=== PATIENT | female | born 1945 | race Caucasian/White ===

== ENCOUNTER 2024-04-28 16:16 | Outpatient (CLI) | payer MEDICARE, SELFPAY ==
--- NOTE | ~2024-04-28 | XR_ITS ---
XR cervical spine min 6V Ordering provider: Cyndee Garcia History: . osteopenia, tremor . Comparison: None. FINDINGS: VERTEBRAL BODIES: Normal height and alignment. No visible fracture or subluxation. The dens is intact . Postoperative changes seen anteriorly and posteriorly from C3 to C6.. DISK SPACES: Multilevel degenerative disc disease. Multilevel uncovertebral joint osteoarthritic richards ges. PARASPINOUS SOFT TISSUES: No prevertebral soft tissue swelling. IMPRESSION: No acute osseous abnormality cervical spine. Postoperative changes. Reviewed, dictated and finalized at location [facility]
== END 2024-04-28 16:17 | disposition home or self-care (01) ==
LOC: MICIMG 16:22
PROVIDERS: PCP Internal Medicine
DX: M35.09 Sjogren syndrome with other organ involvement (principal); M85.80 Other specified disorders of bone density and structure, unspecified site; R25.1 Tremor, unspecified; M35.2 Behcet's disease; Z98.890 Other specified postprocedural states
CPT/HCPCS: 72052

== ENCOUNTER 2024-06-24 11:56 | Emergency (ER) | payer MEDICARE, SELFPAY ==
--- NOTE | ~2024-06-24 | XR_ITS ---
XR chest 2V Ordering provider: Juan Antonio Gutierrez History: 78 years Female with . CP . Comparison: September 18, 2016 FINDINGS: MEDIASTINUM: The cardiac silhouette is not enlarged. LUNGS: No infiltrates, effusions or pneumothorax. Emphysematous changes of the lungs. OTHER: No free air under the diaphragm. Degenerative changes of the spine. IMPRESSION: No acute cardiopulmonary pathology. Reviewed, dictated and finalized at location A. [employer]
--- NOTE | 2024-06-24 11:58 | ECG_ITS ---
Test Date: 2024-06-24 12:08:15 Measurements Intervals [place] Rate: 76 P: 75 VA: 167 QRS: 42 QRSD: 85 T: 62 QT: 434 QTc: 488 Interpretive Statements SINUS RHYTHM NONSPECIFIC T-WAVE ABNORMALITY No previous ECG available for comparison Electronically Signed On 06-24-2024 15:49:49 PALS NURSE by Darin Singh M.D.
[2024-06-24 12:01] VITALS: PULSE 88; RESP 20; TEMP 36.7; O2SAT 99
[2024-06-24 12:21] VITALS: BP 122/71; PULSE 73; RESP 20; O2SAT 100
[2024-06-24 12:24] LABS: Eosinophils Absolute Auto 0.4 K/mm3 (0-0.3); Hematocrit 32.1 % (37.0-47.0); Hemoglobin 10.3 g/dL (12.0-15.0); Immature Granulocyte Absolute 0.01 K/mm3 (0.00-0.031); Immature Granulocyte Percent A 0.3 % (0-0.5); Lymphocytes Absolute Auto 1.24 K/mm3 (0.9-3.2); Lymphocytes Percent Auto 31.1 % (18.3-44.2); Mean Corpuscular HGB Conc 32.1 g/dl (32-36); Mean Corpuscular Hemoglobin 31.1 pg (26-34); Mean Platelet Volume 9.6 fl (7.4-10.4); Monocytes Absolute Auto 0.5 K/mm3 (0.1-0.6); Monocytes Percent Auto 11.8 % (2.6-8.5); Neutrophils Absolute Auto 1.8 K/mm3 (1.3-6.7); Neutrophils Percent Auto 45.8 % (45.5-73.1); Platelet Count Result 210 k/mm3 (150-375); Red Blood Count 3.31 M/mm3 (4.2-5.4); Red Cell Distribution Width 15.1 % (11.5-14.5)
[2024-06-24 12:37] LABS: Prothrombin Time 13.3 Seconds (11.1-14.7)
[2024-06-24 12:38] LABS: Alanine Aminotransferase 19 U/L (6-35); Albumin Level 3.6 g/dL (3.5-5.1); Alkaline Phosphatase 61 U/L (38-126); Anion Gap 9 mmol/L (4-12); Aspartate Amino Transferase 34 U/L (14-36); Bilirubin,Total 0.4 mg/dL (0.2-1.3); Blood Urea Nitrogen 8 mg/dL (7-17); Calcium 8.4 mg/dL (8.4-10.2); Carbon Dioxide 26 mmol/L (22-30); Chloride 107 mmol/L (98-107); Estimated CRCL calculation 37 ml/min; Estimated Glomerular Filt Rate > 60; Glucose 88 mg/dL (65-110); Lipase 43 U/L (23-300); Partial Thromboplastin Time 26.5 Seconds (22.3-36.8); Sodium 142 mmol/L (137-145)
[2024-06-24 12:49] LABS: Troponin I < 0.012 ng/mL (0.000-0.034)
--- OUTSIDE RECORDS SUMMARY | 2024-06-24 13:27 | XMS_ITS | Referral Summary ---
Author Organization [facility] Address [address] [place] [address] Care Team Providers Care Manager Employee Benefits Name Role Phone Sumit Cool MD Primary Care Provider [phone] Jared Cruz MD Unavailable Unavailable Dk Adams MD Unavailable Source Comments [facility],non-owned Affiliates and Associated Physician Practices is amultiple site organization consisting of ambulatory clinics and hospital sitesin [place], [place], [place] and [place]. This disclosure is being madepursuant to the Care Everywhere program and may not contain all information available regarding this patient. Last updated 18.[facility] [employer] Allergies No known active allergies Medications * Be aware that medications may not be up to date on this document. Alwaysverify current medications with the patient. Medication Sig Dispensed Refills Start Date End Date Status atorvastatin (LIPITOR) 20 MG tablet 05/25/2018 Active FLUoxetine (PROZAC) 40 MG capsule 05/25/2018 Active gabapentin (NEURONTIN) 300 MG capsule 05/25/2018 Active hydroxychloroquine (PLAQUENIL) 200 MG tablet 05/25/2018 Active levothyroxine (SYNTHROID) 100 MCG tablet 05/25/2018 Active pantoprazole EC (PROTONIX) 40 MG tablet 05/25/2018 Active PROAIR HFA 108 (90 BASE) MCG/ACT inhaler 04/24/2018 Active tiZANidine (ZANAFLEX) 4 MG tablet 05/25/2018 Active ALPRAZolam (XANAX) 0.25 MG tablet 03/16/2018 Active Xylitol (XYLIMELTS) 500 MG Active aspirin (ASPIRIN) 81 MG tablet Take 162 mg by mouth 2 times daily Active Melatonin 5 MG Take 10 mg by mouth at bedtime Active Polyethylene Glycol 3350 (MIRALAX PO) Active carboxymethylcellu lose sodium (REFRESH TEARS) 0.5 % ophthalmic solution 1 drop 3 times daily Acti ve colchicine 0.6 MG tablet 10/17/2020 Active lidocaine viscous (XYLOCAINE) 2 % viscous solution Lidocaine Viscous 2 % mucosal solution SWISH AND SPIT 15ML BY MOUTH EVERY 4 6 HOURS NEEDED FOR PAIN Active orphenadrine citrate CR 12hr (NORFLEX) 100 MG tablet orphenadrine citrate ER 100 mg tablet,extended release Take 1 tablet 4 times a day by oral route. Active budesonide-formote rol (SYMBICORT) 160-4.5 MCG/ACT inhaler Inhale 2 (two) puffs by mouth 2 times daily 3 Inhaler 3 10/28/2020 Active Active Problems Problem Noted Date Diagnosed Date Pulmonary embolism 10/27/2020 Mild persistent asthma without complication 08/20 Immunizations Name Administration Dates Next Due INFLUENZA VACCINE, TRIV. (AF LURIA, FLUZONE TRIVALENT; 6MO+) (IIV3) 03/12/2014,02/27/2013 FLU VACCINE QUAD IIV4 SPLIT 0.25 ML IM 5 INFLUENZA VACCINE, HIGH-DOSE , QUADR. (FLUZONE HIGH-DOSE QUADRIVALENT; 65Y+), 0.7 ML (HD-IIV4) 04/28/2019,02/14/2018,01/29/2017 PNEUMOCOCCAL PPSV23 01/29/2017 Pneumococcal Pcv13 Conj 09/17/2014 Social History Tobacco Use Types Packs/Day Years Used Date Smoking Tobacco: Never Smokeless Tobacco: Never Alcohol Use Standard Drinks/Week Comments Yes 0 (1 standard drink = 0.6 oz pur e alcohol) occasionally Sex and Gender Information Value Date Recorded Sex Assigned at Not on file Gender Identity Not on file Sexual Orientation Not on file Last Filed Vital Signs Vital Sign Reading Time Taken Comments Blood Pressure 118/70 10/27/2020 1:28 PM CDT Pulse 71 10/27/2020 1:28 PM CDT Temperature 36.4 C (97.5 F) 10/27/2020 1:28 PM CDT Respiratory Rate 20 10/27/2020 1:28 PM CDT Oxygen Saturation 97% 10/27/2020 1:28 PM CDT Inhaled Oxygen Concentration 21% 08/27/2018 2 :43 PM CDT Weight 57.2 kg (126 lb) 10/27/2020 1:28 PM CDT Height 154.9 cm (5' 1 ) 10/27/2020 1:28 PM CDT Body Mass Index 23.81 10/27/2020 1:28 PM CDT Plan of Treatment Not on file Procedures Procedure Name Priority Date/Time Associated Diagnosis Comments DEXA BONE DENSITY AXIAL SKELETON Routine 08/28/2021 12:06 PM CDT Sjogren syndrome with other organ involvement (HCC) Osteopenia, unspecified location Cervical fusion syndrome Oral candidiasis from Last 3 Months or Most Recently Relevant to Health Maintenance Results * DEXA BONE DENSITY AXIAL SKELETON (08/28/2021 12:06 PM CDT) Anatomical Region Laterality Modality Mammography 08/28/2021 12:2 6 PM CDT Narrative 08/28/2021 12:30 PM CDT Bone density study (DEXA): HISTORY: Screening COMPARISON: _June 29, 2019_ LUMBAR SPINE (L1-L4): Bone mineral density (g/cm2): 1.004 Current T-score: -1.5 Prior T-score: -2.2 There is been a 9.8% increase in bone mineral density when compared to the prior study. HIPS: Bone mineral density (g/cm2): 0.748 Current T-score: -2.1 Prior T-score: -1.6 _There is been a 6.8% decrease in bone mineral density when compared to the prior study. Outlying low bone mineral density value in the right hip total is 0.702 gm/cm2. T-score is -2.4 ASSESSMENT: Osteopenia. Please see the PACS images for additional details. World Health Organization definitions of standard deviations relative to the mean T-score: Normal bone density = -1.0 and above Mild osteopenia = -1.0 to -1.5 Moderate osteopenia = -1.5 to -2.0 Severe osteopenia = -2.0 to -2.5 Osteoporosis = -2.5 and below *Reading Radiologist: Sahil Peralta on 08/28/2021 at 12:30 PM Procedure Note Sahil Peralta DO - 08/28/2021 Bone density study (DEXA): HISTORY: Screening COMPARISON: _June 29, 2019_ LUMBAR SPINE (L1-L4): Bone mineral density (g/cm2): 1.004 Current T-score: -1.5 Prior T-score: -2.2 There is been a 9.8% increase in bone mineral density when compared to the prior study. HIPS: Bone mineral density (g/cm2): 0.748 Current T-score: -2.1 Prior T-score: -1.6 _There is been a 6.8% decrease in bone mineral density when compared to the prior study. Outlying low bone mineral density value in the right hip total is 0.702 gm/cm2. T-score is -2.4 ASSESSMENT: Osteopenia. Please see the PACS images for additional details. World Health Organization definitions of standard deviations relative to the mean T-score: Normal bone density = -1.0 and above Mild osteopenia = -1.0 to -1.5 Moderate osteopenia = -1.5 to -2.0 Severe osteopenia = -2.0 to -2.5 Osteoporosis = -2.5 and below *Reading Radiologist: Sahil Peralta on 08/28/2021 at 12:30 PM Jared Cruz MD DEXA ORDERABLES from Last 3 Months or Most Recently Relevant to Health Maintenance Care Teams Manager Employee Benefits Relationship Specialty Start Date End Date Sumit Cool MD [address] [place] [address] [address] [place] [address] PCP - General Internal Medicine 05/03/17 Jared Cruz MD [address] [place] [address] [address] [place] [address] Rheumatology 06/02/18 [place] [id number] [address] Pulmonary Disease 06/02/18
--- OUTSIDE RECORDS SUMMARY | 2024-06-24 13:27 | XMS_ITS ---
Author Organization [facility] Address [address] [place] [address] Care Team Providers Care Valve Lapper Name Role Phone Kb Mobley Unavailable [phone] zzzzMigration, zzzzProvider Unavailable Unav ailable REASON FOR VISIT EMR-Matthew Encounters Encounter Location Date Provider Diagnosis [facility] [address] [place] [address] 02/09/2023 zzzzProvider zzzzMigration Plan Of Treatment Medication Medication Name Sig Start Date Stop Date Notes Fosamax 70 MG q week Oral 09/25/2004 Salagen 5 MG 1 Three Times A Day, As Needed Oral 5 Progress Notes * Génesis CONDON LDOB: [birth year] (78 yo F)Acc No.[id number]:02/09/2023 Patient: Verito Génesis SEVILLA :1945 A ge:77 Y S ex:Female Address:[address] [place] [address], [address] * Refills Stop Fosamax Tablet, 70 MG, Oral, 1.00, q week Stop Salagen Tablet, 5 MG, Oral, 90.00, 1 Three Times A Day, As Needed Subjective: * Chief Complaints: * E MR-Matthew * Medical History: * Surgical History: * Hospitalization/Major Diagno stic Procedure: * Medications: Objective: * Vitals: * Physical Examination: Assessment: Plan: * Treatment: * Procedure Codes: * * Date:
--- OUTSIDE RECORDS SUMMARY | 2024-06-24 13:27 | XMS_ITS | Clinical Summary ---
Author Organization [facility] [employer] Address [address] [place] [address] Care Team Providers Care National Coverage Specialist Name Role Phone Sumit Cool MD Primary Care Provider [phone] Jared Cruz MD Unavailable Unavailable Dk Adams MD Unavailable Source Comments [facility],non-owned Affiliates and Associated Physician Practices is amultiple site organization consisting of ambulatory clinics and hospital sitesin [place], [place], [place] and [place]. This disclosure is being madepursuant to the Care Everywhere program and may not contain all information available regarding this patient. Last updated 18.[facility] Allergies No known active allergies Medications * [...] 10/27/2020 1:28 PM CDT Plan of Treatment Health Maintenance Due Date Last Done Comments HEPATITIS C SCREENING 10/19/1965 DTAP/TDAP/TD VACCINES (1 - Tdap) 10/23/1966 ZOSTER VACCINE (1 of 2) 10/23/1997 Respiratory Syncytial Virus (RSV) Vaccine Pt: or over 60 yrs (1 - 1-dose 75+ series) 10/23/2022 COVID-19 VACCINE ( - season) 2023 08/07/2021, 01/19/2021 INFLUENZA VACCINE (#1) 2023 , 04/28/2019, 02/14/2018, Additional history exists DEPRESSION SCREENING 04/22/2024 MEDICARE AWV CALENDAR YEAR 2024 PNEUMOCOCCAL VACCINE 50+ Completed 01/29/2017, 08/21 BONE DENSITY TESTING Completed 08/28/2021, 06/29/2019, 05/03/2017 HEPATITIS B VACCINE Aged Out No longe r eligible based on patient's age to complete this topic HIB VACCINE Aged Out No longer eligi ble based on patient's age to complete this topic HPV VACCINE Aged Out No longer eligi ble based on patient's age to complete this topic MENINGOCOCCAL (Group B) VACCINE Aged Out No longer eligible based on patient's age to complete this topic MENINGOCOCCAL VACCINE Aged Out No aleja yu eligible based on patient's age to complete this topic Procedures Procedure Name Priority Date/Time Associated Diagnosis [...] Recently Relevant to Health Maintenance Care Teams National Coverage Specialist Relationship Specialty Start Date End Date Sumit Cool MD [address] [place] [phone] PCP - General Internal Medicine 05/03/17 Jared Cruz MD [address] [place] [phone] Rheumatology 06/02/18 [place] [id number] [address] Pulmonary Disease 06/02/18
--- OUTSIDE RECORDS SUMMARY | 2024-06-24 13:28 | XMS_ITS | Encounter Summary ---
Author Organization [facility] Address [address] [place] [address] Care Team Providers Care Mortgage Or Loan Underwriter Name Role Phone Unavailable Primary Care Provider Unavailabl e Encounter Details Date Type Department Care Team (Late st Contact Info) Description 06/23/2024 External Device Data [facility] ABSTRACTION Provider, Abstract NO ADDRESS ON FILE Social History Tobacco Use Types Packs/Day Years Used Date Smoking Tobacco: Never Smokeless Tobacco: Never Alcohol Use Standard Drinks/Week Comments Yes 0 (1 standard drink = 0.6 oz pure alcohol) I drink wine coolers and flavored beer 3-4 times a week. Comments Unknown Sex and Gender Information Value Date Recorded Sex Assigned at Female 04/27/2024 12:34 PM INTEGRATED CIRCUITS INSPECTOR Legal Sex Female 11:17 AM INTEGRATED CIRCUITS INSPECTOR Gender Identity Female 04/27/2024 12:34 PM INTEGRATED CIRCUITS INSPECTOR Sexual Orientation Straight 04/27/2024 12 :34 PM INTEGRATED CIRCUITS INSPECTOR documented as of this encounter Plan of Treatment Not on file documented as of this encounter Visit Diagnoses Not on filedocumented in this encounter
--- OUTSIDE RECORDS SUMMARY | 2024-06-24 13:28 | XMS_ITS | Patient Health Summary ---
Author Organization [facility] Address [address] [place] [address] Care Team Providers Care Java Web Architect Name Role Phone Sumit Cool MD Primary Care Provider [phone] Jared Cruz MD Unavailable Unavailable Dk Adams MD Unavailable Note from [facility],non-owned Affiliates and Associated Physician Practices is amultiple site organization consisting of ambulatory clinics and hospital sitesin [place], [place], [place] and [place]. This disclosure is being madepursuant to the Care Everywhere program and may not contain all information available regarding this patient. Last updated 18.[facility] Allergies No known active allergies Medications * Be aware that medications may not be up to date on this document. Alwaysverify current medications with the patient. * atorvastatin (LIPITOR) 20 MG tablet(Started 05/25/2018) * FLUoxetine (PROZAC) 40 MG capsule(Started 05/25/2018) * gabapentin (NEURONTIN) 300 MG capsule(Started 05/25/2018) * hydroxychloroquine (PLAQUENIL) 200 MG tablet(Started 05/25/2018) * levothyroxine (SYNTHROID) 100 MCG tablet(Started 05/25/2018) * pantoprazole EC (PROTONIX) 40 MG tablet(Started 05/25/2018) * PROAIR HFA 108 (90 BASE) MCG/ACT inhaler(Started 04/24/2018) * tiZANidine (ZANAFLEX) 4 MG tablet(Started 05/25/2018) * ALPRAZolam (XANAX) 0.25 MG tablet(Started 03/16/2018) * Xylitol (XYLIMELTS) 500 MG * aspirin (ASPIRIN) 81 MG tablet Take 162 mg by mouth 2 times daily * Melatonin 5 MG Take 10 mg by mouth at bedtime * Polyethylene Glycol 3350 (MIRALAX PO) * carboxymethylcellulose sodium (REFRESH TEARS) 0.5 % ophthalmic solution 1 drop 3 times daily * colchicine 0.6 MG tablet(Started 10/17/2020) * lidocaine viscous (XYLOCAINE) 2 % viscous solution Lidocaine Viscous 2 % mucosal solution SWISH AND SPIT 15ML BY MOUTH EVERY 4 6 HOURS NEEDED FOR PAIN * orphenadrine citrate CR 12hr (NORFLEX) 100 MG tablet orphenadrine citrate ER 100 mg tablet,extended release Take 1 tablet 4 times a day by oral route. * budesonide-formoterol (SYMBICORT) 160-4.5 MCG/ACT inhaler(Started 10/28/2020) Inhale 2 (two) puffs by mouth 2 times daily 3 refills by 10/28/2021 Active Problems Problem Noted Date Diagnosed Date Pulmonary embolism 10/27/2020 Mild persistent asthma without complication 08/20 Immunizations * INFLUENZA VACCINE, TRIV. (AFLURIA, FLUZONE TRIVALENT; 6MO+) (IIV3)(Given 03/12/2014, 02/27/2013) * FLU VACCINE QUAD IIV4 SPLIT 0.25 ML IM(Given 03/11/2015) * INFLUENZA VACCINE, HIGH-DOSE, QUADR. (FLUZONE HIGH-DOSE QUADRIVALENT; 65Y+), 0.7 ML (HD-IIV4)(Given 04/28/2019, 02/14/2018, 01/29/2017) * PNEUMOCOCCAL PPSV23(Given 01/29/2017) * Pneumococcal Pcv13 Conj(Given 09/17/2014) Social History Tobacco Use Types Packs/Day Years [...] Mass Index 23.81 10/27/2020 1:28 PM CDT Procedures * DEXA BONE DENSITY AXIAL SKELETON(Performed 08/28/2021) Performed for Sjogren syndrome with other organ involvement (HCC), Osteopenia, unspecified location, Cervical fusion syndrome, Oral candidiasis * DEXA BONE DENSITY AXIAL SKELETON(Performed 06/29/2019) Performed for Sjogren's syndrome with other organ involvement (HCC), Age-related osteoporosis without current pathological fracture * BRONCHIAL CHALLENGE(Performed 09/21/2018) Performed for Exertional dyspnea * COMPLETE PFT W/WO BRONCHODILATOR(Performed 09/21/2018) Performed for Exertional dyspnea * HOME O2 EVAL (DESATURATION SCREEN)(Performed 08/27/2018) Performed for Exertional dyspnea * ECHOCARDIOGRAM 2D WITH DOPPLER(Performed 06/17/2018) Performed for Exertional dyspnea * XR CHEST 2VW(Performed 05/01/2018) Performed for Sjogren's syndrome with other organ involvement (HCC), Age-related osteoporosis without current pathological fracture, Breath shortness * CMGTEST(Performed 05/01/2018) * DEXA BONE DENSITY AXIAL SKELETON(Performed 05/03/2017) Performed for Age-related osteoporosis without current pathological fracture Results * DEXA BONE DENSITY AXIAL SKELETON (08/28/2021 12:06 PM CDT) Only the most recent of3 resultswithin the time period is included. Anatomical Region Laterality Modality Mammography 08/28/2021 12:2 [...] 12:30 PM Jared Cruz MD DEXA ORDERABLES * BRONCHIAL CHALLENGE WITH METHACHOLINE (09/21/2018 2:10 AM CDT) Narrative Procedure Note Dk Adams MD - 08/27/2018 1:08 PM CDT [facility] PULMONARY FUNCTION TEST REPORT PATIENT: GÉNESIS CONDON MR#: [id number] ADMIT DATE: 08/27/2018 CSN: [id number] DATE OF PROCEDURE: :1945 PHYSICIAN: Dk Adams MD REFERRING PHYSICIAN: Dk Adams MD REPORT: Forced vital capacity at baseline was 2.69 L and 102% ofpredicted. FEV1 at baseline was 2.10 L and 106% of predicted. The patient wasstarted on escalating dose of Provocholine. After dose of 0.74 mg/dL, she achieved acut off of 20% decrease in FEV1. At a dose of 2.5 mg/dL, FVC was reduced by23% and FEV1 was reduced by 29%. Upon application of the bronchodilator,the values are back to within normal range. INTERPRETATION: This methacholine challenge test is positive suggestiveof asthma. Please correlate clinically. MD Scooter AU/MODL #:[id number] Dk Adams MD PFT ORDERABLES [facility] * COMPLETE PFT W/WO BRONCHODILATOR (09/21/2018 2:10 AM CDT) Narrative Procedure Note Dk Adams MD - 08/27/2018 1:07 PM CDT [facility] PULMONARY FUNCTION TEST REPORT PATIENT: GÉNESIS CONDON MR#: [id number] ADMIT DATE: 08/27/2018 CSN: [id number] DATE OF PROCEDURE: :1945 PHYSICIAN: Dk Adams MD REFERRING PHYSICIAN: Dk Adams MD REPORT: Forced vital capacity is normal, which is 2.69 L and 102% of predicted. FEV1 was normal as well, which is 2.10 L and 106% ofpredicted. The ratio of FEV1/FVC was normal, which is 78% of predicted. Flow in themid expiratory range was normal, which is 101% of predicted. Bronchodilatorand bronchodilator response were not checked. Vital capacity was mildlyhigher compared to expected, which was 2.69 L and 107% of predicted. Totallung capacity was higher than expected, which was 5.05 L and 120% ofpredicted. There was evidence of air entrapment with RV being 140% of predicted.DLCO was mildly reduced, which was 79% of predicted. When it was adjustedfor alveolar volume, it became 103% of predicted. Upon inspection of theflow volume curve, there is mild scooping of the expiratory limb, suggestiveof mild obstructive pattern. 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 No evidence ofrestrictive lung disease. Please correlate clinically. MD Scooter AU/MODL #:[id number] kD Adams MD RESPIRATORY THERAPY ORDERABLES [facility] * ECHOCARDIOGRAM 2D WITH DOPPLER (06/17/2018 10:51 AM MANAGING COGNITIVE ENGINEER) 06/17/2018 10:5 1 AM MANAGING COGNITIVE ENGINEER Narrative [facility] - 06/23/2018 8:29 AM [facility] [address] [facility] [address] [place] [address] Transthoracic Echocardiogram 2D, M-mode, Doppler, and Color Doppler Patient: GÉNESIS CONDON MR number: [id number] Height: 61 in Weight: 141.7 lb BSA: 1.63 m Study date: 17-Jun-2018 : 1945 Age: 72 years Gender: Female Race: Diagnoses: R06.09 - Other forms of dyspnea Reading Physician: Kacie Lepe MD Referring Physician: Angie Root MD ASSISTANT PRESSMAN: SOL [facility]: [facility] Summary: - History: - Sjogren Syndrome/ Hypertension/ Hyperlipidemia/ PAF/ Pulmonary embolism - Left ventricle: - Systolic function was normal. Ejection fraction was estimated in the range of 55 % to 65 %. - There were no regional wall motion abnormalities. - Wall thickness was normal. - Doppler parameters were consistent with abnormal left ventricular relaxation (grade 1 diastolic dysfunction). - Mitral valve: - There was mild regurgitation. Indications: Evaluate dyspnea. History: Prior history: Sjogren Syndrome/ Hypertension/ Hyperlipidemia/ PAF/ Pulmonary embolism Procedure: The study was performed in the [facility]. This was a routine study. The transthoracic approach was used. The study included complete 2D imaging, M-mode, complete spectral Doppler, and color Doppler. Systolic blood pressure was 119 mmHg. Diastolic blood pressure was 71 mmHg. Image quality was adequate. Left ventricle: Size was normal. Systolic function was normal. Ejection fraction was estimated in the range of 55 % to 65 %. There were no regional wall motion abnormalities. Wall thickness was normal. Doppler: Doppler parameters were consistent with abnormal left ventricular relaxation (grade 1 diastolic dysfunction). Aortic valve: demonstrated normal excursion. Mitral valve: There was normal leaflet separation. Doppler: There was mild regurgitation. Left atrium: Size was normal. Right ventricle: The size was normal. Pulmonic valve: Doppler: There was no significant regurgitation. Tricuspid valve: There was normal leaflet separation. Doppler: There was trivial regurgitation. Right atrium: Size was normal. Pericardium: There was no pericardial effusion. The pericardium was normal in appearance. System measurement tables 2D LVOT Diam: 2.2 cm IVSd: 0.9 cm LVEDV MOD A4C: 76.3 ml LVESV MOD A4C: 26.5 ml LVIDd: 3.5 cm LVIDs: 2.5 cm LVPWd: 0.9 cm CW PV Vmax: 0.8 m/s AV Vmax: 1.3 m/s AV maxP.7 mmHg AV meanP.8 mmHg MR VTI: 148.3 cm MR Vmax: 5.2 m/s PV maxP.6 mmHg TR Vmax: 2.3 m/s TR maxP.8 mmHg MM LA Diam: 1.9 cm Ao Diam: 3.2 cm PW LVOT Vmax: 0.9 m/s HOOD (VTI): 2.6 cm2 HOOD Vmax: 2.4 cm2 E' Av.1 m/s E' Lat: 0.1 m/s E' Sept: 0.1 m/s E/E' Av.8 E/E' Lat: 6.3 E/E' Sept: 10.2 MV A Cosme: 0.9 m/s MV Dec Jewell: 3.3 m/s2 MV E Cosme: 0.7 m/s MV E/A Ratio: 0.7 Prepared and signed by Kacie Lepe MD Signed 23-Jun-2018 08:29:32 Procedure Note Unknown, Provider, - 06/23/2018 [facility] [address] [place] [address] Transthoracic Echocardiogram 2D, M-mode, Doppler, and Color Doppler Patient: GÉNESIS CONDON MR number: [id number] Height: 61 in Weight: 141.7 lb BSA: 1.63 m Study date: 17-Jun-2018 : 1945 Age: 72 years Gender: Female Race: Diagnoses: R06.09 - Other forms of dyspnea Reading Physician: Kacie Lepe MD Referring Physician: Angie Root MD ASSISTANT PRESSMAN: SOL [facility]: [facility] Summary: - History: - Sjogren Syndrome/ Hypertension/ Hyperlipidemia/ PAF/ Pulmonary embolism - Left ventricle: - Systolic function was normal. Ejection fraction was estimated in the range of 55 % to 65 %. - There were no regional wall motion abnormalities. - Wall thickness was normal. - Doppler parameters were consistent with abnormal left ventricular relaxation (grade 1 diastolic dysfunction). - Mitral valve: - There was mild regurgitation. Indications: Evaluate dyspnea. History: Prior history: Sjogren Syndrome/ Hypertension/ Hyperlipidemia/ PAF/ Pulmonary embolism Procedure: The study was performed in the [facility]. This was a routine study. The transthoracic approach was used. The study included complete 2D imaging, M-mode, complete spectral Doppler, and color Doppler. Systolic blood pressure was 119 mmHg. Diastolic blood pressure was 71 mmHg. Image quality was adequate. Left ventricle: Size was normal. Systolic function was normal. Ejection fraction was estimated in the range of 55 % to 65 %. There were no regional wall motion abnormalities. Wall thickness was normal. Doppler: Doppler parameters were consistent with abnormal left ventricular relaxation (grade 1 diastolic dysfunction). Aortic valve: demonstrated normal excursion. Mitral valve: There was normal leaflet separation. Doppler: There was mild regurgitation. Left atrium: Size was normal. Right ventricle: The size was normal. Pulmonic valve: Doppler: There was no significant regurgitation. Tricuspid valve: There was normal leaflet separation. Doppler: There was trivial regurgitation. Right atrium: Size was normal. Pericardium: There was no pericardial effusion. The pericardium was normal in appearance. System measurement tables 2D LVOT Diam: 2.2 cm IVSd: 0.9 cm LVEDV MOD A4C: 76.3 ml LVESV MOD A4C: 26.5 ml LVIDd: 3.5 cm LVIDs: 2.5 cm LVPWd: 0.9 cm CW PV Vmax: 0.8 m/s AV Vmax: 1.3 m/s AV maxP.7 mmHg AV meanP.8 mmHg MR VTI: 148.3 cm MR Vmax: 5.2 m/s PV maxP.6 mmHg TR Vmax: 2.3 m/s TR maxP.8 mmHg MM LA Diam: 1.9 cm Ao Diam: 3.2 cm PW LVOT Vmax: 0.9 m/s HOOD (VTI): 2.6 cm2 HOOD Vmax: 2.4 cm2 E' Av.1 m/s E' Lat: 0.1 m/s E' Sept: 0.1 m/s E/E' Av.8 E/E' Lat: 6.3 E/E' Sept: 10.2 MV A Cosme: 0.9 m/s MV Dec Jewell: 3.3 m/s2 MV E Cosme: 0.7 m/s MV E/A Ratio: 0.7 Prepared and signed by Kacie Lepe MD Signed 23-Jun-2018 08:29:32 Dk Adams MD ECHO ORDERABLES [facility] * XR CHEST 2VW (05/01/2018 1:25 PM MANAGING COGNITIVE ENGINEER) Anatomical Region Laterality Modality Chest Radiographic Hilaria ging 05/01/2018 2:22 PM MANAGING COGNITIVE ENGINEER Narrative 05/01/2018 2:22 PM MANAGING COGNITIVE ENGINEER PA + Lateral Chest INDICATION: Sicca syndrome with other organ involvement, shortness of breath COMPARISON: none available FINDINGS: There is no focal infiltrate or consolidation. There is no pleural effusion or pneumothorax. A mass is not detected. The heart size is normal. There is hyperexpansion with prominence of interstitial pattern suggesting background COPD. Reading Radiologist: Juan Luis Brand MD on 05/01/2018 at 2:22 PM Procedure Note Juan Luis Brand MD - 05/01/2018 PA + Lateral Chest INDICATION: Sicca syndrome with other organ involvement, shortness of breath COMPARISON: none available FINDINGS: There is no focal infiltrate or consolidation. There is no pleural effusion or pneumothorax. A mass is not detected. The heart size is normal. There is hyperexpansion with prominence of interstitial pattern suggesting background COPD. Reading Radiologist: Juan Luis Brand MD on 05/01/2018 at 2:22 PM Jared Cruz MD DIAGNOSTIC IMAGING O RDERABLES * XR CHEST PA & LAT (05/01/2018) Anatomical Region Laterality Modality Other Jared Cruz MD DIAGNOSTIC IMAGING O RDERABLES Care Teams Java Web Architect Relationship Specialty Start Date End Date Sumit Cool MD [address] [place] [address] [address] [place] [id number] PCP - General Internal Medicine 05/03/17 Jared Cruz MD [facility] [place] [address] Rheumatology 06/02/18 [place] [id number] [address] Pulmonary Disease 06/02/18
--- OUTSIDE RECORDS SUMMARY | 2024-06-24 13:28 | XMS_ITS | Clinical Summary ---
Author Organization [facility] Address [address] [place] [address] Phone Care Team Providers Care Sales Assistant Institutional Sales Name Role Phone Unavailable Primary Care Provider Unavailabl e Allergies No known active allergies Medications alendronate (FOSAMAX) 70 mg tablet 04/28/2024 Active ALPRAZolam (XANAX) 0.25 mg tablet Take 1 Tablet by mouth 3 times daily. 02/19/2024 Active atorvastatin (LIPITOR) 20 mg tablet take 1 tablet once daily Active colchicine (COLCRYS) 0.6 mg tablet TAKE 3 TABLETS DAILY FOR BETTER BECHET'S CONTROL 04/08/2024 Active dexAMETHasone (DECADRON) 0.5 mg/5 mL Solution TAKE 5 ML BY MOUTH 2 TO 3 TIMES DAILY AND STOP WHEN ORAL ULCERS HAVE IMPROVED 03/11/2024 Active hydroxychloroqu ine (PLAQUENIL) 200 mg tablet Take 400 mg by mouth daily. Active levothyroxine 100 mcg tablet Take 100 mcg by mouth daily. Active diclofenac-met salicyl-menthoL 1-30-10 % Combo Pack, Cream & Gel Apply to affected area. Active FLUoxetine (PROzac) 40 mg capsule Take 40 mg by mouth daily. Active Active Problems No known active problems Encounters Date Type Department Care Team Description 06/23/2024 External Device Data [facility] ABSTRACTION Provider, Abstract 06/09/2024 External Device Data [facility] ABSTRACTION Provider, Abstract 05/28/2024 Results Follow-Up [facility] [address] [address] [place] [address] Amilcar Venegas NP MRI CERVICAL WO CONTRAST 05/27/2024 9:48 AM PUBLIC ADDRESS TECHNICIAN - 05/27/2024 11:59 PM PUBLIC ADDRESS TECHNICIAN Hospital Encounter [facility] [place] [facility] [place] [address] Amilcar Venegas NP Discharge Disposition: Home or Self Care 05/14/2024 External Device Data [facility] ABSTRACTION Provider, Abstract 05/12/2024 External Device Data [facility] ABSTRACTION Provider, Abstract 05/12/2024 External Device Data [facility] ABSTRACTION Provider, Abstract 05/05/2024 2:00 PM PUBLIC ADDRESS TECHNICIAN Office Visit [facility] [address] [facility] [address] [place] [address] Amilcar Venegas NP Cervical radiculopathy (Primary Dx); Abnormal posture from Last 3 Months Family History Medical History Relation Name Comments Diabetes Daughter 1 Elsie Whittleman Mental illness Daughter 2 Cathie Condon Migraines Daughter 2 Cathie Condon Mental illness Daughter 4 Cathie Condon Migraines Daughter 4 Cathie Condon Diabetes Mother Ines Swenson Relation Name Status Comments Daughter 1 Elsie Whittleman Daughter 2 Cathie Condon Daughter 3 Elsie Whittleman Daughter 4 Cathie Condon Father Mother Ines Swenson Social History Tobacco Use Types Packs/Day Years Used Date Smoking Tobacco: Never Smokeless Tobacco: Never Alcohol Use Standard Drinks/Week Comments Yes 0 (1 standard drink = 0.6 oz pure alcohol) I drink wine coolers and flavored beer 3-4 times a week. Comments Unknown Sex and Gender Information Value Date Recorded Sex Assigned at Female 04/27/2024 12:34 PM PUBLIC ADDRESS TECHNICIAN Legal Sex Female 11:17 AM PUBLIC ADDRESS TECHNICIAN Gender Identity Female 04/27/2024 12:34 PM PUBLIC ADDRESS TECHNICIAN Sexual Orientation Straight 04/27/2024 12 :34 PM PUBLIC ADDRESS TECHNICIAN Last Filed Vital Signs Vital Sign Reading Time Taken Comments Blood Pressure 112/74 05/05/2024 1:48 PM PUBLIC ADDRESS TECHNICIAN Pulse - - Temperature 36.6 C (97.9 F) 05/05/2024 1:48 PM PUBLIC ADDRESS TECHNICIAN Respiratory Rate 16 05/05/2024 1:48 PM PUBLIC ADDRESS TECHNICIAN Oxygen Saturation - - Inhaled Oxygen Concentration - - Weight 50.8 kg (112 lb 1.6 oz) 05/05/2024 1:48 P M PUBLIC ADDRESS TECHNICIAN Height 154.9 cm (5' 1 ) 05/05/2024 1:48 PM PUBLIC ADDRESS TECHNICIAN Body Mass Index 21.18 05/05/2024 1:48 PM PUBLIC ADDRESS TECHNICIAN Plan of Treatment Health Maintenance Due Date Last Done Comments DTAP/TDAP/TD VACCINES (1 - Tdap) 10/23/1966 ZOSTER VACCINE (1 of 2) 10/23/1966 RSV VACCINE (60+ or ) (1 - 1-dose 75+ series) 10/23/2022 PNEUMOCOCCAL VACCINE 50+ YEARS Completed 01/29/2017 , 09/17/2014 INFLUENZA VACCINE Completed 01/30/2024, , 01/19/2021, Additional history exists OSTEOPOROSIS SCREENING Completed , 08/28/2021, 08/28/2021, Additional history exists Procedures Procedure Name Priority Date/Time Associated Diagnosis Comments MRI CERVICAL WO CONTRAST Routine 05/27/2024 10:49 AM PUBLIC ADDRESS TECHNICIAN Cervical radiculopathy Abnormal posture from Last 3 Months Results * MRI CERVICAL WO CONTRAST (05/27/2024 10:49 AM PUBLIC ADDRESS TECHNICIAN) Anatomical Region Laterality Modality Spine Magnetic Resonan ce 05/27/2024 10:5 1 AM PUBLIC ADDRESS TECHNICIAN Impressions 05/27/2024 12:00 PM PUBLIC ADDRESS TECHNICIAN IMPRESSION: 1. Postsurgical changes of ACDF of C3-C5 and posterior instrumented fusion of C3-C6. Multilevel posterior decompression. 2. Reversal of the normal cervical lordosis. 3. Moderate to severe degenerative disc disease at C6-C7 and C7-T1. 4. No significant spinal canal stenosis in the cervical spine. DICTATION LOCATION: Location 4 Narrative 05/27/2024 12:00 PM PUBLIC ADDRESS TECHNICIAN MRI CERVICAL WO CONTRAST DATE: 05/27/2024 10:49 AM INDICATION: Abnormal posture, as above TECHNIQUE: Multiplanar multisequence magnetic resonance imaging of the cervical spine was performed without administration of intravenous contrast using the standard cervical spine protocol. COMPARISON: None. FINDINGS: Anterior instrumented fusion of C3-C5. Posterior instrumented fusion of C3-C6. Multilevel posterior decompression. Reversal of the normal cervical lordosis. No acute fracture. Normal vertebral body height without compression deformity. Moderate to severe disc space height loss and disc desiccation at C6-C7 and C7-T1. No marrow replacing process to suggest malignancy. The spinal cord is normal in signal intensity. On the limited views of the cranial cavity and brain, the cerebellum and aisha have normal morphology and signal characteristics. No Chiari malformation. No soft tissue abnormality. Normal signal voids are present in the vertebral arteries. C2-3: No significant spinal canal stenosis. Mild bilateral facet arthritis. No significant neural foraminal narrowing. C3-4: No significant spinal canal stenosis. Mild bilateral facet hypertrophy. No significant neural foraminal narrowing. C4-5: No significant spinal canal stenosis. Mild bilateral facet hypertrophy. No significant neural foraminal narrowing. C5-6: No significant spinal canal stenosis or neural foraminal narrowing. C6-7: No significant spinal canal stenosis. Mild to moderate bilateral facet arthritis. Mild bilateral neural foraminal narrowing. C7-T1: No significant spinal canal stenosis. Mild bilateral facet arthritis. Moderate to severe left neural foraminal narrowing due to facet arthritis and asymmetric uncovertebral hypertrophy. Procedure Note Joshua Hobbs MD - 05/27/2024 MRI CERVICAL WO CONTRAST DATE: 05/27/2024 10:49 AM INDICATION: Abnormal posture, as above TECHNIQUE: Multiplanar multisequence magnetic resonance imaging of the cervical spine was performed without administration of intravenous contrast using the standard cervical spine protocol. COMPARISON: None. FINDINGS: Anterior instrumented fusion of C3-C5. Posterior instrumented fusion of C3-C6. Multilevel posterior decompression. Reversal of the normal cervical lordosis. No acute fracture. Normal vertebral body height without compression deformity. Moderate to severe disc space height loss and disc desiccation at C6-C7 and C7-T1. No marrow replacing process to suggest malignancy. The spinal cord is normal in signal intensity. On the limited views of the cranial cavity and brain, the cerebellum and aisha have normal morphology and signal characteristics. No Chiari malformation. No soft tissue abnormality. Normal signal voids are present in the vertebral arteries. C2-3: No significant spinal canal stenosis. Mild bilateral facet arthritis. No significant neural foraminal narrowing. C3-4: No significant spinal canal stenosis. Mild bilateral facet hypertrophy. No significant neural foraminal narrowing. C4-5: No significant spinal canal stenosis. Mild bilateral facet hypertrophy. No significant neural foraminal narrowing. C5-6: No significant spinal canal stenosis or neural foraminal narrowing. C6-7: No significant spinal canal stenosis. Mild to moderate bilateral facet arthritis. Mild bilateral neural foraminal narrowing. C7-T1: No significant spinal canal stenosis. Mild bilateral facet arthritis. Moderate to severe left neural foraminal narrowing due to facet arthritis and asymmetric uncovertebral hypertrophy. IMPRESSION: 1. Postsurgical changes of ACDF of C3-C5 and posterior instrumented fusion of C3-C6. Multilevel posterior decompression. 2. Reversal of the normal cervical lordosis. 3. Moderate to severe degenerative disc disease at C6-C7 and C7-T1. 4. No significant spinal canal stenosis in the cervical spine. DICTATION LOCATION: Location 4 us Amilcar Venegas CHARGE POSTER MR ORDERABLES Final Resu lt from Last 3 Months Insurance [facility]
--- OUTSIDE RECORDS SUMMARY | 2024-06-24 13:28 | XMS_ITS | Patient Health Record ---
Author Organization [facility] Address [address] [place] [address] Care Team Providers Care Pack Worker Supervisor Name Role Phone Kb Mobley Unavailable [phone] Allergies No Known Allergies Reason For Referral No Information Medications Medication SIG (Take, Route, Frequency, Duration) Notes Start Date End Date Status Lipitor 40 MG 1 Every Day Oral 09/25/2004 Active Pantoprazole Sodium 40 MG take 1 tablet (40 mg) by oral route once daily Oral 1 Active PROzac 40 MG take 1 capsule (40 mg) by oral route once daily in the morning Oral 1 Active Synthroid 150 MCG 1 Every Day Oral 09/25/2004 Active CeleBREX 100 MG 1 Two Times A Day, As Needed Oral 12/26/2006 Active Pilocarpine HCl 1 TID *Pick strength-form from [employer] for eRX* 06/04/2007 Active Problems Problem Type SNOMED Code ICD Code Onset Dates Problem Status W/U Status Risk Notes Problem Osteoarthritis (266442554) Unspecified osteoarthritis, unspecified site (M19.90) 5 Active confirmed Plan Of Treatment No Information Insurance Providers Payer Name Payer Address Payer Phone Subscriber Number Group Number Insured Name Patient Relationship to Insured Coverage Start Date Coverage End Date DO NOT USE - [employer] [address] [address] [place], [place] [id number] Génesis Condon Self - patient is the insured 5 [employer] - [employer] [address] [place], [place] [id number] Génesis Condon Self - patient is the insured 1
--- OUTSIDE RECORDS SUMMARY | 2024-06-24 13:28 | XMS_ITS | Encounter Summary ---
Author Organization [facility] Address [address] [place] [address] Care Team Providers Care Air Tucker Name Role Phone Unavailable Primary Care Provider Unavailabl e Encounter Details Date Type Department Care Team (Late st Contact Info) Description 05/28/2024 Results Follow-Up [facility] Neurosurgery [facility] [address] [place] [address] Amilcar Venegas NP [address] [place] [address] MRI CERVICAL WO CONTRAST Social History Tobacco Use Types Packs/Day Years Used Date Smoking Tobacco: Never Smokeless Tobacco: Never Alcohol Use Standard Drinks/Week Comments Yes 0 (1 standard drink = 0.6 oz pure alcohol) I drink wine coolers and flavored beer 3-4 times a week. Comments Unknown Sex and Gender Information Value Date Recorded Sex Assigned at Female 04/27/2024 12:34 PM IMAGING SYSTEM ADMINISTRATOR Legal Sex Female 11:17 AM IMAGING SYSTEM ADMINISTRATOR Gender Identity Female 04/27/2024 12:34 PM IMAGING SYSTEM ADMINISTRATOR Sexual Orientation Straight 04/27/2024 12 :34 PM IMAGING SYSTEM ADMINISTRATOR documented as of this encounter Miscellaneous Notes * Result Encounter Note - Amilcar Venegas NP - 05/28/2024 1:44 PM IMAGING SYSTEM ADMINISTRATOR I called and spoke with patient regarding her MRI. Multilevel postoperative changes noted both anteriorly as well as posteriorly. There is degenerative changes noted in the lower cervical spine. Thisis probably yielding some of the kyphosis noted. However, there is absolutely no significant central canal stenosis. No myomalacia changes. No syrinx. I explained all this to her over the phone. In light of her disequilibrium complaints, paresthesias, recommended that she discuss this with neurology ING SYSTEM ADMINISTRATOR documented in this encounter Plan of Treatment Not on file documented as of this encounter Visit Diagnoses Not on filedocumented in this encounter
--- OUTSIDE RECORDS SUMMARY | 2024-06-24 13:28 | XMS_ITS | Data Portability ---
Author Organization [facility], Main Office Address [address] [place] [address] Assessment No assessment recorded. Plan of Treatment Reminders Order Date Submit Date Provider Last Modified By Organization Details Last Modified Time Details Appointments None recorded. Lab vitamin D, 25-hydroxy , total, serum 2024 025 [email or web address] [facility], [address], [place], [address], 17:17:49 lipid panel, serum 2024 025 [email or web address] [facility], [address], [place], [address], 17:17:48 CMP, serum or plasma 2024 025 [email or web address] [facility], [address], [place], [address], 17:17:48 TSH, ultra-sens itive, serum 2024 025 [facility], [address], [place], [address], 17:17:48 unlisted lab - T4, free 2024 025 [facility], [address], [place], [address], 17:17:49 CBC w/ auto diff 2024 025 [email or web address] [facility], [address], [place], [address], 5 17:17:49 lipid panel, serum 2023 024 [email or web address] [facility], [address], [place], [address], 4 10:14:31 CMP, serum or plasma 2023 024 [email or web address] [facility], [address], [place], [address], 4 10:14:32 CBC w/ auto diff 2023 024 [email or web address] [facility], [address], [place], [address], 4 10:14:32 magnesium, serum or plasma 2023 024 [email or web address] [facility], [address], [place], [address], 4 10:14:31 vitamin B12, serum 2023 024 [email or web address] [facility], [address], [place], [address], 4 10:14:31 TSH, ultra-sens itive, serum 2023 024 [email or web address] [facility], [address], [place], [address], 4 10:14:32 unlisted lab - T4, free 2023 024 [email or web address] [facility], [address], [place], [address], 4 10:14:32 vitamin D, 25-hydroxy , total, serum 2023 024 [email or web address] [facility], [address], [place], [address], 4 16:35:33 lipid panel, serum 2023 024 CHRISTINA Lopez, [address], [place], [address], 4 13:39:38 CMP, serum or plasma 2023 024 CHRISTINACAROLYN Lopez, [address], [place], [address], 4 13:39:42 magnesium, serum or plasma 2023 024 CHRISTINACAROLYN Lopez, [address], [place], [address], 4 13:39:36 vitamin B12, serum 2023 024 CHRISTINACAROLYN Lopez, [address], [place], [address], 4 14:34:05 TSH, ultra-sens itive, serum 2023 024 [email or web address] [facility], [address], [place], [address], 4 16:35:32 unlisted lab - T4, free 2023 024 melody Mooneycohenrry, [address], [place], [address], 4 16:35:32 Referral None recorded. Procedures None recorded. Surgeries None recorded. Imaging None recorded. Medication Orders None recorded. Patient TargetsNo targets recorded. Patient Instructions Encounter Date Encounter Id Patient Instructions Last Modified By Organization Details Last Modified Time 01/15/2023 [id number] dementia rating scale-2* [email or web address] Not available 01/15/2023 14:56:16 alcohol misuse* [email or web address] Not available 01/15/2023 14:56:17 depression screening* [email or web address] Not available 01/15/2023 14:56:17 multi-dimensiona l health assessment questionnaire* Not available 01/15/2023 14:56:17 advance directiv es: care instructions [email or web address] Not available 01/15/2023 14:56:17 advance care planning: care instructions [email or web address] Not available 01/15/2023 14:56:17 [place] Advance Directives Not available 01/15/2023 14:56:17 Personalized a lt Plan and Screening Recommendations Advance Directives - Do you have one? No Advance Directives - Do we have your advance directive on file in your health record? Primary Prevention/Interven tion (prevents or decreases the chance of common diseases from occurring) Smoking Risk: Non Smoker Alcohol Misuse Screening: Positive Refer to attached alcohol cessation handout Refer to attached handout and prescription will be sent to pharmacy Decrease alcohol intake to 1 or less servings per day Weight: Appropriate Physical activity: Need more exercise/physical activity Nutrition: Good Average Fall Risk (screened today): Low Vaccines Pneumococcal: Ordered Recommended today Recommended today, but you have declined No further needed Influenza: Your next one in the fall of this year Chronic Disease Risks Stroke: Low Risk Intermediate Risk I have no recommendations Act brendon diagnosis, Continue current treatment plan Heart Attack: Low risk Intermediate Risk I have no recommendations Act brendon diagnosis, Continue current treatment plan Clogging of the Arteries: Low risk Intermediate Risk I have no recommendations Act brendon diagnosis, Continue current treatment plan Diabetes: Low Risk I have no recommendations Secondary Prevention/Interven tion (detects treatable diseases before they may cause symptoms, disability, or ) Breast Cancer Screening with mammogram: Your next mammogram: Ordered Recommended today Cervical/Uterine/Ov francy Cancer Screening: No screening necessary Osteoporosis Screening: Date Screening Last Performed: Colon Cancer Screening: Colonoscopy Fecal Occult Blood Cologuard (DNA stool test) Date Screening Last Performed: ___ Eye Disease Screening: Dementia Risk: Low I have no recommendations Depression Screening: Negative Active diagnosis, Continue current treatment plan [email or web address] Not available 01/15/2023 14:49:38 Medicare [facility] s evaluation risk assessment. 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 All clinically stable. Was given a flu shot today. Is otherwise up-to-date on other immunizations. Will continue on current Rx and follow-up in four months. Portions of the record may have been created with voice recognition software. Occasional wrong-word or kvddf-s-tzqb substitutions may have occurred due to the inherent limitations of voice recognition software. Read the chart carefully and recognize, using context, where substitutions have occurred. Mammogram Next Appt: 4 Months Approximate Date: 05/15/2023 [email or web address] Not available 01/15/2023 14:55:38 05/21/2023 [id number] Asthma- GERD-hypothyroidism -hyperlipidemia -disorder connective tissue disease all clinically stable. Will continue on current Rx. Check blood work in the form of CBC, CMP, lipid, thyroid, B12, Magnesium and vitamin-D level. Does need a Cologuard test. Will continue on current Rx and follow-up in four months. Portions of the record may have been created with voice recognition software. Occasional wrong-word or vatpm-i-zocn substitutions may have occurred due to the inherent limitations of voice recognition software. Read the chart carefully and recognize, using context, where substitutions have occurred. Not available 05/21/2023 15:07:30 09/17/2023 [id number] Follow-up for GE RD, hyperlipidemia, hypothyroidism, connective tissue disease and asthma all clinically stable. Check blood work consisting of CBC, CMP, lipid, thyroid, B12 and magnesium level. Follow-up in four months Next Appointment: 4 Months Approximate Date: 01/15/2024 Portions of the record may have been created with voice recognition software. Occasional wrong-word or zceaa-r-vbll substitutions may have occurred due to the inherent limitations of voice recognition software. Read the chart carefully and recognize, using context, where substitutions have occurred. Not available 09/17/2023 15:06:50 02/04/2024 [id number] dementia rating scale-2* [email or web address] Not available 02/04/2024 10:40:18 alcohol misuse* [email or web address] Not available 02/04/2024 10:40:18 depression screening* Not available 02/04/2024 10:40:18 Timed Up and Go test (TUG)* [email or web address] Not available 02/04/2024 10:40:18 multi-dimensiona health assessment questionnaire* Not available 02/04/2024 10:40:18 Personalized Hea lt Plan and Screening Recommendations Advance Directives - Do you have one? No Advance Directives - Do we have your advance directive on file in your health record? Primary Prevention/Interven tion (prevents or decreases the chance of common diseases from occurring) Smoking Risk: Non Smoker Alcohol Misuse Screening: Negative Weight: Appropriate Physical activity: Need more exercise/physical activity Nutrition: Good Average Fall Risk (screened today): Low Vaccines Pneumococcal: Ordered Recommended today Influenza: Your next one in the fall of this year Chronic Disease Risks Stroke: Low Risk Intermediate Risk I have no recommendations Act brendon diagnosis, Continue current treatment plan Heart Attack: Low risk Intermediate Risk I have no recommendations Act brendon diagnosis, Continue current treatment plan Clogging of the Arteries: Low risk Intermediate Risk I have no recommendations Act brendon diagnosis, Continue current treatment plan Diabetes: Low Risk I have no recommendations Secondary Prevention/Interven tion (detects treatable diseases before they may cause symptoms, disability, or ) Breast Cancer Screening with mammogram: Your next mammogram: Ordered Recommended today Cervical/Uterine/Ov francy Cancer Screening: No screening necessary Osteoporosis Screening: Your next DEXA in: Ordered Recomme nded today Date Screening Last Performed: Colon Cancer Screening: Colonoscopy Fecal Occult Blood Cologuard (DNA stool test) In: Ordered Recomme nded Date Screening Last Performed: ___ Eye Disease Screening: Dementia Risk: Low I have no recommendations Depression Screening: Negative Active diagnosis, Continue current treatment plan [email or web address] Not available 02/04/2024 10:33:36 Medicare [facility] evaluation risk assessment stable. Follow-up for GERD, hypothyroidism, hyperlipidemia and pulmonary embolism by history. Plan is to continue on current medications. Will not check any blood work at this time blood work back in September looked excellent. Will continue on current Rx and follow-up and next appointment in four months or so. Did receive a Prevnar 20 as well as a flu shot today. Additional Orders - Directives - Recommendations 1. Cologuard 2. DEXA Scan Keep Appointment: Sat 10:50 AM Evan Portions of the record may have been created with voice recognition software. Occasional wrong-word or vlbkq-d-dnnk substitutions may have occurred due to the inherent limitations of voice recognition software. Read the chart carefully and recognize, using context, where substitutions have occurred. [email or web address] Not available 02/04/2024 10:40:03 06/02/2024 [id number] Follow-up for disorder of connective tissue disease, GERD, essential tremor, hyperlipidemia osteoporosis. Check blood work consisting of CBC, CMP, lipid, thyroid and CRP. Continue on current Rx follow-up in four months Follow Up: 4 Months Approximate Date: 09/30/2024 Portions of record are template driven. When necessary additional context will be provided. Additionally some portions have been created with voice recognition software. Occasional wrong-word or voqru-o-qykk substitutions may have occurred due to the inherent limitations of voice recognition software. Read the chart carefully and recognize, using context, where substitutions may have occurred. Created: Sumit Cool M.D. 06.02.2024 11:22 AM [email or web address] Not available 06/02/2024 12:22:32 Reason for Referral None Reported. Results Created Date Observation Date Name Description Value Unit Range Abnormal Flag Note LastModifiedBy Organization Detail LastModifiedTime 06/06/1906/06/2023 MAGNE SIUM magnesium 2.0 mg/dL 1.6-2. 3 Not Available [facility] (Lab) [address] [place], [address], 06/06/2023 13:39:36 06/06/19 24 06/06/2023 LIPID PANEL cholesterol 158 mg/dL 140-19 9 NIH CICI NSUS RECOM MENDA TION FOR ROMEL STERO L: ADULT CHILD LOW RISK: <200 <170 BORDE RLINE : <200- 239 ----- HIGH RISK: >240 >200 Not Available [facility] (Lab) [address] [place], [address], 06/06/2023 13:39:38 06/06/19 24 06/06/2023 LIPID PANEL triglyceride s 113 mg/dL 0-150 NIH CICI NSUS REPOR T RECOM MENDA TION FOR TRIGL YCERI MALLORIE: ADULT CHILD LOW RISK: <150 ----- BODER LINE: 150-1 99 ----- HIGH RISK: >200 ----- Not Available [facility] (Lab) [address] [place], [address], 06/06/2023 13:39:38 06/06/19 24 06/06/2023 LIPID PANEL HDL cholesterol 57 mg/dL 40- Not Available [facility] (Lab) [address] [place], [address], 06/06/2023 13:39:38 06/06/19 24 06/06/2023 LIPID PANEL LDL cholesterol, calculated 78 mg/dL 0-130 NIH CICI NSUS REPOR T RECOM MENDA TIONS FOR LDL: ADULT CHILD LOW RISK <130 <110 (OPTI MAL LDL) <100 ----- BORDE RLINE : 130-1 59 ----- HIGH RISK: >160 >130 A TRIGL YCERI DE RESUL T >400 INVAL IDATE S THE CALCU LATIO N FOR LDL FRACT IONAT ION - THE LDL RESUL T WILL NOT BE REPOR OTILIO. Not Available [facility] (Lab) [address] [place], [address], 06/06/2023 13:39:38 06/06/19 24 06/06/2023 COMPR EHENS BRENDON METAB OLIC PANEL sodium 139 mmol/ L 137-14 5 Not Available [facility] (Lab) [address] [place], [address], 06/06/2023 13:39:42 06/06/19 24 06/06/2023 COMPR EHENS BRENDON METAB OLIC PANEL potassium 4.3 mmol/ L 3.5-5. 1 Not Available [facility] (Lab) [address] [place], [address], 06/06/2023 13:39:42 06/06/19 24 06/06/2023 COMPR EHENS BRENDON METAB OLIC PANEL chloride 102 mmol/ L 98-107 Not Available [facility] (Lab) [address] [place], [address], 06/06/2023 13:39:42 06/06/19 24 06/06/2023 COMPR EHENS BRENDON METAB OLIC PANEL carbon dioxide 31 mmol/ L 22-30 high Not Available [facility] (Lab) [address] [place], [address], 06/06/2023 13:39:42 06/06/19 24 06/06/2023 COMPR EHENS BRENDON METAB OLIC PANEL anion gap 10.3 mmol/ L 14-22 low Not Available [facility] (Lab) [address] [place], [address], 06/06/2023 13:39:42 06/06/19 24 06/06/2023 COMPR EHENS BRENDON METAB OLIC PANEL glucose 84 mg/dL 70-99 Not Available [facility] (Lab) [address] [place], [address], 06/06/2023 13:39:42 06/06/19 24 06/06/2023 COMPR EHENS BRENDON METAB OLIC PANEL BUN 11 mg/dL 8-19 Not Available [facility] (Lab) [address] [place], [address], 06/06/2023 13:39:42 06/06/19 24 06/06/2023 COMPR EHENS BRENDON METAB OLIC PANEL creatinine 0.85 mg/dL 0.66-1 .25 Not Available [facility] (Lab) [address] [place], [address], 06/06/2023 13:39:42 06/06/19 24 06/06/2023 COMPR EHENS BRENDON METAB OLIC PANEL GFR >60 Refer ence Range : [place] GFR Healt hy Adult : >60 mL/mi n/1.7 3 m2 Chron ic Kidne y Disea se: 15-60 mL/mi n/1.7 3 m2 Kidne y Failu re: <15/m L/min /1.73 m2 www.n iddk. nih.g ov The MDRD study equat ion has not been valid ated in child dakota <18 years of age; pregn ant women ; the elder ly >85 years of age; or in some racia l or ethni c subgr oups, such as Hispa nics. Outsi de the valid ated berto eters , estim ated GFR is less accur ate, requi ring clini armando judgm ent on a case- by-ca se basis . Clini armando inter preta tion for other races and ages must be made by the clini mile. The MDRD study equat ion has not been valid ated for the evalu ation of serum creat inine relat ed to nutri jin l statu s or medic ation usage . For perso ns <18 years of age, a pedia tric GFR calcu lator is avail able on the [facility] websi te: https ://fadumo w.kid mayelin.o rg/pr ofess ional s/kdo qi/gf r_cal culat or Not Available [facility] (Lab) [address] [place], [address], 06/06/2023 13:39:42 06/06/19 24 06/06/2023 COMPR EHENS BRENDON METAB OLIC PANEL alkaline phosphatase 92 U/L 38-126 Not Available [facility] (Lab) [address] [place], [address], 06/06/2023 13:39:42 06/06/19 24 06/06/2023 COMPR EHENS BRENDON METAB OLIC PANEL alanine aminotransfe rase 17 U/L 0-35 Not Available [facility] (Lab) [address] [place], [address], 06/06/2023 13:39:42 06/06/19 24 06/06/2023 COMPR EHENS BRENDON METAB OLIC PANEL aspartate aminotransfe rase 33 U/L 15-37 Not Available [facility] (Lab) [address] [place], [address], 06/06/2023 13:39:42 06/06/19 24 06/06/2023 COMPR EHENS BRENDON METAB OLIC PANEL bilirubin, total 0.60 mg/dL 0.20-1 .30 Not Available [facility] (Lab) [address] [place], [address], 06/06/2023 13:39:42 06/06/19 24 06/06/2023 COMPR EHENS BRENDON METAB OLIC PANEL calcium 9.4 mg/dL 8.4-10 .2 Not Available [facility] (Lab) [address] [place], [address], 06/06/2023 13:39:42 06/06/19 24 06/06/2023 COMPR EHENS BRENDON METAB OLIC PANEL total protein 6.4 g/dL 6.3-8. 2 Not Available [facility] (Lab) [address] [place], [address], 06/06/2023 13:39:42 06/06/19 24 06/06/2023 COMPR EHENS BRENDON METAB OLIC PANEL albumin 3.7 g/dL 3.0-4. 4 Not Available [facility] (Lab) [address] [place], [address], 06/06/2023 13:39:42 06/06/19 24 06/06/2023 COMPR EHENS BRENDON METAB OLIC PANEL globulin 2.7 g/dL 2.6-4. 2 Not Available [facility] (Lab) [address] [place], [address], 06/06/2023 13:39:42 06/06/19 24 06/06/2023 COMPR EHENS BRENDON METAB OLIC PANEL A/G ratio 1.4 ratio 1.0-2. 0 Not Available [facility] (Lab) [address] [place], [address], 06/06/2023 13:39:42 06/06/19 24 06/06/2023 T4 FREE free T4 0.98 NG/dL 0.78-2 .19 Not Available [facility] (Lab) [address] [place], [address], 06/06/2023 13:54:15 06/06/19 24 06/06/2023 TSH thyroid-stim ulating hormone 0.201 uIU/m L 0.465- 4.680 low Not Available [facility] (Lab) [address] [place], [address], 06/06/2023 14:09:11 06/06/19 24 06/06/2023 VITAM IN B12 (THIERNO CHRIS ) vb12 229 pg/mL 239-93 1 low Not Available [facility] (Lab) [address] [place], [address], 06/06/2023 14:34:05 06/06/19 24 06/06/2023 VITAM IN D 25-HY DROXY vd25oh 43.8 NG/mL 30-100 Vitam in D Statu s: Defic ient: <20 ng/mL Insuf ficie nt: 20-29 ng/mL Suffi cient : 30-10 0 ng/mL Not Available [facility] (Lab) [address] [place], [address], 06/06/2023 14:34:16 02/18/20 24 02/18/2024 COLOG UARD cologuard result reportable NEGATI VE negati ve normal NEGAT BRENDON TEST RESUL T. A negat brendon Colog uard resul t indic ates a low likel ihood that a color ectal cance r (CRC) or advan mike adeno ma (edie omato us polyp s with more advan mike pre-m align ant featu res) is prese nt. The chanc e that a perso n with a negat brendon Colog uard test has a color ectal cance r is less than 1 in 1500 (nega tive predi ctive value >99.9 %) or has an advan mike adeno ma is less than 5.3% (nega tive predi ctive value 94.7% ). These data are based on a prosp ectiv e cross -sect ional study of 10,00 0 indiv idual s at [place] risk for color ectal cance r who were scree lillian with both Colog uard and colon oscop y. (Impe almaz Gibbons et al, N Engl J Med 2014; 370(1 4):12 86-12 97) The qiana l value (refe rence range ) for this assay is negat brendon. COLOG UARD RE-SC REENI NG RECOM MENDA TION: Perio dic color ectal cance r scree paco is an impor tant part of preve ntive healt hcare for asymp tomat ic indiv idual s at [place] risk for color ectal cance r. Follo wing a negat brendon Colog uard resul t, the Ameri can Cance r Socie ty and U.S. Multi -Soci ety Task Force scree paco guide lines recom mend a Colog uard re-sc idalia irwin inter jaylen of 3 years . Refer ences : Ameri can Cance r Socie ty Guide line for Color ectal Cance r Scree paco: https ://fadumo w.can cer.o rg/ca ncer/ colon -rect al-ca ncer/ detec tion- diagn osis- stagi ng/ac s-rec ommen datio ns.ht ml.; Cristofer HOLMAN, Floyd wilson CR, Orville RainesK, Color ectal Cance r Scree paco: Recom menda tions for Physi cians and Patie nts from the U.S. Multi -Soci ety Task Force on Color ectal Cance r Scree paco , Isabel santamaria y 2017; 112:1 016-1 030. TEST DESCR IPTIO N: [place] site algor ithmi c janet sis of stool DNA-b santana fragoso with hemog lobin immun oassa y. Quant itati ve value s of indiv idual bioma rkers are not repor table and are not assoc iated with indiv idual bioma rker resul t refer ence range s. Colog uard is inten ded for color ectal cance r scree paco of adult s of eithe r sex, 45 years or older , who are at [facility] for color ectal cance r (CRC) . Colog uard has been appro hardeep for use by the U.S. FDA. The perfo rmanc e of Colog uard was estab lishe d in a cross secti onal study of [facility] adult s aged 50-84 . Colog uard perfo rmanc e in patie nts ages 45 to 49 years was estim ated by sub-g roup janet sis of near- age group s. Colon oscop ies perfo rmed for a posit brendon resul t may find as the most clini jim signi fican t lesio n: color ectal cance r [4.0% ], advan mike adeno ma (incl uding sessi le cody otilio polyp s great er than or equal to 1cm diame ter) [20%] or non- advan mike adeno ma [31%] ; or no color ectal neopl naa [45%] . These estim ates are deriv ed from a prosp ectiv e cross -sect ional scree paco study of 10,00 0 indiv idual s at [facility] risk for color ectal cance r who were scree lillian with both Colog uard and colon oscop y. (Giselle Gibbons et al, N Engl J Med 2014; 370(1 4):12 86-12 97.) Colog uard may produ ce a false negat brendon or false posit brendon resul t (no color ectal cance r or preca ncero us polyp prese nt at colon oscop y follo w up). A negat brendon Colog uard test resul t does not guara ntee the absen ce of CRC or advan mike adeno ma (pre- cance r). The curre nt Colog uard scree paco inter jaylen is every 3 years . (Tyler slade Socie ty and U.S. Multi -Soci ety Task Force ). Colog uard perfo rmanc e data in a 10,00 0 patie nt pivot al study using colon oscop y as the refer ence metho d can [facility]es [facility] locat ion: www.e xactl abs.c om/re sults . Addit ional descr iptio n of the Colog uard test proce ss, warni ngs and preca ution s can be found at www.c ologu kirstin.c om. Not Available [facility] (Cologuard Orders Only) [address], [place], [address], 02/26/2024 19:56:07 06/15/1906/16/2024 CBC WITH DIFFE RENTI AL/PL ATELE T WBC 4.3 x10e3 /uL 3.4-10 .8 normal Not Available [facility] ([facility]) [address] [place], [address], 06/16/2024 07:14:04 06/15/1906/16/2024 CBC WITH DIFFE RENTI AL/PL ATELE T RBC 3.66 x10e6 /uL 3.77-5 .28 below low normal Not Available [facility] ([facility]) [address] [place], [address], 06/16/2024 07:14:04 06/15/1906/16/2024 CBC WITH DIFFE RENTI AL/PL ATELE T hemoglobin 11.3 g/dL 11.1-1 5.9 normal Not Available [facility] ([facility]) [address] [place], [address], 06/16/2024 07:14:04 06/15/1906/16/2024 CBC WITH DIFFE RENTI AL/PL ATELE T hematocrit 35.0 % 34.0-4 6.6 normal Not Available [facility] ([facility]) [address] [facility] [place], [address], 06/16/2024 07:14:04 06/15/1906/16/2024 CBC WITH DIFFE RENTI AL/PL ATELE T MCV 96 fL 79-97 normal Not Available [facility] ([facility]) [address] [facility], [place], [address], 06/16/2024 07:14:04 06/15/1906/16/2024 CBC WITH DIFFE RENTI AL/PL ATELE T MCH 30.9 pg 26.6-3 3.0 normal Not Available [facility] ([facility]) [address] [place], [address], 06/16/2024 07:14:04 06/15/1906/16/2024 CBC WITH DIFFE RENTI AL/PL ATELE T MCHC 32.3 g/dL 31.5-3 5.7 normal Not Available [facility] ([facility]) [address] [facility], [place], [address], 06/16/2024 07:14:04 06/15/1906/16/2024 CBC WITH DIFFE RENTI AL/PL ATELE T RDW 14.6 % 11.7-1 5.4 Not Available [facility] ([facility]) [address] [place], [address], 06/16/2024 07:14:04 06/15/1906/16/2024 CBC WITH DIFFE RENTI AL/PL ATELE T platelets 186 x10e3 /uL 150-45 0 normal Not Available [facility] ([facility]) [address] [place], [address], 06/16/2024 07:14:04 06/15/1906/16/2024 CBC WITH DIFFE RENTI AL/PL ATELE T neutrophils 42 % not estab. normal Not Available [facility] ([facility]) [address] [place], [address], 06/16/2024 07:14:04 06/15/1906/16/2024 CBC WITH DIFFE RENTI AL/PL ATELE T lymphs 32 % not estab. normal Not Available [facility] ([facility]) [address] [place], [address], 06/16/2024 07:14:04 06/15/1906/16/2024 CBC WITH DIFFE RENTI AL/PL ATELE T monocytes 12 % not estab. normal Not Available [facility] ([facility]) [address] [place], [address], 06/16/2024 07:14:04 06/15/1906/16/2024 CBC WITH DIFFE RENTI AL/PL ATELE T eos 13 % not estab. normal Not Available [facility] ([facility]) [address] [place], [address], 06/16/2024 07:14:04 06/15/19 25 06/16/2024 CBC WITH DIFFE RENTI AL/PL ATELE T basos 1 % not estab. normal Not Available [facility] ([facility]) [address] [place], [address], 06/16/2024 07:14:04 06/15/1906/16/2024 CBC WITH DIFFE RENTI AL/PL ATELE T immature cells HOTEL RESERVATION AGENT Not Available [facility] ([facility]) [address] [place], [address], 06/16/2024 07:14:04 06/15/1906/16/2024 CBC WITH DIFFE RENTI AL/PL ATELE T neutrophils (absolute) 1.8 x10e3 /uL 1.4-7. 0 normal Not Available [facility] ([facility]) [address] [place], [address], 06/16/2024 07:14:04 06/15/19 25 06/16/2024 CBC WITH DIFFE RENTI AL/PL ATELE T lymphs (absolute) 1.4 x10e3 /uL 0.7-3. 1 normal Not Available [facility] ([facility]) [address] [place], [address], 06/16/2024 07:14:04 06/15/1906/16/2024 CBC WITH DIFFE RENTI AL/PL ATELE T monocytes(ab solute) 0.5 x10e3 /uL 0.1-0. 9 normal Not Available [facility] ([facility]) [address] [place], [address], 06/16/2024 07:14:04 06/15/1906/16/2024 CBC WITH DIFFE RENTI AL/PL ATELE T eos (absolute) 0.6 x10e3 /uL 0.0-0. 4 above high normal Not Available [facility] ([facility]) [address] [place], [address], 06/16/2024 07:14:04 06/15/19 25 06/16/2024 CBC WITH DIFFE RENTI AL/PL ATELE T baso (absolute) 0.0 x10e3 /uL 0.0-0. 2 normal Not Available [facility] ([facility]) [address] [place], [address], 06/16/2024 07:14:04 06/15/1906/16/2024 CBC WITH DIFFE RENTI AL/PL ATELE T immature granulocytes 0 % not estab. Not Available [facility] ([facility]) [address] [place], [address], 06/16/2024 07:14:04 06/15/19 25 06/16/2024 CBC WITH DIFFE RENTI AL/PL ATELE T immature grans (abs) 0.0 x10e3 /uL 0.0-0. 1 Not Available [facility] ([facility]) [address] [place], [address], 06/16/2024 07:14:04 06/15/19 25 06/16/2024 CBC WITH DIFFE RENTI AL/PL ATELE T NRBC HOTEL RESERVATION AGENT Not Available [facility] ([facility]) [address], [place], [address], 06/16/2024 07:14:04 06/15/19 25 06/16/2024 CBC WITH DIFFE RENTI AL/PL ATELE T hematology comments: HOTEL RESERVATION AGENT Not Available [facility] ([facility]) [address], [place], [address], 06/16/2024 07:14:04 06/15/1906/16/2024 COMP. METAB OLIC PANEL (14) glucose 80 mg/dL 70-99 normal Not Available [facility] ([facility]) [address] [place], [address], 06/16/2024 07:14:05 06/15/19 25 06/16/2024 COMP. METAB OLIC PANEL (14) BUN 8 mg/dL 8-27 normal Not Available [facility] ([facility]) [address] [place], [address], 06/16/2024 07:14:05 06/15/19 25 06/16/2024 COMP. METAB OLIC PANEL (14) creatinine 0.96 mg/dL 0.57-1 .00 normal Not Available [facility] ([facility]) [address], [place], [address], 06/16/2024 07:14:05 06/15/19 25 06/16/2024 COMP. METAB OLIC PANEL (14) eGFR 61 mL/mi n/1.7 3 >59 normal Not Available [facility] ([facility]) [address] [place], [address], 06/16/2024 07:14:05 06/15/19 25 06/16/2024 COMP. METAB OLIC PANEL (14) BUN/creatini ne ratio 8 12-28 below low normal Not Available [facility] ([facility]) [address] [facility] [place], [address], 06/16/2024 07:14:05 06/15/19 25 06/16/2024 COMP. METAB OLIC PANEL (14) sodium 141 mmol/ L 134-14 4 normal Not Available [facility] ([facility]) [address] [facility] [place], [address], 06/16/2024 07:14:05 06/15/1906/16/2024 COMP. METAB OLIC PANEL (14) potassium 4.2 mmol/ L 3.5-5. 2 normal Not Available [facility] ([facility]) [address] [facility] [place], [address], 06/16/2024 07:14:05 06/15/19 25 06/16/2024 COMP. METAB OLIC PANEL (14) chloride 104 mmol/ L 96-106 normal Not Available [facility] ([facility]) [address] [facility] [place], [address], 06/16/2024 07:14:05 06/15/19 25 06/16/2024 COMP. METAB OLIC PANEL (14) carbon dioxide, total 26 mmol/ L 20-29 normal Not Available [facility] ([facility]) [address] [facility] [place], [address], 06/16/2024 07:14:05 06/15/19 25 06/16/2024 COMP. METAB OLIC PANEL (14) calcium 9.2 mg/dL 8.7-10 .3 normal Not Available [facility] ([facility]) [address] [facility] [place], [address], 06/16/2024 07:14:05 06/15/19 25 06/16/2024 COMP. METAB OLIC PANEL (14) protein, total 6.5 g/dL 6.0-8. 5 normal Not Available [facility] ([facility]) [address] [facility] [place], [address], 06/16/2024 07:14:05 06/15/19 25 06/16/2024 COMP. METAB OLIC PANEL (14) albumin 4.2 g/dL 3.8-4. 8 normal Not Available [facility] ([facility]) [address] [facility] [place], [address], 06/16/2024 07:14:05 06/15/19 25 06/16/2024 COMP. METAB OLIC PANEL (14) globulin, total 2.3 g/dL 1.5-4. 5 Not Available [facility] ([facility]) [address] [facility] [place], [address], 06/16/2024 07:14:05 06/15/19 25 06/16/2024 COMP. METAB OLIC PANEL (14) bilirubin, total 0.3 mg/dL 0.0-1. 2 normal Not Available [facility] ([facility]) [address] [facility] [place], [address], 06/16/2024 07:14:05 06/15/19 25 06/16/2024 COMP. METAB OLIC PANEL (14) alkaline phosphatase 66 IU/L 44-121 normal Not Available [facility] ([facility]) [address] [facility] [place], [address], 06/16/2024 07:14:05 06/15/19 25 06/16/2024 COMP. METAB OLIC PANEL (14) AST (SGOT) 23 IU/L 0-40 normal Not Available [facility] ([facility]) [address] [facility] [place], [address], 06/16/2024 07:14:05 06/15/19 25 06/16/2024 COMP. METAB OLIC PANEL (14) ALT (SGPT) 16 IU/L 0-32 normal Not Available [facility] ([facility]) [address] [place], [address], 06/16/2024 07:14:05 06/15/1906/16/2024 LIPID PANEL cholesterol, total 155 mg/dL 100-19 9 normal Not Available [facility] ([facility]) [address] [place], [address], 06/16/2024 07:14:06 06/15/19 25 06/16/2024 LIPID PANEL triglyceride s 105 mg/dL 0-149 normal Not Available [facility] ([facility]) [address] [place], [address], 06/16/2024 07:14:06 06/15/1906/16/2024 LIPID PANEL HDL cholesterol 52 mg/dL >39 normal Not Available [facility] ([facility]) [address] [place], [address], 06/16/2024 07:14:06 06/15/19 25 06/16/2024 LIPID PANEL VLDL cholesterol armando 19 mg/dL 5-40 Not Available [facility] ([facility]) [address] [place], [address], 06/16/2024 07:14:06 06/15/19 25 06/16/2024 LIPID PANEL LDL chol calc ([facility]) 84 mg/dL 0-99 Not Available [facility] ([facility]) [address] [place], [address], 06/16/2024 07:14:06 06/15/19 25 06/16/2024 LIPID PANEL LDL calc comment: HOTEL RESERVATION AGENT Not Available [facility] ([facility]) [address] [place], [address], 06/16/2024 07:14:06 06/15/19 25 06/16/2024 TSH TSH 1.130 uIU/m L 0.450- 4.500 normal Not Available [facility] ([facility]) [address] [facility], [place], [address], 06/16/2024 07:14:07 06/15/1906/16/2024 VITAM IN D, 25-HY DROXY vitamin D, 25-hydroxy 26.8 NG/mL 30.0-1 00.0 below low normal Vitam in D defic iency has been defin ed by the Insti tute of Medic ine and an Endoc rine Socie ty pract ice guide line as a level of serum 25-OH vitam in D less than 20 ng/mL (1,2) . The Endoc rine Socie ty went on to furth er defin e vitam in D insuf ficie ncy as a level betwe en 21 and 29 ng/mL (2). 1. IOM (Inst itute of Medic ine). 2010. Dieta ry refer ence intak es for calci um and D. Joe estrada [place]: The [facility] . 2. Sobia pacheco MF, Jamin cantrell [place], Edith off-F erreveline i DANIELSON, et al. Evalu ation , treat ment, and preve ntion of vitam in D defic iency : an Endoc rine Socie ty clini armando pract ice guide line. JCEM. 2010; 96(7) :1911 -30. Not Available [facility] ([facility]) [address] [facility], [place], [address], 06/16/2024 07:14:08 06/15/1906/16/2024 T4, FREE T4,free(dire ct) 1.49 NG/dL 0.82-1 .77 normal Not Available [facility] ([facility]) [address] [facility], [place], [address], 06/16/2024 07:14:09 01/24/20 23 MAMMO , scree paco, digit al, bilat eral [facility] [address] [facility], [place] [address] Patien t Name: GÉNESIS JACOME Access ion #: [id number] Sex: F : 1945 7 Dictat ed By: Amilcar Cleaning Attend ing Physic ibis: UYEN RANDALL Orderkoby ng Physic ibis: RANDALLSUMEETAN Exam Date: 2022 10:57 AM Exam Name: MG CLAUDIA Julio IGNACIO BILAT SCREEN Admitt ing Diagno sis(es ): Compar lui: Septem 2021 Histor y: Screen ing. Techni que: CC, MLO views of both breast s were obtain ed Findin gs: There is a densit y noted in the upper outer quadra nt, paper cup machine operator ior third seen both on the CC and MLO views. Suspic ious findin gs seen within the left breast . There is no adenop athy, or meryl ectura l distor tion. Breast tissue s are initia lly dense. Impres seven: Potent ial mass within the breast . Spot compre ssion views and ultras ound recomm ended. BI-RAD S zero incomp lete. Needs additi onal imagin g evalua tion and/or Prior mammog taylor for compar lui. Please note, 10-15% of breast malign ancies are not detect ed by mammog olivia. A normal mammog jose elias should not preclu de biopsy of a clinic ally suspic ious and/or palpab le abnorm ality. A letter with the result s of this mammog jose elias was mailed to the patien t Electr onical ly Signed by: Amilcar Cleaning at 2022 11:59: 06 AM Page 1 [email or web address] [facility] (Imaging) [address] [place], [address], 01/23/2023 14:33:17 01/26/20 23 01/22/2023 lab* No observ ation record ed. [email or web address] Not Available 2022 13:00:29 02/13/20 XR, chest , 2 view [facility] [address] [place] [address] Daniel taylor Name: GÉNESIS JACOME Access ion #: [id number] Sex: F : 1945 9 Dictat ed By: Amilcar Cleaning Attend ing Physic ibis: STUART COOL CE Orderi ng Physic ibis: STUART COOL CE Exam Date: 2022 14:08 PM Exam Name: XR CHEST 2V Admitt ing Diagno sis(es ): CHEST RADIOG RAPH Indica tion: Techni que: Fronta l and latera l view of the chest was obtain ed Compar lui: none FINDIN GS: Lines and Tubes: None Lungs: Clear Pleura : No effusi on. No pneumo thorax . Cardio medias tinal contou rs: Unrema rkable Bones: Unrema rkable IMPRES SEVEN: 1. No eviden ce of acute diseas e. Electr onical ly Signed by: Amilcar Cleaning at 2022 15:02: 59 PM Page [address] (Imaging) [address] [place], [address], 02/12/2023 17:29:17 03/05/20 23 03/05/2023 US, breamanda t, unila teral [facility] [address] [place] [address] [phone] Patien t Name: GÉNESIS JACOME Access ion #: [id number] Sex: F : 1945 4 Dictat ed By: Sharifa Ibarra Attend ing Physic ibis: STUART COOL CE Orderi ng Physic ibis: STUART COOL CE Exam Date: 2022 11:19 AM Exam Name: US BREAST LIMITE D LT Admitt ing Diagno sis(es ): REASON FOR EXAM: ABNORM AL MAMMOG JOSE ELIAS COMPAR LUI: 023 TECHNI QUE:ML , spot compre ssion cranio caudal and modifi ed mediol ateral obliqu e views of the RIGHT breast are obtain ed utiliz ing digita l mammog raphic images obtain ed using a 2D mammog raphic system . Target ed left breast ultras ound was perfor med. FINDIN GS: BREAST COMPOS ITION: The bilate ral breast s are extrem raul dense, which lowers the sensit ivity of mammog olivia. Spot compre ssion views demons trate No asymme trical parenc hymal patter n, meryl ectura l distor tion, pleomo rphic microc alcifi cation s or masses . Target ed ultras ound images of the breast demons trate no suspic ious abnorm ality. There are benign -appea ring lymph nodes in the axilla . IMPRES SEVEN: No findin gs of malign surinder. Recomm end annual mammog jose elias. BIRADS : 2 - Benign Electr onical ly Signed by: Sharifa Ibarra at 2022 12:02: 49 PM Page 1 [email or web address] [facility] (Imaging) [address] [place], [address], 03/05/2023 16:08:13 03/05/20 23 03/05/2023 MAMMO , diagn ostic , unila teral [facility] [address] [place] [address] [phone] Patien t Name: GÉNESIS JACOME Access ion #: [id number] Sex: F : 1945 4 Dictat ed By: Sharifa Ibarra Attend ing Physic ibis: STUART COOL CE Orderi Physic ibis: STUART COOL CE Exam Date: 2022 10:46 AM Exam Name: MG MAMMO DIGITA L UNILAT LT Admitt ing Diagno sis(es ): REASON FOR EXAM: ABNORM AL MAMMOG JOSE ELIAS COMPAR LUI: 023 TECHNI QUE:ML , spot compre ssion cranio caudal and modifi ed mediol ateral obliqu e views of the RIGHT breast are obtain ed utiliz ing digita l mammog raphic images obtain ed using a 2D mammog raphic system . Target ed left breast ultras ound was perfor med. FINDIN GS: BREAST COMPOS ITION: The bilate ral breast s are extrem raul dense, which lowers the sensit ivity of mammog olivia. Spot compre ssion views demons trate No asymme trical parenc hymal patter n, meryl ectura l distor tion, pleomo rphic microc alcifi cation s or masses . Target ed ultras ound images of the breast demons trate no suspic ious abnorm ality. There are benign -appea ring lymph nodes in the axilla . IMPRES SEVEN: No findin gs of malign surinder. Recomm end annual mammog jose elias. BIRADS : 2 - Benign Electr onical ly Signed by: Sharifa Ibarra at 2022 12:02: 49 PM Page 1 [email or web address] [facility] (Imaging) [address] [place], [address], 03/05/2023 16:08:29 02/06/20 24 DEXA, axial skele ton [facility] [address] [place] [address] Patien t Name: GÉNESIS JACOME Access ion #: [id number] Sex: F : 1945 4 Dictat ed By: Sharifa Ibarra Attend ing Physic ibis: STUART COOL CE Orderi Physic ibis: STUART COOL CE Exam Date: 2023 10:15 AM Exam Name: XR DEXA AXIAL/ HIP/PE LVIS/S PINE Admitt ing Diagno sis(es ): INDICA TION: 78 years old, Female ; senile osteop orosis . Postme nopaus al. DEXA SCAN: BONE DENSIT Y REPORT : AP SPINE (L1-L4 ) : T Score: -1.9 LEFT FEMORA L NECK : T Score: -2.4 RT FEMORA L NECK : T Score: -2.6 LEFT HIP TOTAL : T Score: -2.3 RT HIP TOTAL : T Score: -2.7 TOTAL BILAT HIP AVG: T Score: -2.5 10 YEAR FRACTU RE RISK* Not provid ed. IMPRES SEVEN: Osteop orosis of the right hip. Osteop enia of the left hip. Osteop enia of the lumbar spine. ------ ------ ------ ------ ------ ------ ------ ------ ----- Page 1 [facility] [address] [place] [address] Patien t Name: GÉNESIS JACOME Access ion #: [id number] Sex: F : 1945 4 Dictat ed By: Sharifa Ibarra Attend ing Physic ibis: CARLEY BURNS Physic ibis: STUART COOL Exam Date: 2023 10:15 AM Exam Name: XR DEXA AXIAL/ HIP/PE LVIS/S PINE Admitt ing Diagno sis(es ): *FRAX versio n 3.08. Fractu re probab ility calcul ated for an untrea otilio patien t. Fractu re probab ility may be lower if the patien t has receiv ed treatm ent. T-scor e: compar lui by mabel bowers ion (SD) to a young adult popula tion, matche d for sex and ethnic ity (used for postme nopaus al women and men >50 years) and classi fied by WHO criter ia. -1.0: normal <-1.0 to >-2.5: osteop enia -2.5: osteop orosis -2.5 plus fragil ity fractu re: severe osteop orosis Z-scor e: compar ed by SD to an age, sex, and ethnic ity popula tion (used for premen opausa l women, men <50 years, and childr en instea d of T-scor e WHO criter ia 4) <-2.0: below expect ed range/ low bone densit y for age, and a cause should be sought Electr onical ly Signed by: Sharifa Ibarra at 2023 11:02: 04 AM Page 2 [email or web address] [facility] (Imaging) [address] [place], [address], 02/06/2024 15:00:57 04/28/19 25 04/28/2024 XR, cervi armando spine No observ ation record ed. [address] [facility] [address], [place], [address], 04/28/2024 18:10:51 04/29/19 25 04/29/2024 XR, chest No observ ation record ed. [place] [id number] Not Available 2024 11:54:58 06/25/19 25 06/24/2024 XR, chest No observ ation record ed. [address], [place], [address], 06/24/2024 13:53:05 Result Notes None recorded. Problems Name Problem SNOMED Code Status Onset Date Resolution Date Notes Provider Name and Address Organization Details Recorded Time Disorder of connective tissue 020243943 Active Not Available [facility] 3 14:15:13 Mitral valve disorder 67486190 Active Not Available [facility] 3 14:15:13 Asthma 447294003 Active 2018 Not Available [facility] 3 14:15:13 Gastroesop hageal reflux disease 168091675 Active Not Available [facility] 3 14:15:13 Abnormal weight loss 772580186 Active 2021 Not Available [facility] 3 14:15:14 Pure hyperchole sterolemia 459799063 Active Not Available [facility] 3 14:15:14 Chest pain 28884961 Active 2016 Not Available [facility] 3 14:15:14 Osteopenia 965341085 Active Not Available [facility] 3 14:15:14 Vitamin D deficiency 72348630 Active Not Available [facility] 3 14:15:14 Depressive disorder 75163769 Active Not Available [facility] 3 14:15:14 Disorder of vitamin B12 919669300 Active Not Available [facility] 3 14:15:14 Hypothyroi dism 18508097 Active Not Available [facility] 3 14:15:14 Pulmonary embolism 19192929 Active 2016 Not Available [facility] 3 14:15:14 Essential tremor 892299044 Active 2020 Not Available [facility] 3 14:15:14 Spinal stenosis in cervical region 24053926 Active 2016 Not Available [facility] 3 14:15:14 Effects of high altitude 24651540 Active 2021 Not Available [facility] 3 14:15:14 Pain of left wrist 4912227644240 02 Active 2022 Isabell Paulino CMA null, [place] [facility] 3 11:53:23 COVID-19 149236681 Active 2022 Sumit Cool MD [address], [address] , [place] [facility] 3 17:52:42 Mammograph y abnormal 901610147 Active 2022 Isabell Paulino CMA null, [place] [facility] 3 17:25:19 Pleuritic pain 4952153 Active 2022 Valencia Yang null, [place] [facility] 3 15:00:28 Cobalamin deficiency 289204486 Active 2023 JEANNETTE Parra null, [place] [facility] 4 10:58:41 Anemia 484864674 Active 2023 Kaykay Huang null, [place] [facility] 4 16:40:10 Senile osteoporos is 77308303 Active 2023 Valencia Yang null, [place] [facility] 4 10:47:56 Osteoporos is 22193206 Active 2023 Isabell Paulino CMA null, [place] [facility] 4 15:30:29 Influenza 0608557 Active 2024 Sumit Cool MD [address] [facility] [address], [place], [address] , [place] [facility] 5 11:59:33 Problem Notes None recorded. Procedures Surgical History Date Name Laterality Status Provider Name and Address Organization Details Recorded Time 4 Medicare Wellness CPT Code, subsequent completed Gracie Garcia RN [facility] 02/04/2024 10:27:24 3 Medicare Wellness CPT Code, subsequent completed Gracie Garcia RN [facility] 01/15/2023 14:43:54 3 Advanced Care Planning completed Gracie Garcia RN [facility] 01/15/2023 14:46:04 2 Most Recent Bone Density completed Not Available [facility] 06/20/2022 14:11:48 Imaging Results Imaging Date Name Status LastModified by Organiz ation Details LastModified Time 01/23/2023 MAMMO, screening, digital, bilateral completed [address] (Imaging) [address] [place], [address], 01/23/2023 14:33:17 01/22/2023 lab* completed [place] [id number] Information no t available 01/25/2023 13:00:29 02/12/2023 XR, chest, 2 view completed [address] (Imaging) [address] [place], [address], 02/12/2023 17:29:17 03/05/2023 US, breast, unilateral completed [address] (Imaging) [address] [place], [address], 03/05/2023 16:08:13 03/05/2023 MAMMO, diagnostic, unilateral completed [address] (Imaging) [address] [place], [address], 03/05/2023 16:08:29 02/06/2024 DEXA, axial skeleton completed [address] (Imaging) [address], [place], [address], 02/06/2024 15:00:57 04/28/2024 XR, cervical spine completed [address] [facility] [address], [place], [address], 04/28/2024 18:10:51 04/29/2024 XR, chest [place] [id number] Information no t available 04/29/2024 11:54:58 06/24/2024 XR, chest completed [address], [place], [address], 06/24/2024 13:53:05 Procedure Notes None recorded. Medical Equipment None Reported. Medications Name Sig Start Date Stop Date Status Note LastModified by Organization Details LastModified Time Miralax 17 gram oral powder packet Take 1 packet every day by oral route. 2012 active Not Available Not Available Not Avai lable celecoxib 200 mg capsule Take 1 capsule by mouth twice daily 03/29 completed Not Available Not Available Not Available fluoxetine 40 mg capsule TAKE 1 CAPSULE DAILY active Not Available Not Available No t Available amoxicillin 500 mg capsule TAKE 1 CAPSULE BY MOUTH THREE TIMES DAILY UNTIL GONE 06/02 completed Not Available Not Available Not Available fluconazole 100 mg tablet TAKE 200MG BY MOUTH ON DAY 1 THEN 100MG BY MOUTH DAILY FOR 7 DAYS 06/02 completed Not Available Not Available Not Available clotrimazol e 10 mg mili DISSOLVE 1 TABLET SLOWLY BY MOUTH FIVE TIMES DAILY FOR 14 DAYS active Not Available Not Available No t Available Augmentin 875 mg-125 mg tablet Take 1 tablet every 12 hours by oral route. 04/10 completed Not Available Not Available Not Available primidone 50 mg tablet TAKE 1 TABLET 3 TIMES A DAY active Not Available Not Available No t Available pilocarpine 5 mg tablet Take 1 tablet by mouth 3 times a day 03/29 completed Not Available Not Available Not Available nystatin 100,000 unit/mL oral suspension TAKE 5 ML BY MOUTH 4 TIMES DAILY active Not Available Not Available No t Available atorvastati n 20 mg tablet TAKE 1 TABLET ONCE DAILY active Not Available Not Available No t Available ibuprofen 800 mg tablet TAKE 1 TABLET BY MOUTH EVERY 4 TO 6 HOURS NEEDED FOR PAIN NO MORE THAN 4 PER 24 HOURS active Not Available Not Available No t Available Lidocaine Viscous 2 % mucosal solution SWISH AND SPIT 15ML BY MOUTH EVERY 4 6 HOURS NEEDED FOR PAIN 05/21 completed Not Available Not Available Not Available acetazolami de ER 500 mg capsule,ext ended release TAKE 1 BY MOUTH TWICE DAILY 48 HOURS BEFORE ASSENT THEN CONTINUE active Not Available Not Available No t Available tizanidine 4 mg tablet TAKE 1 TABLET BY MOUTH THREE TIMES DAILY NEEDED active Not Available Not Available No t Available benzonatate 200 mg capsule Take 1 capsule 3 times a day by oral route. 12/05 completed Not Available Not Available Not Available promethazin e 12.5 mg tablet TAKE 1 TABLET BY MOUTH THREE TIMES DAILY NEEDED FOR NAUSEA active Not Available Not Available No t Available alendronate 70 mg tablet TAKE 1 TABLET BY MOUTH ONCE A WEEK active Not Available Not Available No t Available prednisone 5 mg tablet TAKE 2 TO 4 TABLETS BY MOUTH ONCE DAILY FOR ARTHRITIS CONTROL USE LOWEST DOSE NEEDED AND REDUCE WHEN BETTER 06/02 completed Not Available Not Available Not Available Zithromax Z-Yuri 250 mg tablet Take 2 TABLET EVERY DAY by oral route for 1 day then one daily 07/25 completed Not Available Not Available Not Available warfarin 2.5 mg tablet Take 1 tablet twice a day by oral route. 01/29 completed Not Available Not Available Not Available acetaminoph en 300 mg-codeine 15 mg tablet TAKE 1 TO 2 TABLETS BY MOUTH EVERY 4 HOURS NEEDED active Not Available Not Available No t Available acetaminoph en 300 mg-codeine 30 mg tablet 08/15 completed Not Available Not Available Not Available aspirin 81 mg tablet,bibiana yed release Take 1 tablet every day by oral route. 2016 active Not Available Not Available Not Avai lable tramadol 50 mg tablet TAKE 1 TABLET BY MOUTH THREE TIMES DAILY NEEDED FOR PAIN TAKE WITH OTC TYLENOL active Not Available Not Available No t Available PreviDent 0.2 % dental solution SWISH AND SPIT 10ML BY MOUTH TWICE DAILY active Not Available Not Available No t Available dexamethaso ne 0.5 mg/5 mL oral solution TAKE 5 ML BY MOUTH 2 TO 3 TIMES DAILY AND STOP WHEN ORAL ULCERS HAVE IMPROVED 06/02 completed Not Available Not Available Not Available meloxicam 7.5 mg tablet Take 1 tablet every day by oral route. active Not Available Not Available No t Available levothyroxi ne 100 mcg tablet TAKE 1 TABLET BY MOUTH DAILY active Not Available Not Available No t Available amoxicillin 875 mg tablet TAKE 1 TABLET BY MOUTH TWICE DAILY UNTIL GONE 06/02 completed Not Available Not Available Not Available alprazolam 0.25 mg tablet TAKE 1 TABLET BY MOUTH THREE TIMES DAILY active Not Available Not Available No t Available triamcinolo ne acetonide 0.1 % dental paste PLACE A SMALL AMOUNT TO THE AFFECTED AREA BY MUCOUS MEMBRANE 2-3 TIMES DAILY AFTER MEALS active Not Available Not Available No t Available dexamethaso ne 2 mg tablet one three times a day for one week 01/29 completed Not Available Not Available Not Available hydrocodone 7.5 mg-acetamin ophen 325 mg tablet Take 1 tablet every 6 hours by oral route. 08/15 completed Not Available Not Available Not Available pantoprazol e 40 mg tablet,bibiana yed release TAKE 1 TABLET BY MOUTH DAILY IN THE MORNING FOR REFLUX active Not Available Not Available No t Available cyanocobala min (vit B-12) 1,000 mcg/mL injection solution . 09/16 completed Not Available Not Available Not Available oseltamivir 75 mg capsule TAKE 1 CAPSULE BY MOUTH TWICE DAILY FOR 5 DAYS active Not Available Not Available No t Available nystatin 100,000 unit/gram topical cream APPLY TO THE CORNERS OF THE MOUTH TOPICALLY THREE TIMES DAILY NEEDED active Not Available Not Available No t Available Neurontin 100 mg capsule Take 3 capsules every day by oral route. 02/14 completed Not Available Not Available Not Available orphenadrin e citrate ER 100 mg tablet,exte nded release Take 1 tablet 4 times a day by oral route. active Not Available Not Available No t Available gabapentin 300 mg capsule TAKE 1 CAPSULE BY MOUTH TWICE DAILY active Not Available Not Available No t Available dorzolamide 22.3 mg-timolol 6.8 mg/mL eye drops INSTILL 1 DROP INTO RIGHT EYE TWICE DAILY FOR 28 DAYS active Not Available Not Available No t Available Glenoma 10 mg-325 mg tablet one every four hours not to exceed 5 per day 01/29 completed Not Available Not Available Not Available hydroxychlo roquine 200 mg tablet TAKE 2 TABLETS BY MOUTH ONCE DAILY active Not Available Not Available No t Available methylpredn isolone 4 mg tablets in a dose pack TAKE BY MOUTH DIRECTED ON INSIDE OF PACKAGE 06/02 completed Not Available Not Available Not Available Vitamin D2 1,250 mcg (50,000 unit) capsule Take 1 capsule every week by oral route. active Not Available Not Available No t Available colchicine 0.6 mg tablet TAKE 3 TABLETS DAILY FOR BETTER BECHET'S CONTROL active Not Available Not Available No t Available Percocet 5 mg-325 mg tablet Take 1 tablet every 6 hours by oral route. 07/26 completed Not Available Not Available Not Available Glenoma 5 mg-325 mg tablet Take 1 tablet every 6 hours by oral route. 07/26 completed Not Available Not Available Not Available Os-Armando 500 + D3 500 mg-5 mcg (200 unit) tablet Take 1 tablet twice a day by oral route. 2021 active Not Available Not Available Not Avai lable cyclobenzap rine 5 mg tablet TAKE ONE TABLET BY MOUTH THREE TIMES DAILY 03/29 completed Not Available Not Available Not Available metoprolol tartrate 25 mg tablet TAKE 1/2 TABLET (25 MG) BY ORAL ROUTE 2 TIMES PER DAY 07/26 completed Not Available Not Available Not Available Os-Armando 500 + D3 twice a day 10/20 completed Not Available Not Available Not Available ProAir HFA 90 mcg/actuati on aerosol inhaler Inhale 2 puffs every 4 hours by inhalatio n route. active Not Available Not Available No t Available Symbicort 160 mcg-4.5 mcg/actuati on HFA aerosol inhaler Inhale 2 puffs twice a day by inhalatio n route. active Not Available Not Available No t Available PreviDent 5000 Dry Mouth 1.1 % dental paste BRUSH FOR 1 MINUTE AND THEN EXPECTORA TE. USE TWICE DAILY. active Not Available Not Available No t Available melatonin 5 mg tablet Take 2 tablets every day by oral route at bedtime. 2016 active Not Available Not Available Not Avai lable Vitamin D3 125 mcg (5,000 unit) tablet Take 1 tablet every day by oral route. 2016 active Not Available Not Available Not Avai lable Paxlovid 300 mg (150 mg x 2)-100 mg tablets in a dose pack TAKE 3 TABLETS TOGETHER (TWO 150 MG NIRMATREL VIR TABLETS AND ONE 100 MG RITONAVIR TABLET) BY MOUTH TWICE DAILY FOR 5 DAYS. 06/02 completed Not Available Not Available Not Available Vitals Date Recorded Body height Body mass index (BMI) Body weight Heart rate Body temperature Oxygen saturation Oxygen saturation in Arterial blood by Pulse oximetry Systolic blood pressure Diastolic blood pressure Provider Name and Address Organization Details Last Updated DateTime 3 157.48 cm 20.3 kg/m2 32771.7 5 g 92 /min 97 [degF] 93 % 93 % 112 mm[Hg] 80 mm[Hg] [employer] 3 14:34:55 Date Recorded Pain severity - 0-10 verbal numeric rating [Score] - Reported Provider Name and Address Organization Details Last Updated DateTime 01/15/2023 0 Gracie Garcia RN [facility] [employer] 01/15/2023 14:44:08 Date Recorded Body height Body mass index (BMI) Body weight Heart rate Body temperature Oxygen saturation Oxygen saturation in Arterial blood by Pulse oximetry Systolic blood pressure Diastolic blood pressure Provider Name and Address Organization Details Last Updated DateTime 4 157.48 cm 20.3 kg/m2 74023.7 5 g 82 /min 97 [degF] 97 % 97 % 122 mm[Hg] 80 mm[Hg] [employer] 4 14:46:12 Date Recorded Body height Body mass index (BMI) Body weight Heart rate Body temperature Oxygen saturation Oxygen saturation in Arterial blood by Pulse oximetry Systolic blood pressure Diastolic blood pressure Provider Name and Address Organization Details Last Updated DateTime 4 157.48 cm 20.1 kg/m2 29563.1 6 g 105 /min 97 [degF] 91 % 91 % 128 mm[Hg] 80 mm[Hg] [employer] 4 14:53:34 Date Recorded Body height Body mass index (BMI) Body weight Heart rate Body temperature Oxygen saturation Oxygen saturation in Arterial blood by Pulse oximetry Systolic blood pressure Diastolic blood pressure Provider Name and Address Organization Details Last Updated DateTime 4 157.48 cm 19.8 kg/m2 81062.9 8 g 86 /min 97 [degF] 95 % 95 % 130 mm[Hg] 72 mm[Hg] JEANNETTE Parra [facility] [employer] [facility] 4 10:23:21 Date Recorded Pain severity - 0-10 verbal numeric rating [Score] - Reported Provider Name and Address Organization Details Last Updated DateTime 02/04/2024 0 Gracie Garcia RN [facility] [employer] [facility] 02/04/2024 10:27:35 Date Recorded Body height Body mass index (BMI) Body weight Heart rate Body temperature Oxygen saturation Oxygen saturation in Arterial blood by Pulse oximetry Systolic blood pressure Diastolic blood pressure Provider Name and Address Organization Details Last Updated DateTime 5 157.48 cm 20.1 kg/m2 31845.1 6 g 54 /min 97 [degF] 91 % 91 % 128 mm[Hg] 64 mm[Hg] Kaykay Huang [facility] [employer] 5 12:14:28 Social History Question Answer Notes LastModified by Organization Details LastModified Time Tobacco Smoking Status Never Smoker Not Available [employer] 06/20/2022 14:11:43 Do You Have An Advance Directive? No Info Given Previously [email or web address] Information not available 02/04/2024 What Is Your Level Of Alcohol Consumption? Moderate 1 Glass Wine Night [email or web address] Information not available 02/04/2024 Are You Blind Or Do You Have Difficulty Seeing? No MIGRATION.030 [id number] Information not available 06/20/2022 In The 14 Days Before Symptom Onset, Have You Had Close Contact With A Laboratory-conf irmed COVID-19 While That Case Was Ill? No MIGRATION.030 [id number] Information not available 06/20/2022 In The 14 Days Before Symptom Onset, Have You Had Close Contact With A Person Who Is Under Investigation For COVID-19 While That Person Was Ill? No MIGRATION.030 [id number] Information not available 06/20/2022 Are You Deaf Or Do You Have Serious Difficulty Hearing? No MIGRATION.0301 [id number] Information not available 06/20/2022 What Type Of Diet Are You Following? REGULAR MIGRATION.030 [id number] Information not available 06/20/2022 Do You Or Have You Ever Used E-cigarettes Or Vape? Never Used Electronic Cigarettes MIGRATION.0301 [id number] Information not available 06/20/2022 Have There Been Any Changes To Your Family Or Social Situation? No [email or web address] Information not available 01/15/2023 What Is The Fluoride Status Of Your Home? Fluoridated MIGRATION.0301 [id number] Information not available 06/20/2022 Are There Any Guns Present In Your Home? Yes MIGRATION.0301 [id number] Information not available 06/20/2022 Do You Use Insect Repellent Routinely? No [email or web address] Information not available 01/15/2023 Where Do You Live? [facility] MIGRATION.0301 [id number] Information not available 06/20/2022 Guns Present In The Home? Yes Information not available 01/15/2023 Are You Able To Care For Yourself? Yes [email or web address] Information not available 01/15/2023 Are You Blind Or Do Yo Have Difficulty Seeing? No [email or web address] Information not available 01/15/2023 Are You Deaf Or Do You Have Serious Difficulty Hearing? No [email or web address] Information not available 01/15/2023 Live Alone Of With Others? With Others [email or web address] Information not available 01/15/2023 Do You Have A Medical Power Of Power Originator? No [email or web address] Information not available 01/15/2023 What Was The Date Of Your Most Recent Tobacco Screening? 02/04/2024 [email or web address] Information not available 02/04/2024 Do You Have Any Pets? No [email or web address] Information not available 01/15/2023 What Is Your Relationship Status? MIGRATION.0301 [id number] Information not available 06/20/2022 Do You Use Your Seat Belt Or Car Seat Routinely? Yes MIGRATION.0301 [id number] Information not available 06/20/2022 Do You Have Smoke And Carbon Monoxide Detectors In Your Home? Yes Information not available 01/15/2023 Are You Passively Exposed To Smoke? No [email or web address] Information not available 01/15/2023 Do You Or Have You Ever Used Smokeless Tobacco? Never Used Smokeless Tobacco MIGRATION.0301 [id number] Information not available 06/20/2022 Are There Any Smokers In Your House? No [email or web address] Information not available 01/15/2023 Do You Use Sunscreen Routinely? No MIGRATION.0301 045070 Information not available 06/20/2022 Have You Recently Traveled Abroad? No MIGRATION.0301 [id number] Information not available 06/20/2022 Sex: Unknown Functional Status Question Answer Note LastModified by Organizat ion Details LastModified Time Do you have difficulty walking or climbing stairs? No MIGRATION.[id number] Information not available 06/20/2022 Do you have transportation difficulties? No MIGRATION.[id number] 026 Information not available 06/20/2022 Are you able to walk? YESWOREST MIGRATION.[id number] 026 Information not available 06/20/2022 Do you have difficulty doing errands alone? No MIGRATION.[id number] 026 Information not available 06/20/2022 Are you able to care for yourself? Yes MIGRATION.[id number] 026 Information not available 06/20/2022 Do you have difficulty dressing or bathing? No MIGRATION.[id number] 026 Information not available 06/20/2022 What is your exercise level? Occasional MIGRATION.[id number] 026 Information not available 06/20/2022 Mental Status Question Answer Note LastModified by Organizat ion Details LastModified Time Do you have difficulty concentrating, remembering or making decisions? No MIGRATION.[id number] Information not available 06/20/2022 Family History Nothing Reported Notes:Mother 93 Typ e II Diabetes and infirmities Father 73 from Parkinsonism One sister living and in good health Medical History Condition Response NERVE DISEASE N BLINDNESS N RHEUMATIC FEVER N KIDNEY STONES N BLADDER PROBLEMS N MRSA N OTHER # 1 N POLIO N LUNG DISEASE/DISORDER N HISTORY OF DRUG ABUSE N RADIATION / CHEMOTHERAPY N COPD N Other # 2 N BLOOD DISEASES N EAR OR HEARING PROBLEMS N MUMPS N SHINGLES N DEPRESSION (INCLUDING POST ) N BOWEL PROBLEMS N STROKE/TIA N ULCERS N BENIGN PROSTATIC HYPERPLASIA N MEASLES N HYPOTENSION N MYOCARDIAL INFARCTION N OBESITY N GERD/NAUSEA N ANEURYSM N URINARY/BLADDER/KIDNEY PROBLEMS N CORONARY ARTERY DISEASE (CAD) N ADDICTION CONCERNS N Impotence N ENDOMETRIOSIS N USE OF BLOOD THINNERS N SKIN PROBLEMS N GASTROINTESTINAL DISORDER N PERIPHERAL VASCULAR DISEASE N MUSCLE,JOINT OR BONE PROBLEMS N GASTROINTESTINAL BLEEDING N BLOOD CLOTS N ASTHMA N CATARACTS N ERECTILE DYSFUNCTION N VARICOSITIES N GI PROBLEMS N Low Testosterone N INFERTILITY N AIDS/HIV N CHEMOTHERAPY / RADIATION N LIVER DISEASE N MALE HYPOGONADISM N HYPERTENSION N Deficiency N TOURETTE'S N ANXIETY DISORDER N BLOOD TRANSFUSION N ANEMIA/BLOOD DISORDER N CHRONIC EAR INFECTIONS N BRONCHITIS N TUBERCULOSIS N GLAUCOMA N FOOT PROBLEM N DIVERTICULITIS N SLEEP APNEA N CHICKENPOX N INFECTIOUS DISEASE N PROSTATE N HEART ARRHYTHMIA N INSOMNIA N HIGH CHOLESTEROL / HYPERLIPIDEMIA N EYE PROBLEMS N HYPERTHYROIDISM N EDEMA N CHRONIC PAIN SYNDROME N HYPOTHYROIDISM N CAROTID BLOCKAGE N CONSTIPATION N BACK / NECK PROBLEMS N HAVE YOU BEEN HOSPITALIZED OR SEEN IN [facility] IN THE PAST YEAR ? N ATHEROSCLEROSIS N BREAST PROBLEMS N DIALYSIS N ECZEMA N OSTEOPOROSIS N ARTHRITIS N NO SIGNIFICANT PAST MEDICAL HISTORY N APPENDICITIS N DIABETES, TYPE N BAD TEETH N ENT N HEARTBURN / REFLUX N AUTISM SPECTRUM DISORDER (ASD) N HEPATITIS / LIVER DISEASE N GOUT N SLEEP DISORDER N ALZHEIMER'S DISEASE N Brain Problems N DEMENTIA N HERPES N SEIZURES/EPILEPSY N HEADACHES/MIGRAINES N VASCULAR DISEASE N PACEMAKER N Blood Disorder N DIZZINESS N HEART DISEASE/HEART PROBLEMS N KIDNEY DISEASE N MULTIPLE SCLEROSIS N CANCER: SPECIFY N CARDIAC ARRHYTHMIA N ATRIAL FIBRILLATION N Gall Stones N PULMONARY EMBOLISM N AUTOIMMUNE DISEASE N Gynecological History Statement/Question Response Date of Last Mammogram 09/06/2020 Date of Last Colonoscopy Most Recent Bone Density 08/28/2021 Obstetrics History GPAL:G 0 P 0 0 0 0 Immunizations Vaccine Type Date Status Note Provider Nam e and Address Organization Details Recorded Time Influenza, high-dose, quadrivalent, PF 3 completed Kaykay bruno, [facility] [employer] 01/15/2023 17:26:08 Influenza, high-dose, trivalent, PF 4 completed JEANNETTE Parra, [facility] 01/30/2024 12:36:15 Influenza, split virus, trivalent, preservative 3 completed Not Available [facility] 06/20/2022 14:18:58 COVID-19, mRNA, LNP-S, bivalent, PF, 30 mcg/0.3 mL dose 2 completed Not Available [facility] 06/20/2022 14:18:58 COVID-19, mRNA, LNP-S, PF, 30 mcg/0.3 mL dose 2 completed Not Available [facility] 06/20/2022 14:18:58 Influenza, split virus, quadrivalent, preservative 1 completed Not Available [facility] 06/20/2022 14:18:59 COVID-19, mRNA, LNP-S, PF, 30 mcg/0.3 mL dose 1 completed Not Available [facility] 06/20/2022 14:18:59 SARS-COV-2 (COVID-19) vaccine, UNSPECIFIED 1 completed Not Available [facility] 06/20/2022 14:18:59 SARS-COV-2 (COVID-19) vaccine, UNSPECIFIED 1 completed Not Available [facility] 06/20/2022 14:18:59 Influenza, high-dose, quadrivalent, PF 0 completed Not Available [facility] 06/20/2022 14:18:59 Influenza, high-dose, trivalent, PF 0 completed Not Available [facility] 06/20/2022 14:18:59 Influenza, high-dose, trivalent, PF 8 completed Not Available [facility] 06/20/2022 14:18:59 Influenza, high-dose, trivalent, PF 7 completed Not Available [facility] 06/20/2022 14:18:59 pneumococcal polysaccharide PPV23 7 completed Not Available [facility] 06/20/2022 14:18:59 Pneumococcal conjugate PCV 13 5 completed Not Available [facility] 06/20/2022 14:18:59 Influenza, split virus, quadrivalent, preservative 5 completed Not Available [facility] 06/20/2022 14:18:59 Influenza, split virus, trivalent, preservative 4 completed Not Available [facility] 06/20/2022 14:18:59 Past Encounters Encounter ID Performer Location Encounter Start Date Encounter Closed Date Diagnosis/Indication Diagnosis SNOMED-CT Code Diagnosis ICD10 Code Diagnosis Note [id number] [facility] Internal [facility] [facility] [address] [facility] , [facility] [place] [address] 10/18/2020 00:00:00 10/18/2020 15:09:01 [id number] [facility] Internal Med [place] [address] [place] [address] y , [place] [address] 04/18/2021 00:00:00 04/18/2021 14:57:45 [id number] [facility] Internal Med [place] [address] [place] [address] y , [place] [address] 08/15/2021 00:00:00 08/15/2021 15:23:41 [id number] [facility] Internal Med [place] [address] [place] [address] y , [place] [address] 10/20/2021 00:00:00 10/20/2021 12:28:58 [id number] [facility] Internal Med [place] [address] [place] [address] y , [place] [address] 12/15/2021 00:00:00 12/15/2021 14:32:38 [id number] [facility] Internal Med [place] [address] [place] [address] y , [place] [address] 05/04/2022 00:00:00 05/04/2022 15:22:27 [id number] Sumit Cool MD [facility] Internal Med [place] [address] [place] [address] y , [place] [address] 08/17/2022 14:54:00 08/17/2022 15:12:26 Gastroesophageal reflux disease 081727264 K21.9 Pure hypercholesterolemia 085741478 E78.00 Disorder o f connective tissue 184535383 L94.9 Asthma 261516773 J45.90 9 Vitamin D deficiency 347 65270 E55.9 [id number] Sumit Cool MD [facility] Internal Med [place] [address] [place] [address] y , [place] [address] 01/15/2023 14:15:15 01/15/2023 15:29:26 Adult health examination 830013655 Z00.00 Screening for disorder 941125076 Z13.9 Disorder o f connective tissue 043072093 L94.9 Hypothyroidism 33785438 E03.9 Gastroesop hageal reflux disease 742296376 K21.9 Asthma 921201195 J45.90 9 Pure hypercholesterolemia 284774721 E78.00 [id number] Sumit Cool MD [facility] Internal Med [facility] [address] [facility], [facility] [address] [place] [address] 05/21/2023 14:41:39 05/21/2023 15:12:49 Asthma 058153753 J45.909 Gastroesop hageal reflux disease 834590193 K21.9 Hypothyroidism 92661916 E03.9 Pure hypercholesterolemia 001375379 E78.00 Disorder o f connective tissue 357824285 L94.9 Vitamin D deficiency 347 40647 E55.9 [id number] Sumit Cool MD [facility] Internal Med [facility] [address] [place] [address] [place] [address] 09/17/2023 14:43:04 09/17/2023 15:10:17 Gastroesophageal reflux disease 268721260 K21.9 Pure hypercholesterolemia 316358901 E78.00 Hypothyroidism 68192675 E03.9 Disorder o f connective tissue 567057150 L94.9 Asthma 788868801 J45.90 [id number] Sumit Cool MD [facility] Internal Med [facility] [address] [place] [address] [place] [address] 02/04/2024 10:12:56 02/04/2024 10:47:27 Adult health examination 914174035 Z00.00 Screening for disorder 641427725 Z13.9 Gastroesop hageal reflux disease 597702549 K21.9 Hypothyroidism 98533794 E03.9 Pure hypercholesterolemia 269578304 E78.00 Pulmonary embolism 10583 003 I26.99 [id number] Sumit Cool MD [facility] Primary Care [facility] [address] [facility] [address] [place] [address] 06/02/2024 11:54:17 06/02/2024 12:52:42 Disorder of connective tissue 873537820 L94.9 Gastroesop hageal reflux disease 354806514 K21.9 Essential tremor 0558218 09 G25.0 Pure hypercholesterolemia 241662809 E78.00 Osteoporosis 38143883 M8 1.0 Health Concerns Section Related Observation LastModified by Organization Detai ls LastModified Time None Recorded Concern Status LastModified by Organization Details LastModified Time None Recorded Advance Directives Directive N: Info given previously Payers Encounter Date Sequence Insurance Name Policy Number Policy Alcantara Covered Member ID Alcantara Member ID Guarantor Name 01/15/2023 1 [employer] (MEDICARE REPLACEMENT PPO) [id number] 1 Génesis L Condon [id number] Génesis Condon 05/21/2023 1 [employer] (MEDICARE REPLACEMENT PPO) [id number] 1 Génesis L Condon [id number] Génesis Condon 09/17/2023 1 [employer] (MEDICARE REPLACEMENT PPO) [id number] 1 Génesis L Condon [id number] Génesis Condon 02/04/2024 1 [employer] (MEDICARE REPLACEMENT PPO) [id number] 1 Génesis L Condon [id number] Génesis Condon 06/02/2024 1 [employer] (MEDICARE REPLACEMENT PPO) [id number] 1 Génesis L Condon [id number] Génesis Condon Notes Date Note Type Note Provider Name and Address Organization Details Recorded Time text/html Patient Name: Génesis AnnmindyDate Of Service: Saturday ( 01.15.2023 ): 1945 Age: 77 Vital Signs:Blood Pressure: Sitting Rt. Arm 112/80Pulse: Sitting 92 /min and RegularRespiratory Rate: 12Height 62 in or 1.6 mWeight 111 lb or 50.3 kgBMI 20.3Temperature: 97 F or 36.1 CPulse Oximetry: 93 % at rest on no oxygen Chief Complaint: Addressed in HPI Problems or conditions discussed in the HPI were the only ones reviewed during the encounter.Only social and family history addressed in the HPI were reviewed during this encounter. A significant, separate E/M service was performed to evaluate the current and new problems. Attendant(s): NoneConstitutional and Systemic Symptoms:none Medication Reconciliation: from medication list. AnnotationsCT scan from 10/25/2021 demonstrates coronary artery calcifications some hyperexpansion lungs but no evidence of any mediastinal or abdominal lymphadenopathy. No signs of any type of neoplastic processes. History of Present Illness Reviewed the findings of the preventative health visit. Addressed all areas with the patient, patient's family or caregivers. Preventative examinations and testing immunizations - vaccinations, colonic neoplasm screening, mammograms and LDCT thorax all reviewed and ordered where patient was amenable to the recommendations. Cognitive function was normal. Depression addressed and where necessary medications were adjusted or instituted. End of life and living will briefly discussed with patient and where these can be filled out and legally executed. Other blood and imaging studies were ordered if considered necessary. Other recommendations may be found in the encounter note. #1. Hx of asthma. Daily medications: Symbicort. Uses bronchodilators several times per month. Night time exacerbations: 3-4 times monthly There has been no cough, congestion, or sputum production. No changes in exercise tolerance. Denies any fever or chills. Tolerating the medications without problems. The current status could be classified as mild persistent asthma. Using nebulizer Treatments: No. #2. Hx of hypothyroidism currently stable. Heat intolerance: no Fatigue: no Weight gain: no Difficulty concentrating: no Muscle Symptoms: none Skin Texture: normal Skin Color: normal Currently taking synthroid. #3. Type II Hypercholesterolaemia: Currently taking medication and tolerating well. No interval complaints of any muscle pain or arthralgia. No significant liver changes with medications. Last lipid panel: excellent control. Therapy reviewed regarding treatment of cholesterol management and include diet and Lipitor. #4. History of connective tissue disorder. Is followed on a intermittent basis by Rheumatology. Is on Plaquenil doing quite well. No recent exacerbation of the symptoms.: #5. Hx of esophageal reflux currently stable. Hx of Complications: none The severity, duration and intensity of symptoms have improved. Frequency: most meals Treatment consists medications taken on intermittent basis. Current therapy includes Protonix. There has been no nausea, eructation, vomiting, hematemesis, dysphagia, velopharyngeal insufficiency and odynophagia. No change in he frequency or intensity of symptoms. Has had no melena. Has had no hematemesis. Discuss the possibility of trying to reduce the frequency of the use of any PPI inhibitors or H2 antagonist to see if symptoms can be controlled with last intensive therapyMedication List Reviewed and Reconciled 01/15/2023olchicine 0.6 MG (TABLET - ORAL) One BidXanax 0.25 MG (TABLET - ORAL) One Three Times A DayProzac 40 MG (CAPSULE - ORAL) One Daily In AmSynthroid 0.1 MG (TABLET - ORAL) One Daily For ThyroidOs-armando D One BidLipitor 20 MG (TABLET - ORAL) One DailyProtonix 40 MG (TABLET, DELAYED RELEASE - ORAL) One Daily Am For RefluxMiralax 17 GM/SCOOPFUL (FOR SOLUTION - ORAL) As Directed One Cap Full One Bottle Is 527 GrmsPrimidone 50 MG (TABLET - ORAL) One TidPlaquenil 200 MG (TABLET - ORAL) 2 Q AmProair Hfa 0.09 MG /INH (AEROSOL, METERED - INHALATION) 2 Puffs Q 4 Hours PrnSymbicort 0.16 MG/INH-0.0045 MG/INH (AEROSOL, METERED - INHALATION) 2 Puffs BidZanaflex 4 MG (CAPSULE - ORAL) One TidAspirin 81 MG One DailyNeurontin 300 MG (CAPSULE - ORAL) One Twice A DayMelatonin 5 MG Two At BedtimeVitamin D 5000 UNITS DailyVitamin B12 DailyMobic 7.5 MG (TABLET - ORAL) DailyVaccination and Mqbfljehptya2934-24 Hzuywxlcs4508-74 Covid Odrxxt9680-55 Pneumovax [id number] Prevnar 13Surgical HistoryRt. Shoulder Injection, Cervical Laminectomy, Epigastric Hernia RepairPreventative Testing Confirmed by Our Gtbtgjd4512/21/2022 LETTER SLFTHQRCA21/01/2023 ALBUMIN 3.7 G/DL12/21/2021 MAMMOGRAM / LETTER JSRGMDIVYISIB24/06/2021 COLOGUARD DEXA SCAN01/12/2004 COLONOSCOPY 01/11/2014Social HistoryDoes not smokeDrinks sociallyWorks as a school teacherFamily HistoryMother 93 Type II Diabetes and infirmitiesFather 73 from ParkinsonismOne sister living and in good health Sumit Cool MD [address] [facility], [facility] [address], [place], [address], [facility] 01/15/2023 14:56:21 4 text/html Patient Name: Génesis Murillo Of Service: Saturday ( 05.21.2023 ): 1945 Age: 77 Vital Signs:Blood Pressure: Sitting Rt. Arm 122/80Pulse: Sitting 87 /min and RegularRespiratory Rate: 12Height 62 in or 1.6 mWeight 111. lb or 50.3 kgBMI 20.3Temperature: 97 F or 36.1 CPulse Oximetry: 97 % at rest on no oxygen Chief Complaint: Addressed in HPI Problems or conditions discussed in the HPI were the only ones reviewed during the encounter.Only social and family history addressed in the HPI were reviewed during this encounter. Attendant(s): NoneConstitutional and Systemic Symptoms:none Medication Reconciliation: from medication list. AnnotationsCT scan from 10/25/2021 demonstrates coronary artery calcifications some hyperexpansion lungs but no evidence of any mediastinal or abdominal lymphadenopathy. No signs of any type of neoplastic processes. History of Present Illness #1. Hx of asthma. Daily medications: Proair Hfa and Symbicort. Uses bronchodilators several times per month. Night time exacerbations: 3-4 times monthly There has been no cough, congestion, or sputum production. No changes in exercise tolerance. Denies any fever or chills. Tolerating the medications without problems. The current status could be classified as Intermittent asthma. Using nebulizer Treatments: No. #2. Hx of esophageal reflux currently stable. Hx of Complications: none The severity, duration and intensity of symptoms have improved. Frequency: most meals Treatment consists medications taken on intermittent basis. Current therapy includes Protonix. There has been no nausea, eructation, vomiting, hematemesis, dysphagia, velopharyngeal insufficiency and odynophagia. No change in he frequency or intensity of symptoms. Has had no melena. Has had no . Discussed use of H2 antagonists and the possibility of trying to reduce the frequency of the use of any PPI inhibitors and try H2 antagonists to see if symptoms can be controlled with lease intensive therapy since a number of complications are associated with chronic prolonged use of PPI inhibitors. #3. Hx of hypothyroidism currently stable. Heat intolerance: no Fatigue: no Weight gain: no Difficulty concentrating: no Muscle Symptoms: none Skin Texture: normal Skin Color: normal Currently taking synthroid. #4. Type II Hypercholesterolaemia: Currently taking medication and tolerating well. No interval complaints of any muscle pain or arthralgia. No significant liver changes with medications. Last lipid panel: fair control. Therapy reviewed regarding treatment of cholesterol management and include diet. #5. Disorder of connective tissue disease clinically stable. Still takes medication form of Plaquenil chloroquine etc.. No recent deterioration a new muscular function etc..: Active Medication ListColchicine 0.6 MG (TABLET - ORAL) One BidXanax 0.25 MG (TABLET - ORAL) One Three Times A DayProzac 40 MG (CAPSULE - ORAL) One Daily In AmSynthroid 0.1 MG (TABLET - ORAL) One Daily For ThyroidOs-armando D One BidLipitor 20 MG (TABLET - ORAL) One DailyProtonix 40 MG (TABLET, DELAYED RELEASE - ORAL) One Daily Am For RefluxMiralax 17 GM/SCOOPFUL (FOR SOLUTION - ORAL) As Directed One Cap Full One Bottle Is 527 GrmsPrimidone 50 MG (TABLET - ORAL) One TidPlaquenil 200 MG (TABLET - ORAL) 2 Q AmProair Hfa 0.09 MG /INH (AEROSOL, METERED - INHALATION) 2 Puffs Q 4 Hours PrnSymbicort 0.16 MG/INH-0.0045 MG/INH (AEROSOL, METERED - INHALATION) 2 Puffs BidZanaflex 4 MG (CAPSULE - ORAL) One TidAspirin 81 MG One DailyNeurontin 300 MG (CAPSULE - ORAL) One Twice A DayMelatonin 5 MG Two At BedtimeVitamin D 5000 UNITS DailyVitamin B12 DailyMobic 7.5 MG (TABLET - ORAL) Daily Vaccination and Oududcbblphn5098-28 Ojrewgcyq7755-94 Covid Ocydjf1434-70 Ygvnnakay9911-41 Prevnar 13 Gc Surgical Janwryk0043-91 Rt. 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 Arm 128/80Pulse: Sitting 105 /min and RegularRespiratory Rate: 12Height 62 in or 1.6 mWeight 110 lb or 49.9 kgBMI 20.1Temperature: 97 F or 36.1 CPulse Oximetry: 91 % at rest on no oxygen Chief Complaint: Addressed in HPI Problems or conditions discussed in the HPI were the only ones reviewed during the encounter.Only social and family history addressed in the HPI were reviewed during this encounter. Attendant(s): NoneConstitutional and Systemic Symptoms:none Medication Reconciliation: from medication list. AnnotationsCT scan from 10/25/2021 demonstrates coronary artery calcifications some hyperexpansion lungs but no evidence of any mediastinal or abdominal lymphadenopathy. No signs of any type of neoplastic processes. History of Present Illness #1. Hx of esophageal reflux currently stable. Hx of Complications: none The severity, duration and intensity of symptoms have improved. Frequency: most meals Treatment consists medications taken on intermittent basis. Current therapy includes no medication. There has been no nausea, eructation, vomiting, hematemesis, dysphagia, velopharyngeal insufficiency and odynophagia. No change in he frequency or intensity of symptoms. Has had no melena. Has had no . Discussed use of H2 antagonists NA. #2. Type II Hypercholesterolaemia: Currently taking medication and tolerating well. No interval complaints of any muscle pain or arthralgia. No significant liver changes with medications. Last lipid panel: excellent control. Therapy reviewed regarding treatment of cholesterol management and include diet and Lipitor. #3. Hx of hypothyroidism currently stable. Heat intolerance: no Fatigue: no Weight gain: no Difficulty concentrating: no Muscle Symptoms: none Skin Texture: dry Skin Color: normal Currently taking synthroid. #4. History of connective tissue disorder clinically stable. Currently taking Plaquenil and doing reasonably well. No interval complaints any type of extra connective tissue manifestations of her disease.:#5. History of asthma takes Symbicort on an as-needed basis. Clinically doing well otherwise. No recent exacerbation of underlying exertional capacity. Did have only a pulse ox of 91 today but has had some seasonal allergy problems which may be interfering today with her normal breathing status. Active Medication ListColchicine 0.6 MG (TABLET - ORAL) One BidXanax 0.25 MG (TABLET - ORAL) One Three Times A DayProzac 40 MG (CAPSULE - ORAL) One Daily In AmSynthroid 0.1 MG (TABLET - ORAL) One Daily For ThyroidOs-armando D One BidLipitor 20 MG (TABLET - ORAL) One DailyProtonix 40 MG (TABLET, DELAYED RELEASE - ORAL) One Daily Am For RefluxMiralax 17 GM/SCOOPFUL (FOR SOLUTION - ORAL) As Directed One Cap Full One Bottle Is 527 GrmsPrimidone 50 MG (TABLET - ORAL) One TidPlaquenil 200 MG (TABLET - ORAL) 2 Q AmProair Hfa 0.09 MG /INH (AEROSOL, METERED - INHALATION) 2 Puffs Q 4 Hours PrnSymbicort 0.16 MG/INH-0.0045 MG/INH (AEROSOL, METERED - INHALATION) 2 Puffs BidZanaflex 4 MG (CAPSULE - ORAL) One TidAspirin 81 MG One DailyNeurontin 300 MG (CAPSULE - ORAL) One Twice A DayMelatonin 5 MG Two At BedtimeVitamin D 5000 UNITS DailyVitamin B12 DailyMobic 7.5 MG (TABLET - ORAL) Daily Vaccination and Taygpierdlly3617-32 Taqqmftfo4618-13 Covid Xiybhr6322-68 Dkzzahznr3343-01 Prevnar 13 Gc Surgical Mfgnwva5981-19 Rt. Shoulder Fnpzmonlr7224-40 Cervical Mnnmkimkgza7252-72 Epigastric Hernia Repair Preventative Ftvuadw2906/27/2023 JZDEDSVKS76/15/2024 ALBUMIN 3.7 G/DL03/05/2023 MAMMOGRAM HKYSJUWRCVEHQ46/06/2021 COLOGUARD 4005/03/2018 DEXA SCAN01/12/2004 COLONOSCOPY 01/11/2014 Social HistoryDoes not smokeDrinks sociallyWorks as a middle school english teacher Family HistoryMother 93 Type II Diabetes and infirmitiesFather 73 from ParkinsonismOne sister living and in good health Sumit Cool MD [address] [facility], [facility] [address], [place], [address], [place] [facility] [employer] 09/17/2023 15:07:19 4 text/html Patient Name: Génesis Murillo Of Service: Saturday ( 02.04.2024 ): 1945 Age: 78 There has been approximately a 2 lb weight loss since 09/17/2023. This represents approximately a 1.8% change in weight. Weight change attributable to lifestyle changes. Vital Signs:Blood Pressure: Sitting Rt. Arm 130/72Pulse: Sitting 86 /min and RegularRespiratory Rate: 16Height 62 in or 1.6 mWeight 108 lb or 49.0 kgBMI 19.8Temperature: 97 F or 36.1 CPulse Oximetry: 95 % at rest on no oxygen Chief Complaint: Addressed in HPI Problems or conditions discussed in the HPI were the only ones reviewed during the encounter.Only social and family history addressed in the HPI were reviewed during this encounter. A significant, separate E/M service was performed to evaluate the current and new problems. Attendant(s): NoneConstitutional and Systemic Symptoms:none Medication Reconciliation: from medication list. History of Present Illness Reviewed the findings of the preventative health visit. Addressed all areas with the patient, patient's family or caregivers. Preventative examinations and testing immunizations - vaccinations, colonic neoplasm screening, mammograms and DEXA Scan all reviewed and ordered where patient was amenable to the recommendations. Cognitive function was normal. Depression addressed and where necessary medications were adjusted or instituted. End of life and living will briefly discussed with patient and where these can be filled out and legally executed. Other blood and imaging studies were ordered if considered necessary. Other recommendations may be found in the encounter note. #1. Hx of esophageal reflux currently stable. Hx of Complications: none The severity, duration and intensity of symptoms have improved. Frequency: most meals Treatment consists medications taken on a regular basis. Current therapy includes Protonix. There has been no nausea. No change in he frequency or intensity of symptoms. Has had no melena. Has had no . Discussed use of H2 antagonists NA. #2. Hx of hypothyroidism currently stable. Heat intolerance: no Fatigue: no Weight gain: no Difficulty concentrating: no Muscle Symptoms: none Skin Texture: normal Skin Color: normal Currently taking synthroid. #3. Type II Hypercholesterolaemia: Currently taking medication and tolerating well. No interval complaints of any muscle pain or arthralgia. No significant liver changes with medications. Last lipid panel: fair control. Therapy reviewed regarding treatment of cholesterol management and include diet and Lipitor. Active Medication ListColchicine 0.6 MG (TABLET - ORAL) One BidXanax 0.25 MG (TABLET - ORAL) One Three Times A DayProzac 40 MG (CAPSULE - ORAL) One Daily In AmSynthroid 0.1 MG (TABLET - ORAL) One Daily For ThyroidOs-armando D One BidLipitor 20 MG (TABLET - ORAL) One DailyProtonix 40 MG (TABLET, DELAYED RELEASE - ORAL) One Daily Am For RefluxMiralax 17 GM/SCOOPFUL (FOR SOLUTION - ORAL) As Directed One Cap Full One Bottle Is 527 GrmsPrimidone 50 MG (TABLET - ORAL) One TidPlaquenil 200 MG (TABLET - ORAL) 2 Q AmProair Hfa 0.09 MG /INH (AEROSOL, METERED - INHALATION) 2 Puffs Q 4 Hours PrnSymbicort 0.16 MG/INH-0.0045 MG/INH (AEROSOL, METERED - INHALATION) 2 Puffs BidZanaflex 4 MG (CAPSULE - ORAL) One TidAspirin 81 MG One DailyNeurontin 300 MG (CAPSULE - ORAL) One Twice A DayMelatonin 5 MG Two At BedtimeVitamin D 5000 UNITS DailyVitamin B12 DailyMobic 7.5 MG (TABLET - ORAL) Daily Vaccination and Immunization( ) 2024-01 INFLUENZA( ) 2015-01 PREVNAR 13 GC( ) 2017-01 PNEUMOVAX(X) 2020- COVID PFIZER( ) 2023- PREVNAR 20 Surgical Qqwjupq0546-06 Rt. Shoulder Yuovjlxni6264-00 Cervical Xtsbpuhiazv3094-35 Epigastric Hernia Repair Preventative Testing( ) 10/08/2023 Albumin 4.1 G/DL( ) 06/27/2023 Optometry( ) 03/05/2023 Mammogram 03/05/2025( ) 04/11/2021 Ophthalmology(X) 04/27/2020 Cologuard 04/27/2023(X) 05/03/2018 DEXA Scan 05/03/2020 Social HistoryDoes not smokeDrinks sociallyWorks as a middle school english teacher Family HistoryMother 93 Type II Diabetes and infirmitiesFather 73 from ParkinsonismOne sister living and in good health TEST RESULT RANGE UNITSCBC WITH DIFFERENTIAL/PLATELET Date: 10/08/2023WBC 5.5 3.4-10.8 X10E3/ULHEMOGLOBIN 12.3 11.1-15.9 G/DLHEMATOCRIT 37.9 34.0-46.6 %PLATELETS 299 150-450 X10E3/ULCOMP. METABOLIC PANEL (14) Date: 10/08/2023SODIUM 141 134-144 MMOL/LPOTASSIUM 4.3 3.5-5.2 MMOL/LGLUCOSE 80 70-99 MG/DLBUN 13 8-27 MG/DLCREATININE 0.94 0.57-1.00 MG/DLEGFR 63 >59 ML/MIN/1.73ALKALINE PHOSPHATASE 100 44-121 IU/LAST (SGOT) 30 0-40 IU/LALT (SGPT) 19 0-32 IU/LLIPID PANEL Date: 4CHOLESTEROL, TOTAL 165 100-199 MG/DLTRIGLYCERIDES 132 0-149 MG/DLHDL CHOLESTEROL 64 >39 MG/DLLDL CHOL CALC ([email or web address] 78 0-99 MG/DL Sumit Cool MD [address] [facility] [facility] [address], [place], [address], [place] [facility] [employer] 02/04/2024 10:40:23 5 text/html Patient Name: Génesis CondonPrakash Of Service: Saturday ( 06.02.2024 ): 1945 Age: 78 There has been approximately a 2 lb weight gain since 02/04/2024. This represents approximately a 1.9% change in weight. Weight change attributable to lifestyle changes. Vital Signs:Blood Pressure: Sitting Rt. Arm 128/64Pulse: Sitting 54 /min and RegularRespiratory Rate: 16Height 62 in or 1.6 mWeight 110 lb or 49.9 kgBMI 20.1Temperature: 97 F or 36.1 CPulse Oximetry: 98 % at rest on no oxygen Chief Complaint: Addressed in HPI Problems or conditions discussed in the HPI were the only ones reviewed during the encounter.Only social and family history addressed in the HPI were reviewed during this encounter. Attendant(s): HusbandConstitutional and Systemic Symptoms:none Medication Reconciliation: from medication list. History of Present Illness #1. 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 Clinically taking Plaquenil as well as other agents being followed by Rheumatology. Has felt more run down fatigue thinks much of this might be related to her Sjogren's component to her disease process.: #2. Hx of esophageal reflux currently stable. Hx of Complications: none The severity, duration and intensity of symptoms have improved. Frequency: most meals Treatment consists medications taken on a regular basis. Current therapy includes Protonix. There has been no nausea, eructation, vomiting, hematemesis, dysphagia, velopharyngeal insufficiency and odynophagia. No change in he frequency or intensity of symptoms. Has had no melena. Has had no . Discussed use of H2 antagonists NA. #3. Essential Tremor: History of essential tremor. Predominately involves the hands. There has been no change in severity or interference with activities of daily living. No additional neurological symptoms. #4. Type II Hypercholesterolaemia: Currently taking medication and tolerating well. No interval complaints of any muscle pain or arthralgia. No significant liver changes with medications. Last lipid panel: fair control. Therapy reviewed regarding treatment of cholesterol management and include diet and Lipitor.#5. Osteoporosis clinically stable currently taking calcium and vitamin-D supplementation along with Fosamax. Clinically stable. No history of any recent falls or injuries. No other associated fractures. Active Medication ListColchicine 0.6 MG (TABLET - ORAL) One BidXanax 0.25 MG (TABLET - ORAL) One Three Times A DayProzac 40 MG (CAPSULE - ORAL) One Daily In AmSynthroid 0.1 MG (TABLET - ORAL) One Daily For ThyroidOs-armando D One BidLipitor 20 MG (TABLET - ORAL) One DailyProtonix 40 MG (TABLET, DELAYED RELEASE - ORAL) One Daily Am For RefluxMiralax 17 GM/SCOOPFUL (FOR SOLUTION - ORAL) As Directed One Cap Full One Bottle Is 527 GrmsPrimidone 50 MG (TABLET - ORAL) One TidPlaquenil 200 MG (TABLET - ORAL) 2 Q AmProair Hfa 0.09 MG /INH (AEROSOL, METERED - INHALATION) 2 Puffs Q 4 Hours PrnSymbicort 0.16 MG/INH-0.0045 MG/INH (AEROSOL, METERED - INHALATION) 2 Puffs BidZanaflex 4 MG (CAPSULE - ORAL) One TidAspirin 81 MG One DailyNeurontin 300 MG (CAPSULE - ORAL) One Twice A DayMelatonin 5 MG Two At BedtimeVitamin D 5000 UNITS DailyVitamin B12 DailyMobic 7.5 MG (TABLET - ORAL) DailyFosamax 70 MG TABLET One Weekly Vaccination and Immunization( ) 2024-01 INFLUENZA( ) 2015-01 PREVNAR 13 GC( ) 2017-01 PNEUMOVAX(X) 2020-12 COVID PFIZER( ) 2024-01 PREVNAR 20 Surgical Qtpcnjj1899-80 Rt. Shoulder Nigyyfmon3021-61 Cervical Gfvykpvhmcd5748-11 Epigastric Hernia Repair Preventative Testing( ) 02/18/2024 Cologuard 02/17/2027( ) 02/06/2024 Albumin 4.2 G/DL( ) 02/06/2024 DEXA Scan 02/05/2026( ) 06/27/2023 Optometry( ) 03/05/2023 Mammogram 03/05/2025( ) 04/11/2021 Ophthalmology Social HistoryDoes not smokeDrinks sociallyWorks as a middle school english teacher Family HistoryMother 93 Type II Diabetes and infirmitiesFather 73 from ParkinsonismOne sister living and in good health TEST RESULT RANGE UNITSC REACTIVE PROTEIN,ULTRA SENS Date: 02/06/2024-REACTIVE PROTEIN 0.06 0.0-0.5 MG/DLCBC/COMPLETE BLD COUNT W/DIFF Date: 02/06/2024WHITE BLOOD CELLS 5.6 4.2-10.8 X10'3/ULHEMOGLOBIN 11.9 12.0-15.6 G/DLHEMATOCRIT 37.6 35.7-45.7 %PLATELETS 264 150-400 X10'3/ULCOMPREHENSIVE METABOLIC PANEL Date: 02/06/2024SODIUM 138 137-145 MMOL/LPOTASSIUM 4.6 3.5-5.1 MMOL/LGLUCOSE 87 70-99 MG/DLBUN 12 8-19 MG/DLCREATININE 1.00 0.66-1.25 MG/DLGFR 54ALKALINE PHOSPHATASE 80 38-126 U/LALANINE AMINOTRANSFERASE 21 0-35 U/LASPARTATE AMINOTRANSFERASE 41 15-37 U/LBILIRUBIN, TOTAL 0.50 0.20-1.30 MG/DLCALCIUM 9.4 8.4-10.2 MG/DL Sumit Cool MD [address] [facility] [facility] [address], [place], [address], [place] [facility] 06/02/2024 12:22:58 OBGyn Episode No OBEpisode recorded.
--- OUTSIDE RECORDS SUMMARY | 2024-06-24 13:28 | XMS_ITS ---
Author Organization [facility] Address [address] [address] Care Team Providers Care Coffee Bar Attendant Name Role Phone Kb Mobley Unavailable [phone] zzzzMigration, zzzzProvider Unavailable Unav ailable Allergies No Known Allergies REASON FOR VISIT EMR-[facility] Medications Medication SIG (Take, Route, Frequency, Duration) [...] Pilocarpine HCl 1 TID *Pick strength-form from [facility] for eRX* 06/04/2007 Active Encounters Encounter Location Date Provider Diagnosis [facility] [address] [address] 02/10/2023 zzzzProvider zzzzMigration Plan Of Treatment No Information Progress Notes * Génesis CONDON LDOB: [birth year] (78 yo F)Acc No.[id number]:02/10/2023 Patient: Verito Génesis SEVILLA :1945 A ge:77 Y S ex:Female Address:[address] [place] [address], [address] Subjective: * Chief Complaints: * E MR-Matthew * Medical History: * Surgical History: * Hospitalization/Major Diagno stic Procedure: * Social History: M igrated Social History: M igrated Social History: Marital Status :: , Occupation :: Retired , Substance Use :: Tobacco :: Never. * Medications: T akingLipitor 40 MG Tablet 1 Every Day Oral PROzac 40 MG Capsule take 1 capsule (40 mg) by oral route once daily in the morning Oral 1 Pilocarpine HCl 1 TID , Notes to Pharmacist: *Pick strength-form from [employer] for eRX*Pantoprazole Sodium 40 MG Tablet Delayed Release take 1 tablet (40 mg) by oral route once daily Oral 1 CeleBREX 100 MG Capsule 1 Two Times A Day, As Needed Oral Synthroid 150 MCG Tablet 1 Every Day Oral Taking Lipitor 40 MG Tablet 1 Every Day Oral Taking PROzac 40 MG Capsule take 1 capsule (40 mg) by oral route once daily in the morning Oral 1 Taking Pilocarpine HCl 1 TID , Notes to Pharmacist: *Pick strength-form from [employer] for eRX*Taking Pantoprazole Sodium 40 MG Tablet Delayed Release take 1 tablet (40 mg) by oral route once daily Oral 1 Taking CeleBREX 100 MG Capsule 1 Two Times A Day, As Needed Oral Taking Synthroid 150 MCG Tablet 1 Every Day Oral * Allergies: N .K.D.A.no[Allergies Verified] Objective: * Vitals: * Physical Examination: Assessment: Plan: * Treatment: * Procedure Codes: * * Date:
--- NOTE | 2024-06-24 13:35 | ED_ITS ---
HPI - Chest Pain General Chief Complaint: Chest Pain Stated Complaint: Burning in chest x 3 days Time Seen by Provider: 06/24/24 12:02 History of Present Illness HPI narrative: Patient is a 78-year-old female who presents ER with concerns for having a heart attack. Reports for each of the last 3 days after she drinks her orange juice in the morning she will get burning in her epigastrium and chest. If she takes tongue sick goes away. Is not modified by lying down flat. No exertional shortness of breath or chest discomfort. No history of IN. No fevers chills or sweats. When this occurred today she had some pounding of her heart which made her think maybe she should be evaluated for heart attack. Related Data Allergies Allergy/AdvReac Type Severity Reaction Status Date / Time No Known Allergies Allergy Mild Verified 06/24/24 11:56 Review of Systems 2 Review of Systems: All systems reviewed & are unremarkable except as noted in HPI and below Constitutional: Constitutional: Reports no additional constitutional complaints ENT: Reports system reviewed and no additional complaints, except as documented Cardiovascular: Cardiovascular: Reports no additional cardiovascular complaints Respiratory: Respiratory: Reports no additional respiratory complaints Gastrointestinal: Gastrointestinal: Reports no additional gastrointestinal complaints [facility] Past Medical History Medical History (Updated 06/24/24 @ 16:03 by Jimmy Clements MD) Pulmonary embolism, bilateral Primary Sjogren's syndrome Hypercholesterolemia History of ventral hernia Hiatal hernia with GERD Acquired hypothyroidism Family History Family History (Updated 06/18/16 @ 13:20 by DOCTOR UNKNOWN) Mother Family history of type 2 diabetes mellitus Social History Social History Smoking status: Never smoker Alcohol intake: current Exam 2 Narrative: GENERAL: Well-appearing, well-nourished, and in no acute distress. HEAD: Normocephalic, atraumatic ENT: Mucous membranes moist. CHEST: Clear to auscultation. No respiratory distress. HEART: Regular rate and rhythm. Normal peripheral pulses. ABDOMEN: Soft, nontender, nondistended. EXTREMITIES: Normal range of motion. No edema. SKIN: Warm, dry, no rash. NEURO: Alert and oriented x3. PSYCH: Normal mood and affect. Course Course Emergency Course: Patient resting comfortably. No pain. Troponin is negative x2. Appropriate for discharge home follow-up with PCP. Will start on PPI. Vital Signs Vital signs: Vital Signs Temperature 98.1 F 06/24/24 12:01 Pulse Rate 88 06/24/24 12:01 Respiratory Rate 20 06/24/24 12:01 Pulse Oximetry 99 06/24/24 12:01 Oxygen Delivery Room Air 06/24/24 12:01 Temperature 98.1 F 06/24/24 12:01 Pulse Rate 69 06/24/24 14:52 Respiratory Rate 17 06/24/24 14:52 Blood Pressure 108/78 06/24/24 14:52 Pulse Oximetry 97 06/24/24 14:52 Oxygen Delivery Room Air 06/24/24 12:21 MDM - Chest Pain Lab Data 06/24/24 12:17 06/24/24 12:17 Labs: Lab Results 06/24/24 06/24/24 Range/Units 12:17 15:00 WBC 4.0 L (4.5-10.0) K/mm3 RBC 3.31 L (4.2-5.4) M/mm3 Hgb 10.3 L (12.0-15.0) g/dL Hct 32.1 L (37.0-47.0) % MCV 97.0 (80-100) fl MCH 31.1 (26-34) pg MCHC 32.1 (32-36) g/dl RDW 15.1 H (11.5-14.5) % Plt Count 210 (150-375) k/mm3 MPV 9.6 (7.4-10.4) fl Immature Gran % (Auto) 0.3 (0-0.5) % Neut % (Auto) 45.8 (45.5-73.1) % Lymph % (Auto) 31.1 (18.3-44.2) % [place] % (Auto) 11.8 H (2.6-8.5) % Eos % (Auto) 10.0 H (0-4.4) % Baso % (Auto) 1.0 (0.2-1.2) % Lymph # (Auto) 1.24 (0.9-3.2) K/mm3 [place]ingham # (Auto) 0.5 (0.1-0.6) K/mm3 Eos # (Auto) 0.4 H (0-0.3) K/mm3 Baso # (Auto) 0.0 (0.0-0.1) K/mm3 Abs Immat Gran (auto) 0.01 (0.00-0.031) K/mm3 Absolute Neuts (auto) 1.8 (1.3-6.7) K/mm3 Absolute Nucleated RBC 0.000 (0.0-0.012) K/mm3 Nucleated RBC % 0.0 (0.0-0.2) % PT 13.3 (11.1-14.7) Seconds INR 1.0 APTT 26.5 (22.3-36.8) Seconds Sodium 142 (137-145) mmol/L Potassium 4.0 (3.4-5.0) mmol/L Chloride 107 (98-107) mmol/L Carbon Dioxide 26 (22-30) mmol/L Anion Gap 9 (4-12) mmol/L BUN 8 (7-17) mg/dL Creatinine 0.81 (0.7-1.0) mg/dL Estim Creat Clear Calc 37 ml/min Estimated GFR > 60 (59 - ) Glucose 88 (65-110) mg/dL Calcium 8.4 (8.4-10.2) mg/dL Total Bilirubin 0.4 (0.2-1.3) mg/dL AST 34 (14-36) U/L ALT 19 (6-35) U/L Alkaline Phosphatase 61 (38-126) U/L Troponin I < 0.012 < 0.012 (0.000-0.034) ng/mL Total Protein 7.0 (6.3-8.2) g/dL Albumin 3.6 (3.5-5.1) g/dL Lipase 43 (23-300) U/L Imaging Data Radiologist's impression: ITS Impressions Chest X-Ray 06/24/24 12:29 IMPRESSION: No acute cardiopulmonary pathology. ECG Data EKG #1: ECG completion date: 06/24/24 ECG completion time: 15:01 EKG Interpretation: normal rate, sinus rhythm, non-specific ST changes, normal QRS, normal QT and NL axis Discharge Plan Discharge Clinical Impression: GERD (gastroesophageal reflux disease) Patient Disposition: Home, Self-Care Condition: Stable Instructions: GERD (Gastroesophageal Reflux Disease) (ED) Additional Instructions: Return to the emergency department if you develop severe abdominal pain, severe nausea and vomiting to the point where you are unable to keep down fluids, if you develop chest pain or difficulty breathing, blood in your stool, dizziness or fainting, or if you develop any other new or concerning symptoms as these could be signs of more serious medical illness. Try to stay well hydrated. Patient Language: Serbian Prescriptions: New pantoprazole [Protonix] 20 mg tablet,delayed release (DR/EC) 20 mg PO HS 28 Days Qty: 28 0RF Follow-up/Referrals: Travon,Sumit Gibbons MD [Primary Care Provider] - 1 Week
[2024-06-24] MEDS: ASPIRIN 81 MG CHEWABLE TABLET 324 MG PO (13:36)
[2024-06-24 13:37] VITALS: BP 117/66; PULSE 71; RESP 14; O2SAT 100
--- OUTSIDE RECORDS SUMMARY | 2024-06-24 13:40 | XMS_ITS | CONTINUITY OF CARE DOCUMENT ---
Author Name dmitri rizvi Address Unknown Organization [facility] Address [address] [place] [address] Phone [phone] Care Team Providers Care Flat Surfacer Jewel Name Role Phone Inocente GRANDE, Philipp Unavailable CARLEY GRANDE, ANN Unavailable CARLEY GRANDE, ANN Unavailable PROBLEMS Condition Status Date Provider Notes Fatigue active Deborahelvia Terry Hypertension active Deborahelvia Terry Hyperlipidemia active Deborahelvia Terry Pre-diabetes active Deborahelvia Terry Palpitation active Philipp Brower MD Hypothyroidism active Philipp Brower MD Autoimmune disorder Sjogrens disease active Philipp Brower MD DJD, cervical spine active Philipp Brower MD Sinus tachycardia active Philipp Brower MD Dyspnea on exertion normal s tress nuclear 08/08 active Philipp Brower MD ENCOUNTERS Date Type Provider Location Encounter Diag nosis 3 - 3 In-person encounter Office Visit Philipp Brower MD [facility] 4 - 4 In-person encounter Office Visit Philipp Brower MD [facility] Dyspnea on exertion normal stress nuclear 08/08 9 - 9 In-person encounter Office Visit Philipp Brower MD [facility] 2 - 2 In-person encounter Office Visit Philipp Brower MD [facility] 2 - 2017/05/0 2 In-person encounter Office Visit Philipp Brower MD [facility] PalpitationHypothyroidismAutoimmune disorder Sjogrens diseaseDJD, cervical spineSinus tachycardia VITAL SIGNS Date Observation Value Provider Body Mass Index (Ratio) 24.75 kg/m2 Abhinav Brower MD blood pressure, diastolic 84 mm[Hg] To [facility] blood pressure, systolic 126 mm[Hg] [facility] pulse rate 77 /min [facility] oxygen saturation, oximetry 98 % [facility] respiratory rate E&M 16 /min [facility] temperature E&M 97.5 [degF] [facility] temperature site temporal [facility] weight E&M 131 [lb_av] [facility] height E&M 61 [in_i] [facility] Body Mass Index (Ratio) 26.07 kg/m2 Abhinav Brower MD blood pressure, diastolic 78 mm[Hg] Konstantin Garcia blood pressure, systolic 108 mm[Hg] Monie mayra Garcia oxygen saturation, oximetry 96 % Negin Garcia pulse rate 105 /min Negin Aleman weight E&M 138 [lb_av] Negin Aleman height E&M 61 [in_i] Negin Aleman Body Mass Index (Ratio) 27.58 kg/m2 Abhinav Brower MD blood pressure, diastolic 80 mm[Hg] Da ivy Annette blood pressure, systolic 112 mm[Hg] Dac ia Annette oxygen saturation, oximetry 96 % Mariela Annette respiratory rate E&M 16 /min Mariela V oss pulse rate 66 /min Mariela Annette weight E&M 146 [lb_av] Mariela Annette height E&M 61 [in_i] Mariela Annette Body Mass Index (Ratio) 26.68 kg/m2 Abhinav Brower MD blood pressure, resting No Aixa Ferrell blood pressure, diastolic 70 mm[Hg] Junior Ferrell blood pressure, systolic 108 mm[Hg] Nadya Ferrell oxygen saturation, oximetry 96 % Blake Ferrell respiratory rate E&M 18 /min Lashaun Ferrell pulse rate 83 /min Blake ordonez weight E&M 141.2 [lb_av] Blake granado height E&M 61 [in_i] Blake ordonez Body Mass Index (Ratio) 25.69 kg/m2 Abhinav Brower MD blood pressure, cuff size regular Luis Phani blood pressure, diastolic 80 mm[Hg] Cristin Jeronimo blood pressure, systolic 110 mm[Hg] Rubin Jeronimo oxygen saturation, oximetry 97 % Mel Jeronimo respiratory rate E&M 16 /min Melelvia Jeronimo pulse rate 129 /min Mel Jeronimo weight E&M 136 [lb_av] Mel Jeronimo height E&M 61 [in_i] Mel Jeronimo ALLERGIES No Known Drug Allergies RESULTS Date Observation Value Provider Reference Range Interpretation Location B-type natriuretic peptide 56.7 pg/mL [facility] 0.0-100.0 4 lipoprotein, beta, serum, point, quantitative, calculated 100 mg/dL [facility] 0-99 High 4 very low density lipoproteins 33 mg/dL [facility] 5-40 4 HDL cholesterol, serum 51 mg/dL [facility] >39 4 triglyceride, serum, random 165 mg/dL [facility] 0-149 High 4 cholesterol, serum 184 mg/dL [facility] 877-207 4251/05/0 4 basophil count, absolute 0.0 x10E3/uL [facility] 0.0-0.2 2017/05/0 4 Eosinophil Absolute Count 0.0 X10E3/UL [facility] 0.0-0.4 4 monocyte count, blood, automated 0.4 X10E3/UL [facility] 0.1-0.9 lymphocyte count, blood, automated 1.9 X10E3/UL [facility] 0.7-3.1 Absolute Neutrophils 6.9 X10E3/UL [facility] 1.4-7.0 4 basophils as percent of blood leukocytes 0 % [facility] eosinophils as percent of blood leukocytes 0 % [facility] monocytes as percent of blood leukocytes 5 % [facility] lymphocytes as percent of blood leukocytes 21 % [facility] neutrophils as percent of blood leukocytes 74 % [facility] platelet count 284 X10E3/UL [facility] 589-620 4576/05/0 4 red blood cell distribution width 14.2 % [facility] 12.3-15.4 mean corpuscular hemoglobin concentration, RBC 32.6 G/DL [facility] 31.5-35.7 mean corpuscular hemoglobin, RBC 31.2 pg [facility] 26.6-33.0 mean corpuscular volume, RBC 96 fL [facility] 79-97 hematocrit, blood 37.7 % [facility] 34.0-46.6 hemoglobin, blood 12.3 g/dL [facility] 11.1-15.9 erythrocyte (RBC) count 3.94 X10E6/UL [facility] 3.77-5.28 leukocyte count, blood 9.3 X10E3/UL [facility] 3.4-10.8 4 alanine aminotransferase (SGPT), serum 8 1/L [facility] 0-32 4 aspartate aminotransferase (SGOT), serum 15 1/L [facility] 0-40 4 alkaline phosphatase, serum 68 1/L [facility] 39-117 4 bilirubin, serum, total 0.4 mg/dL [facility] 0.0-1.2 4 albumin/globulin ratio, serum 1.5 [facility] 1.2-2.2 4 globulin, serum 2.5 [facility] 1.5-4.5 4 albumin, serum 3.8 g/dL [facility] 3.6-4.8 4 protein, total, serum 6.3 g/dL [facility] 6.0-8.5 4 calcium, serum 9.2 mg/dL [facility] 8.7-10.3 4 carbon dioxide, venous blood 23 mmol/L [facility] 18-29 4 chloride, serum 103 mmol/L [facility] 96-106 4 potassium, serum 5.5 mmol/L [facility] 3.5-5.2 High 4 sodium, serum 137 mmol/L [facility] 863-648 0215/05/0 4 urea nitrogen/creatinine ratio, serum 27 [facility] 12-28 4 eGFR if not 65 mL/min/{1 .73_m2} [facility] >59 4 creatinine, serum 0.91 mg/dL [facility] 0.57-1.00 4 urea nitrogen, blood 25 mg/dL [facility] 8-27 4 blood glucose, random 99 mg/dL [facility] 65-99 HISTORY OF MEDICATION USE Medication Status Instructions Dates Provider Indications Com ments SYMBICORT 160-4.5 MCG/ACT INHALATION AEROSOL active 2 puffs twice daily Negin eugene #306, 90 days supply, Filled 06/02/2018 VITAMIN B 12 250 MCG ORAL LOZENGE active take 2 tablets daily Mariela Annette CALCIUM + D 500-1000-40 MG-UNT-MCG ORAL TABLET CHEWABLE active tale one daily Mariela Annette GABAPENTIN 100 MG ORAL CAPSULE active take one twice daily Mariela Annette PLAQUENIL 200 MG ORAL TABLET active take 2 every morning Mariela Annette METOPROLOL TARTRATE 25 MG ORAL TABLET completed one half tab. twice daily - Mariela Bryant MIRALAX ORAL PACKET active take once a day Mel Jeronimo ASPIR-LOW 81 MG ORAL TABLET DELAYED RELEASE active take once a day Mel Jeronimo PILOCARPINE HCL 5 MG ORAL TABLET completed take 3 times a day - Mariela Bryant PANTOPRAZOLE SODIUM 40 MG ORAL TABLET DELAYED RELEASE active take once a day Mel Jeronimo LEVOTHYROXINE SODIUM 100 MCG ORAL TABLET active take once a day Mel Jeronimo FLUOXETINE HCL 40 MG ORAL CAPSULE active take once a day Mel Jeronimo CELEBREX 200 MG ORAL CAPSULE completed take once a day - Mariela Bryant ATORVASTATIN CALCIUM 20 MG ORAL TABLET active take once a day Mel Jeronimo SOCIAL HISTORY Date Observation Value Provider social history E&M S moking History: Renetta cowart has never smoked. Xin Castro social history reviewed E&M revi ewed - no changes required Xin Castro smoking status Never smoker Bright Bhatt social history E&M S moking History: Renetta cowart has never smoked. Philipp Brower MD smoking status Never smoker Negin Alcaraz social history reviewed E&M revi ewed - no changes required Negin Garcia social history reviewed E&M revi ewed - no changes required Philipp Brower MD smoking status Never smoker Mariela Bryant social history reviewed E&M revi ewed - no changes required Philipp Brower MD smoking status Never smoker Blakeallan Rubio social history reviewed E&M revi ewed - no changes required Philipp Brower MD smoking status Never smoker Mel Jeronimo FAMILY HISTORY Family Member Condition Mother Family History of Di abetes: INSURANCE PROVIDERS Payer name Policy type / Coverage type [place] red democrat ID [facility] MEDICARE ADVANTAGE (PPO) Other [id number] ADVANCE DIRECTIVES Name Date DISCUSSED - NO DECISION MADE TREATMENT PLAN Date Name Performer Cardiology - Philipp Brower MD Cardiology - Philipp Brower MD Cardiology - Philipp Brower MD Cardiology - Philipp Brower MD Cardiology - Philipp Brower MD Cardiology Philipp Brower MD Cardiology Philipp Brower MD Cardiology Philipp Brower MD Cardiology Philipp Brower MD Cardiology follow up Philipp keyes MD Cardiology follow up Philipp keyes MD Cardiology follow up Philipp keyes MD Cardiology follow up Philipp keyes MD Cardiology follow up Philipp keyes MD Cardiology Philipp Brower MD Cardiology Philipp Brower MD Cardiology Philipp Brower MD Cardiology Philipp Brower MD Cardiology Philipp Brower MD Cardiology New Patient Philipp gonzalez MD Cardiology New Patient Philipp gonzalez MD Cardiology New Patient Philipp gonzalez MD Cardiology New Patient Philipp gonzalez MD Date Name TSH, 3RD GENERATION W/REFLEX TO FT4 B TYPE NATRIURETIC P EPTIDE (BNP) HEMOGLOBIN A1c CBC (INCLUDES DIFF/P LT) LIPID PANEL COMPREHENSIVE METABO LIC PANEL W/EGFR HISTORY OF PROCEDURES Procedure Date Procedure Name Provider Procedure Notes S tatus EKG Philipp Brower MD completed EKG Philipp Brower MD completed Regadenoson, 4 units Philipp Brower MD completed Cardiolite, 2 units Philipp Brower MD completed SPECT Images Philipp Brower MD complet ed Stress EKG Philipp Brower MD completed EKG Philipp Brower MD completed SNOMED-CT: [id number] Current Medications Documented Philipp Brower MD completed Stress EKG Palomo Hernandez MD completed Regadenoson, 4 units Philipp Brower MD completed Cardiolite, 2 units Philipp Brower MD completed SPECT Images Adenike Reynaga MD completed ZIO Holter Hookup Philipp Brower MD co mpleted SNOMED-CT: [id number] Physical Exam, Performed: Pulse Exam of Foot Philipp Brower MD completed EKG Philipp Brower MD completed SNOMED-CT: [id number] Current Medications Documented Philipp Brower MD completed
--- NOTE | 2024-06-24 14:51 | ECG_ITS ---
Test Date: 2024-06-24 15:01:06 Measurements Intervals [place] Rate: 67 P: 68 ND: 169 QRS: 19 QRSD: 84 T: 43 QT: 443 QTc: 471 Interpretive Statements SINUS RHYTHM POSSIBLE LEFT ATRIAL ENLARGEMENT [-0.1mV P WAVE IN V1/V2] NONSPECIFIC T-WAVE ABNORMALITY Compared to ECG 06/24/2024 12:08:15 NO SIGNIFICANT CHANGES Electronically Signed On 06-24-2024 15:52:10 PACKAGER MACHINE by Darin Singh M.D.
[2024-06-24 14:52] VITALS: BP 108/78; PULSE 69; RESP 17; O2SAT 97
[2024-06-24 15:33] LABS: Troponin I < 0.012 ng/mL (0.000-0.034)
[2024-06-24 16:20] VITALS: BP 117/64; PULSE 78; RESP 14; O2SAT 98
== END 2024-06-24 16:23 | disposition home or self-care (01) ==
PROVIDERS: Emergency Medicine; Emergency Provider Emergency Medicine; PCP Internal Medicine
DX: K21.9 Gastro-esophageal reflux disease without esophagitis (principal); E78.00 Pure hypercholesterolemia, unspecified; E03.9 Hypothyroidism, unspecified; K44.9 Diaphragmatic hernia without obstruction or gangrene; M35.00 Sjogren syndrome, unspecified; Z86.711 Personal history of pulmonary embolism; R94.31 Abnormal electrocardiogram [ECG] [EKG]
CPT/HCPCS: 36415; 71046; 80053; 83690; 84484; 85025; 85610; 85730; 93005; 99284; A9270

== ENCOUNTER 2024-08-13 03:46 | Day surgery (SDC) | payer MEDICARE, SELFPAY ==
[2024-08-11 11:49] VITALS: BMI 19.9
--- OUTSIDE RECORDS SUMMARY | 2024-08-13 03:48 | XMS_ITS | Clinical Summary ---
Author Organization [facility] Address [address] [place] [address] Care Team Providers Care Belly Dancer Name Role Phone Sumit Cool MD Primary Care Provider [phone] Jared Cruz MD Unavailable Unavailable Dk Adams MD Unavailable Source Comments [facility],non-owned Affiliates and Associated Physician Practices is amultiple site organization consisting of ambulatory clinics and hospital sitesin [place], [place], [place] and [place]. This disclosure is being madepursuant to the Care Everywhere program and may not contain all information available regarding this patient. Last updated 18.[facility] Allergies No known active allergies Medications * Be aware that medications may not be up to date on this document. Alwaysverify current medications with the patient. atorvastatin (LIPITOR) 20 MG tablet 9 Active FLUoxetine (PROZAC) 40 MG capsule 9 Active gabapentin (NEURONTIN) 300 MG capsule 9 Active hydroxychloroqu ine (PLAQUENIL) 200 MG tablet 9 Active levothyroxine (SYNTHROID) 100 MCG tablet 9 Active pantoprazole EC (PROTONIX) 40 MG tablet 9 Active PROAIR HFA 108 (90 BASE) MCG/ACT inhaler 9 Active tiZANidine (ZANAFLEX) 4 MG tablet 9 Active ALPRAZolam (XANAX) 0.25 MG tablet 8 Active Xylitol (XYLIMELTS) 500 MG Active aspirin (ASPIRIN) 81 MG tablet Take 162 mg by mouth 2 times daily Active Melatonin 5 MG Take 10 mg by mouth at bedtime Active Polyethylene Glycol 3350 (MIRALAX PO) Active carboxymethylce llulose sodium (REFRESH TEARS) 0.5 % ophthalmic solution 1 drop 3 times daily Active colchicine 0.6 MG tablet 1 Active lidocaine viscous (XYLOCAINE) 2 % viscous solution Lidocaine Viscous 2 % mucosal solution SWISH AND SPIT 15ML BY MOUTH EVERY 4 6 HOURS NEEDED FOR PAIN Active orphenadrine citrate CR 12hr (NORFLEX) 100 MG tablet orphenadrine citrate ER 100 mg tablet,extended release Take 1 tablet 4 times a day by oral route. Active budesonide-form oterol (SYMBICORT) 160-4.5 MCG/ACT inhaler Inhale 2 (two) puffs by mouth 2 times daily 3 Inhaler 3 1 Active Active Problems Problem Noted Date Diagnosed Date Pulmonary embolism 10/27/2020 Mild persistent asthma without complication 08/20 Immunizations Immunization Administration Dates Next Due INFLUENZA VACCINE, TRIV. 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 Gender Identity Not on file Sexual Orientation [...] VACCINE ( - season) 2023 08/07/2021, 01/19/2021 DEPRESSION SCREENING 04/22/2024 MEDICARE AWV CALENDAR YEAR 2024 INFLUENZA VACCINE (Season Ended) 2024 01/19/2021, 04/28/2019, 02/14/2018, Additional history exists PNEUMOCOCCAL VACCINE 50+ Completed 01/29/2017, 08/21 BONE [...] complete this topic MENINGOCOCCAL (Group B) VACCINE SHARED DECISION-MAKING Aged Out No longer eligible based on patient's age to complete this topic MENINGOCOCCAL GROUPS A/C/Y/W VACCINE Aged Out No longer eligible based on patient's age to complete this topic Procedures Procedure Name Priority Date/Time Associated Diagnosis Comments DEXA BONE DENSITY AXIAL SKELETON Routine 08/28/2021 12:06 PM CDT Sjogren syndrome with other organ involvement Osteopenia, unspecified location Cervical fusion syndrome Oral [...] 12:30 PM Jared Cruz MD DEXA ORDERABLES Final Result from Last 3 Months or Most Recently Relevant to Health Maintenance Insurance [facility] MEDICARE ADV Care Teams Belly Dancer Relationship Specialty Start Date End Date Sumit Cool MD [address] [place] [address] [address] [place] [address] PCP - General Internal Medicine 05/03/17 Jared Cruz MD [facility] [address] [place] [address] Rheumatology 06/02/18 [place] [id number] [address] Pulmonary Disease 06/02/18
--- OUTSIDE RECORDS SUMMARY | 2024-08-13 03:49 | XMS_ITS | Clinical Summary ---
Author Organization [facility] Address [address] [place] [id number] Care Team Providers Care Emergency Medicine Physician Assistant Name Role Phone Unavailable Primary Care Provider Unavailabl e Social History Tobacco Use Types Packs/Day Years Used Date Smoking Tobacco: Never Assessed Comments Unknown Sex and Gender Information Value Date Recorded Sex Assigned at Not on file Legal Sex Female 9:50 AM CDT Gender Identity Not on file Sexual Orientation Not on file Plan of Treatment Upcoming Encounters Date Type Department Care Team (Late st Contact Info) Description 08/27/2024 1:00 PM CDT Office Visit [facility] Medical [facility] - [address], [address] [place] [phone] Radha Contreras NP [address] [facility] [address] [place] [address] Health Maintenance Due Date Last Done Comments Hepatitis C 10/23/1965 DTaP, Tdap and Td Vaccines ( 1 - Tdap) 10/23/1966 Pneumococcal Vaccine: 50+ Ye ars (1 of 1 - PCV) 10/23/1997 Zoster Vaccines (1 of 2) 10/23/1997 Annual Medicare Wellness Visit 10/23/2012 Dexa Scan (General) 10/23/2012 RSV Immunization or 60+ Years (1 - 1-dose 75+ series) 10/23/2022 COVID-19 Vaccine ( - 2023-2 5 season) 2023 Meningococcal B Vaccine Aged Out No l onger eligible based on patient's age to complete this topic Meningococcal Vaccine Aged Out No aleja yu eligible based on patient's age to complete this topic RSV Immunizations Under 20 Months Aged Out No longer eligible based on patient's age to complete this topic Insurance [employer]
--- OUTSIDE RECORDS SUMMARY | 2024-08-13 03:49 | XMS_ITS | Patient Health Record ---
Author Organization [facility] Address [address] [place] [address] Care Team Providers Care In School Suspension Aide Name Role Phone Kb Mobley Unavailable [phone] Allergies No Known Allergies Reason For Referral [...] Pilocarpine HCl 1 TID *Pick strength-form from [employer] for eRX* 06/04/2007 Active Problems Problem Type SNOMED Code ICD Code Onset Dates Problem Status W/U Status Risk Notes Problem Osteoarthritis (006832459) Unspecified osteoarthritis, unspecified site (M19.90) 5 Active confirmed Plan Of Treatment No Information Insurance Providers Payer Name Payer Address Payer Phone Subscriber Number Group Number Insured Name Patient Relationship to Insured Coverage Start Date Coverage End Date DO NOT USE - [employer] [address] [address] [place], [place] [id number] Génesis Condon Self - patient is the insured 5 [employer] - [employer] Access [address] [place], [place] [id number] Génesis Condon Self - patient is the insured 1
--- OUTSIDE RECORDS SUMMARY | 2024-08-13 03:49 | XMS_ITS | CONTINUITY OF CARE DOCUMENT ---
Author Name dmitri rizvi Address Unknown Organization [facility] Address [address] [place] [address] Phone [phone] Care Team Providers Care Sprayer Automatic Spray Machine Name Role Phone Inocente GRANDE, Philipp Unavailable CARLEY GRANDE, ANN Unavailable [phone] CARLEY GRANDE, ANN Unavailable PROBLEMS Condition Status Date Provider Notes Fatigue active Deborahelvia Terry Hypertension active Deborahelvia Terry Hyperlipidemia active Deborahelvia Terry Pre-diabetes active Deborahelvia Terry Palpitation active Philipp Brower MD Hypothyroidism active Philipp Brower MD Autoimmune disorder Sjogrens disease active Philipp Brower MD DJD, cervical spine active Philipp Brower MD Sinus tachycardia active Philipp Brower MD Dyspnea on exertion--echo & stress nuc nl, 06/2023 active Lokesh Ahmedzai Cardiology examination active Lokesh Ahmedzai Chest discomfort active Lokesh Ahmedzai ENCOUNTERS Date Type Provider Location Encounter Diag nosis 8 - 8 In-person encounter Office Visit Philipp Brower MD [facility] Dyspnea on exertion--echo & stress nuc nl, 06/2023 7 - 7 In-person encounter Office Visit Philipp Brower MD [facility] Cardiology examinationChest discomfort 3 - 3 In-person encounter Office Visit Philipp Brower MD [facility] 4 - 4 In-person encounter Office Visit Philipp Brower MD [facility] Dyspnea on exertion--echo & stress nuc nl, 06/2023 9 - 9 In-person encounter Office Visit Philipp Brower MD [facility] 2 - 2 In-person encounter Office Visit Philipp Brower MD [facility] 2 - 2 In-person encounter Office Visit Philipp Brower MD [facility] PalpitationHypothyroidismAutoimmune disorder Sjogrens diseaseDJD, cervical spineSinus tachycardia VITAL SIGNS Date Observation Value Provider Body Mass Index (Ratio) 19.84 kg/m2 Abhinav Brower MD blood pressure, diastolic 76 mm[Hg] Cyndi Lewis blood pressure, systolic 110 mm[Hg] Sakshi Lewis oxygen saturation, oximetry 97 % Gretelmelissa Lewis pulse rate 95 /min Gretelmelissa Lewis respiratory rate E&M 12 /min Gretelstephy Lewis weight E&M 105 [lb_av] Gretel Joshua height E&M 61 [in_i] Gretel Lewis blood pressure, cuff size regular An kobybillystephy Lewis Body Mass Index (Ratio) 20.78 kg/m2 Abhinav Brower MD oxygen saturation, oximetry 96 % Luma Mendoza pulse rate 71 /min Luma Saunder s blood pressure, diastolic 73 mm[Hg] Ti nerisny Mendoza blood pressure, systolic 114 mm[Hg] Tif shey Mendoza blood pressure, cuff size regular Ti jamarcus Mendoza weight E&M 110 [lb_av] Luma Saunder s height E&M 61 [in_i] Luma Saunder s Body Mass Index (Ratio) 24.75 kg/m2 Abhinav Brower MD blood pressure, diastolic 84 mm[Hg] To [facility] blood pressure, systolic 126 mm[Hg] [facility] pulse rate 77 /min [facility] [...] Brower MD blood pressure, diastolic 78 mm[Hg] Er nilam Patterson-Ash blood pressure, systolic 108 mm[Hg] Monie mayra Patterson-Ash oxygen saturation, oximetry 96 % Negin Patterson-Ash pulse rate 105 /min Negin Patterson- Ash weight E&M 138 [lb_av] Negin Patterson- Ash height E&M 61 [in_i] Negin Patterson- Ash Body Mass Index (Ratio) 27.58 kg/m2 Abhinav [...] Brower MD blood pressure, cuff size regular Cristin concepcion Phani blood pressure, diastolic 80 mm[Hg] Cristin Jeronimo blood pressure, systolic 110 mm[Hg] Rubin thaisbilly Jeronimo oxygen saturation, oximetry 97 % Mel Jeronimo respiratory rate E&M 16 /min Melelvia Jeronimo pulse rate 129 /min Mel Jeronimo weight E&M 136 [lb_av] Mel Phani height E&M 61 [in_i] Mel Jeronimo ALLERGIES No Known Drug Allergies RESULTS Date Observation Value Provider Reference Range Interpretation Location B-type natriuretic peptide 56.7 pg/mL [facility] 0.0-100.0 lipoprotein, beta, serum, point, quantitative, calculated 100 mg/dL [facility] 0-99 High very low density lipoproteins 33 mg/dL [facility] 5-40 HDL cholesterol, serum 51 mg/dL [facility] >39 triglyceride, serum, random 165 mg/dL [facility] 0-149 High cholesterol, serum 184 mg/dL [facility] 592-561 1984/05/0 4 basophil count, absolute 0.0 x10E3/uL [facility] 0.0-0.2 Eosinophil Absolute Count 0.0 X10E3/UL [facility] 0.0-0.4 monocyte count, blood, automated 0.4 X10E3/UL [facility] 0.1-0.9 4 lymphocyte count, blood, automated 1.9 X10E3/UL [facility] 0.7-3.1 Absolute Neutrophils 6.9 X10E3/UL [facility] 1.4-7.0 4 basophils as percent of blood leukocytes 0 % [facility] eosinophils as percent of blood leukocytes 0 % [facility] 4 monocytes as percent of blood leukocytes 5 % [facility] 4 lymphocytes as percent of blood leukocytes 21 % [facility] neutrophils as percent of blood leukocytes 74 % [facility] platelet count 284 X10E3/UL [facility] 026-072 5597/05/0 4 red blood cell distribution width 14.2 % [facility] 12.3-15.4 4 mean corpuscular hemoglobin concentration, RBC 32.6 G/DL [facility] 31.5-35.7 4 mean corpuscular hemoglobin, RBC 31.2 pg [facility] 26.6-33.0 mean corpuscular volume, RBC 96 fL [facility] 79-97 4 hematocrit, blood 37.7 % [facility] 34.0-46.6 4 hemoglobin, blood 12.3 g/dL [facility] 11.1-15.9 4 erythrocyte (RBC) count 3.94 X10E6/UL [facility] 3.77-5.28 4 leukocyte count, blood 9.3 X10E3/UL [facility] 3.4-10.8 [...] High 4 sodium, serum 137 mmol/L [facility] 124-650 3799/05/0 4 urea nitrogen/creatinine ratio, serum 27 [facility] 12-28 4 eGFR if not 65 mL/min/{1 .73_m2} [facility] >59 4 creatinine, serum 0.91 mg/dL [facility] 0.57-1.00 4 urea nitrogen, blood 25 mg/dL [facility] 8-27 4 blood glucose, random 99 mg/dL [facility] 65-99 HISTORY OF MEDICATION USE Medication Status Instructions Dates Provider Indications Com ments lansoprazole 30 mg capsule,delayed release(DR/EC) active Gretel Lewis mycophenolate mofetil 500 mg tablet active Gretel Lewis alprazolam 0.25 mg tablet active Luma Mendoza prednisone 5 mg tablet active Luma Mendoza triamcinolone acetonide 0.1% paste active Luma Mendoza dexamethasone 0.5 mg/5 mL solution active Luma Mendoza tramadol 50 mg tablet active Luma Mendoza alendronate 70 mg tablet active Luma Mendoza Symbicort 160-4.5 mcg/actuation HFA aerosol inhaler active 2 puff twice a day Lokeshlucia Ferrerakoby #306, 90 days supply, Filled 06/02/2018 cyanocobalamin (vitamin B-12) 250 mcg lozenge active Take 2 tablet once a day Lokesh Coles CALCIUM D 500-1000-40 MG-UNT-MCG CHEW active Take 1 once a day Lokesh Coles gabapentin 100 mg capsule completed Take 1 twice a day - Lokesh Coles Plaquenil 200 mg tablet completed Take 2 every morning - Lokesh Coles METOPROLOL TARTRATE 25 MG ORAL TABLET completed one half tab. twice daily - Mariela Annette Miralax 17 gram powder in packet active Take once a day Lokesh Coles ASPIR-LOW 81 MG TBEC active Take once a day Lokesh Coles PILOCARPINE HCL 5 MG ORAL TABLET completed take 3 times a day - Mariela Annette levothyroxine 100 mcg tablet active Take once a day Lokesh Coles fluoxetine 40 mg capsule active Take once a day Lokesh Coles CELEBREX 200 MG ORAL CAPSULE completed take once a day - Mariela Bryant atorvastatin 20 mg tablet active Take once a day Lokesh Coles SOCIAL HISTORY Date Observation Value Provider smoking status Never smoker Lokesh Coles smoking status Never smoker Lokesh Coles social history E&M S moking History: Renetta [...] Philipp Brower MD smoking status Never smoker Blake Rubio social history reviewed E&M revi ewed - no changes required Philipp Brower MD smoking status Never smoker Mel Jeronimo FAMILY HISTORY Family Member Condition Mother Family History of Di abetes: INSURANCE PROVIDERS Payer name Policy type / Coverage type [place] red democrat ID AETNA MEDICARE JACK PPO Medicare [id number] 500 ADVANCE DIRECTIVES Name Date DISCUSSED - NO DECISION MADE TREATMENT PLAN Date Name Performer Cardiology Moderate level Philipp Brower MD Cardiology Moderate level Philipp Brower MD Cardiology Moderate level : H er updated medication list for this problem includes: Atorvastatin 20 Mg Tablet (Atorvastatin) ..... Take once a day Philipp Brower MD Cardiology Moderate level :This visit has been a part of the consistent, comprehensive, and ongoing management of the chronic medical condition(s) listed above for the patient. BP today: 110/76 P rior BP: 114/73 (07/06/2024) Labs Reviewed: C reat: 0.91 (08/23/2016) C hol: 184 (08/23/2016) HDL: 51 (08/23/2016) LDL: 100 (08/23/2016) T (08/23/2016) Philipp Brower MD Cardiology Moderate level Philipp Brower MD Cardiology Moderate level Philipp Brower MD Cardiology Philipp Brower MD Cardiology: O rders: C omplete Echo (21708) S tress Regadenoson (CPT-94021) Philipp Brower MD Cardiology: H er updated medication list for this problem includes: Atorvastatin 20 Mg Tablet (Atorvastatin) ..... Take once a day Orders: C omplete Echo (76436) S tress Regadenoson (CPT-[id number]) Philipp Brower MD Cardiology:This visi t has been a part of the consistent, comprehensive, and ongoing management of the chronic medical condition(s) listed above for the patient. BP today: 114/73 P rior BP: 126/84 (11/02/2019) Labs Reviewed: C reat: 0.91 (08/23/2016) C hol: 184 (08/23/2016) HDL: 51 (08/23/2016) LDL: 100 (08/23/2016) T (08/23/2016) Philipp Brower MD Cardiology: O rders: C omplete Echo (04415) S tress Regadenoson (CPT-[id number]) Philipp Brower MD Cardiology - Philipp Brower [...] Patient Philipp gonzalez MD Cardiology New Patient Tonnavya gnozalez MD Cardiology New Patient Philipp gonzalez MD Cardiology New Patient Philipp gonzalez MD Date Name Stress Regadenoson Complete Echo TSH, 3RD GENERATION W/REFLEX TO FT4 B TYPE NATRIURETIC P EPTIDE (BNP) HEMOGLOBIN A1c CBC (INCLUDES DIFF/P LT) LIPID PANEL COMPREHENSIVE METABO LIC PANEL W/EGFR HISTORY OF PROCEDURES Procedure Date Procedure Name Provider Procedure Notes S tatus Complex e/m visit add on Philipp Brower MD completed EKG Philipp Brower MD completed EKG Philipp Brower MD completed EKG Philipp Brower MD completed Regadenoson, 4 units Philipp Brower MD completed Cardiolite, 2 units Philipp Brower MD completed SPECT Images Philipp Brower MD complet ed Stress EKG Philipp Brower MD completed EKG Philipp Brower MD completed SNOMED-CT: 525197034 393683 Current Medications Documented Philipp Brower MD completed Stress EKG Palomo Hernandez MD completed Regadenoson, 4 units Philipp Brower MD completed Cardiolite, 2 units Philipp Brower MD completed SPECT Images Adenike Reynaga MD completed ZIO Holter Hookup Philipp Brower MD co mpleted SNOMED-CT: 92444998 Physical Exam, Performed: Pulse Exam of Foot Philipp Brower MD completed EKG Philipp Brower MD completed SNOMED-CT: 952534209 927044 Current Medications Documented Philipp Brower MD completed
--- OUTSIDE RECORDS SUMMARY | 2024-08-13 03:49 | XMS_ITS | Clinical Summary ---
Author Organization [facility] Address [address] [place] [address] Phone Care Team Providers Care Riveter Hand Name Role Phone Unavailable Primary Care Provider [...] Encounters Date Type Department Care Team Description 07/08/2024 External Device Data STL ABSTRACTION Provider, Abstract 06/27/2024 External Device Data STL ABSTRACTION Provider, Abstract 06/26/2024 External Device Data ST[facility] ABSTRACTION Provider, Abstract 06/23/2024 External Device Data STL ABSTRACTION Provider, Abstract 06/09/2024 External Device Data STL ABSTRACTION Provider, Abstract 05/28/2024 Results Follow-Up [facility] Neurosurgery [address] [place] [address] Amilcar Venegas NP MRI CERVICAL WO CONTRAST 05/27/2024 9:48 AM MITER CUTTER - 05/27/2024 11:59 PM MITER CUTTER Hospital Encounter [address] [address] Amilcar Venegas NP Discharge Disposition: Home or Self Care from Last 3 Months Family History Medical History Relation Name Comments Diabetes Daughter 1 Elsie Whittleman Mental illness Daughter 2 Cathie Cnodon Migraines Daughter 2 Cathie Condon Mental illness Daughter 4 Cathie Condon Migraines Daughter 4 Cathie Condon Diabetes Mother Ines Swenson Relation Name Status Comments Daughter 1 Elsie Whittleman Daughter 2 Cathie Condon Daughter 3 Elsie Whitkimberleeman Daughter 4 Cathie Condon Father Mother Ines [...] Sex Assigned at Female 04/27/2024 12:34 PM MITER CUTTER Legal Sex Female 11:17 AM MITER CUTTER Gender Identity Female 04/27/2024 12:34 PM MITER CUTTER Sexual Orientation Straight 04/27/2024 12 :34 PM MITER CUTTER Last Filed Vital Signs Vital Sign Reading Time Taken Comments Blood Pressure 112/74 05/05/2024 1:48 PM MITER CUTTER Pulse - - Temperature 36.6 C (97.9 F) 05/05/2024 1:48 PM MITER CUTTER Respiratory Rate 16 05/05/2024 1:48 PM MITER CUTTER Oxygen Saturation - - Inhaled Oxygen Concentration - - Weight 50.8 kg (112 lb 1.6 oz) 05/05/2024 1:48 P M MITER CUTTER Height 154.9 cm (5' 1 ) 05/05/2024 1:48 PM MITER CUTTER Body Mass Index 21.18 05/05/2024 1:48 PM MITER CUTTER Plan of Treatment Health Maintenance Due Date [...] CERVICAL WO CONTRAST Routine 05/27/2024 10:49 AM MITER CUTTER Cervical radiculopathy Abnormal posture from Last 3 Months Results * MRI CERVICAL WO CONTRAST (05/27/2024 10:49 AM MITER CUTTER) Anatomical Region Laterality Modality Spine Magnetic Resonan ce 05/27/2024 10:5 1 AM MITER CUTTER Impressions 05/27/2024 12:00 PM MITER CUTTER IMPRESSION: 1. Postsurgical changes of ACDF of C3-C5 and posterior instrumented fusion of C3-C6. Multilevel posterior decompression. 2. Reversal of the normal cervical lordosis. 3. Moderate to severe degenerative disc disease at C6-C7 and C7-T1. 4. No significant spinal canal stenosis in the cervical spine. DICTATION LOCATION: Location 4 Narrative 05/27/2024 12:00 PM MITER CUTTER MRI CERVICAL WO CONTRAST DATE: 05/27/2024 10:49 [...] DICTATION LOCATION: Location 4 us Amilcar Venegas SLIDER ASSEMBLER MR ORDERABLES Final Resu lt from Last 3 Months Insurance [facility]
[2024-08-13 06:50] VITALS: BP 133/90; PULSE 86; RESP 16; TEMP 36.3; O2SAT 93; BMI 19.6
[2024-08-13] MEDS: LACTATED RINGERS 1,000 ML 150 ML IV CONT (06:58)
--- NOTE | 2024-08-13 07:52 | WPDHPUPDATE1 ---
History and Physical Update Update Date/Time: 08/13/24 07:52 History and Physical has been reviewed, including an updated exam of the patient. There are NO changes in the patient's condition. Risks, benefits, and alternatives have been discussed and questions answered. Patient agrees to proceed with procedure.
[2024-08-13 07:58] VITALS: BP 95/51; PULSE 61; RESP 21; O2SAT 97
[2024-08-13 08:08] VITALS: BP 103/58; PULSE 60; RESP 21; O2SAT 97
[2024-08-13 08:18] VITALS: BP 103/61; PULSE 62; RESP 21; O2SAT 97
== END 2024-08-13 08:35 | disposition home or self-care (01) ==
PROVIDERS: PCP Internal Medicine; Referring Provider Nurse Practitioner Family; Visit Provider Internal Medicine Gastroenterology
PROC: 0DJ08ZZ Inspection of Upper Intestinal Tract, Via Natural or Artificial Opening Endoscopic (ICD-10-PCS; CPT 43239; principal; 2024-08-13 07:45)
DX: K21.9 Gastro-esophageal reflux disease without esophagitis (principal); K31.89 Other diseases of stomach and duodenum; E78.5 Hyperlipidemia, unspecified; E03.9 Hypothyroidism, unspecified; F32.A Depression, unspecified; G25.0 Essential tremor; M35.00 Sjogren syndrome, unspecified; J45.909 Unspecified asthma, uncomplicated; M81.0 Age-related osteoporosis without current pathological fracture; I05.9 Rheumatic mitral valve disease, unspecified; Z98.890 Other specified postprocedural states; Z86.711 Personal history of pulmonary embolism; Z79.83 Long term (current) use of bisphosphonates; Z79.82 Long term (current) use of aspirin
CPT/HCPCS: 43239; 88305; J2704; J7120

== ENCOUNTER 2024-08-20 09:21 | Outpatient (CLI) | payer MEDICARE, SELFPAY ==
--- NOTE | ~2024-08-20 | NM_ITS ---
History: Dysphagia Interpretation: Following intravenous administration of 5.0 mCi. of technetium 99m Choletec, serial i mages obtained reveal prompt concentration by the liver which is normal in size and without any focal abnormalities. There is normal excretion from the liver. The gallbladder and small bowel are visua lized. At 60 minutes the patient intravenously received 0.02 mcg/kg of CCK and 30 cc normal saline delivered by palm over 60 minutes. The patient was imaged for approximately the next 40 minutes. Regions of in terest were drawn about the gallbladder and background and gallbladder ejection fraction calculated. The gallbladder ejection fraction measures 64%. ( GBEF will measure > or = 49%, in 95% of normals. GBEF will measure > or= 38% in 99% of normals ) Impression: Normal hepatobiliary scan. No evidence of cystic duct or common bile duct obstruction. This effecti vely excludes acute cholecystitis. Normal gallbladder ejection fraction of 64%. Naveed et al.,Sincalide-Stimulated Cholescintigraphy: A Multicenter Investigation to Determine Opti mal Infusion Methodology and Gallbladder Ejection Fraction Normal Values. JNM. Vol 51. No.2. May 2009 . Reviewed, dictated and finalized at location . Impression: Normal hepatobiliary scan. No evidence of cystic duct or common bile duct obst ruction. This effectively excludes acute cholecystitis. Normal gallbladder ejection fraction of 64%. Naveed et al.,Sincalide-Stimulated Cholescintigraphy: A Multicenter Investiga tion to Determine Optimal Infusion Methodology and Gallbladder Ejection Fractio n Normal Values. JNM. Vol 51. No.2. May 2009.
--- OUTSIDE RECORDS SUMMARY | 2024-08-20 09:49 | XMS_ITS | Clinical Summary ---
Author Organization [facility] Address [address] [place] [id number] Care Team Providers Care Specimen Accessioner Name Role Phone Unavailable Primary Care Provider [...] Description 08/27/2024 1:00 PM CDT Office Visit [facility] Medical [facility] - [address], [address] [place] [phone] Radha Contreras NP [address] [facility] [address] [place] [address] Health Maintenance Due Date Last Done Comments [...]
--- OUTSIDE RECORDS SUMMARY | 2024-08-20 09:49 | XMS_ITS | CONTINUITY OF CARE DOCUMENT ---
Author Name dmitri rizvi Address Unknown Organization [facility] Address [address] [place] [address] Phone [phone] Care Team Providers Care Cottage Cheese Maker Name Role Phone Inocente GRANDE, Philipp Unavailable [...] In-person encounter Office Visit Philipp Brower MD [facility] Dyspnea on exertion--echo & stress nuc nl, 06/2023 7 - 7 In-person encounter Office Visit Philipp Brower MD [facility] Cardiology examinationChest discomfort 3 - 3 In-person encounter Office Visit Philipp Brower MD [facility] 4 - 4 In-person encounter Office Visit Philipp Brower MD [facility] Dyspnea on exertion--echo & stress nuc nl, 06/2023 9 - 9 In-person encounter Office Visit Philipp Brower MD [facility] 2 - 2 In-person encounter Office Visit Philipp Brower MD [facility] 2 - 2 In-person encounter Office Visit Philipp Brower MD [facility] PalpitationHypothyroidismAutoimmune disorder Sjogrens diseaseDJD, cervical spineSinus [...] MD blood pressure, diastolic 84 mm[Hg] To [facility] blood pressure, systolic 126 mm[Hg] [facility] pulse rate 77 /min [facility] oxygen saturation, oximetry 98 % [facility] respiratory rate E&M 16 /min [facility] temperature E&M 97.5 [degF] [facility] temperature site temporal [facility] weight E&M 131 [lb_av] [facility] height E&M 61 [in_i] [facility] Body Mass Index (Ratio) 26.07 kg/m2 Abhinav [...] 0-149 High cholesterol, serum 184 mg/dL [facility] [phone]/05/0 4 basophil count, absolute 0.0 x10E3/uL [facility] [...] % [facility] platelet count 284 X10E3/UL [facility] 296-900 0679/05/0 4 red blood cell distribution width 14.2 [...] High 4 sodium, serum 137 mmol/L [facility] [phone]/05/0 4 urea nitrogen/creatinine ratio, serum 27 [facility] [...] Payer name Policy type / Coverage type [place] red republican ID [employer] MEDICARE JACK PPO Medicare [id number] 500 ADVANCE DIRECTIVES Name Date DISCUSSED - [...] MD Cardiology: O rders: C omplete Echo (79074) S tress Regadenoson (CPT-[id number]) Philipp Brower MD Cardiology: H er updated medication list for this problem includes: Atorvastatin 20 Mg Tablet (Atorvastatin) ..... Take once a day Orders: C omplete Echo (88807) S tress Regadenoson (CPT-50755) Philipp Brower MD Cardiology:This visi t has been a part of the consistent, comprehensive, and ongoing management of the chronic medical condition(s) listed above for the patient. BP today: 114/73 P rior BP: 126/84 (11/02/2019) Labs Reviewed: C reat: 0.91 (08/23/2016) C hol: 184 (08/23/2016) HDL: 51 (08/23/2016) LDL: 100 (08/23/2016) T (08/23/2016) Philipp Brower MD Cardiology: O rders: C omplete Echo (28588) S tress Regadenoson (CPT-[id number]) Philipp Brower MD Cardiology - Philipp Brower [...] Philipp gonzalez MD Cardiology New Patient Tonnavya gonzalez MD Cardiology New Patient Philipp gonzalez [...] completed EKG Philipp Brower MD completed SNOMED-CT: 008428693 923454 Current Medications Documented Philipp Brower MD completed Stress EKG Palomo Hernandez MD completed Regadenoson, 4 units Philipp Brower MD completed Cardiolite, 2 units Philipp Brower MD completed SPECT Images Adenike Reynaga MD completed ZIO Holter Hookup Philipp Brower MD co mpleted SNOMED-CT: 11581320 Physical Exam, Performed: Pulse Exam of Foot Philipp Brower MD completed EKG Philipp Brower MD completed SNOMED-CT: 182706058 465605 Current Medications Documented Philipp Brower MD completed
--- OUTSIDE RECORDS SUMMARY | 2024-08-20 09:49 | XMS_ITS | Patient Health Record ---
Author Organization [facility] Address [address] [place] [address] Care Team Providers Care Production Control Manager Name Role Phone Kb Mobley Unavailable [phone] Allergies No Known Allergies Reason For Referral [...] Pilocarpine HCl 1 TID *Pick strength-form from [employer] for eRX* 06/04/2007 Active Problems Problem Type SNOMED Code ICD Code Onset Dates Problem Status W/U Status Risk Notes Problem Osteoarthritis (282236583) Unspecified osteoarthritis, unspecified site (M19.90) 5 Active confirmed Plan Of Treatment No Information Insurance Providers Payer Name Payer Address Payer Phone Subscriber Number Group Number Insured Name Patient Relationship to Insured Coverage Start Date Coverage End Date DO NOT USE - [employer] [address] [address] [place], [place] [id number] Génesis Condon Self - patient is the insured 5 [employer] - Open Access [address] [place], [place] [id number] Génesis Condon Self - patient is the insured 1
--- OUTSIDE RECORDS SUMMARY | 2024-08-20 09:49 | XMS_ITS | Clinical Summary ---
Author Organization [facility] Address [address] [place] [address] Phone Care Team Providers Care Acid Tank Liner Name Role Phone Unavailable Primary Care Provider [...] STL ABSTRACTION Provider, Abstract 05/28/2024 Results Follow-Up [facility] Neurosurgery [address] [place] [address] Amilcar Venegas NP MRI CERVICAL WO CONTRAST 05/27/2024 9:48 AM DITTO MACHINE OPERATOR - 05/27/2024 11:59 PM DITTO MACHINE OPERATOR Hospital Encounter [address] [place] [address] Amilcar Venegas NP Discharge Disposition: Home or Self Care from Last 3 Months Family History Medical History Relation Name Comments Diabetes Daughter 1 Elsie Whittleman Mental illness Daughter 2 Cathie Condon Migraines Daughter 2 Cathie Condno Mental illness Daughter 4 Cathie Condon Migraines [...] Sex Assigned at Female 04/27/2024 12:34 PM DITTO MACHINE OPERATOR Legal Sex Female 11:17 AM DITTO MACHINE OPERATOR Gender Identity Female 04/27/2024 12:34 PM DITTO MACHINE OPERATOR Sexual Orientation Straight 04/27/2024 12 :34 PM DITTO MACHINE OPERATOR Last Filed Vital Signs Vital Sign Reading Time Taken Comments Blood Pressure 112/74 05/05/2024 1:48 PM DITTO MACHINE OPERATOR Pulse - - Temperature 36.6 C (97.9 F) 05/05/2024 1:48 PM DITTO MACHINE OPERATOR Respiratory Rate 16 05/05/2024 1:48 PM DITTO MACHINE OPERATOR Oxygen Saturation - - Inhaled Oxygen Concentration - - Weight 50.8 kg (112 lb 1.6 oz) 05/05/2024 1:48 P M DITTO MACHINE OPERATOR Height 154.9 cm (5' 1 ) 05/05/2024 1:48 PM DITTO MACHINE OPERATOR Body Mass Index 21.18 05/05/2024 1:48 PM DITTO MACHINE OPERATOR Plan of Treatment Health Maintenance Due Date Last Done Comments DTAP/TDAP/TD VACCINES (1 - Tdap) 10/23/1966 ZOSTER VACCINE (1 of 2) 10/23/1966 RSV VACCINE (60+ or ) (1 - 1-dose 75+ series) 10/23/2022 OSTEOPOROSIS SCREENING 02/05/2029 4, 08/28/2021, 08/28/2021, Additional history exists PNEUMOCOCCAL VACCINE 50+ YEARS Completed 01/29/2017 , 09/17/2014 INFLUENZA VACCINE Completed 01/30/2024, , 01/19/2021, Additional history exists Procedures Procedure Name Priority Date/Time Associated Diagnosis Comments MRI CERVICAL WO CONTRAST Routine 05/27/2024 10:49 AM DITTO MACHINE OPERATOR Cervical radiculopathy Abnormal posture from Last 3 Months Results * MRI CERVICAL WO CONTRAST (05/27/2024 10:49 AM DITTO MACHINE OPERATOR) Anatomical Region Laterality Modality Spine Magnetic Resonan ce 05/27/2024 10:5 1 AM DITTO MACHINE OPERATOR Impressions 05/27/2024 12:00 PM DITTO MACHINE OPERATOR IMPRESSION: 1. Postsurgical changes of ACDF of C3-C5 and posterior instrumented fusion of C3-C6. Multilevel posterior decompression. 2. Reversal of the normal cervical lordosis. 3. Moderate to severe degenerative disc disease at C6-C7 and C7-T1. 4. No significant spinal canal stenosis in the cervical spine. DICTATION LOCATION: Location 4 Narrative 05/27/2024 12:00 PM DITTO MACHINE OPERATOR MRI CERVICAL WO CONTRAST DATE: 05/27/2024 10:49 [...] DICTATION LOCATION: Location 4 us Amilcar Venegas MERCHANDISE PLANNING MANAGER MR ORDERABLES Final Resu lt from Last 3 Months Insurance [facility]
--- OUTSIDE RECORDS SUMMARY | 2024-08-20 09:49 | XMS_ITS | Clinical Summary ---
Author Organization [facility] Address [address] [place] [address] Care Team Providers Care Court Administrator Name Role Phone Sumit Cool MD Primary Care Provider [phone] Jared Cruz MD Unavailable Unavailable Dk Adams MD Unavailable Source Comments [facility],non-owned Affiliates and Associated Physician Practices is amultiple site organization consisting of ambulatory clinics and hospital sitesin [place], [place], [place] and [place]. This disclosure is being madepursuant to the Care Everywhere program and may not contain all information available regarding this patient. Last updated 18.[facility] Allergies No known active allergies Medications * [...] on file Legal Sex Female 12:40 PM BEATER WORKER HELPER Gender Identity Not on file Sexual Orientation [...] Most Recently Relevant to Health Maintenance Insurance [facility] [place] [address] [employer] MEDICARE ADV SELF PAY NO INSURANCE Member Subscriber Plan / Payer (Ef fective for All Dates) Name:Génesis Condon Member ID:Not on file Relation to Subscriber:Not on file Name:GÉNESIS CONDON Subscriber ID:Not on file (Home) Address: [address] [place] [id number] Payer ID:Not on file Group ID:Not on file Type:Self Pay Address: [place], [place] Care Teams Court Administrator Relationship Specialty Start Date End Date Sumit Cool MD [address] [place] [address] [address] [place] [address] PCP - General Internal Medicine 05/03/17 Jared Cruz MD [address] [place] [address] [address] [place] [address] Rheumatology 06/02/18 [place] [id number] [address] Pulmonary Disease 06/02/18
== END 2024-08-20 09:22 | disposition home or self-care (01) ==
PROVIDERS: PCP Internal Medicine; Visit Provider Nurse Practitioner Family
DX: R13.10 Dysphagia, unspecified (principal); M35.00 Sjogren syndrome, unspecified
CPT/HCPCS: 78227; A9537; J2805

== ENCOUNTER 2024-09-03 11:55 | Emergency (ER) | payer MEDICARE, SELFPAY ==
--- OUTSIDE RECORDS SUMMARY | 2024-09-03 11:59 | XMS_ITS | Clinical Summary ---
Author Organization [facility] Address [address] [place] [address] Care Team Providers Care Circle Saw Operator Name Role Phone Sumit Cool MD Primary Care Provider [phone] Jared Cruz MD Unavailable Unavailable Dk Adams MD Unavailable Source Comments [facility],non-owned Affiliates and Associated Physician Practices is amultiple site organization consisting of ambulatory clinics and hospital sitesin [place], [place], [place] and [place]. This disclosure is being madepursuant to the Care Everywhere program and may not contain all information available regarding this patient. Last updated 18.[facility] Allergies No known active allergies Medications * [...] on file Legal Sex Female 12:40 PM K [employer] PROFESSIONAL Gender Identity Not on file Sexual Orientation [...] Most Recently Relevant to Health Maintenance Insurance [facility] MANAGED MEDICARE ADV [employer] MEDICARE ADV SELF PAY NO INSURANCE Member Subscriber Plan / Payer (Ef fective for All Dates) Name:Génesis Condon Member ID:Not on file Relation to Subscriber:Not on file Name:GÉNESIS CONDON Subscriber ID:Not on file (Home) Address: [address] [place] [phone] Payer ID:Not on file Group ID:Not on file Type:Self Pay Address: [place], [place] Care Teams Circle Saw Operator Relationship Specialty Start Date End Date Sumit Cool MD [address] [place] [address] [address] [place] [address] PCP - General Internal Medicine 05/03/17 Jared Cruz MD [address] [place] [address] [address] [place] [address] Rheumatology 06/02/18 [place] [id number] [address] Pulmonary Disease 06/02/18
--- OUTSIDE RECORDS SUMMARY | 2024-09-03 11:59 | XMS_ITS | Encounter Summary ---
Author Organization [facility] Address [address] [place] [id number] Care Team Providers Care Form Setter/Driver Name Role Phone Sumit Cool MD Primary Care Provider [phone] Reason for Visit * Reason Onset Date Comments Concerns 09/02/2024 Encounter Details Date Type Department Care Team ([facility] st Contact Info) Description 09/02/2024 Telephone [facility] Multispec[facility]ty Care - [facility] [address] [facility], [address] [place] [address] Radha Contreras NP [address] [facility] [address] [place] [address] [phone] Concerns Social History Tobacco Use Types Packs/Day Years Used Date Smoking Tobacco: Never Smokeless Tobacco: Never Alcohol Use Standard Drinks/Week Comments Not Currently 0 (1 standard drink = 0.6 oz pur e alcohol) PHQ-2 Answer Date Recorded Patient Health Questionnaire-2 Score 0 08/27/2024 Comments Unknown Sex and Gender Information Value Date Recorded Sex Assigned at Not on file Legal Sex Female 9:50 AM CDT Gender Identity Not on file Sexual Orientation Not on file documented as of this encounter Progress Notes * Zoraida Maya - 09/02/2024 9:51 AM CDT Pt is calling with concerns of her new medication possibly making her sick. She said that she has an appt tomorrow to see if it is a gastro issue but she wishes to speak with someone in Radha Contreras' office Génesis [phone] documented in this encounter Plan of Treatment Upcoming Encounters Date Type Department Care Team (Late st Contact Info) Description 09/08/2024 9:15 AM CDT Appointment [facility] [place] [address] Radha Contreras, TELEVISION INSTALLER HELPER [address] [facility] [address] [place] [id number] Amy Murphy, [place] [address] 09/22/2024 10:45 AM CDT Appointment [facility] [place] [address] Radha Contreras TELEVISION INSTALLER HELPER [address] [facility] [address] [place] [address] [phone] Terri Garcia, [place] [address] 10/09/2024 10:40 AM CDT Office Visit [facility] Multispecialty Care - [facility] [address] [facility], [address] [facility]ly [facility] [place] [address] Radha Contreras, TELEVISION INSTALLER HELPER [address] [facility] [address] [place] [address] [phone] documented as of this encounter Visit Diagnoses Not on filedocumented in this encounter Care Teams Form Setter/Driver Relationship Specialty Start Date End Date Sumit Cool MD [address] [address] PCP - General INTERNAL MEDICINE 08/27/24 documented as of this encounter
--- OUTSIDE RECORDS SUMMARY | 2024-09-03 11:59 | XMS_ITS | Clinical Summary ---
Author Organization [facility] Address [address] [facility] [place] [address] Phone Care Team Providers Care Pipelayer Name Role Phone Unavailable Primary Care Provider [...] External Device Data STL ABSTRACTION Provider, Abstract from Last 3 Months Family History Medical History Relation Name Comments Diabetes Daughter 1 Elsie Ramosman Mental illness Daughter 2 Cathie Condon Migraines Daughter 2 Cathie Condon Mental illness Daughter 4 Cathie Condon Migraines Daughter 4 Cathie Condon Diabetes Mother Ines Swenson Relation Name Status Comments Daughter 1 Elsie Ramosman Daughter 2 Cathie Annlivan Daughter 3 Elsie Ramosman Daughter 4 Cathie Condon Father Mother Ines [...] Sex Assigned at Female 04/27/2024 12:34 PM DRESSAGE INSTRUCTOR Legal Sex Female 11:17 AM DRESSAGE INSTRUCTOR Gender Identity Female 04/27/2024 12:34 PM DRESSAGE INSTRUCTOR Sexual Orientation Straight 04/27/2024 12 :34 PM DRESSAGE INSTRUCTOR Last Filed Vital Signs Vital Sign Reading Time Taken Comments Blood Pressure 112/74 05/05/2024 1:48 PM DRESSAGE INSTRUCTOR Pulse - - Temperature 36.6 C (97.9 F) 05/05/2024 1:48 PM DRESSAGE INSTRUCTOR Respiratory Rate 16 05/05/2024 1:48 PM DRESSAGE INSTRUCTOR Oxygen Saturation - - Inhaled Oxygen Concentration - - Weight 50.8 kg (112 lb 1.6 oz) 05/05/2024 1:48 P M DRESSAGE INSTRUCTOR Height 154.9 cm (5' 1 ) 05/05/2024 1:48 PM DRESSAGE INSTRUCTOR Body Mass Index 21.18 05/05/2024 1:48 PM DRESSAGE INSTRUCTOR Plan of Treatment Health Maintenance Due Date Last Done Comments DTAP/TDAP/TD VACCINES (1 - Tdap) 10/23/1966 ZOSTER VACCINE (1 of 2) 10/23/1966 RSV VACCINE (60+ or ) (1 - 1-dose 75+ series) 10/23/2022 OSTEOPOROSIS SCREENING 02/05/2029 , 08/28/2021, 08/28/2021, Additional history exists PNEUMOCOCCAL VACCINE 50+ YEARS Completed 01/29/2017 , 09/17/2014 INFLUENZA VACCINE Completed 01/30/2024, , 01/19/2021, Additional history exists Insurance [employer] PPO MCR
--- OUTSIDE RECORDS SUMMARY | 2024-09-03 11:59 | XMS_ITS | Data Portability ---
Author Organization [facility] Fluid-1, Main Office Address [address] [place] [address] Assessment No assessment recorded. Plan of Treatment Reminders Order Date Submit Date Provider Last Modified By Organization Details Last Modified Time Details Appointments None recorded. Lab vitamin D, 25-hydroxy , total, serum 2024 025 [email or web address] [facility], [address], [place], [address], 17:17:49 lipid panel, serum 2024 025 [facility], [address], [place], [address], 17:17:48 CMP, serum or plasma 2024 025 [email or web address] [facility], [address], [place], [address], 17:17:48 TSH, ultra-sens itive, serum 2024 025 [facility], [address], [place], [address], 17:17:48 unlisted lab - T4, free 2024 025 [email or web address] [facility], [address], [place], [address], 5 17:17:49 CBC w/ auto diff 2024 025 [email or web address] [facility], [address], [place], [address], 5 17:17:49 lipid panel, serum 2023 024 [id number] [facility], [address], [place], [address], 4 10:14:31 CMP, serum or plasma 2023 024 [email or web address] [facility], [address], [place], [address], 4 10:14:32 CBC w/ auto diff 2023 024 [id number] [facility], [address], [place], [address], 4 10:14:32 magnesium, serum or plasma 2023 024 [email or web address] [facility], [address], [place], [address], 4 10:14:31 vitamin B12, serum 2023 024 [id number] [facility], [address], [place], [address], 4 10:14:31 TSH, ultra-sens itive, serum 2023 024 [email or web address] [facility], [address], [place], [address], 4 10:14:32 unlisted lab - T4, free 2023 024 [email or web address] [facility], [address], [place], [address], 4 10:14:32 vitamin D, 25-hydroxy , total, serum 2023 024 [email or web address] [facility], [address], [place], [address], 4 16:35:33 lipid panel, serum 2023 024 CHRISTINACAROLYN Lopez, [address], [place], [address], 4 13:39:38 CMP, serum or plasma 2023 024 CHRISTINA John, [address], [place], [address], 4 13:39:42 magnesium, serum or plasma 2023 024 CHRISTINACAROLYN Lopez, [address], [place], [address], 4 13:39:36 vitamin B12, serum 2023 024 BASYE John, [address], [place], [address], 4 14:34:05 TSH, ultra-sens itive, serum 2023 024 [email or web address] [facility], [address], [place], [address], 4 16:35:32 unlisted lab - T4, free 2023 024 [id number] [facility], [address], [place], [address], 4 16:35:32 Referral None recorded. Procedures None recorded. Surgeries None recorded. Imaging None recorded. Medication Orders None recorded. Patient TargetsNo targets recorded. Patient Instructions Encounter Date Encounter Id Patient Instructions Last Modified By Organization Details Last Modified Time 01/15/2023 [id number] dementia rating scale-2* [email or web address] Not available 01/15/2023 14:56:16 alcohol misuse* [email or web address] Not available 01/15/2023 14:56:17 depression screening* [email or web address] Not available 01/15/2023 14:56:17 multi-dimensiona l health assessment questionnaire* [email or web address] Not available 01/15/2023 14:56:17 advance directiv es: care instructions [email or web address] Not available 01/15/2023 14:56:17 advance care planning: care instructions [email or web address] Not available 01/15/2023 14:56:17 [place] Advance Directives Not available 01/15/2023 14:56:17 Personalized [...] (DNA stool test) Date Screening Last Performed: ____ Eye Disease Screening: Dementia Risk: Low I have no recommendations Depression Screening: Negative Active diagnosis, Continue current treatment plan Not available 01/15/2023 14:49:38 [facility] risk assessment. 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 All clinically stable. Was given a flu shot today. Is otherwise up-to-date on other immunizations. Will continue on current Rx and follow-up in four months. Portions of the record may have been created with voice recognition software. Occasional wrong-word or lebbl-a-tlwc substitutions may have occurred due to the inherent limitations of voice recognition software. Read the chart carefully and recognize, using context, where substitutions have occurred. Mammogram Next Appt: 4 Months Approximate Date: 05/15/2023 Not available 01/15/2023 14:55:38 05/21/2023 [id number] Asthma- GERD-hypothyroidism -hyperlipidemia -disorder connective tissue disease all clinically stable. Will continue on current Rx. Check blood work in the form of CBC, CMP, lipid, thyroid, B12, Magnesium and vitamin-D level. Does need a Cologuard test. Will continue on current Rx and follow-up in four months. Portions of the record may have been created with voice recognition software. Occasional wrong-word or hjdba-s-usay substitutions may have occurred due to the inherent limitations of voice recognition software. Read the chart carefully and recognize, using context, where substitutions have occurred. [email or web address] Not available 05/21/2023 15:07:30 09/17/2023 [id number] Follow-up for GE RD, hyperlipidemia, hypothyroidism, connective tissue disease and asthma all clinically stable. Check blood work consisting of CBC, CMP, lipid, thyroid, B12 and magnesium level. Follow-up in four months Next Appointment: 4 Months Approximate Date: 01/15/2024 Portions of the record may have been created with voice recognition software. Occasional wrong-word or nulyo-b-ukso substitutions may have occurred due to the inherent limitations of voice recognition software. Read the chart carefully and recognize, using context, where substitutions have occurred. Not available 09/17/2023 15:06:50 02/04/2024 [id number] dementia rating scale-2* [email or web address] Not available 02/04/2024 10:40:18 alcohol misuse* [email or web address] Not available 02/04/2024 10:40:18 depression screening* [email or web address] Not available 02/04/2024 10:40:18 Timed Up and Go test (TUG)* Not available 02/04/2024 10:40:18 multi-dimensiona health assessment questionnaire* [email or web address] Not available 02/04/2024 10:40:18 Personalized Hea lt [...] Negative Active diagnosis, Continue current treatment plan [email or web address] Not available 02/04/2024 10:33:36 Medicare [facility] evaluation risk assessment stable. Follow-up for [...] with voice recognition software. Occasional wrong-word or nyiof-m-ztwl substitutions may have occurred due to the inherent limitations of voice recognition software. Read the chart carefully and recognize, using context, where substitutions have occurred. [email or web address] Not available 02/04/2024 10:40:03 06/02/2024 [id number] Follow-up for disorder of connective tissue disease, [...] with voice recognition software. Occasional wrong-word or fbbet-o-orad substitutions may have occurred due to the inherent limitations of voice recognition software. Read the chart carefully and recognize, using context, where substitutions may have occurred. Created: Sumit Cool M.D. 06.02.2024 11:22 AM [email or web address] Not available 06/02/2024 12:22:32 Reason for Referral None Reported. Results Created Date Observation Date Name Description Value Unit Range Abnormal Flag Note LastModifiedBy Organization Detail LastModifiedTime 06/06/1906/06/2023 MAGNE SIUM magnesium 2.0 mg/dL 1.6-2. 3 Not Available [facility] (Lab) [address] [place], [address], 06/06/2023 13:39:36 06/06/19 24 06/06/2023 LIPID PANEL cholesterol 158 mg/dL 140-19 9 NIH CICI NSUS RECOM MENDA TION FOR ROMEL STERO L: ADULT CHILD LOW RISK: <200 <170 BORDE RLINE : <200- 239 ----- HIGH RISK: >240 >200 Not Available [facility] (Lab) [address] [place], [address], 06/06/2023 13:39:38 06/06/19 24 06/06/2023 LIPID PANEL triglyceride s 113 mg/dL 0-150 NIH CICI NSUS REPOR T RECOM MENDA TION FOR TRIGL YCERI MALLORIE: ADULT CHILD LOW RISK: <150 ----- BODER LINE: 150-1 99 ----- HIGH RISK: >200 ----- Not Available [facility] (Lab) [address] [place], [address], 06/06/2023 13:39:38 06/06/19 24 06/06/2023 LIPID PANEL HDL cholesterol 57 mg/dL 40- Not Available [facility] (Lab) [address] [place], [address], 06/06/2023 13:39:38 06/06/19 24 06/06/2023 LIPID PANEL LDL cholesterol, calculated 78 mg/dL 0-130 NIH CICI NSUS REPOR T RECOM MENDA TIONS FOR LDL: ADULT CHILD LOW RISK <130 <110 (OPTI MAL LDL) <100 ----- DATDE RLINE : 130-1 59 ----- HIGH RISK: >160 >130 A TRIGL YCERI DE RESUL T >400 INVAL IDATE S THE CALCU LATIO N FOR LDL FRACT IONAT ION - THE LDL RESUL T WILL NOT BE REPOR DEISY. Not Available [facility] (Lab) [address] [place], [address], 06/06/2023 13:39:38 06/06/19 24 06/06/2023 COMPR EHENS BRENDON METAB OLIC PANEL sodium 139 mmol/ L 137-14 5 Not Available [facility] (Lab) [address] [place], [address], 06/06/2023 13:39:42 06/06/19 24 06/06/2023 COMPR EHENS BRENDON METAB OLIC PANEL potassium 4.3 mmol/ L 3.5-5. 1 Not Available [facility] (Lab) [address] [place], [address], 06/06/2023 13:39:42 06/06/19 24 06/06/2023 COMPR EHENS BRENDON METAB OLIC PANEL chloride 102 mmol/ L 98-107 Not Available [facility] (Lab) [address] [place], [address], 06/06/2023 13:39:42 06/06/19 24 06/06/2023 COMPR EHENS BRENDON METAB OLIC PANEL carbon dioxide 31 mmol/ L 22-30 high Not Available [facility] (Lab) [address] [place], [address], 06/06/2023 13:39:42 06/06/19 24 06/06/2023 COMPR EHENS BRENDON METAB OLIC PANEL anion gap 10.3 mmol/ L 14-22 low Not Available [facility] (Lab) [address] [place], [address], 06/06/2023 13:39:42 06/06/19 24 06/06/2023 COMPR EHENS BRENDON METAB OLIC PANEL glucose 84 mg/dL 70-99 Not Available [facility] (Lab) [address] [place], [address], 06/06/2023 13:39:42 06/06/19 24 06/06/2023 COMPR EHENS BRENDON METAB OLIC PANEL BUN 11 mg/dL 8-19 Not Available [facility] (Lab) [address] [place], [address], 06/06/2023 13:39:42 06/06/19 24 06/06/2023 COMPR EHENS BRENDON METAB OLIC PANEL creatinine 0.85 mg/dL 0.66-1 .25 Not Available [facility] (Lab) [address] [place], [address], 06/06/2023 13:39:42 06/06/19 24 06/06/2023 COMPR EHENS BRENDON METAB OLIC PANEL GFR >60 Refer ence Range : [place] GFR Healt hy Adult : >60 [...] calcu lator is avail able on the [facility] websi te: https ://fadumo w.kid mayelin.o rg/pr ofess ional s/kdo qi/gf r_cal culat or Not Available [facility] (Lab) [address] [place], [address], 06/06/2023 13:39:42 06/06/19 24 06/06/2023 COMPR EHENS BRENDON METAB OLIC PANEL alkaline phosphatase 92 U/L 38-126 Not Available [facility] (Lab) [address] [place], [address], 06/06/2023 13:39:42 06/06/19 24 06/06/2023 COMPR EHENS BRENDON METAB OLIC PANEL alanine aminotransfe rase 17 U/L 0-35 Not Available [facility] (Lab) [address] [place], [address], 06/06/2023 13:39:42 06/06/19 24 06/06/2023 COMPR EHENS BRENDON METAB OLIC PANEL aspartate aminotransfe rase 33 U/L 15-37 Not Available [facility] (Lab) [address] [place], [address], 06/06/2023 13:39:42 06/06/19 24 06/06/2023 COMPR EHENS BRENDON METAB OLIC PANEL bilirubin, total 0.60 mg/dL 0.20-1 .30 Not Available [facility] (Lab) [address] [place], [address], 06/06/2023 13:39:42 06/06/19 24 06/06/2023 COMPR EHENS BRENDON METAB OLIC PANEL calcium 9.4 mg/dL 8.4-10 .2 Not Available [facility] (Lab) [address] [place], [address], 06/06/2023 13:39:42 06/06/19 24 06/06/2023 COMPR EHENS BRENDON METAB OLIC PANEL total protein 6.4 g/dL 6.3-8. 2 Not Available [facility] (Lab) [address] [place], [address], 06/06/2023 13:39:42 06/06/19 24 06/06/2023 COMPR EHENS BRENDON METAB OLIC PANEL albumin 3.7 g/dL 3.0-4. 4 Not Available [facility] (Lab) [address] [place], [address], 06/06/2023 13:39:42 06/06/19 24 06/06/2023 COMPR EHENS BRENDON METAB OLIC PANEL globulin 2.7 g/dL 2.6-4. 2 Not Available [facility] (Lab) [address] [place], [address], 06/06/2023 13:39:42 06/06/19 24 06/06/2023 COMPR EHENS BRENDON METAB OLIC PANEL A/G ratio 1.4 ratio 1.0-2. 0 Not Available [facility] (Lab) [address] [place], [address], 06/06/2023 13:39:42 06/06/19 24 06/06/2023 T4 FREE free T4 0.98 NG/dL 0.78-2 .19 Not Available [facility] (Lab) [address] [place], [address], 06/06/2023 13:54:15 06/06/19 24 06/06/2023 TSH thyroid-stim ulating hormone 0.201 uIU/m L 0.465- 4.680 low Not Available [facility] (Lab) [address] [place], [address], 06/06/2023 14:09:11 06/06/19 24 06/06/2023 VITAM IN B12 (THIERNO CHRIS ) vb12 229 pg/mL 239-93 1 low Not Available [facility] (Lab) [address] [place], [address], 06/06/2023 14:34:05 06/06/19 24 06/06/2023 VITAM IN D 25-HY DROXY [id number] 43.8 NG/mL 30-100 Vitam in D Statu s: Defic ient: <20 ng/mL Insuf ficie nt: 20-29 ng/mL Suffi cient : 30-10 0 ng/mL Not Available [facility] (Lab) [address] [place], [address], 06/06/2023 14:34:16 02/18/20 24 02/18/2024 COLOG UARD cologuard result reportable NEGATI VE negati ve normal NEGAT BRENDON TEST RESUL T. A negat brendon Colog uard resul t indic ates a low likel ihood that a color ectal cance r (CRC) or advan mike adeno ma (edie omato us polyp s with more advan mike pre-m align ant featu res) is prese nt. The chan e that a perso n with a [...] of 10,00 0 indiv idual s at [facility] risk for color ectal cance r who were scree lillian with both Colog uard and colon oscop y. (Michaele almaz Gibbons et al, N Engl J Med 2014; 370(1 4):12 86-12 97) The qiana l value (refe rence range ) for this assay is negat brendon. COLOG UARD RE-SC REEDAI IRWIN RECOM MENDA TION: Perio dic color ectal cance r scree paco is an impor tant part of preve ntive healt hcare for asymp tomat ic indiv idual s at [facility] risk for color ectal cance r. [...] ml.; Cristofer HOLMAN, Floyd wilson CR, Orville aRinesK, Color ectal Cance r Scree paco: Recom menda tions for Physi cians and Patie nts from the U.S. Multi -Soci ety Task Force on Color ectal Cance r Scree paco , Isabel santamaria y 2017; 112:1 016-1 030. TEST DESCR IPTIO N: [place] site algor ithmi c janet sis of [...] years or older , who are at [facility] for color ectal cance r (CRC) . Colog uard has been appro hardeep for use by the U.[place]. FDA. The perfo rmanc e of Colog uard was estab lishe d in a cross secti onal study of [facility] adult s aged 50-84 . Colog [...] adeno ma (incl uding sessi le cody deisy polyp s great er than or equal to 1cm diame ter) [20%] or non- advan mike adeno ma [31%] ; or no color ectal neopl naa [45%] . These estim ates are deriv ed from a prosp ectiv e cross -sect ional scree paco study of 10,00 0 indiv idual s at [facility] risk for color ectal cance [...] inter jaylen is every 3 years . (Amsergei ican Cance r Socie ty and U.S. Multi -Soci ety Task Force ). Colog uard perfo rmanc e data in a 10,00 0 patie nt pivot al study using colon oscop y as the refer ence metho d can be acces sed at the [facility] wing locat ion: www.e xactl abs.c om/re sults . Addit ional descr iptio n of the Colog uard test proce ss, warni ngs and preca ution s can be found at www.c ologu kirstin.c om. Not Available [facility] (Cologuard Orders Only) [address], [place], [address], 02/26/2024 19:56:07 06/15/1906/16/2024 CBC WITH DIFFE RENTI AL/PL ATELE T WBC 4.3 x10e3 /uL 3.4-10 .8 normal Not Available [facility] ([facility]) [address] [place], [address], 06/16/2024 07:14:04 06/15/19 25 06/16/2024 CBC WITH DIFFE RENTI AL/PL ATELE T RBC 3.66 x10e6 /uL 3.77-5 .28 below low normal Not Available [facility] ([facility]) [address] [place], [address], 06/16/2024 07:14:04 06/15/1906/16/2024 CBC WITH DIFFE RENTI AL/PL ATELE T hemoglobin 11.3 g/dL 11.1-1 5.9 normal Not Available [facility] ([facility]) [address] [place], [address], 06/16/2024 07:14:04 06/15/19 25 06/16/2024 CBC WITH DIFFE RENTI AL/PL ATELE T hematocrit 35.0 % 34.0-4 6.6 normal Not Available [facility] ([facility]) [address] [place], [address], 06/16/2024 07:14:04 06/15/1906/16/2024 CBC WITH DIFFE RENTI AL/PL ATELE T MCV 96 fL 79-97 normal Not Available [facility] ([facility]) [address] [facility], [place], [address], 06/16/2024 07:14:04 06/15/1906/16/2024 CBC WITH DIFFE RENTI AL/PL ATELE T MCH 30.9 pg 26.6-3 3.0 normal Not Available [facility] ([facility]) [address] [place], [address], 06/16/2024 07:14:04 06/15/1906/16/2024 CBC WITH DIFFE RENTI AL/PL ATELE T MCHC 32.3 g/dL 31.5-3 5.7 normal Not Available [facility] ([facility]) [address] [facility], [place], [address], 06/16/2024 07:14:04 06/15/1906/16/2024 CBC WITH DIFFE RENTI AL/PL ATELE T RDW 14.6 % 11.7-1 5.4 Not Available [facility] ([facility]) [address] [place], [address], 06/16/2024 07:14:04 06/15/1906/16/2024 CBC WITH DIFFE RENTI AL/PL ATELE T platelets 186 x10e3 /uL 150-45 0 normal Not Available [facility] ([facility]) [address] [place], [address], 06/16/2024 07:14:04 06/15/1906/16/2024 CBC WITH DIFFE RENTI AL/PL ATELE T neutrophils 42 % not estab. normal Not Available [facility] ([facility]) [address] [place], [address], 06/16/2024 07:14:04 06/15/1906/16/2024 CBC WITH DIFFE RENTI AL/PL ATELE T lymphs 32 % not estab. normal Not Available [facility] ([facility]) [address] [place], [address], 06/16/2024 07:14:04 06/15/1906/16/2024 CBC WITH DIFFE RENTI AL/PL ATELE T monocytes 12 % not estab. normal Not Available [facility] ([facility]) [address] [place], [address], 06/16/2024 07:14:04 06/15/1906/16/2024 CBC WITH DIFFE RENTI AL/PL ATELE T eos 13 % not estab. normal Not Available [facility] ([facility]) [address] [facility], [place], [address], 06/16/2024 07:14:04 06/15/19 25 06/16/2024 CBC WITH DIFFE RENTI AL/PL ATELE T basos 1 % not estab. normal Not Available [facility] ([facility]) [address] [facility], [place], [address], 06/16/2024 07:14:04 06/15/1906/16/2024 CBC WITH DIFFE RENTI AL/PL ATELE T immature cells TRUCK HOPPER Not Available [facility] ([facility]) [address] [place], [address], 06/16/2024 07:14:04 06/15/1906/16/2024 CBC WITH DIFFE RENTI AL/PL ATELE T neutrophils (absolute) 1.8 x10e3 /uL 1.4-7. 0 normal Not Available [facility] ([facility]) [address] [place], [address], 06/16/2024 07:14:04 06/15/19 25 06/16/2024 CBC WITH DIFFE RENTI AL/PL ATELE T lymphs (absolute) 1.4 x10e3 /uL 0.7-3. 1 normal Not Available [facility] ([facility]) [address] [place], [address], 06/16/2024 07:14:04 06/15/19 25 06/16/2024 CBC WITH DIFFE RENTI AL/PL ATELE T monocytes(ab solute) 0.5 x10e3 /uL 0.1-0. 9 normal Not Available [facility] ([facility]) [address] [place], [address], 06/16/2024 07:14:04 06/15/1906/16/2024 CBC WITH DIFFE RENTI AL/PL ATELE T eos (absolute) 0.6 x10e3 /uL 0.0-0. 4 above high normal Not Available [facility] ([facility]) [address] [place], [address], 06/16/2024 07:14:04 06/15/19 25 06/16/2024 CBC WITH DIFFE RENTI AL/PL ATELE T baso (absolute) 0.0 x10e3 /uL 0.0-0. 2 normal Not Available [facility] ([facility]) [address] [place], [address], 06/16/2024 07:14:04 06/15/19 25 06/16/2024 CBC WITH DIFFE RENTI AL/PL ATELE T immature granulocytes 0 % not estab. Not Available [facility] ([facility]) [address] [place], [address], 06/16/2024 07:14:04 06/15/19 25 06/16/2024 CBC WITH DIFFE RENTI AL/PL ATELE T immature grans (abs) 0.0 x10e3 /uL 0.0-0. 1 Not Available [facility] ([facility]) [address] [place], [address], 06/16/2024 07:14:04 06/15/19 25 06/16/2024 CBC WITH DIFFE RENTI AL/PL ATELE T NRBC TRUCK HOPPER Not Available [facility] ([facility]) [address] [place], [address], 06/16/2024 07:14:04 06/15/19 25 06/16/2024 CBC WITH DIFFE RENTI AL/PL ATELE T hematology comments: TRUCK HOPPER Not Available [facility] ([facility]) [address] [place], [place], [address], 06/16/2024 07:14:04 06/15/1906/16/2024 COMP. METAB OLIC PANEL (14) glucose 80 mg/dL 70-99 normal Not Available [facility] ([facility]) [address] [facility] [place], [address], 06/16/2024 07:14:05 06/15/19 25 06/16/2024 COMP. METAB OLIC PANEL (14) BUN 8 mg/dL 8-27 normal Not Available [facility] ([facility]) [address] [facility] [place], [address], 06/16/2024 07:14:05 06/15/19 25 06/16/2024 COMP. METAB OLIC PANEL (14) creatinine 0.96 mg/dL 0.57-1 .00 normal Not Available [facility] ([facility]) [address] [facility], [place], [address], 06/16/2024 07:14:05 06/15/1906/16/2024 COMP. METAB OLIC PANEL (14) eGFR 61 mL/mi n/1.7 3 >59 normal Not Available [facility] ([facility]) [address] [facility] [place], [address], 06/16/2024 07:14:05 06/15/19 25 06/16/2024 COMP. METAB OLIC PANEL (14) BUN/creatini ne ratio 8 12-28 below low normal Not Available [facility] ([facility]) [address] [facility] [place], [address], 06/16/2024 07:14:05 06/15/19 25 06/16/2024 COMP. METAB OLIC PANEL (14) sodium 141 mmol/ L 134-14 4 normal Not Available [facility] ([facility]) [address] [facility] [place], [address], 06/16/2024 07:14:05 06/15/19 25 06/16/2024 COMP. METAB OLIC PANEL (14) potassium 4.2 mmol/ L 3.5-5. 2 normal Not Available [facility] ([facility]) [address] [facility] [place], [address], 06/16/2024 07:14:05 06/15/19 25 06/16/2024 COMP. METAB OLIC PANEL (14) chloride 104 mmol/ L 96-106 normal Not Available [facility] ([facility]) [address] [facility] [place], [address], 06/16/2024 07:14:05 06/15/19 25 06/16/2024 COMP. METAB OLIC PANEL (14) carbon dioxide, total 26 mmol/ L 20-29 normal Not Available [facility] ([facility]) [address] [facility] [place], [address], 06/16/2024 07:14:05 06/15/19 25 06/16/2024 COMP. METAB OLIC PANEL (14) calcium 9.2 mg/dL 8.7-10 .3 normal Not Available [facility] ([facility]) [address] [facility] [place], [address], 06/16/2024 07:14:05 06/15/19 25 06/16/2024 COMP. METAB OLIC PANEL (14) protein, total 6.5 g/dL 6.0-8. 5 normal Not Available [facility] ([facility]) [address] [facility], [place], [address], 06/16/2024 07:14:05 06/15/19 25 06/16/2024 COMP. METAB OLIC PANEL (14) albumin 4.2 g/dL 3.8-4. 8 normal Not Available [facility] ([facility]) [address] [facility], [place], [address], Ph [id number]||2024-09-03 13:27:00|CT_ITS|FROHNERTP|Imaging|[id number]|"EXAMINATION: CT abdomen pelvis w con DATE: 09/03/2024 12:56 INDICATION: Vomiting and weight loss TECHNIQUE: Computed tomography (CT) of the abdomen and pelvis was performed with 100 mL Omnipaque-350 intravenous contrast. Automated exposure control and iterative reconstruction technique were employe d. The dose-length product was 155.47 mGy-cm. COMPARISON: None FINDINGS: Lung bases are clear. Heart size is normal. No pericardial or pleural effusion. A few tiny high atten uation gallstones at the fundus of the normal-appearing gallbladder. Liver, spleen, pancreas, bilater al adrenal glands and kidneys are normal. Colonic wall thickening most prominent centered at the sple brenna flexure suspicious for colitis. There is a small amount of adjacent fluid at the cephalad aspect of the left paracolic gutter. No bowel obstruction. Decompressed bladder is unremarkable. Uterus and bilateral adnexa are unremarkable. No pathologically enlarged abdominal or pelvic lymphadenopathy. 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 No evidence stenosis of the superior or infe rior mesenteric arteries. 20 degrees lumbar dextroscoliosis with severe lower lumbar spondylosis. Chr onic L1 burst fracture with 40% anterior vertebral body height loss and rehabilitation for millimeter retropulsion resulting in mild central canal stenosis at this level. IMPRESSION: 1. Diffuse wall thickening of the colon centered at the hepatic flexure with small amount of adjacent fluid at the paracolic gutter which is suspicious for colitis which could be infectious, inflammator y or ischemic in etiology. 2. Cholelithiasis. Reviewed, dictated and finalized at location A. IMPRESSION: 1. Diffuse wall thickening of the colon centered at the hepatic flexure with sm all amount of adjacent fluid at the paracolic gutter which is suspicious for co litis which could be infectious, inflammatory or ischemic in etiology. 2. Cholelithiasis. "
--- OUTSIDE RECORDS SUMMARY | 2024-09-03 11:59 | XMS_ITS | Clinical Summary ---
Author Organization [facility] Address [address] [place] [address] Care Team Providers Care Baffle Installer Name Role Phone Sumit Cool MD Primary Care Provider [phone] Allergies No known active allergies Medications budesonide-formote rol (SYMBICORT) 160-4.5 MCG/ACT inhaler Inhale 2 puffs twice a day by inhalation route. Active aspirin EC 81 MG tablet 08/27/19 25 Active atorvastatin (LIPITOR) 20 MG tablet Take 1 tablet (20 mg total) by mouth daily. Active carboxymethylcellu lose (REFRESH PLUS) 0.5 % Solution ophthalmic solution 1 drop. Active XYLITOL MT Active triamcinolone (KENALOG) 0.1 % paste PLACE A SMALL AMOUNT TO THE AFFECTED AREA BY MUCOUS MEMBRANE 2-3 TIMES DAILY AFTER MEALS Active traMADol (ULTRAM) 50 MG tablet TAKE 1 TABLET BY MOUTH THREE TIMES DAILY NEEDED FOR PAIN , TAKE WITH OVER THE COUNTER TYLENOL Active tiZANidine (ZANAFLEX) 4 MG tablet Take 1 tablet (4 mg total) by mouth 3 (three) times daily as needed. Active SODIUM FLUORIDE, DENTAL RINSE, (PREVIDENT) 0.2 % Solution SWISH AND SPIT 10ML BY MOUTH TWICE DAILY Active promethazine (PHENERGAN) 12.5 MG tablet TAKE 1 TABLET BY MOUTH THREE TIMES DAILY NEEDED FOR NAUSEA Active predniSONE (DELTASONE) 5 mg tablet prednisone 5 mg tablet Active pantoprazole (PROTONIX) 40 MG injection Active orphenadrine ER (NORFLEX) 100 MG TABLET SR 12 HR 12 hr tablet Take 1 tablet 4 times a day by oral route. Active nystatin (MYCOSTATIN) cream APPLY TO THE CORNERS OF THE MOUTH TOPICALLY THREE TIMES DAILY NEEDED Active nystatin (MYCOSTATIN) 964304 UNIT/ML suspension TAKE 5 ML BY MOUTH 4 TIMES DAILY Active PAXLOVID, 300/100, 20 x 150 MG & 10 x 100MG tablet pack TAKE 3 TABLETS TOGETHER (TWO 150 MG NIRMATRELVIR TABLETS AND ONE 100 MG RITONAVIR TABLET) BY MOUTH TWICE DAILY FOR 5 DAYS. 10/10/19 24 Active methylPREDNISolone , FELICIA, (MEDROL DOSEPAK) 4 MG tablet take by mouth as directed on inside of package 04/03/20 24 Active meloxicam (MOBIC) 7.5 MG tablet Take 1 tablet every day by oral route. Active Melatonin 5 MG TABLET DISPERSIBLE Take 10 mg by mouth. Active lidocaine viscous (XYLOCAINE) 2 % solution Lidocaine Viscous 2 % mucosal solution SWISH AND SPIT 15ML BY MOUTH EVERY 4 6 HOURS NEEDED FOR PAIN Active levothyroxine (SYNTHROID) 100 MCG tablet Take 1 tablet (100 mcg total) by mouth daily. Active ibuprofen (MOTRIN) 800 MG tablet TAKE 1 TABLET BY MOUTH EVERY 4 TO 6 HOURS NEEDED FOR PAIN NO MORE THAN 4 PER 24 HOURS Active hydroxychloroquine (PLAQUENIL) 200 MG tablet Take 2 tablets (400 mg total) by mouth daily. Active gabapentin (NEURONTIN) 300 MG capsule Take 1 capsule (300 mg total) by mouth 2 (two) times daily. Active FLUoxetine (PROZAC) 40 MG capsule Take 1 capsule (40 mg total) by mouth daily. Active fluconazole (DIFLUCAN) 100 MG tablet TAKE 200MG BY MOUTH ON DAY 1 THEN 100MG BY MOUTH DAILY FOR 7 DAYS 04/21/20 24 Active colestipol (COLESTID) 1 g tablet Take 1 tablet (1 g total) by mouth daily. 08/19/19 25 Active colchicine 0.6 MG tablet TAKE 3 TABLETS DAILY FOR BETTER BECHET'S CONTROL 04/08/20 24 Active cholestyramine (QUESTRAN) 4 G packet DISSOLVE & TAKE 1 PACKET BY MOUTH ONCE DAILY WITH A MEAL AVOID OTHER MEDS WITHIN 1 HOUR BEFORE OR 4-6 HOURS AFTER DOSE 08/11/19 25 Active ALPRAZolam (XANAX) 0.25 MG tablet Take 1 tablet (0.25 mg total) by mouth 3 (three) times daily. 02/19/20 24 Active alendronate (FOSAMAX) 70 MG tablet Take 1 tablet (70 mg total) by mouth once a week. 02/21/20 24 Active acetaminophen-code ine (TYLENOL #2) 300-15 MG Tab tablet Take 43,467 tablets by mouth every 4 (four) hours as needed. 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 Overview (08/27/2024): 2020 Chronic GERD 08/27/2024 Overview (08/27/2024): About 2000 Disorder of vitamin B12 08/27/2024 Depressive disorder 08/27/2024 Localized connective tissue disorder, unspecifie d 08/27/2024 Mitral valve disorder 08/27/2024 Osteopenia 08/27/2024 Pure hypercholesterolemia 08/27/2024 Sjogrens syndrome ([facility]) 08/27/2024 Overview (08/27/2024): 30 years Tremor of left hand 08/27/2024 Vitamin D deficiency 08/27/2024 Chest discomfort 07/06/2024 Tremor 06/25/2024 Influenza 05/17/2024 Senile osteoporosis 02/04/2024 Anemia 07/03/2023 Cobalamin deficiency 06/10/2023 Pleuritic pain 02/12/2023 Abnormal mammogram 01/30/2023 COVID-19 01/03/2023 Left wrist pain 07/24/2022 Abnormal weight loss 10/20/2021 Effects of high altitude 08/23/2021 Essential tremor 04/17/2021 Asthma ([facility]) 04/09/2019 Mild persistent asthma without complication ([facility]) 09/01/2018 Fatigue 10/16/2016 Hyperlipidemia 10/16/2016 Hypertension 10/16/2016 Impaired glucose tolerance 10/16/2016 Other forms of dyspnea 10/16/2016 Pulmonary embolism ([facility]) 10/02/2016 Chest pain 09/13/2016 Hypothyroidism (acquired) 08/21/2016 Overview (08/27/2024): About 2000 Other spondylosis, cervical region 08/21/2016 Spinal stenosis in cervical region 08/21/2016 Palpitation 08/21/2016 Sinus tachycardia 08/21/2016 Autoimmune disease ([facility]) 08/21/2016 Osteoarthrosis 09/20/2004 Resolved Problems Problem Noted Date Diagnosed Date Resolved Date Encounter for screening for cardiovascular disorders 07/06/2024 08/31/2024 Encounters Date Type Department Care Team Description 09/02/2024 Telephone [facility] - [address], [address] [place] [address] Radha Contreras NP Concerns 08/27/2024 1:00 PM CDT Office Visit [facility] - [address], [address] [place] [address] Radha Contreras NP Establish Care (Tremors/) 08/27/2024 Travel from Last 3 Months Family History Medical History Relation Comments Diabetes Daughter Heart Disease Father He from com plications of Parkinson Disease Diabetes Mother Relation Status Comments Daughter Alive Father Alive Mother Alive Social History Tobacco Use Types Packs/Day Years [...] Sign Reading Time Taken Comments Blood Pressure 101/64 08/27/2024 1:02 PM CDT Pulse 69 08/27/2024 1:02 PM CDT Temperature 36.8 C (98.2 F) 08/27/2024 1:02 PM CDT Respiratory Rate - - Oxygen Saturation 99% 08/27/2024 1:02 PM CDT Inhaled Oxygen Concentration - - Weight 46.3 kg (102 lb) 08/27/2024 1:02 PM CDT Height 154.9 cm (5' 1 ) 08/27/2024 1:02 PM CDT Body Mass Index 19.27 08/27/2024 1:02 PM CDT Plan of Treatment Upcoming Encounters Date Type Department Care Team (Late st Contact Info) Description 09/08/2024 9:15 AM CDT Appointment [facility] [place] [address] [place] [address] Radha Contreras, EGGS INSPECTOR [facility] [address] [place] [id number] Amy Murphy, [place] [address] 09/22/2024 10:45 AM CDT Appointment [facility] [address] [place] [address] Radha Contreras, EGGS INSPECTOR [facility] [address] [place] [phone] Terri Garcia, DRAPERY [place] [address] 10/09/2024 10:40 AM CDT Office Visit [facility] - [facility] [address] [facility], [address] [place] [phone] Radha Contreras, EGGS INSPECTOR [facility] [address] [place] [id number] Health Maintenance Due Date Last Done Comments Hepatitis C 10/23/1965 DTaP, Tdap and Td Vaccines (1 - Tdap) 10/23/1966 Zoster Vaccines (1 of 2) 10/23/1997 Annual Medicare Wellness Visit 10/23/2012 RSV Immunization or 60+ Years (1 - 1-dose 75+ series) 10/23/2022 COVID-19 Vaccine ( season) 2023 03/26/2022, 08/08/2021, 01/19/2021, Additional history exists Pneumococcal Vaccine: 50+ Years Completed 01/29/2017, 09/17/2014 Dexa Scan (General) Completed 08/28/2021, 08/28/2021, 06/29/2019, Additional history exists PHQ-2 (Physician [place]) Completed 08/27/2024 Meningococcal B Vaccine Aged Out No l onger eligible based on patient's age to complete this topic Meningococcal Vaccine Aged Out No aleja yu eligible based on patient's age to complete this topic RSV Immunizations Under 20 Months Aged Out No longer eligible based on patient's age to complete this topic Insurance [employer] Care Teams Baffle Installer Relationship Specialty Start Date End Date Sumit Cool MD [address] [facility] [address] [place] [id number] PCP - General INTERNAL MEDICINE 08/27/24
[2024-09-03 12:08] VITALS: BP 95/70; PULSE 124; RESP 18; TEMP 36.4; O2SAT 100
[2024-09-03 12:30] LABS: Basophils Percent Auto 0.4 % (0.2-1.2); Eosinophils Absolute Auto 0.1 K/mm3 (0-0.3); Hematocrit 41.6 % (37.0-47.0); Hemoglobin 13.5 g/dL (12.0-15.0); Immature Granulocyte Absolute 0.03 K/mm3 (0.00-0.031); Immature Granulocyte Percent A 0.4 % (0-0.5); Lymphocytes Absolute Auto 1.42 K/mm3 (0.9-3.2); Lymphocytes Percent Auto 18.1 % (18.3-44.2); Mean Corpuscular HGB Conc 32.5 g/dl (32-36); Mean Corpuscular Hemoglobin 29.7 pg (26-34); Mean Corpuscular Volume 91.4 fl (80-100); Mean Platelet Volume 9.9 fl (7.4-10.4); Monocytes Absolute Auto 0.5 K/mm3 (0.1-0.6); Monocytes Percent Auto 6.1 % (2.6-8.5); Neutrophils Absolute Auto 5.8 K/mm3 (1.3-6.7); Platelet Count Result 239 k/mm3 (150-375); Red Blood Count 4.55 M/mm3 (4.2-5.4); Red Cell Distribution Width 14.9 % (11.5-14.5); White Blood Count 7.8 K/mm3 (4.5-10.0)
[2024-09-03] MEDS: SODIUM CHLORIDE 0.9% IV 1,000 ML 999 ML IV CONT (12:32)
[2024-09-03] MEDS: ONDANSETRON INJ 4 MG/2 ML VIAL IV PUSH (12:33)
[2024-09-03 12:40] LABS: Alanine Aminotransferase 51 U/L (6-35); Albumin Level 4.8 g/dL (3.5-5.1); Alkaline Phosphatase 98 U/L (38-126); Anion Gap 13 mmol/L (4-12); Aspartate Amino Transferase 72 U/L (14-36); Blood Urea Nitrogen 26 mg/dL (7-17); Calcium 8.7 mg/dL (8.4-10.2); Carbon Dioxide 23 mmol/L (22-30); Chloride 100 mmol/L (98-107); Estimated Glomerular Filt Rate 48; Glucose 102 mg/dL (65-110); Lipase 101 U/L (23-300); Potassium 3.8 mmol/L (3.4-5.0); Sodium 136 mmol/L (137-145)
[2024-09-03 13:00] VITALS: BP 112/61; PULSE 78; RESP 16; O2SAT 100
[2024-09-03 13:15] VITALS: BP 97/73; PULSE 75; RESP 15; O2SAT 98
--- NOTE | 2024-09-03 13:50 | ED.GENADULT ---
HPI - General Adult General Chief complaint: Nausea/Vomiting/Diarrhea Stated complaint: N/V -20lbs wt loss in 6wks-pain R ribs Time Seen by Provider: 09/03/24 12:09 History of Present Illness HPI narrative: Patient is a 78-year-old female who presents ER with weakness and weight loss from her PCPs office. Reports 20 lb weight loss in last 6 weeks. Reports she was seen here couple months ago for chest pain. It was treated as reflux. She has had an outpatient HIDA scan to rule out cholecystitis or gallbladder dysfunction. She does have known gallstones. She reports she gets fullness and discomfort in her upper abdomen that moves into her right chest. She reports nothing tastes good to her. She had some scrambled eggs today. Yesterday she had scrambled eggs and some orange juice. Poor oral intake. She reports diarrhea had been ongoing for about a month with 10 episodes a day. She has had formed stools over last week. No vomiting at this time. No blood in her stool. Nonsmoker. Patient has not been on antibiotics. She has not been hospitalized. Related Data Home Medications Medication Instructions Recorded Confirmed Last Taken Type alendronate 70 mg tablet 70 mg PO WEEKLY 08/10/24 08/13/24 08/12/24 History alprazolam 0.25 mg tablet 0.25 mg PO DAILY 08/10/24 08/13/24 08/12/24 History aspirin 81 mg tablet,delayed 81 mg PO DAILY 08/10/24 08/13/24 08/12/24 History release (Adult Aspirin Regimen) atorvastatin 20 mg tablet (Lipitor) 20 mg PO DAILY 08/10/24 08/13/24 08/12/24 History colchicine 0.6 mg capsule 0.6 mg PO DAILY 08/10/24 08/13/24 08/12/24 History fluoxetine 40 mg capsule 40 mg PO DAILY 08/10/24 08/13/24 08/12/24 History hydroxychloroquine 200 mg tablet 200 mg PO DAILY 08/10/24 08/13/24 08/12/24 History (Plaquenil) lansoprazole 30 mg capsule,delayed 30 mg PO DAILY 08/10/24 08/11/24 Unknown History release levothyroxine 100 mcg capsule 100 mcg PO DAILY 08/10/24 08/13/24 08/12/24 History pantoprazole 40 mg tablet,delayed 40 mg PO QAM 08/10/24 08/13/24 08/12/24 History release carbidopa 10 mg-levodopa 100 mg 1 tablet PO QHS 09/03/24 Unknown History tablet (Sinemet) Allergies Allergy/AdvReac Type Severity Reaction Status Date / Time No Known Allergies Allergy Mild Verified 09/03/24 11:19 Review of Systems Review of Systems: All systems reviewed & are unremarkable except as noted in HPI and below Constitutional: Constitutional: Reports no additional constitutional complaints ENT: Reports system reviewed and no additional complaints, except as documented Cardiovascular: Cardiovascular: Reports no additional cardiovascular complaints Respiratory: Respiratory: Reports no additional respiratory complaints Gastrointestinal: Gastrointestinal: Reports no additional gastrointestinal complaints Genitourinary: Genitourinary: Reports no additional female genitourinary complaints [facility] Past Medical History Medical History (Updated 09/03/24 @ 15:22 by Jimmy Clements MD) Cholelithiasis Pulmonary embolism, bilateral Primary Sjogren's syndrome Hypercholesterolemia History of ventral hernia Hiatal hernia with GERD Acquired hypothyroidism Family History Family History Mother Family history of type 2 diabetes mellitus Social History Social History Smoking status: Never smoker Alcohol intake: current Substance use type: does not use Living arrangements: with family Spiritual care concerns: No Exam Narrative: GENERAL: Frail-appearing, underweight, and in no acute distress. HEAD: Normocephalic, atraumatic. ENT: Mucous membranes moist. NECK: Supple. CHEST: Clear to auscultation. No respiratory distress. HEART: Regular rate and rhythm. Normal peripheral pulses. ABDOMEN: Soft, nontender, nondistended. EXTREMITIES: Normal range of motion. No edema. SKIN: Warm, dry, no rash. NEURO: Alert and oriented x3. PSYCH: Normal mood and affect. Course Course Emergency Course: Patient given 1 L of IV fluid. Feels improved with Zofran. Discussed lab and imaging results. I have also discussed these results with Dr. Medrano with General surgery as well as her PCP Dr. Cool. Patient appropriate for outpatient follow-up with General surgery. Likely needs her gallbladder out. We will also place her on Augmentin for colitis. Discussed low-fat diet. Vital Signs Vital signs: Vital Signs Temperature 97.5 F L 05/15/25 12:08 Pulse Rate 124 H 09/03/24 12:08 Respiratory Rate 18 09/03/24 12:08 Blood Pressure 95/70 L 09/03/24 12:08 Pulse Oximetry 100 09/03/24 12:08 Oxygen Delivery Room Air 09/03/24 12:08 Temperature 97.5 F L 09/03/24 12:08 Pulse Rate 75 09/03/24 13:15 Respiratory Rate 15 09/03/24 13:15 Blood Pressure 97/73 L 09/03/24 13:15 Pulse Oximetry 98 09/03/24 13:15 Oxygen Delivery Room Air 09/03/24 12:08 Medical Decision Making Vital Signs Vital Signs: Vital Signs Temperature 97.5 F L 09/03/24 12:08 Pulse Rate 124 H 09/03/24 12:08 Respiratory Rate 18 09/03/24 12:08 Blood Pressure 95/70 L 09/03/24 12:08 Pulse Oximetry 100 09/03/24 12:08 Oxygen Delivery Room Air 09/03/24 12:08 Temperature 97.5 F L 09/03/24 12:08 Pulse Rate 75 09/03/24 13:15 Respiratory Rate 15 09/03/24 13:15 Blood Pressure 97/73 L 09/03/24 13:15 Pulse Oximetry 98 09/03/24 13:15 Oxygen Delivery Room Air 09/03/24 12:08 Lab Data 09/03/24 12:22 09/03/24 12:22 Labs: Lab Results 09/03/24 09/03/24 Range/Units 12:22 14:30 WBC 7.8 (4.5-10.0) K/mm3 RBC 4.55 (4.2-5.4) M/mm3 Hgb 13.5 D (12.0-15.0) g/dL Hct 41.6 (37.0-47.0) % MCV 91.4 (80-100) fl MCH 29.7 (26-34) pg MCHC 32.5 (32-36) g/dl RDW 14.9 H (11.5-14.5) % Plt Count 239 (150-375) k/mm3 MPV 9.9 (7.4-10.4) fl Immature Gran % (Auto) 0.4 (0-0.5) % Neut % (Auto) 74.0 H (45.5-73.1) % Lymph % (Auto) 18.1 L (18.3-44.2) % [place] % (Auto) 6.1 (2.6-8.5) % Eos % (Auto) 1.0 (0-4.4) % Baso % (Auto) 0.4 (0.2-1.2) % Lymph # (Auto) 1.42 (0.9-3.2) K/mm3 [place] # (Auto) 0.5 (0.1-0.6) K/mm3 Eos # (Auto) 0.1 (0-0.3) K/mm3 Baso # (Auto) 0.0 (0.0-0.1) K/mm3 Abs Immat Gran (auto) 0.03 (0.00-0.031) K/mm3 Absolute Neuts (auto) 5.8 (1.3-6.7) K/mm3 Absolute Nucleated RBC 0.000 (0.0-0.012) K/mm3 Nucleated RBC % 0.0 (0.0-0.2) % Sodium 136 L (137-145) mmol/L Potassium 3.8 (3.4-5.0) mmol/L Chloride 100 (98-107) mmol/L Carbon Dioxide 23 (22-30) mmol/L Anion Gap 13 H (4-12) mmol/L BUN 26 H D (7-17) mg/dL Creatinine 1.10 H (0.7-1.0) mg/dL Estim Creat Clear Calc Not Reportable Estimated GFR 48 L (59 - ) Glucose 102 (65-110) mg/dL Calcium 8.7 (8.4-10.2) mg/dL Total Bilirubin 1.0 (0.2-1.3) mg/dL AST 72 H (14-36) U/L ALT 51 H (6-35) U/L Alkaline Phosphatase 98 (38-126) U/L Total Protein 8.0 (6.3-8.2) g/dL Albumin 4.8 (3.5-5.1) g/dL Lipase 101 (23-300) U/L Urine Color Yellow (Yellow) Urine Appearance Clear (Clear) Urine pH 5.5 (5.0-9.0) Ur Specific [place] > 1.045 H (1.001-1.035) Urine Protein Trace (Negative) mg/dL Urine Glucose (UA) Negative (Negative) mg/dL Urine Ketones 2+ H (Negative) mg/dL Ur Blood (Man) Negative (Negative) Urine Nitrate Negative (Negative) Urine Bilirubin Negative (Negative) Urine Urobilinogen 1.0 (<2.0) mg/dL Add Ur Microanalysis Reviewed Leukocyte Esterase Rfl Negative (Negative) MARTHA/UL Urine RBC 0-2 (0-2) /hpf Urine WBC 0-5 (0-3) /hpf Ur Squamous Epith Cells None seen (Few) /hpf Urine Bacteria None seen /hpf Urine Casts 3-5 Hyaline Casts Present (None) /lpf Imaging Data Radiologist's impression: ITS Impressions Abdomen/Pelvis CT 09/03/24 13:27 IMPRESSION: 1. Diffuse wall thickening of the colon centered at the hepatic flexure with small amount of adjacent fluid at the paracolic gutter which is suspicious for colitis which could be infectious, inflammatory or ischemic in etiology. 2. Cholelithiasis. Discharge Plan Discharge Clinical Impression: Cholelithiasis, Colitis Patient Disposition: Home Condition: Stable Instructions: Gallstones (ED), Colitis (ED) Additional Instructions: Return to the emergency department if you develop severe abdominal pain, severe nausea and vomiting to the point where you are unable to keep down fluids, if you develop chest pain or difficulty breathing, blood in your stool, dizziness or fainting, or if you develop any other new or concerning symptoms as these could be signs of more serious medical illness. Try to stay well hydrated. Patient Language: Ukrainian Prescriptions: New ondansetron 4 mg tablet,disintegrating 4 mg PO Q6H PRN (Reason: nausea and vomiting) Qty: 14 0RF amoxicillin-pot clavulanate 875-125 mg tablet 1 tablet PO Q12H Qty: 14 0RF No Action lansoprazole 30 mg capsule,delayed release(DR/EC) 30 mg PO DAILY Patient Comments: Pt not taking aspirin [Adult Aspirin Regimen] 81 mg tablet,delayed release (DR/EC) 81 mg PO DAILY alendronate 70 mg tablet 70 mg PO WEEKLY atorvastatin [Lipitor] 20 mg tablet 20 mg PO DAILY alprazolam 0.25 mg tablet 0.25 mg PO DAILY colchicine 0.6 mg capsule 0.6 mg PO DAILY fluoxetine 40 mg capsule 40 mg PO DAILY hydroxychloroquine [Plaquenil] 200 mg tablet 200 mg PO DAILY levothyroxine 100 mcg capsule 100 mcg PO DAILY pantoprazole 40 mg tablet,delayed release (DR/EC) 40 mg PO QAM carbidopa-levodopa [Sinemet] 10-100 mg tablet 1 tablet PO QHS colestipol 1 gram tablet 1 g PO ONCE Qty: 30 3RF Follow-up/Referrals: Cool,Sumit Gibbons MD [Primary Care Provider] - 1 Week Hussein Medrano MD [Physician] - 1 Week
[2024-09-03 14:45] VITALS: BP 109/60; PULSE 71; RESP 20; TEMP 36.6; O2SAT 99
[2024-09-03 15:05] LABS: Add Urine Microscopic? YES; Appearance Urine Clear (Clear); Bacteria Urine None Seen /hpf; Bilirubin Urine Negative (Negative); Blood Urine Negative (Negative); Color Urine Yellow (Yellow); Glucose Urine UA Negative (Negative); Hyaline Casts Urine Present /lpf; Ketones Urine 2+ mg/dL (Negative); Leukocyte Esterase Ur Negative LEU/UL (Negative); Need Manual Microscopic Reviewed; Nitrate Urine Negative (Negative); Protein Urine Trace mg/dL (Negative); RBC Urine 0-2 /hpf (0-2); Specific Grav Ur > 1.045 (1.001-1.035); Squamous Epithelial Cell Urine None Seen /hpf (Few); WBC Urine 0-5 /hpf (0-3); pH Urine 5.5 (5.0-9.0)
[2024-09-03 15:16] VITALS: BP 128/73; PULSE 78; RESP 19; O2SAT 100
== END 2024-09-03 15:50 | disposition home or self-care (01) ==
PROVIDERS: Emergency Provider Emergency Medicine; PCP Internal Medicine
DX: K80.20 Calculus of gallbladder without cholecystitis without obstruction (principal); K52.9 Noninfective gastroenteritis and colitis, unspecified; Z86.711 Personal history of pulmonary embolism; E78.00 Pure hypercholesterolemia, unspecified; M35.00 Sjogren syndrome, unspecified; E03.9 Hypothyroidism, unspecified
CPT/HCPCS: 36415; 74177; 80053; 81001; 83690; 85025; 96361; 96374; 99284; J2405; J7030; Q9967

== ENCOUNTER 2024-09-08 15:23 | Outpatient (CLI) | payer MEDICARE, SELFPAY ==
--- OUTSIDE RECORDS SUMMARY | 2024-09-08 15:28 | XMS_ITS | Clinical Summary ---
Author Organization [facility] Address [address] [facility] [place] [address] Care Team Providers Care Factory Lay Out Engineer Name Role Phone Sumit Cool MD Primary Care Provider [phone] Jared Cruz MD Unavailable Unavailable Dk Adams MD Unavailable Source Comments [facility],non-owned Affiliates and Associated Physician Practices is amultiple site organization consisting of ambulatory clinics and hospital sitesin [place], [place], [place] and [place]. This disclosure is being madepursuant to the Care Everywhere program and may not contain all information available regarding this patient. Last updated 18.[facility] Allergies No known active allergies Medications * [...] on file Legal Sex Female 12:40 PM V BELT COVERER Gender Identity Not on file Sexual Orientation [...] Most Recently Relevant to Health Maintenance Insurance [facility] MANAGED MEDICARE ADV [employer] MEDICARE ADV SELF PAY NO INSURANCE Member Subscriber Plan / Payer (Ef fective for All Dates) Name:Génesis Condon Member ID:Not on file Relation to Subscriber:Not on file Name:GÉNESIS CONDON Subscriber ID:Not on file (Home) Address: [address] [place] [id number] Payer ID:Not on file Group ID:Not on file Type:Self Pay Address: [place], [place] Care Teams Factory Lay Out Engineer Relationship Specialty Start Date End Date Sumit Cool MD [address] [place] [address] [address] [place] [address] PCP - General Internal Medicine 05/03/17 Jared Cruz MD [address] [place] [address] [address] [place] [address] Rheumatology 06/02/18 [place] [id number] [address] Pulmonary Disease 06/02/18
--- OUTSIDE RECORDS SUMMARY | 2024-09-08 15:28 | XMS_ITS | CONTINUITY OF CARE DOCUMENT ---
Author Name dmitri rizvi Address Unknown Organization [facility] Address [address] [place] [address] Phone [phone] Care Team Providers Care Signal Worker Helper Name Role Phone Inocente GRANDE, Philipp Unavailable [...] In-person encounter Office Visit Philipp Brower MD [facility] Dyspnea on exertion--echo & stress nuc nl, 06/2023 7 - 7 In-person encounter Office Visit Philipp Brower MD [facility] Cardiology examinationChest discomfort 3 - 3 In-person encounter Office Visit Philipp Brower MD [facility] 4 - 4 In-person encounter Office Visit Philipp Brower MD [facility] Dyspnea on exertion--echo & stress nuc nl, 06/2023 9 - 9 In-person encounter Office Visit Philipp Brower MD [facility] 2 - 2 In-person encounter Office Visit Philipp Brower MD [facility] 2 - 2 In-person encounter Office Visit Philipp Brower MD [facility] PalpitationHypothyroidismAutoimmune disorder Sjogrens diseaseDJD, cervical spineSinus [...] MD blood pressure, diastolic 84 mm[Hg] To [facility] blood pressure, systolic 126 mm[Hg] [facility] pulse rate 77 /min [facility] oxygen saturation, oximetry 98 % [facility] respiratory rate E&M 16 /min [facility] temperature E&M 97.5 [degF] [facility] temperature site temporal [facility] weight E&M 131 [lb_av] [facility] height E&M 61 [in_i] [facility] Body Mass Index (Ratio) 26.07 kg/m2 [...] 0-149 High cholesterol, serum 184 mg/dL [facility] 011-024 7966/05/0 4 basophil count, absolute 0.0 x10E3/uL [facility] [...] % [employer] platelet count 284 X10E3/UL [facility] [phone]/05/0 4 red blood cell distribution width 14.2 [...] High 4 sodium, serum 137 mmol/L [employer] [phone]/05/0 4 urea nitrogen/creatinine ratio, serum 27 [facility] [...] Mendoza alendronate 70 mg tablet active Luma Mnedoza Symbicort 160-4.5 mcg/actuation HFA aerosol inhaler active [...] Payer name Policy type / Coverage type [place] red republic[employer] ID [employer] MED[employer]ARE JACK PPO Medicare [id number] ADVANCE DIRECTIVES Name Date DISCUSSED - [...] MD Cardiology: O rders: C omplete Echo (66934) S tress Regadenoson ([id number]) Philipp Brower MD Cardiology: H er updated medication list for this problem includes: Atorvastatin 20 Mg Tablet (Atorvastatin) ..... Take once a day Orders: C omplete Echo ([id number]) S tress Regadenoson ([id number]) Philipp Brower MD Cardiology:This visi t has been a part of the consistent, comprehensive, and ongoing management of the chronic medical condition(s) listed above for the patient. BP today: 114/73 P rior BP: 126/84 (11/02/2019) Labs Reviewed: C reat: 0.91 (08/23/2016) C hol: 184 (08/23/2016) HDL: 51 (08/23/2016) LDL: 100 (08/23/2016) T (08/23/2016) Philipp Brower MD Cardiology: O rders: C omplete Echo ([id number]) S tress Regadenoson ([id number]) Philipp Brower MD Cardiology - Philipp Brower [...] completed EKG Philipp Brower MD completed SNOMED-CT: [id number] Current Medications Documented Philipp Brower MD completed Stress EKG Palomo Hernandez MD completed Regadenoson, 4 units Philipp Brower MD completed Cardiolite, 2 units Philipp Brower MD completed SPECT Images Adenike Reynaga MD completed ZIO Holter Hookup Philipp Brower MD co mpleted SNOMED-CT: [id number] Physical Exam, Performed: Pulse Exam of Foot Philipp Brower MD completed EKG Philipp Brower MD completed SNOMED-CT: [id number] Current Medications Documented Philipp Brower MD completed
--- OUTSIDE RECORDS SUMMARY | 2024-09-08 15:28 | XMS_ITS | Patient Health Record ---
Author Organization [facility] Address [address] [place] [address] Care Team Providers Care Manager Field Service Name Role Phone Kb Mobley Unavailable [phone] Allergies No Known Allergies Reason For Referral [...] Pilocarpine HCl 1 TID *Pick strength-form from [employer] for eRX* 06/04/2007 Active Problems Problem Type SNOMED Code ICD Code Onset Dates Problem Status W/U Status Risk Notes Problem Osteoarthritis (878731946) Unspecified osteoarthritis, unspecified site (M19.90) 5 Active confirmed Plan Of Treatment No Information Insurance Providers Payer Name Payer Address Payer Phone Subscriber Number Group Number Insured Name Patient Relationship to Insured Coverage Start Date Coverage End Date DO NOT USE - [employer] [address] [address] [place], [place] [id number] Génesis Condon Self - patient is the insured 5 [employer] - [employer] [address] [place], [place] [id number] Génesis Condon Self - patient is the insured 1
--- OUTSIDE RECORDS SUMMARY | 2024-09-08 15:28 | XMS_ITS | Encounter Summary ---
Author Organization [facility] Address [address] [place] [address] Care Team Providers Care Brim Rounder Name Role Phone Unavailable Primary Care Provider Unavailabl e Encounter Details Date Type Department Care Team (Late st Contact Info) Description 09/08/2024 External Device Data [facility]STRACTION Provider, Abstract [...] Sex Assigned at Female 04/27/2024 12:34 PM VOCATIONAL REHABILITATION TECHNICIAN Legal Sex Female 11:17 AM VOCATIONAL REHABILITATION TECHNICIAN Gender Identity Female 04/27/2024 12:34 PM VOCATIONAL REHABILITATION TECHNICIAN Sexual Orientation Straight 04/27/2024 12 :34 PM VOCATIONAL REHABILITATION TECHNICIAN documented as of this encounter Plan of Treatment Not on file documented as of this encounter Visit Diagnoses Not on filedocumented in this encounter
--- OUTSIDE RECORDS SUMMARY | 2024-09-08 15:28 | XMS_ITS | Clinical Summary ---
Author Organization [facility] Address [address] [address] Phone Care Team Providers Care Spa Supervisor Name Role Phone Unavailable Primary Care Provider [...] Encounters Date Type Department Care Team Description 09/08/2024 External Device Data [facility]STRACTION Provider, Abstract 07/08/2024 External Device Data [facility] ABSTRACTION Provider, [...] Sex Assigned at Female 04/27/2024 12:34 PM BELT BUILDER HELPER Legal Sex Female 11:17 AM BELT BUILDER HELPER Gender Identity Female 04/27/2024 12:34 PM BELT BUILDER HELPER Sexual Orientation Straight 04/27/2024 12 :34 PM BELT BUILDER HELPER Last Filed Vital Signs Vital Sign Reading Time Taken Comments Blood Pressure 112/74 05/05/2024 1:48 PM BELT BUILDER HELPER Pulse - - Temperature 36.6 C (97.9 F) 05/05/2024 1:48 PM BELT BUILDER HELPER Respiratory Rate 16 05/05/2024 1:48 PM BELT BUILDER HELPER Oxygen Saturation - - Inhaled Oxygen Concentration - - Weight 50.8 kg (112 lb 1.6 oz) 05/05/2024 1:48 P M BELT BUILDER HELPER Height 154.9 cm (5' 1 ) 05/05/2024 1:48 PM BELT BUILDER HELPER Body Mass Index 21.18 05/05/2024 1:48 PM BELT BUILDER HELPER Plan of Treatment Health Maintenance Due Date [...]
--- OUTSIDE RECORDS SUMMARY | 2024-09-08 15:29 | XMS_ITS | Data Portability ---
Author Organization [facility] [place], Main Office Address [address] [place] [address] Assessment No assessment recorded. Plan of Treatment Reminders Order Date Submit Date Provider Last Modified By Organization Details Last Modified Time Details Appointments None recorded. Lab vitamin D, 25-hydroxy , total, serum 2024 025 [email or web address] [facility], [address], [place], [address], 17:17:49 lipid panel, serum 2024 025 [email or web address] [facility], [address], [place], [address], 17:17:48 CMP, serum or plasma 2024 025 [facility], [address], [place], [address], 17:17:48 TSH, ultra-sens itive, serum 2024 025 [email or web address] [facility], [address], [place], [address], 17:17:48 unlisted lab - T4, free 2024 025 [email or web address] [facility], [address], [place], [address], 17:17:49 CBC w/ auto diff 2024 025 [email or web address] [facility], [address], [place], [address], 5 17:17:49 lipid panel, serum 2023 024 [email or web address] [facility], [address], [place], [address], 4 10:14:31 CMP, serum or plasma 2023 024 [email or web address] [facility], [address], [place], [address], 4 10:14:32 CBC w/ auto diff 2023 024 [email or web address] [facility], [address], [place], [address], 4 10:14:32 magnesium, serum or plasma 2023 024 [email or web address] [facility], [address], [place], [address], 4 10:14:31 vitamin B12, serum 2023 024 [email or web address] [facility], [address], [place], [address], 4 10:14:31 TSH, ultra-sens itive, serum 2023 024 [email or web address] [facility], [address], [place], [address], 4 10:14:32 unlisted lab - T4, free 2023 024 [email or web address] [facility], [address], [place], [address], 4 10:14:32 vitamin D, 25-hydroxy , total, serum 2023 024 [email or web address] [facility], [address], [place], [address], 4 16:35:33 lipid panel, serum 2023 024 CHRISTINA Lopez, [address], [place], [address], 4 13:39:38 CMP, serum or plasma 2023 024 CHRISTINACAROLYN Lopez, [address], [place], [address], 4 13:39:42 magnesium, serum or plasma 2023 024 CHRISTINACAROLYN Lopez, [address], [place], [address], 4 13:39:36 vitamin B12, serum 2023 024 CHRISTINACAROLYN Lopez, [address], [place], [address], 4 14:34:05 TSH, ultra-sens itive, serum 2023 024 [email or web address] [facility], [address], [place], [address], 4 16:35:32 unlisted lab - T4, free 2023 024 melody Mooneycohenrry, [address], [place], [address], 4 16:35:32 Referral None recorded. Procedures None recorded. Surgeries None recorded. Imaging None recorded. Medication Orders None recorded. Patient TargetsNo targets recorded. Patient Instructions Encounter Date Encounter Id Patient Instructions Last Modified By Organization Details Last Modified Time 01/15/2023 [id number] dementia rating scale-2* Not available 01/15/2023 14:56:16 alcohol misuse* Not available 01/15/2023 14:56:17 depression screening* [email or web address] Not available 01/15/2023 14:56:17 multi-dimensiona l health assessment questionnaire* Not available 01/15/2023 14:56:17 advance directiv es: care instructions [email or web address] Not available 01/15/2023 14:56:17 advance care planning: care instructions [email or web address] Not available 01/15/2023 14:56:17 [place] Advance Directives [email or web address] Not available 01/15/2023 14:56:17 Personalized a lt [...] Negative Active diagnosis, Continue current treatment plan [email or web address] Not available 01/15/2023 14:49:38 [facility]. 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 All clinically stable. Was given a flu shot today. Is otherwise up-to-date on other immunizations. Will continue on current Rx and follow-up in four months. Portions of the record may have been created with voice recognition software. Occasional wrong-word or hsxhi-r-gapq substitutions may have occurred due to the inherent limitations of voice recognition software. Read the chart carefully and recognize, using context, where substitutions have occurred. Mammogram Next Appt: 4 Months Approximate Date: 05/15/2023 [email or web address] Not available 01/15/2023 14:55:38 05/21/2023 [id number] Asthma- GERD-hypothyroidism -hyperlipidemia -disorder connective tissue disease all clinically stable. Will continue on current Rx. Check blood work in the form of CBC, CMP, lipid, thyroid, B12, Magnesium and vitamin-D level. Does need a Cologuard test. Will continue on current Rx and follow-up in four months. Portions of the record may have been created with voice recognition software. Occasional wrong-word or hxiha-r-sugk substitutions may have occurred due to the inherent limitations of voice recognition software. Read the chart carefully and recognize, using context, where substitutions have occurred. [email or web address] Not available 05/21/2023 15:07:30 09/17/2023 [id number] Follow-up for GE RD, hyperlipidemia, hypothyroidism, connective tissue disease and asthma all clinically stable. Check blood work consisting of CBC, CMP, lipid, thyroid, B12 and magnesium level. Follow-up in four months Next Appointment: 4 Months Approximate Date: 01/15/2024 Portions of the record may have been created with voice recognition software. Occasional wrong-word or swslz-t-zcur substitutions may have occurred due to the inherent limitations of voice recognition software. Read the chart carefully and recognize, using context, where substitutions have occurred. [email or web address] Not available 09/17/2023 15:06:50 02/04/2024 [id number] dementia rating scale-2* [email or web address] Not available 02/04/2024 10:40:18 alcohol misuse* [email or web address] Not available 02/04/2024 10:40:18 depression screening* [email or web address] Not available 02/04/2024 10:40:18 Timed Up and Go test (TUG)* Not available 02/04/2024 10:40:18 multi-dimensiona health assessment questionnaire* [email or web address] Not available 02/04/2024 10:40:18 Personalized Hea lt [...] Negative Active diagnosis, Continue current treatment plan [email or web address] Not available 02/04/2024 10:33:36 Medicare wellnes s [...] with voice recognition software. Occasional wrong-word or mzucs-v-imba substitutions may have occurred due to the inherent limitations of voice recognition software. Read the chart carefully and recognize, using context, where substitutions have occurred. [email or web address] Not available 02/04/2024 10:40:03 06/02/2024 [id number] Follow-up for disorder of connective tissue disease, [...] with voice recognition software. Occasional wrong-word or begbp-r-tdoe substitutions may have occurred due to the inherent limitations of voice recognition software. Read the chart carefully and recognize, using context, where substitutions may have occurred. Created: Sumit Cool M.D. 06.02.2024 11:22 AM [email or web address] Not available 06/02/2024 12:22:32 Reason for Referral None Reported. Results Created Date Observation Date Name Description Value Unit Range Abnormal Flag Note LastModifiedBy Organization Detail LastModifiedTime 06/06/1906/06/2023 MAGNE SIUM magnesium 2.0 mg/dL 1.6-2. 3 Not Available [facility] (Lab) [address] [place], [address], 06/06/2023 13:39:36 06/06/19 24 06/06/2023 LIPID PANEL cholesterol 158 mg/dL 140-19 9 NIH CICI NSUS RECOM MENDA TION FOR ROMEL STERO L: ADULT CHILD LOW RISK: <200 <170 BORDE RLINE : <200- 239 ----- HIGH RISK: >240 >200 Not Available [facility] (Lab) [address] [place], [address], 06/06/2023 13:39:38 06/06/19 24 06/06/2023 LIPID PANEL triglyceride s 113 mg/dL 0-150 NIH CICI NSUS REPOR T RECOM MENDA TION FOR TRIGL YCERI MALLORIE: ADULT CHILD LOW RISK: <150 ----- BODER LINE: 150-1 99 ----- HIGH RISK: >200 ----- Not Available [facility] (Lab) [address] [place], [address], 06/06/2023 13:39:38 06/06/19 24 06/06/2023 LIPID PANEL HDL cholesterol 57 mg/dL 40- Not Available [facility] (Lab) [address] [place], [address], 06/06/2023 13:39:38 06/06/19 24 06/06/2023 LIPID PANEL [...] BE REPOR OTILIO. Not Available [facility] (Lab) [address] [place], [address], 06/06/2023 13:39:38 06/06/19 24 06/06/2023 COMPR EHENS BRENDON METAB OLIC PANEL sodium 139 mmol/ L 137-14 5 Not Available [facility] (Lab) [address] [place], [address], 06/06/2023 13:39:42 06/06/19 24 06/06/2023 COMPR EHENS BRENDON METAB OLIC PANEL potassium 4.3 mmol/ L 3.5-5. 1 Not Available [facility] (Lab) [address] [place], [address], 06/06/2023 13:39:42 06/06/19 24 06/06/2023 COMPR EHENS BRENDON METAB OLIC PANEL chloride 102 mmol/ L 98-107 Not Available [facility] (Lab) [address] [place], [address], 06/06/2023 13:39:42 06/06/19 24 06/06/2023 COMPR EHENS BRENDON METAB OLIC PANEL carbon dioxide 31 mmol/ L 22-30 high Not Available [facility] (Lab) [address] [place], [address], 06/06/2023 13:39:42 06/06/19 24 06/06/2023 COMPR EHENS BRENDON METAB OLIC PANEL anion gap 10.3 mmol/ L 14-22 low Not Available [facility] (Lab) [address] [place], [address], 06/06/2023 13:39:42 06/06/19 24 06/06/2023 COMPR EHENS BRENDON METAB OLIC PANEL glucose 84 mg/dL 70-99 Not Available [facility] (Lab) [address] [place], [address], 06/06/2023 13:39:42 06/06/19 24 06/06/2023 COMPR EHENS BRENDON METAB OLIC PANEL BUN 11 mg/dL 8-19 Not Available [facility] (Lab) [address] [place], [address], 06/06/2023 13:39:42 06/06/19 24 06/06/2023 COMPR EHENS BRENDON METAB OLIC PANEL creatinine 0.85 mg/dL 0.66-1 .25 Not Available [facility] (Lab) [address] [place], [address], 06/06/2023 13:39:42 06/06/19 24 06/06/2023 COMPR EHENS BRENDON METAB OLIC PANEL GFR >60 Refer ence Range : Notrees ge GFR Healt hy Adult : >60 [...] r_cal culat or Not Available [facility] (Lab) [address] [place], [address], 06/06/2023 13:39:42 06/06/19 24 06/06/2023 COMPR EHENS BRENDON METAB OLIC PANEL alkaline phosphatase 92 U/L 38-126 Not Available [facility] (Lab) [address] [place], [address], 06/06/2023 13:39:42 06/06/19 24 06/06/2023 COMPR EHENS BRENDON METAB OLIC PANEL alanine aminotransfe rase 17 U/L 0-35 Not Available [facility] (Lab) [address] [place], [address], 06/06/2023 13:39:42 06/06/19 24 06/06/2023 COMPR EHENS BRENDON METAB OLIC PANEL aspartate aminotransfe rase 33 U/L 15-37 Not Available [facility] (Lab) [address] [place], [address], 06/06/2023 13:39:42 06/06/19 24 06/06/2023 COMPR EHENS BRENDON METAB OLIC PANEL bilirubin, total 0.60 mg/dL 0.20-1 .30 Not Available [facility] (Lab) [address] [place], [address], 06/06/2023 13:39:42 06/06/19 24 06/06/2023 COMPR EHENS BRENDON METAB OLIC PANEL calcium 9.4 mg/dL 8.4-10 .2 Not Available [facility] (Lab) [address] [place], [address], 06/06/2023 13:39:42 06/06/19 24 06/06/2023 COMPR EHENS BRENDON METAB OLIC PANEL total protein 6.4 g/dL 6.3-8. 2 Not Available [facility] (Lab) [address] [place], [address], 06/06/2023 13:39:42 06/06/19 24 06/06/2023 COMPR EHENS BRENDON METAB OLIC PANEL albumin 3.7 g/dL 3.0-4. 4 Not Available [facility] (Lab) [address] [place], [address], 06/06/2023 13:39:42 06/06/19 24 06/06/2023 COMPR EHENS BRENDON METAB OLIC PANEL globulin 2.7 g/dL 2.6-4. 2 Not Available [facility] (Lab) [address] [place], [address], 06/06/2023 13:39:42 06/06/19 24 06/06/2023 COMPR EHENS BRENDON METAB OLIC PANEL A/G ratio 1.4 ratio 1.0-2. 0 Not Available [facility] (Lab) [address] [place], [address], 06/06/2023 13:39:42 06/06/19 24 06/06/2023 T4 FREE free T4 0.98 NG/dL 0.78-2 .19 Not Available [facility] (Lab) [address] [place], [address], 06/06/2023 13:54:15 06/06/19 24 06/06/2023 TSH thyroid-stim ulating hormone 0.201 uIU/m L 0.465- 4.680 low Not Available [facility] (Lab) [address] [place], [address], 06/06/2023 14:09:11 06/06/19 24 06/06/2023 VITAM IN B12 (THIERNO CHRIS ) vb12 229 pg/mL 239-93 1 low Not Available [facility] (Lab) [address] [place], [address], 06/06/2023 14:34:05 06/06/19 24 06/06/2023 VITAM IN D 25-HY DROXY [id number] 43.8 NG/mL 30-100 Vitam in D Statu s: Defic ient: <20 ng/mL Insuf ficie nt: 20-29 ng/mL Suffi cient : 30-10 0 ng/mL Not Available [facility] (Lab) [address] [place], [address], 06/06/2023 14:34:16 02/18/20 24 02/18/2024 COLOG UARD [...] of 10,00 0 indiv idual s at round o ge risk for color ectal cance r [...] asymp tomat ic indiv idual s at round o ge risk for color ectal cance r. [...] 112:1 016-1 030. TEST DESCR IPTIO N: [place] site algor ithmi c janet sis of [...] years or older , who are at [facility] for color ectal cance r (CRC) . Colog uard has been appro hardeep for use by the [place] FDA. The perfo rmanc e of Colog uard was estab lishe d in a cross secti onal study of [facility] adult s aged 50-84 . Colog [...] of 10,00 0 indiv idual s at [facility] risk for color ectal cance r [...] d [facility] ion: www.e xactl abs.c om/re sults . Addit ional descr iptio n of the Colog uard test proce ss, warni ngs and preca ution s can be found at www.c ologu kirstin.c om. Not Available [facility] (Cologuard Orders Only) [address], [place], [address], 02/26/2024 19:56:07 06/15/1906/16/2024 CBC WITH DIFFE RENTI AL/PL ATELE T WBC 4.3 x10e3 /uL 3.4-10 .8 normal Not Available [facility]) [address] [place], [address], 06/16/2024 07:14:04 06/15/1906/16/2024 CBC WITH DIFFE RENTI AL/PL ATELE T RBC 3.66 x10e6 /uL 3.77-5 .28 below low normal Not Available [facility] ([facility]) [address] [place], [address], 06/16/2024 07:14:04 06/15/1906/16/2024 CBC WITH DIFFE RENTI AL/PL ATELE T hemoglobin 11.3 g/dL 11.1-1 5.9 normal Not Available [facility] ([facility]) [address] [place], [address], 06/16/2024 07:14:04 06/15/1906/16/2024 CBC WITH DIFFE RENTI AL/PL ATELE T hematocrit 35.0 % 34.0-4 6.6 normal Not Available [facility] ([facility]) [address] [place], [address], 06/16/2024 07:14:04 06/15/1906/16/2024 CBC WITH DIFFE RENTI AL/PL ATELE T MCV 96 fL 79-97 normal Not Available [facility] ([facility]) [address] [facility], [place], [address], 06/16/2024 07:14:04 06/15/1906/16/2024 CBC WITH DIFFE RENTI AL/PL ATELE T MCH 30.9 pg 26.6-3 3.0 normal Not Available [facility] ([facility]) [address] [place], [address], 06/16/2024 07:14:04 06/15/1906/16/2024 CBC WITH DIFFE RENTI AL/PL ATELE T MCHC 32.3 g/dL 31.5-3 5.7 normal Not Available [facility] ([facility]) [address] [facility], [place], [address], 06/16/2024 07:14:04 06/15/1906/16/2024 CBC WITH DIFFE RENTI AL/PL ATELE T RDW 14.6 % 11.7-1 5.4 Not Available [facility] ([facility]) [address] [place], [address], 06/16/2024 07:14:04 06/15/1906/16/2024 CBC WITH DIFFE RENTI AL/PL ATELE T platelets 186 x10e3 /uL 150-45 0 normal Not Available [facility] ([facility]) [address] [place], [address], 06/16/2024 07:14:04 06/15/1906/16/2024 CBC WITH DIFFE RENTI AL/PL ATELE T neutrophils 42 % not estab. normal Not Available [facility] ([facility]) [address] [place], [address], 06/16/2024 07:14:04 06/15/1906/16/2024 CBC WITH DIFFE RENTI AL/PL ATELE T lymphs 32 % not estab. normal Not Available [facility] ([facility]) [address] [place], [address], 06/16/2024 07:14:04 06/15/1906/16/2024 CBC WITH DIFFE RENTI AL/PL ATELE T monocytes 12 % not estab. normal Not Available [facility] ([facility]) [address] [place], [address], 06/16/2024 07:14:04 06/15/1906/16/2024 CBC WITH DIFFE RENTI AL/PL ATELE T eos 13 % not estab. normal Not Available [facility] ([facility]) [address] [place], [address], 06/16/2024 07:14:04 06/15/19 25 06/16/2024 CBC WITH DIFFE RENTI AL/PL ATELE T basos 1 % not estab. normal Not Available [facility] ([facility]) [address] [place], [address], 06/16/2024 07:14:04 06/15/1906/16/2024 CBC WITH DIFFE RENTI AL/PL ATELE T immature cells [employer]ER Not Available [facility]) [address] [place], [address], 06/16/2024 07:14:04 06/15/1906/16/2024 CBC WITH DIFFE RENTI AL/PL ATELE T neutrophils (absolute) 1.8 x10e3 /uL 1.4-7. 0 normal Not Available [facility] ([facility]) [address] [place], [address], 06/16/2024 07:14:04 06/15/19 25 06/16/2024 CBC WITH DIFFE RENTI AL/PL ATELE T lymphs (absolute) 1.4 x10e3 /uL 0.7-3. 1 normal Not Available [facility] ([facility]) [address] [place], [address], 06/16/2024 07:14:04 06/15/1906/16/2024 CBC WITH DIFFE RENTI AL/PL ATELE T monocytes(ab solute) 0.5 x10e3 /uL 0.1-0. 9 normal Not Available [facility] ([facility]) [address] [place], [address], 06/16/2024 07:14:04 06/15/1906/16/2024 CBC WITH DIFFE RENTI AL/PL ATELE T eos (absolute) 0.6 x10e3 /uL 0.0-0. 4 above high normal Not Available [facility] ([facility]) [address] [place], [address], 06/16/2024 07:14:04 06/15/19 25 06/16/2024 CBC WITH DIFFE RENTI AL/PL ATELE T baso (absolute) 0.0 x10e3 /uL 0.0-0. 2 normal Not Available [facility] ([facility]) [address] [place], [address], 06/16/2024 07:14:04 06/15/1906/16/2024 CBC WITH DIFFE RENTI AL/PL ATELE T immature granulocytes 0 % not estab. Not Available [facility] ([facility]) [address] [place], [address], 06/16/2024 07:14:04 06/15/19 25 06/16/2024 CBC WITH DIFFE RENTI AL/PL ATELE T immature grans (abs) 0.0 x10e3 /uL 0.0-0. 1 Not Available [facility] ([facility]) [address] [place], [address], 06/16/2024 07:14:04 06/15/19 25 06/16/2024 CBC WITH DIFFE RENTI AL/PL ATELE T NRBC [employer] Not Available [facility] ([facility]) [address], [place], [address], 06/16/2024 07:14:04 06/15/19 25 06/16/2024 CBC WITH DIFFE RENTI AL/PL ATELE T hematology comments: [employer] Not Available [facility]) [address], [place], [address], 06/16/2024 07:14:04 06/15/1906/16/2024 COMP. METAB OLIC PANEL (14) glucose 80 mg/dL 70-99 normal Not Available [facility] ([facility]) [address] [place], [address], 06/16/2024 07:14:05 06/15/19 25 06/16/2024 COMP. METAB OLIC PANEL (14) BUN 8 mg/dL 8-27 normal Not Available [facility] ([facility]) [address] [place], [address], 06/16/2024 07:14:05 06/15/19 25 06/16/2024 COMP. METAB OLIC PANEL (14) creatinine 0.96 mg/dL 0.57-1 .00 normal Not Available [facility] ([facility]) [address], [place], [address], 06/16/2024 07:14:05 06/15/19 25 06/16/2024 COMP. METAB OLIC PANEL (14) eGFR 61 mL/mi n/1.7 3 >59 normal Not Available [facility] ([facility]) [address] [place], [address], 06/16/2024 07:14:05 06/15/19 25 06/16/2024 COMP. METAB OLIC PANEL (14) BUN/creatini ne ratio 8 12-28 below low normal Not Available [facility] ([facility]) [address] [facility] [place], [address], 06/16/2024 07:14:05 06/15/19 25 06/16/2024 COMP. METAB OLIC PANEL (14) sodium 141 mmol/ L 134-14 4 normal Not Available [facility]) [address] [facility] [place], [address], 06/16/2024 07:14:05 06/15/1906/16/2024 COMP. METAB OLIC PANEL (14) potassium 4.2 mmol/ L 3.5-5. 2 normal Not Available [facility] ([facility]) [address] [facility] [place], [address], 06/16/2024 07:14:05 06/15/19 25 06/16/2024 COMP. METAB OLIC PANEL (14) chloride 104 mmol/ L 96-106 normal Not Available [facility] ([facility]) [address] [facility], [address], 06/16/2024 07:14:05 06/15/19 25 06/16/2024 COMP. METAB OLIC PANEL (14) carbon dioxide, total 26 mmol/ L 20-29 normal Not Available [facility] ([facility]) [address] [facility] [place], [address], 06/16/2024 07:14:05 06/15/19 25 06/16/2024 COMP. METAB OLIC PANEL (14) calcium 9.2 mg/dL 8.7-10 .3 normal Not Available [facility]) [address] [facility], [address], 06/16/2024 07:14:05 06/15/19 25 06/16/2024 COMP. METAB OLIC PANEL (14) protein, total 6.5 g/dL 6.0-8. 5 normal Not Available [facility] ([facility]) [address] [facility], [address], 06/16/2024 07:14:05 06/15/19 25 06/16/2024 COMP. METAB OLIC PANEL (14) albumin 4.2 g/dL 3.8-4. 8 normal Not Available [facility] ([facility]) [address] [facility] [place], [address], 06/16/2024 07:14:05 06/15/19 25 06/16/2024 COMP. METAB OLIC PANEL (14) globulin, total 2.3 g/dL 1.5-4. 5 Not Available [facility] ([facility]) [address] [facility] [place], [address], 06/16/2024 07:14:05 06/15/19 25 06/16/2024 COMP. METAB OLIC PANEL (14) bilirubin, total 0.3 mg/dL 0.0-1. 2 normal Not Available [facility] ([facility]) [address] [facility], [address], 06/16/2024 07:14:05 06/15/19 25 06/16/2024 COMP. METAB OLIC PANEL (14) alkaline phosphatase 66 IU/L 44-121 normal Not Available [facility] [address] [facility] [place], [address], 06/16/2024 07:14:05 06/15/19 25 06/16/2024 COMP. METAB OLIC PANEL (14) AST (SGOT) 23 IU/L 0-40 normal Not Available [facility] ([facility]) [address] [facility] [place], [address], 06/16/2024 07:14:05 06/15/19 25 06/16/2024 COMP. METAB OLIC PANEL (14) ALT (SGPT) 16 IU/L 0-32 normal Not Available [facility] ([facility]) [address] [place], [address], 06/16/2024 07:14:05 06/15/1906/16/2024 LIPID PANEL cholesterol, total 155 mg/dL 100-19 9 normal Not Available [facility] ([facility]) [address] [place], [address], 06/16/2024 07:14:06 06/15/19 25 06/16/2024 LIPID PANEL triglyceride s 105 mg/dL 0-149 normal Not Available [facility] [address] [place], [address], 06/16/2024 07:14:06 06/15/1906/16/2024 LIPID PANEL HDL cholesterol 52 mg/dL >39 normal Not Available [facility] [address] [place], [address], 06/16/2024 07:14:06 06/15/19 25 06/16/2024 LIPID PANEL VLDL cholesterol armando 19 mg/dL 5-40 Not Available [facility] [address] [place], [address], 06/16/2024 07:14:06 06/15/19 25 06/16/2024 LIPID PANEL LDL chol calc ([facility]) 84 mg/dL 0-99 Not Available [facility] [address] [place], [address], 06/16/2024 07:14:06 06/15/19 25 06/16/2024 LIPID PANEL LDL calc comment: [employer]ER Not Available [facility] [address] [place], [address], 06/16/2024 07:14:06 06/15/19 25 06/16/2024 TSH TSH 1.130 uIU/m L 0.450- 4.500 normal Not Available [facility] ([facility]) [address] [facility], [place], [address], 06/16/2024 07:14:07 06/15/1906/16/2024 VITAM IN D, 25-HY [...] um and D. Joe estrada [place]: [facility] . 2. Sobia pacheco [place], Jamin cantrell [place], Edith off-F erreveline i DANIELSON, et al. Evalu ation , treat ment, and preve ntion of vitam in D defic iency : an Endoc rine Socie ty clini armando pract ice guide line. JCEM. 2010; 96(7) :1911 -30. Not Available [facility] ([facility]) [address] [facility], [place], [address], 06/16/2024 07:14:08 06/15/1906/16/2024 T4, FREE T4,free(dire ct) 1.49 NG/dL 0.82-1 .77 normal Not Available [facility] ([facility]) [address] [facility], [place], [address], 06/16/2024 07:14:09 01/24/20 23 MAMMO , scree paco, digit al, bilat eral [facility] [facility] [address] [facility], [place] [address] Patien t Name: GÉNESIS JACOME Access ion #: [id number] Sex: F : 1945 7 Dictat [...] noted in the upper outer quadra nt, hose 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 [email or web address] Not Available 2022 13:00:29 02/13/20 XR, chest , 2 view [facility] [address] [place] [address] Daniel taylor Name: GÉNESIS JACOME Access ion #: [id number] Sex: F : 1945 9 Dictat [...] at 2022 15:02: 59 PM Page [address] (Imaging) [address] [place], [address], 02/12/2023 17:29:17 03/05/20 23 03/05/2023 US, breamanda t, unila teral [facility] [address] [place] [address] [phone] Patien t Name: GÉNESIS JACOME Access ion #: [id number] Sex: F : 1945 4 Dictat [...] at 2022 12:02: 49 PM Page 1 [email or web address] [facility] (Imaging) [address] [place], [address], 03/05/2023 16:08:13 03/05/20 23 03/05/2023 MAMMO , diagn ostic , unila teral [facility] [address] [place] [address] [phone] Patien t Name: GÉNESIS JACOME Access ion #: [id number] Sex: F : 1945 4 Dictat [...] at 2022 12:02: 49 PM Page 1 [email or web address] [facility] (Imaging) [address] [place], [address], 03/05/2023 16:08:29 02/06/20 24 DEXA, axial skele ton [facility] [address] [place] [address] Patien t Name: GÉNESIS JACOME Access ion #: [id number] Sex: F : 1945 4 Dictat [...] ------ ------ ------ ------ ----- Page 1 [facility] [address] [place] [address] Patien t Name: GÉNESIS JACOME Access ion #: [id number] Sex: F : 1945 4 Dictat [...] at 2023 11:02: 04 AM Page 2 [email or web address] [facility] (Imaging) [address] [place], [address], 02/06/2024 15:00:57 04/28/19 25 04/28/2024 XR, cervi armando spine No observ ation record ed. [address] [facility] [address] [facility] [address], [place], [address], 04/28/2024 18:10:51 04/29/19 25 04/29/2024 XR, chest No observ ation [place]. [email or web address] Not Available 2024 11:54:58 06/25/19 25 06/24/2024 XR, chest No observ ation record ed. [address], [place], [address], 06/24/2024 13:53:05 07/14/19 25 07/13/2024 myoca rdial perfu seven study w/ eject ion fract ion (PROC ) No observ ation record ed. [email or web address] [facility] [address] [facility], [place], [address], 07/21/2024 09:53:21 07/23/19 25 07/21/2024 US, echoc ardio gram No observ ation record ed. [address] [facility] [address] [facility] [address], [place], [address], 07/22/2024 09:32:45 08/21/19 25 08/20/2024 NM, hepat obili kevin scan No observ ation record ed. [address], [place], [address], 08/20/2024 13:45:51 09/04/19 25 09/03/2024 CT, abdom en + pelvi s, w/o contr ast No observ ation record ed. [address], [place], [address], 09/03/2024 17:40:27 Result Notes None recorded. Problems Name Problem SNOMED Code Status Onset Date Resolution Date Notes Provider Name and Address Organization Details Recorded Time Disorder of connective tissue 949630826 Active Not Available [facility] 3 14:15:13 Mitral valve disorder 03645393 Active Not Available [facility] 3 14:15:13 Asthma 247864451 Active 2018 Not Available [facility] 3 14:15:13 Gastroesop hageal reflux disease 125070694 Active Not Available [facility] 3 14:15:13 Abnormal weight loss 066359412 Active 2021 Not Available [facility] 3 14:15:14 Pure hyperchole sterolemia 118211511 Active Not Available [facility] 3 14:15:14 Chest pain 78717705 Active 2016 Not Available [facility] 3 14:15:14 Osteopenia 294972685 Active Not Available [facility] 3 14:15:14 Vitamin D deficiency 62609168 Active Not Available [facility] 3 14:15:14 Depressive disorder 62195118 Active Not Available [facility] 3 14:15:14 Disorder of vitamin B12 840670228 Active Not Available [facility] 3 14:15:14 Hypothyroi dism 95478146 Active Not Available [facility] 3 14:15:14 Pulmonary embolism 74573846 Active 2016 Not Available [facility] 3 14:15:14 Essential tremor 471713955 Active 2020 Not Available [facility] 3 14:15:14 Spinal stenosis in cervical region 93446978 Active 2016 Not Available [facility] 3 14:15:14 Effects of high altitude 34804962 Active 2021 Not Available [facility] 3 14:15:14 Pain of left wrist 4340736860245 02 Active 2022 ALEJANDRINA [place], [place] - [facility] 3 11:53:23 COVID-19 626136888 Active 2022 Sumit Cool MD [address] [facility], [facility] [address], [place], [address] , [facility] 3 17:52:42 Mammograph y abnormal 857037654 Active 2022 Isabell Paulino CMA null, [place] - [facility] 3 17:25:19 Pleuritic pain 5156395 Active 2022 Valencia Yang null, [place] [facility] 3 15:00:28 Cobalamin deficiency 887577519 Active 2023 JEANNETTE Parra null, [facility] 4 10:58:41 Anemia 462907528 Active 2023 Kaykay Huang null, [place] [facility] 4 16:40:10 Senile osteoporos is 33725021 Active 2023 Valencia Yang null, [facility] 4 10:47:56 Osteoporos is 57278417 Active 2023 Isabell Paulino CMA null, [facility] 4 15:30:29 Influenza 1839079 Active 2024 Sumit Cool MD [address] [facility], [facility] [address], [place], [address] , [facility] 5 11:59:33 Tremor 50568146 Active 2024 Isabell Paulino CMA null, [facility] 5 11:19:47 Problem Notes None recorded. Procedures Surgical History Date Name Laterality Status Provider Name and Address Organization Details Recorded Time 4 Medicare Wellness CPT Code, subsequent completed CLARITA Estes [facility] 02/04/2024 10:27:24 3 Medicare Wellness CPT Code, subsequent completed Gracie Garcia RN [place] [facility] 01/15/2023 14:43:54 3 Advanced Care Planning completed Gracie Garcia RN [place] [facility] 01/15/2023 14:46:04 Most Recent Bone Density completed Not Available [facility] 06/20/2022 14:11:48 Imaging Results Imaging Date Name Status LastModified by Organization Details LastModified Time 01/23/2023 MAMMO, screening, digital, bilateral completed [email or web address] [facility] (Imaging) [address] [place], [address], 01/23/2023 14:33:17 01/22/2023 lab* completed [email or web address] Information no t available 01/25/2023 13:00:29 02/12/2023 XR, chest, 2 view [address] (Imaging) [address] [place], [address], 02/12/2023 17:29:17 03/05/2023 US, breast, unilateral completed [facility] (Imaging) [address] [place], [address], 03/05/2023 16:08:13 03/05/2023 MAMMO, diagnostic, unilateral completed [address] (Imaging) [address] [place], [address], 03/05/2023 16:08:29 02/06/2024 DEXA, axial skeleton completed [address] (Imaging) [address] [place], [address], 02/06/2024 15:00:57 04/28/2024 XR, cervical spine completed [email or web address] [facility] [address], [place], [address], 04/28/2024 18:10:51 04/29/2024 XR, chest completed [email or web address] Information no t available 04/29/2024 11:54:58 06/24/2024 XR, chest completed [email or web address] [place] [address] [facility] [address], [place], [address], 06/24/2024 13:53:05 07/13/2024 myocardial perfusion study w/ ejection fraction (PROC) completed [email or web address] [facility] [address], [place], [address], 07/21/2024 09:53:21 07/21/2024 US, echocardiogram completed [address] [facility] [address] [facility] [address], [place], [address], 07/22/2024 09:32:45 08/20/2024 NM, hepatobiliary scan completed [address], [place], [address], 08/20/2024 13:45:51 09/03/2024 CT, abdomen + pelvis, w/o contrast completed [address], [place], [address], 09/03/2024 17:40:27 Procedure Notes None recorded. Medical Equipment None [...] , TAKE WITH OVER THE COUNTER TYLENOL active Not Available Not Available No t Available PreviDent 0.2 % dental solution SWISH AND SPIT 10ML BY MOUTH TWICE DAILY active Not Available Not Available No t Available pantoprazol e 20 mg tablet,bibiana yed release TAKE 1 BY MOUTH AT BEDTIME FOR 4 WEEKS active Not Available Not Available No t Available dexamethaso ne 0.5 mg/5 mL oral solution TAKE 5 ML BY MOUTH 2 TO 3 TIMES DAILY AND STOP WHEN ORAL ULCERS HAVE IMPROVED 06/02 completed Not Available Not Available Not Available mycophenola te mofetil 500 mg tablet TAKE 2 TABLETS BY MOUTH TWICE DAILY active Not Available Not Available No t Available meloxicam 7.5 mg tablet Take 1 [...] completed Not Available Not Available Not Available lansoprazol e 30 mg capsule,del ayed release TAKE 1 CAPSULE BY MOUTH ONCE DAILY active Not Available Not Available No t Available orphenadrin e citrate ER 100 mg [...] Not Available Not Available No t Available Mccaskill 10 mg-325 mg tablet one every four [...] completed Not Available Not Available Not Available Mccaskill 5 mg-325 mg tablet Take 1 tablet [...] Updated DateTime 3 157.48 cm 20.3 kg/m2 53387.7 5 g 92 /min 97 [degF] 93 % 93 % 112 mm[Hg] 80 mm[Hg] [facility] 3 14:34:55 Date Recorded Body height Body mass index (BMI) Body weight Heart rate Body temperature Oxygen saturation Oxygen saturation in Arterial blood by Pulse oximetry Systolic blood pressure Diastolic blood pressure Provider Name and Address Organization Details Last Updated DateTime 4 157.48 cm 20.3 kg/m2 33689.7 5 g 82 /min 97 [degF] 97 % 97 % 122 mm[Hg] 80 mm[Hg] [facility] 4 14:46:12 Date Recorded Body height Body mass index (BMI) Body weight Heart rate Body temperature Oxygen saturation Oxygen saturation in Arterial blood by Pulse oximetry Systolic blood pressure Diastolic blood pressure Provider Name and Address Organization Details Last Updated DateTime 4 157.48 cm 20.1 kg/m2 36075.1 6 g 105 /min 97 [degF] 91 % 91 % 128 mm[Hg] 80 mm[Hg] Kaykay Huang [facility] 4 14:53:34 Date Recorded Body height Body mass index (BMI) Body weight Heart rate Body temperature Oxygen saturation Oxygen saturation in Arterial blood by Pulse oximetry Systolic blood pressure Diastolic blood pressure Provider Name and Address Organization Details Last Updated DateTime 4 157.48 cm 19.8 kg/m2 99723.9 8 g 86 /min 97 [degF] 95 % 95 % 130 mm[Hg] 72 mm[Hg] Serene JohnJEANNETTE [facility] [employer] [facility] 4 10:23:21 Date Recorded Body height Body mass index (BMI) Body weight Heart rate Body temperature Oxygen saturation Oxygen saturation in Arterial blood by Pulse oximetry Systolic blood pressure Diastolic blood pressure Provider Name and Address Organization Details Last Updated DateTime 5 157.48 cm 20.1 kg/m2 08600.1 6 g 54 /min 97 [degF] 91 % 91 % 128 mm[Hg] 64 mm[Hg] Kaykay Huang [facility] 5 12:14:28 Social History Question Answer Notes LastModified by Organization Details LastModified Time Tobacco Smoking Status Never Smoker Not Available [facility] 06/20/2022 14:11:43 Do You Have An Advance Directive? No Info Given Previously [email or web address] Information not available 02/04/2024 Are You Blind Or Do You Have Difficulty Seeing? No MIGRATION.030 [id number] Information not available 06/20/2022 In The 14 Days Before Symptom Onset, Have You Had Close Contact With A Laboratory-conf irmed COVID-19 While That Case Was Ill? No MIGRATION.030 [id number] Information not available 06/20/2022 In The 14 Days Before Symptom Onset, Have You Had Close Contact With A Person Who Is Under Investigation For COVID-19 While That Person Was Ill? No MIGRATION.030 [id number] Information not available 06/20/2022 Are You Deaf Or Do You Have Serious Difficulty Hearing? No MIGRATION.030 784396 Information not available 06/20/2022 What Type Of Diet Are You Following? REGULAR MIGRATION.030 [id number] Information not available 06/20/2022 Have There Been Any Changes To Your Family Or Social Situation? No [email or web address] Information not available 01/15/2023 What Is The Fluoride Status Of Your Home? Fluoridated MIGRATION.0301 [id number] Information not available 06/20/2022 Are There Any Guns Present In Your Home? Yes MIGRATION.0301 [id number] Information not available 06/20/2022 Do You Use Insect Repellent Routinely? No [email or web address] Information not available 01/15/2023 Where Do You Live? [place] MIGRATION.0301 [id number] Information not available 06/20/2022 Guns Present In The Home? Yes [email or web address] Information not available 01/15/2023 Are You Able To Care For Yourself? Yes [email or web address] Information not available 01/15/2023 Are You Blind Or Do Yo Have Difficulty Seeing? No [email or web address] Information not available 01/15/2023 Are You Deaf Or Do You Have Serious Difficulty Hearing? No [email or web address] Information not available 01/15/2023 Live Alone Of With Others? With Others [email or web address] Information not available 01/15/2023 Do You Have A Medical Power Of Turret Lathe Operator? No [email or web address] Information not available 01/15/2023 What Was The Date Of Your Most Recent Tobacco Screening? 02/04/2024 [email or web address] Information not available 02/04/2024 Do You Have Any Pets? No Information not available 01/15/2023 What Is Your Relationship Status? MIGRATION.0301 [id number] Information not available 06/20/2022 Do You Use Your Seat Belt Or Car Seat Routinely? Yes MIGRATION.0301 [id number] Information not available 06/20/2022 Do You Have Smoke And Carbon Monoxide Detectors In Your Home? Yes [email or web address] Information not available 01/15/2023 Are You Passively Exposed To Smoke? No [email or web address] Information not available 01/15/2023 Are There Any Smokers In Your House? No [email or web address] Information not available 01/15/2023 Do You Use Sunscreen Routinely? No MIGRATION.0301 [id number] Information not available 06/20/2022 Have You Recently Traveled Abroad? No MIGRATION.0301 088210 Information not available 06/20/2022 Do You Have Difficulty Walking Or Climbing Stairs? No MIGRATION.0301 [id number] Information not available 06/20/2022 Sex: Unknown Functional Status Question Answer Note LastModified by Organizat ion Details LastModified Time What is your level of alcohol consumption? Moderate 1 glass wine night [email or web address] Information not available 02/04/2024 Do you or have you ever used smokeless tobacco? Never used smokeless tobacco MIGRATION.53019 21690 Information not available 06/20/2022 Do you have transportation difficulties? No MIGRATION.79859 39584 Information not available 06/20/2022 Are you able to walk? YESWOREST MIGRATION.08797 57962 Information not available 06/20/2022 Do you have difficulty doing errands alone? No MIGRATION.78267 52278 Information not available 06/20/2022 Are you able to care for yourself? Yes MIGRATION.58928 46794 Information not available 06/20/2022 Do you have difficulty dressing or bathing? No MIGRATION.55587 67940 Information not available 06/20/2022 Do you or have you ever used e-cigarettes or vape? Never used electronic cigarettes MIGRATION.25453 68302 Information not available 06/20/2022 What is your exercise level? Occasional MIGRATION.51434 37127 Information not available 06/20/2022 Mental Status Question Answer Note LastModified by Organizat ion Details LastModified Time Do you have difficulty concentrating, remembering or making decisions? No MIGRATION.[id number] 6 Information not available 06/20/2022 Family History Nothing Reported Notes:Mother 93 Typ e II Diabetes and infirmities Father 73 from Parkinsonism One sister living and in good health Medical History Condition Response NERVE DISEASE N BLINDNESS N RHEUMATIC FEVER N KIDNEY STONES N BLADDER PROBLEMS N MRSA N OTHER # 1 N POLIO N LUNG DISEASE/DISORDER N HISTORY OF DRUG ABUSE N COPD N RADIATION / CHEMOTHERAPY N Other # 2 N BLOOD DISEASES N EAR OR HEARING PROBLEMS N MUMPS N SHINGLES N BOWEL PROBLEMS N DEPRESSION (INCLUDING POST ) N STROKE/TIA N ULCERS N BENIGN PROSTATIC HYPERPLASIA N MEASLES N HYPOTENSION N MYOCARDIAL INFARCTION N OBESITY N GERD/NAUSEA N ANEURYSM N URINARY/BLADDER/KIDNEY PROBLEMS N CORONARY ARTERY DISEASE (CAD) N ADDICTION CONCERNS N ENDOMETRIOSIS N Impotence N USE OF BLOOD THINNERS N SKIN [...] GLAUCOMA N FOOT PROBLEM N DIVERTICULITIS N CHICKENPOX N SLEEP APNEA N INFECTIOUS DISEASE N HEART ARRHYTHMIA N PROSTATE N INSOMNIA N HIGH CHOLESTEROL / HYPERLIPIDEMIA N HYPERTHYROIDISM N EYE PROBLEMS N EDEMA N CHRONIC PAIN SYNDROME N HYPOTHYROIDISM N CAROTID BLOCKAGE N CONSTIPATION N BACK / NECK PROBLEMS N HAVE YOU BEEN HOSPITALIZED OR SEEN IN [facility] IN THE PAST YEAR ? N ATHEROSCLEROSIS N BREAST PROBLEMS N DIALYSIS N ECZEMA N OSTEOPOROSIS N ARTHRITIS N NO SIGNIFICANT PAST MEDICAL HISTORY N APPENDICITIS N DIABETES, TYPE N BAD TEETH N ENT N HEARTBURN / REFLUX N AUTISM SPECTRUM DISORDER (ASD) N HEPATITIS / LIVER DISEASE N GOUT N SLEEP DISORDER N ALZHEIMER'S DISEASE N Brain Problems N HERPES N DEMENTIA N HEADACHES/MIGRAINES N SEIZURES/EPILEPSY N VASCULAR DISEASE N PACEMAKER N Blood Disorder N DIZZINESS N HEART DISEASE/HEART PROBLEMS N KIDNEY DISEASE N MULTIPLE SCLEROSIS N CARDIAC ARRHYTHMIA N CANCER: SPECIFY N ATRIAL FIBRILLATION N Gall Stones N PULMONARY EMBOLISM N AUTOIMMUNE DISEASE N Gynecological History Statement/Question Response Date of Last Mammogram 09/06/2020 Date of Last Colonoscopy Most Recent Bone Density 08/28/2021 Obstetrics History GPAL:G 0 P 0 0 0 0 Immunizations Vaccine Type Date Status Note Provider Nam e and Address Organization Details Recorded Time Influenza, high-dose, quadrivalent, PF 3 completed Kaykay bruno [facility] [employer] 01/15/2023 17:26:08 Influenza, high-dose, trivalent, PF 4 completed JEANNETTE Parra [facility] [employer] [facility] 01/30/2024 12:36:15 Influenza, split virus, trivalent, preservative 3 completed Not Available [facility] 06/20/2022 14:18:58 COVID-19, mRNA, LNP-S, bivalent, PF, 30 mcg/0.3 mL dose 2 completed Not Available [facility] access hospital 06/20/2022 14:18:58 COVID-19, mRNA, LNP-S, PF, 30 mcg/0.3 mL dose 2 completed Not Available Critical access hospital 06/20/2022 14:18:58 Influenza, split virus, quadrivalent, preservative 1 completed Not Available [facility] 06/20/2022 14:18:59 COVID-19, mRNA, LNP-S, PF, 30 mcg/0.3 mL dose 1 completed Not Available [facility] 06/20/2022 14:18:59 SARS-COV-2 (COVID-19) vaccine, UNSPECIFIED 1 completed Not Available [facility] 06/20/2022 14:18:59 SARS-COV-2 (COVID-19) vaccine, UNSPECIFIED 1 completed Not Available Critical access hospital 06/20/2022 14:18:59 Influenza, high-dose, quadrivalent, PF 0 completed Not Available [facility] 06/20/2022 14:18:59 Influenza, high-dose, trivalent, PF 0 completed Not Available [facility] 06/20/2022 14:18:59 Influenza, high-dose, trivalent, PF 8 completed Not Available [facility] 06/20/2022 14:18:59 Influenza, high-dose, trivalent, PF 7 completed Not Available Critical access hospital 06/20/2022 14:18:59 pneumococcal polysaccharide PPV23 7 completed Not Available [facility] 06/20/2022 14:18:59 Pneumococcal conjugate PCV 13 5 completed Not Available [facility] 06/20/2022 14:18:59 Influenza, split virus, quadrivalent, preservative 5 completed Not Available Critical access hospital 06/20/2022 14:18:59 Influenza, split virus, trivalent, preservative 4 completed Not Available Critical access hospital 06/20/2022 14:18:59 Past Encounters Encounter ID Performer Location Encounter Start Date Encounter Closed Date Diagnosis/Indication Diagnosis SNOMED-CT Code Diagnosis ICD10 Code Diagnosis Note [id number] Sumit Cool MD [facility] Internal Med [place] [address] [facility] y , [place] [address] 10/18/2020 00:00:00 10/18/2020 15:09:01 [id number] Sumit Cool MD [facility] Internal Med [place] [address] [facility] y , [place] [address] 04/18/2021 00:00:00 04/18/2021 14:57:45 [id number] Sumit Cool MD [facility] Internal Med [place] [address] [place] [address] y , [place] [address] 08/15/2021 00:00:00 08/15/2021 15:23:41 [id number] Sumit Cool MD [facility] Internal Med [place] [address] [place] [address] y , [place] [address] 10/20/2021 00:00:00 10/20/2021 12:28:58 [id number] Sumit Cool MD [facility] Internal Med [place] [address] [place] [address] y , [place] [address] 12/15/2021 00:00:00 12/15/2021 14:32:38 [id number] Sumit Cool MD [facility] Internal Med [place] [address] [place] [address] y , [place] [address] 05/04/2022 00:00:00 05/04/2022 15:22:27 [id number] Sumit Cool MD [facility] Internal Med [place] [address] [place] [address] y , [place] [address] 08/17/2022 14:54:00 08/17/2022 15:12:26 Gastroesophageal reflux disease 615640882 K21.9 Pure hypercholesterolemia 183282924 E78.00 Disorder o f connective tissue 310617595 L94.9 Asthma 271414691 J45.90 9 Vitamin D deficiency 347 80323 E55.9 [id number] Sumit Cool MD [facility] Internal Med [place] [address] [place] [address] [place] [address] 01/15/2023 14:15:15 01/15/2023 15:29:26 Adult health examination 494060637 Z00.00 Screening for disorder 084094904 Z13.9 Disorder o f connective tissue 460354019 L94.9 Hypothyroidism 53297808 E03.9 Gastroesop hageal reflux disease 231064891 K21.9 Asthma 247568234 J45.90 9 Pure hypercholesterolemia 870167269 E78.00 [id number] Sumit Cool MD [facility] Internal Med [facility] [address] [facility], [facility] [address] [place] [address] 05/21/2023 14:41:39 05/21/2023 15:12:49 Asthma 522744811 J45.909 Gastroesop hageal reflux disease 456833667 K21.9 Hypothyroidism 29997252 E03.9 Pure hypercholesterolemia 777087906 E78.00 Disorder o f connective tissue 401652358 L94.9 Vitamin D deficiency 347 76211 E55.9 [id number] Sumit Cool MD [facility] Internal Med [place] [address] [facility] [place] [address] 09/17/2023 14:43:04 09/17/2023 15:10:17 Gastroesophageal reflux disease 158728073 K21.9 Pure hypercholesterolemia 714593880 E78.00 Hypothyroidism 77089718 E03.9 Disorder o f connective tissue 961765592 L94.9 Asthma 584866473 J45.90 9 [id number] Sumit Cool MD [facility] Internal Med [place] [address] [place] [address] [place] [address] 02/04/2024 10:12:56 02/04/2024 10:47:27 Adult health examination 687895397 Z00.00 Screening for disorder 530523711 Z13.9 Gastroesop hageal reflux disease 971186667 K21.9 Hypothyroidism 31654025 E03.9 Pure hypercholesterolemia 510686435 E78.00 Pulmonary embolism 23734 003 I26.99 [id number] Sumit Cool MD [facility] Primary Care Rigo gaytan [address] [place] [address] [address] [place] [address] 06/02/2024 11:54:17 06/02/2024 12:52:42 Disorder of connective tissue 890366608 L94.9 Gastroesop hageal reflux disease 878600664 K21.9 Essential tremor 7181223 09 G25.0 Pure hypercholesterolemia 241278134 E78.00 Osteoporosis 69222673 M8 1.0 Health Concerns Section Related Observation LastModified by Organization Detai ls LastModified Time None Recorded Concern Status LastModified by Organization Details LastModified Time None Recorded Advance Directives Directive N: Info given previously Payers Encounter Date Sequence Insurance Name Policy Number Policy Alcantara Covered Member ID Alcantara Member ID Guarantor Name 01/15/2023 1 [employer] (MEDICARE REPLACEMENT/ ADVANTAGE - PPO) [id number] Génesis Condon [id number] Génesis Condon 05/21/2023 1 [employer] (MEDICARE REPLACEMENT/ ADVANTAGE - PPO) [id number] Génesis Annlivan [id number] Génesis Annlivan 09/17/2023 1 [employer] (MEDICARE REPLACEMENT/ ADVANTAGE - PPO) [id number] Génesis Annlivan [id number] Génesis Annlivan 02/04/2024 1 [employer] (MEDICARE REPLACEMENT/ ADVANTAGE - PPO) [id number] Génesis Annlivan [id number] Génesis Condon 06/02/2024 1 [employer] (MEDICARE REPLACEMENT/ ADVANTAGE - PPO) [id number] Génesis Annlivan [id number] Génesis Condon Notes Date Note Type Note Provider Name and Address Organization Details Recorded Time text/html Patient Name: Génesis Julio TaurusDate Of Service: Saturday ( 01.15.2023 ): 1945 [...] 7.5 MG (TABLET - ORAL) DailyVaccination and Ahonuhfdehxg8664-03 Sdcfeczoo9182-89 Covid Bdsspx5026-27 Pneumovax 379535-76 Prevnar 13Surgical HistoryRt. Shoulder Injection, Cervical Laminectomy, Epigastric Hernia RepairPreventative Testing Confirmed by Our Xvilbub5412/21/2022 LETTER WPKNEKTIF26/01/2023 ALBUMIN 3.7 G/DL12/21/2021 MAMMOGRAM / LETTER ETUODSMNZHACB36/06/2021 COLOGUARD DEXA SCAN01/12/2004 COLONOSCOPY 01/11/2014Social HistoryDoes not smokeDrinks sociallyWorks as a school teacherFamily HistoryMother 93 Type II Diabetes and infirmitiesFather 73 from ParkinsonismOne sister living and in good health Sumit Cool MD [address] [facility] [address], [place], [address], [place] [facility] [employer] [facility] 01/15/2023 14:56:21 4 text/html Patient Name: Génesis [...] MG (TABLET - ORAL) Daily Vaccination and Wgukfyzubntf0948-53 Tmbcnjdku5343-98 Covid Rtrojj7728-04 Whrrqeomf1436-81 Prevnar 13 Gc Surgical Crifayr9521-72 Rt. Shoulder Pbytisqxr6882-02 Cervical Lxsbsxvbtkb9883-86 Epigastric Hernia Repair Preventative Testing Confirmed by Our Fdttpdp2303/05/2023 MAMMOGRAM /04/2022 NHITDYRVM25/01/2023 ALBUMIN 3.7 G/DL N106/12/2020 BDODCMAOZXUDA46/06/2021 COLOGUARD DEXA SCAN01/12/2004 COLONOSCOPY 01/11/2014 Social HistoryDoes not smokeDrinks sociallyWorks as a middle school tutor Family HistoryMother 93 Type II Diabetes and infirmitiesFather 73 from ParkinsonismOne sister living and in good health Sumit Cool MD [address] [facility], [facility] [address], [place], [address], [facility] [employer] 05/21/2023 15:08:07 4 text/html Patient Name: Génesis Murillo Of Service: Saturday ( 09.17.2023 ): 1945 [...] MG (TABLET - ORAL) Daily Vaccination and Cauaxrivbqxk9131-88 Xbvvjbwcr3430-19 Covid Lizjbu3446-21 Txfzguhbc3963-28 Prevnar 13 Gc Surgical Pygfhqe7319-53 Rt. Shoulder Lspkivogz4636-46 Cervical Oetowfshetd9375-40 Epigastric Hernia Repair Preventative Xwnncqt8406/27/2023 ITTWIWJOD39/15/2024 ALBUMIN 3.7 G/DL03/05/2023 MAMMOGRAM / TKKGLIBRMBCEW05/06/2021 COLOGUARD DEXA SCAN01/12/2004 COLONOSCOPY 01/11/2014 Social HistoryDoes not smokeDrinks sociallyWorks as a middle school tutor Family HistoryMother 93 Type II Diabetes and infirmitiesFather 73 from ParkinsonismOne sister living and in good health Sumit Cool MD [address] [facility], [facility] [address], [place], [address], [facility] [employer] 09/17/2023 15:07:19 text/html Patient Name: Génesis CondonDate Of Service: Saturday ( 02.04.2024 ): 1945 [...] - ORAL) Daily Vaccination and Immunization( ) 2023- INFLUENZA( ) 2015-01 PREVNAR 13 GC( ) 2016- PNEUMOVAX(X) 2020- COVID PFIZER( ) 2023- PREVNAR 20 Surgical Wchswpd5221-92 Rt. Shoulder Biffmksec1344-48 Cervical Rottedvvefj2810-04 Epigastric Hernia Repair Preventative Testing( ) 10/08/2023 Albumin 4.1 G/DL( ) 06/27/2023 Optometry( ) 03/05/2023 Mammogram 03/05/2025( ) 04/11/2021 Ophthalmology(X) 04/27/2020 Cologuard 04/27/2023(X) 05/03/2018 DEXA Scan 05/03/2020 Social HistoryDoes not smokeDrinks sociallyWorks as a middle school tutor Family HistoryMother 93 Type II Diabetes and [...] MG/DLHDL CHOLESTEROL 64 >39 MG/DLLDL CHOL CALC ([facility]) 78 0-99 MG/DL Sumit Cool MD [address] [facility], [facility] [address], [place], [address], [place] - [facility] 02/04/2024 10:40:23 5 text/html Patient Name: Génesis Flanagan Service: Saturday ( 06.02.2024 ): 1945 Age: [...] COVID PFIZER( ) 2023- PREVNAR 20 Surgical Ejwzvlm9480-32 Rt. Shoulder Tbkqtboay9432-36 Cervical Ngonrulupno9374-95 Epigastric Hernia Repair Preventative Testing( ) 02/18/2024 Cologuard 02/17/2027( ) 02/06/2024 Albumin 4.2 G/DL( ) 02/06/2024 DEXA Scan 02/05/2026( ) 06/27/2023 Optometry( ) 03/05/2023 Mammogram 03/05/2025( ) 04/11/2021 Ophthalmology Social HistoryDoes not smokeDrinks sociallyWorks as a middle school tutor Family HistoryMother 93 Type II Diabetes and infirmitiesFather 73 from ParkinsonismOne sister living and in good health TEST RESULT RANGE UNITSC REACTIVE PROTEIN,ULTRA SENS Date: 4C-REACTIVE PROTEIN 0.06 0.0-0.5 MG/DLCBC/COMPLETE BLD COUNT W/DIFF [...] 9.4 8.4-10.2 MG/DL Sumit Cool MD [address] [facility], [facility] [address], [place], [address], [place] [facility] 06/02/2024 12:22:58 OBGyn Episode No OBEpisode recorded.
== END 2024-09-08 15:24 | disposition home or self-care (01) ==
PROVIDERS: PCP Internal Medicine; Visit Provider Nurse Practitioner Family
DX: R63.4 Abnormal weight loss (principal); R11.14 Bilious vomiting; R10.30 Lower abdominal pain, unspecified; K52.9 Noninfective gastroenteritis and colitis, unspecified
CPT/HCPCS: 36415; 82784

== ENCOUNTER 2024-09-09 09:30 | Outpatient (CLI) | payer MEDICARE, SELFPAY ==
--- OUTSIDE RECORDS SUMMARY | 2024-09-09 10:11 | XMS_ITS | Data Portability ---
Author Organization [facility] Intrinsity, Main Office Address [address] [place] [address] Assessment No assessment recorded. Plan of Treatment Reminders Order Date Submit Date Provider Last Modified By Organization Details Last Modified Time Details Appointments None recorded. Lab vitamin D, 25-hydroxy , total, serum 2024 025 [email or web address] [facility], [address], [place], [address], 17:17:49 lipid panel, serum 2024 025 [email or web address] [facility], [address], [place], [address], 17:17:48 CMP, serum or plasma 2024 025 [email or web address] [facility], [address], [place], [address], 17:17:48 TSH, ultra-sens itive, serum 2024 025 [email or web address] [facility], [address], [place], [address], 17:17:48 unlisted lab - T4, free 2024 025 [facility], [address], [place], [address], 5 17:17:49 CBC w/ auto diff 2024 025 [email or web address] [facility], [address], [place], [address], 5 17:17:49 lipid panel, serum 2023 024 [facility], [address], [place], [address], 4 10:14:31 CMP, serum or plasma 2023 024 [email or web address] [facility], [address], [place], [address], 4 10:14:32 CBC w/ auto diff 2023 024 [email or web address] [facility], [address], [place], [address], 4 10:14:32 magnesium, serum or plasma 2023 024 [email or web address] [facility], [address], [place], [address], 4 10:14:31 vitamin B12, serum 2023 024 [email or web address] [facility], [address], [place], [address], 4 10:14:31 TSH, ultra-sens itive, serum 2023 024 [email or web address] [facility], [address], [place], [address], 4 10:14:32 unlisted lab - T4, free 2023 024 [email or web address] [facility], [address], [place], [address], 4 10:14:32 vitamin D, 25-hydroxy , total, serum 2023 024 [facility], [address], [place], [address], 4 16:35:33 lipid panel, serum 2023 024 CHRISTINA Lopez, [address], [place], [address], 4 13:39:38 CMP, serum or plasma 2023 024 CHRISTINACAROLYN Lopez, [address], [place], [address], 4 13:39:42 magnesium, serum or plasma 2023 024 CHRISTINACAROLYN Lopez, [address], [place], [address], 4 13:39:36 vitamin B12, serum 2023 024 CHRISTINACAROLYN Lopez, [address], [place], [address], 4 14:34:05 TSH, ultra-sens itive, serum 2023 024 [email or web address] [facility], [address], [place], [address], 4 16:35:32 unlisted lab - T4, free 2023 024 melody Mooneycohenrry, [address], [place], [address], 4 16:35:32 Referral None recorded. Procedures None recorded. Surgeries None recorded. Imaging None recorded. Medication Orders None recorded. Patient TargetsNo targets recorded. Patient Instructions Encounter Date Encounter Id Patient Instructions Last Modified By Organization Details Last Modified Time 01/15/2023 [id number] dementia rating scale-2* [email or web address] Not available 01/15/2023 14:56:16 alcohol misuse* [email or web address] Not available 01/15/2023 14:56:17 depression screening* [email or web address] Not available 01/15/2023 14:56:17 multi-dimensiona l health assessment questionnaire* Not available 01/15/2023 14:56:17 advance directiv es: care instructions [email or web address] Not available 01/15/2023 14:56:17 advance care planning: care instructions [email or web address] Not available 01/15/2023 14:56:17 [place] Advance Directives [email or web address] Not available 01/15/2023 14:56:17 Personalized a lt [...] Negative Active diagnosis, Continue current treatment plan [email or web address] Not available 01/15/2023 14:49:38 [facility]. 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 All clinically stable. Was given a flu shot today. Is otherwise up-to-date on other immunizations. Will continue on current Rx and follow-up in four months. Portions of the record may have been created with voice recognition software. Occasional wrong-word or zqmdz-y-yknh substitutions may have occurred due to the inherent limitations of voice recognition software. Read the chart carefully and recognize, using context, where substitutions have occurred. Mammogram Next Appt: 4 Months Approximate Date: 05/15/2023 [email or web address] Not available 01/15/2023 14:55:38 05/21/2023 [id number] Asthma- GERD-hypothyroidism -hyperlipidemia -disorder connective tissue disease all clinically stable. Will continue on current Rx. Check blood work in the form of CBC, CMP, lipid, thyroid, B12, Magnesium and vitamin-D level. Does need a Cologuard test. Will continue on current Rx and follow-up in four months. Portions of the record may have been created with voice recognition software. Occasional wrong-word or oafum-h-lgdv substitutions may have occurred due to the inherent limitations of voice recognition software. Read the chart carefully and recognize, using context, where substitutions have occurred. [email or web address] Not available 05/21/2023 15:07:30 09/17/2023 [id number] Follow-up for GE RD, hyperlipidemia, hypothyroidism, connective tissue disease and asthma all clinically stable. Check blood work consisting of CBC, CMP, lipid, thyroid, B12 and magnesium level. Follow-up in four months Next Appointment: 4 Months Approximate Date: 01/15/2024 Portions of the record may have been created with voice recognition software. Occasional wrong-word or bpvbm-[id number] substitutions may have occurred due to the inherent limitations of voice recognition software. Read the chart carefully and recognize, using context, where substitutions have occurred. Not available 09/17/2023 15:06:50 02/04/2024 [id number] dementia rating scale-2* [email or web address] Not available 02/04/2024 10:40:18 alcohol misuse* [email or web address] Not available 02/04/2024 10:40:18 depression screening* Not available 02/04/2024 10:40:18 Timed Up and Go test (TUG)* [email or web address] Not available 02/04/2024 10:40:18 multi-dimensiona health assessment questionnaire* [email or web address] Not available 02/04/2024 10:40:18 Personalized Hea lt [...] Negative Active diagnosis, Continue current treatment plan [email or web address] Not available 02/04/2024 10:33:36 Medicare wellnes s [...] with voice recognition software. Occasional wrong-word or lqdlp-v-kltj substitutions may have occurred due to the inherent limitations of voice recognition software. Read the chart carefully and recognize, using context, where substitutions have occurred. [email or web address] Not available 02/04/2024 10:40:03 06/02/2024 [id number] Follow-up for disorder of connective tissue disease, [...] with voice recognition software. Occasional wrong-word or ohgqo-i-rlpg substitutions may have occurred due to the inherent limitations of voice recognition software. Read the chart carefully and recognize, using context, where substitutions may have occurred. Created: Sumit Cool M.D. 06.02.2024 11:22 AM [email or web address] Not available 06/02/2024 12:22:32 Reason for Referral None Reported. Results Created Date Observation Date Name Description Value Unit Range Abnormal Flag Note LastModifiedBy Organization Detail LastModifiedTime 06/06/1906/06/2023 MAGNE SIUM magnesium 2.0 mg/dL 1.6-2. 3 Not Available [facility] (Lab) [address] [place], [address], 06/06/2023 13:39:36 06/06/19 24 06/06/2023 LIPID PANEL cholesterol 158 mg/dL 140-19 9 NIH CICI NSUS RECOM MENDA TION FOR ROMEL STERO L: ADULT CHILD LOW RISK: <200 <170 BORDE RLINE : <200- 239 ----- HIGH RISK: >240 >200 Not Available [facility] (Lab) [address] [place], [address], 06/06/2023 13:39:38 06/06/19 24 06/06/2023 LIPID PANEL triglyceride s 113 mg/dL 0-150 NIH CICI NSUS REPOR T RECOM MENDA TION FOR TRIGL YCERI MALLORIE: ADULT CHILD LOW RISK: <150 ----- BODER LINE: 150-1 99 ----- HIGH RISK: >200 ----- Not Available [facility] (Lab) [address] [place], [address], 06/06/2023 13:39:38 06/06/19 24 06/06/2023 LIPID PANEL HDL cholesterol 57 mg/dL 40- Not Available [facility] (Lab) [address] [place], [address], 06/06/2023 13:39:38 06/06/19 24 06/06/2023 LIPID PANEL [...] WILL NOT BE REPOR OTILIO. Not Available [facility] (Lab) [address] [place], [address], 06/06/2023 13:39:38 06/06/19 24 06/06/2023 COMPR EHENS BRENDON METAB OLIC PANEL sodium 139 mmol/ L 137-14 5 Not Available [facility] (Lab) [address] [place], [address], 06/06/2023 13:39:42 06/06/19 24 06/06/2023 COMPR EHENS BRENDON METAB OLIC PANEL potassium 4.3 mmol/ L 3.5-5. 1 Not Available [facility] (Lab) [address] [place], [address], 06/06/2023 13:39:42 06/06/19 24 06/06/2023 COMPR EHENS BRENDON METAB OLIC PANEL chloride 102 mmol/ L 98-107 Not Available [facility] (Lab) [address] [place], [address], 06/06/2023 13:39:42 06/06/19 24 06/06/2023 COMPR EHENS BRENDON METAB OLIC PANEL carbon dioxide 31 mmol/ L 22-30 high Not Available [facility] (Lab) [address] [place], [address], 06/06/2023 13:39:42 06/06/19 24 06/06/2023 COMPR EHENS BRENDON METAB OLIC PANEL anion gap 10.3 mmol/ L 14-22 low Not Available [facility] (Lab) [address] [place], [address], 06/06/2023 13:39:42 06/06/19 24 06/06/2023 COMPR EHENS BRENDON METAB OLIC PANEL glucose 84 mg/dL 70-99 Not Available [facility] (Lab) [address] [place], [address], 06/06/2023 13:39:42 06/06/19 24 06/06/2023 COMPR EHENS BRENDON METAB OLIC PANEL BUN 11 mg/dL 8-19 Not Available [facility] (Lab) [address] [place], [address], 06/06/2023 13:39:42 06/06/19 24 06/06/2023 COMPR EHENS BRENDON METAB OLIC PANEL creatinine 0.85 mg/dL 0.66-1 .25 Not Available [facility] (Lab) [address] [place], [address], 06/06/2023 13:39:42 06/06/19 24 06/06/2023 COMPR EHENS BRENDON METAB OLIC PANEL GFR >60 Refer ence Range : [place] ge GFR Healt hy Adult : >60 [...] calcu lator is avail able on the [facility] websi te: https ://fadumo w.kid mayelin.o rg/pr ofess ional s/kdo qi/gf r_cal culat or Not Available [facility] (Lab) [address] [place], [address], 06/06/2023 13:39:42 06/06/19 24 06/06/2023 COMPR EHENS BRENDON METAB OLIC PANEL alkaline phosphatase 92 U/L 38-126 Not Available [facility] (Lab) [address] [place], [address], 06/06/2023 13:39:42 06/06/19 24 06/06/2023 COMPR EHENS BRENDON METAB OLIC PANEL alanine aminotransfe rase 17 U/L 0-35 Not Available [facility] (Lab) [address] [place], [address], 06/06/2023 13:39:42 06/06/19 24 06/06/2023 COMPR EHENS BRENDON METAB OLIC PANEL aspartate aminotransfe rase 33 U/L 15-37 Not Available [facility] (Lab) [address] [place], [address], 06/06/2023 13:39:42 06/06/19 24 06/06/2023 COMPR EHENS BRENDON METAB OLIC PANEL bilirubin, total 0.60 mg/dL 0.20-1 .30 Not Available [facility] (Lab) [address] [place], [address], 06/06/2023 13:39:42 06/06/19 24 06/06/2023 COMPR EHENS BRENDON METAB OLIC PANEL calcium 9.4 mg/dL 8.4-10 .2 Not Available [facility] (Lab) [address] [place], [address], 06/06/2023 13:39:42 06/06/19 24 06/06/2023 COMPR EHENS BRENDON METAB OLIC PANEL total protein 6.4 g/dL 6.3-8. 2 Not Available [facility] (Lab) [address] [place], [address], 06/06/2023 13:39:42 06/06/19 24 06/06/2023 COMPR EHENS BRENDON METAB OLIC PANEL albumin 3.7 g/dL 3.0-4. 4 Not Available [facility] (Lab) [address] [place], [address], 06/06/2023 13:39:42 06/06/19 24 06/06/2023 COMPR EHENS BRENDON METAB OLIC PANEL globulin 2.7 g/dL 2.6-4. 2 Not Available [facility] (Lab) [address] [place], [address], 06/06/2023 13:39:42 06/06/19 24 06/06/2023 COMPR EHENS BRENDON METAB OLIC PANEL A/G ratio 1.4 ratio 1.0-2. 0 Not Available [facility] (Lab) [address] [place], [address], 06/06/2023 13:39:42 06/06/19 24 06/06/2023 T4 FREE free T4 0.98 NG/dL 0.78-2 .19 Not Available [facility] (Lab) [address] [place], [address], 06/06/2023 13:54:15 06/06/19 24 06/06/2023 TSH thyroid-stim ulating hormone 0.201 uIU/m L 0.465- 4.680 low Not Available [facility] (Lab) [address] [place], [address], 06/06/2023 14:09:11 06/06/19 24 06/06/2023 VITAM IN B12 (THIERNO CHRIS ) vb12 229 pg/mL 239-93 1 low Not Available [facility] (Lab) [address] [place], [address], 06/06/2023 14:34:05 06/06/19 24 06/06/2023 VITAM IN D 25-HY DROXY [id number] 43.8 NG/mL 30-100 Vitam in D Statu s: Defic ient: <20 ng/mL Insuf ficie nt: 20-29 ng/mL Suffi cient : 30-10 0 ng/mL Not Available [facility] (Lab) [address] [place], [address], 06/06/2023 14:34:16 02/18/20 24 02/18/2024 COLOG UARD [...] of 10,00 0 [facility] [place] [facility] risk for color ectal cance r [...] asymp tomat ic indiv [facility]ual s at [place] [facility] risk for color ectal cance r. [...] Force on Color ectal Cance r Scree pcao , Isabel santamaria y 2017; 112:1 016-1 030. TEST DESCR IPTIO N: [place] site algor ithmi c janet sis of [...] years or older , who are at [facility] for color ectal cance r (CRC) . Colog uard has been appro hardeep for use by the [place] FDA. The perfo rmanc e of Colog uard was estab lishe d in a cross secti onal study of [facility] adult s aged 50-84 . Colog uard [...] of 10,00 0 indiv idual s at [facility] risk for color ectal cance r who [...] d [facility] ion: www.e xactl abs.c om/re sults . Addit ional descr iptio n of the Colog uard test proce ss, warni ngs and preca ution s can be found at www.c ologu kirstin.c om. Not Available [facility] (Cologuard Orders Only) [address], [place], [address], 02/26/2024 19:56:07 06/15/1906/16/2024 CBC WITH DIFFE RENTI AL/PL ATELE T WBC 4.3 x10e3 /uL 3.4-10 .8 normal Not Available [facility] ([facility]) [address] [place], [address], 06/16/2024 07:14:04 06/15/1906/16/2024 CBC WITH DIFFE RENTI AL/PL ATELE T RBC 3.66 x10e6 /uL 3.77-5 .28 below low normal Not Available [facility] ([facility]) [address] [place], [address], 06/16/2024 07:14:04 06/15/1906/16/2024 CBC WITH DIFFE RENTI AL/PL ATELE T hemoglobin 11.3 g/dL 11.1-1 5.9 normal Not Available [facility] ([facility]) [address] [place], [address], 06/16/2024 07:14:04 06/15/1906/16/2024 CBC WITH DIFFE RENTI AL/PL ATELE T hematocrit 35.0 % 34.0-4 6.6 normal Not Available [facility] ([facility]) [address] [facility] [place], [address], 06/16/2024 07:14:04 06/15/1906/16/2024 CBC WITH DIFFE RENTI AL/PL ATELE T MCV 96 fL 79-97 normal Not Available [facility] ([facility]) [address] [facility], [place], [address], 06/16/2024 07:14:04 06/15/1906/16/2024 CBC WITH DIFFE RENTI AL/PL ATELE T MCH 30.9 pg 26.6-3 3.0 normal Not Available [facility] ([facility]) [address] [place], [address], 06/16/2024 07:14:04 06/15/1906/16/2024 CBC WITH DIFFE RENTI AL/PL ATELE T MCHC 32.3 g/dL 31.5-3 5.7 normal Not Available [facility] ([facility]) [address] [facility], [place], [address], 06/16/2024 07:14:04 06/15/1906/16/2024 CBC WITH DIFFE RENTI AL/PL ATELE T RDW 14.6 % 11.7-1 5.4 Not Available [facility] ([facility]) [address] [place], [address], 06/16/2024 07:14:04 06/15/1906/16/2024 CBC WITH DIFFE RENTI AL/PL ATELE T platelets 186 x10e3 /uL 150-45 0 normal Not Available [facility] ([facility]) [address] [place], [address], 06/16/2024 07:14:04 06/15/1906/16/2024 CBC WITH DIFFE RENTI AL/PL ATELE T neutrophils 42 % not estab. normal Not Available [facility] ([facility]) [address] [place], [address], 06/16/2024 07:14:04 06/15/1906/16/2024 CBC WITH DIFFE RENTI AL/PL ATELE T lymphs 32 % not estab. normal Not Available [facility] ([facility]) [address] [place], [address], 06/16/2024 07:14:04 06/15/1906/16/2024 CBC WITH DIFFE RENTI AL/PL ATELE T monocytes 12 % not estab. normal Not Available [facility] ([facility]) [address] [place], [address], 06/16/2024 07:14:04 06/15/1906/16/2024 CBC WITH DIFFE RENTI AL/PL ATELE T eos 13 % not estab. normal Not Available [facility] ([facility]) [address] [place], [address], 06/16/2024 07:14:04 06/15/19 25 06/16/2024 CBC WITH DIFFE RENTI AL/PL ATELE T basos 1 % not estab. normal Not Available [facility] ([facility]) [address] [place], [address], 06/16/2024 07:14:04 06/15/1906/16/2024 CBC WITH DIFFE RENTI AL/PL ATELE T immature cells PET SITTER Not Available [facility] ([facility]) [address] [place], [address], 06/16/2024 07:14:04 06/15/1906/16/2024 CBC WITH DIFFE RENTI AL/PL ATELE T neutrophils (absolute) 1.8 x10e3 /uL 1.4-7. 0 normal Not Available [facility] ([facility]) [address] [place], [address], 06/16/2024 07:14:04 06/15/19 25 06/16/2024 CBC WITH DIFFE RENTI AL/PL ATELE T lymphs (absolute) 1.4 x10e3 /uL 0.7-3. 1 normal Not Available [facility] ([facility]) [address] [place], [address], 06/16/2024 07:14:04 06/15/1906/16/2024 CBC WITH DIFFE RENTI AL/PL ATELE T monocytes(ab solute) 0.5 x10e3 /uL 0.1-0. 9 normal Not Available [facility] ([facility]) [address] [place], [address], 06/16/2024 07:14:04 06/15/1906/16/2024 CBC WITH DIFFE RENTI AL/PL ATELE T eos (absolute) 0.6 x10e3 /uL 0.0-0. 4 above high normal Not Available [facility] ([facility]) [address] [place], [address], 06/16/2024 07:14:04 06/15/19 25 06/16/2024 CBC WITH DIFFE RENTI AL/PL ATELE T baso (absolute) 0.0 x10e3 /uL 0.0-0. 2 normal Not Available [facility] ([facility]) [address] [place], [address], 06/16/2024 07:14:04 06/15/1906/16/2024 CBC WITH DIFFE RENTI AL/PL ATELE T immature granulocytes 0 % not estab. Not Available [facility] ([facility]) [address] [place], [address], 06/16/2024 07:14:04 06/15/19 25 06/16/2024 CBC WITH DIFFE RENTI AL/PL ATELE T immature grans (abs) 0.0 x10e3 /uL 0.0-0. 1 Not Available [facility] ([facility]) [address] [place], [address], 06/16/2024 07:14:04 06/15/19 25 06/16/2024 CBC WITH DIFFE RENTI AL/PL ATELE T NRBC PET SITTER Not Available [facility] ([facility]) [address], [place], [address], 06/16/2024 07:14:04 06/15/19 25 06/16/2024 CBC WITH DIFFE RENTI AL/PL ATELE T hematology comments: PET SITTER Not Available [facility] ([facility]) [address], [place], [address], 06/16/2024 07:14:04 06/15/1906/16/2024 COMP. METAB OLIC PANEL (14) glucose 80 mg/dL 70-99 normal Not Available [facility] ([facility]) [address] [place], [address], 06/16/2024 07:14:05 06/15/19 25 06/16/2024 COMP. METAB OLIC PANEL (14) BUN 8 mg/dL 8-27 normal Not Available [facility] ([facility]) [address] [place], [address], 06/16/2024 07:14:05 06/15/19 25 06/16/2024 COMP. METAB OLIC PANEL (14) creatinine 0.96 mg/dL 0.57-1 .00 normal Not Available [facility] ([facility]) [address], [place], [address], 06/16/2024 07:14:05 06/15/19 25 06/16/2024 COMP. METAB OLIC PANEL (14) eGFR 61 mL/mi n/1.7 3 >59 normal Not Available [facility] ([facility]) [address] [place], [address], 06/16/2024 07:14:05 06/15/19 25 06/16/2024 COMP. METAB OLIC PANEL (14) BUN/creatini ne ratio 8 12-28 below low normal Not Available [facility] ([facility]) [address] [facility] [place], [address], 06/16/2024 07:14:05 06/15/19 25 06/16/2024 COMP. METAB OLIC PANEL (14) sodium 141 mmol/ L 134-14 4 normal Not Available [facility] ([facility]) [address] [facility] [place], [address], 06/16/2024 07:14:05 06/15/1906/16/2024 COMP. METAB OLIC PANEL (14) potassium 4.2 mmol/ L 3.5-5. 2 normal Not Available [facility] ([facility]) [address] [facility] [place], [address], 06/16/2024 07:14:05 06/15/19 25 06/16/2024 COMP. METAB OLIC PANEL (14) chloride 104 mmol/ L 96-106 normal Not Available [facility] ([facility]) [address] [facility] [place], [address], 06/16/2024 07:14:05 06/15/19 25 06/16/2024 COMP. METAB OLIC PANEL (14) carbon dioxide, total 26 mmol/ L 20-29 normal Not Available [facility] ([facility]) [address] [facility] [place], [address], 06/16/2024 07:14:05 06/15/19 25 06/16/2024 COMP. METAB OLIC PANEL (14) calcium 9.2 mg/dL 8.7-10 .3 normal Not Available [facility] ([facility]) [address] [facility] [place], [address], 06/16/2024 07:14:05 06/15/19 25 06/16/2024 COMP. METAB OLIC PANEL (14) protein, total 6.5 g/dL 6.0-8. 5 normal Not Available [facility] ([facility]) [address] [facility] [place], [address], 06/16/2024 07:14:05 06/15/19 25 06/16/2024 COMP. METAB OLIC PANEL (14) albumin 4.2 g/dL 3.8-4. 8 normal Not Available [facility] ([facility]) [address] [facility] [place], [address], 06/16/2024 07:14:05 06/15/19 25 06/16/2024 COMP. METAB OLIC PANEL (14) globulin, total 2.3 g/dL 1.5-4. 5 Not Available [facility] ([facility]) [address] [facility] [place], [address], 06/16/2024 07:14:05 06/15/19 25 06/16/2024 COMP. METAB OLIC PANEL (14) bilirubin, total 0.3 mg/dL 0.0-1. 2 normal Not Available [facility] ([facility]) [address] [facility] [place], [address], 06/16/2024 07:14:05 06/15/19 25 06/16/2024 COMP. METAB OLIC PANEL (14) alkaline phosphatase 66 IU/L 44-121 normal Not Available [facility] ([facility]) [address] [facility] [place], [address], 06/16/2024 07:14:05 06/15/19 25 06/16/2024 COMP. METAB OLIC PANEL (14) AST (SGOT) 23 IU/L 0-40 normal Not Available [facility] ([facility]) [address] [facility] [place], [address], 06/16/2024 07:14:05 06/15/19 25 06/16/2024 COMP. METAB OLIC PANEL (14) ALT (SGPT) 16 IU/L 0-32 normal Not Available [facility] ([facility]) [address] [place], [address], 06/16/2024 07:14:05 06/15/1906/16/2024 LIPID PANEL cholesterol, total 155 mg/dL 100-19 9 normal Not Available [facility] ([facility]) [address] [place], [address], 06/16/2024 07:14:06 06/15/19 25 06/16/2024 LIPID PANEL triglyceride s 105 mg/dL 0-149 normal Not Available [facility] ([facility]) [address] [place], [address], 06/16/2024 07:14:06 06/15/1906/16/2024 LIPID PANEL HDL cholesterol 52 mg/dL >39 normal Not Available [facility] ([facility]) [address] [place], [address], 06/16/2024 07:14:06 06/15/19 25 06/16/2024 LIPID PANEL VLDL cholesterol armando 19 mg/dL 5-40 Not Available [facility] ([facility]) [address] [place], [address], 06/16/2024 07:14:06 06/15/19 25 06/16/2024 LIPID PANEL LDL chol calc ([facility]) 84 mg/dL 0-99 Not Available [facility] ([facility]) [address] [place], [address], 06/16/2024 07:14:06 06/15/19 25 06/16/2024 LIPID PANEL LDL calc comment: PET SITTER Not Available [facility] ([facility]) [address] [place], [address], 06/16/2024 07:14:06 06/15/19 25 06/16/2024 TSH TSH 1.130 uIU/m L 0.450- 4.500 normal Not Available [facility] ([facility]) [address] [facility], [place], [address], 06/16/2024 07:14:07 06/15/1906/16/2024 VITAM IN D, 25-HY [...] um and D. Joe estrada [place]: [facility] Press . 2. Sobia pacheco MF, Jamin cantrell [place], Edith off-F erreveline i DANIELSON, et al. Evalu ation , treat ment, and preve ntion of vitam in D defic iency : an Endoc rine Socie ty clini armando pract ice guide line. JCEM. 2010; 96(7) :1911 -30. Not Available [facility] ([facility]) [address] [facility], [place], [address], 06/16/2024 07:14:08 06/15/1906/16/2024 T4, FREE T4,free(dire ct) 1.49 NG/dL 0.82-1 .77 normal Not Available [facility] ([facility]) [address] [facility], [place], [address], 06/16/2024 07:14:09 01/24/20 23 MAMMO , scree paco, digit al, bilat eral [facility] [address] [facility], [place] [address] Patien t Name: GÉNESIS JACOME Access ion #: [id number] Sex: F : 1945 7 Dictat [...] noted in the upper outer quadra nt, 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 [email or web address] Not Available 2022 13:00:29 02/13/20 XR, chest , 2 view [facility] [address] [place] [address] [phone] Daniel taylor Name: GÉNESIS JACOME Access ion #: [id number] Sex: F : 1945 9 Dictat [...] at 2022 15:02: 59 PM Page [address] (Imaging) [address] [place], [address], 02/12/2023 17:29:17 03/05/20 23 03/05/2023 US, breamanda t, unila teral [facility] [address] [place] [address] [phone] Patien t Name: GÉNESIS JACOME Access ion #: [id number] Sex: F : 1945 4 Dictat [...] at 2022 12:02: 49 PM Page 1 [facility] (Imaging) [address] [place], [address], 03/05/2023 16:08:13 03/05/20 23 03/05/2023 MAMMO , diagn ostic , unila teral [facility] [address] [place] [address] [phone] Patien t Name: GÉNESIS JACOME Access ion #: [id number] Sex: F : 1945 4 Dictat [...] at 2022 12:02: 49 PM Page 1 [email or web address] [facility] (Imaging) [address] [place], [address], 03/05/2023 16:08:29 02/06/20 24 DEXA, axial skele ton [facility] [address] [place] [address] Patien t Name: GÉNESIS JACOME Access ion #: [id number] Sex: F : 1945 4 Dictat [...] ------ ------ ------ ------ ----- Page 1 [facility] [address] [place] [address] Patien t Name: GÉNESIS JACOME Access ion #: [id number] Sex: F : 1945 4 Dictat [...] receiv ed treatm ent. T-scor e: compar liu by mabel bowers ion (SD) to a [...] at 2023 11:02: 04 AM Page 2 [facility] (Imaging) [address] [place], [address], 02/06/2024 15:00:57 04/28/19 25 04/28/2024 XR, cervi armando spine No observ ation record ed. [address] [facility] [address] [facility] [address], [place], [address], 04/28/2024 18:10:51 04/29/19 25 04/29/2024 XR, chest No observ ation record ed. [id number] Not Available 2024 11:54:58 06/25/19 25 06/24/2024 XR, chest No observ ation record ed. [address], [place], [address], 06/24/2024 13:53:05 07/14/19 25 07/13/2024 myoca rdial perfu seven study w/ eject ion fract ion (PROC ) No observ ation record ed. [email or web address] [facility] [address] [facility], [place], [address], 07/21/2024 09:53:21 07/23/19 25 07/21/2024 US, echoc ardio gram No observ ation record ed. [address] [facility] [address] [facility] [address], [place], [address], 07/22/2024 09:32:45 08/21/19 25 08/20/2024 NM, hepat obili kevin scan No observ ation record ed. [address], [place], [address], 08/20/2024 13:45:51 09/04/19 25 09/03/2024 CT, abdom en + pelvi s, w/o contr ast No observ ation record ed. [address], [place], [address], 09/03/2024 17:40:27 Result Notes None recorded. Problems Name Problem SNOMED Code Status Onset Date Resolution Date Notes Provider Name and Address Organization Details Recorded Time Disorder of connective tissue 155790410 Active Not Available [facility] 3 14:15:13 Mitral valve disorder 72740313 Active Not Available [facility] 3 14:15:13 Asthma 708606776 Active 2018 Not Available [facility] 3 14:15:13 Gastroesop hageal reflux disease 492362698 Active Not Available [facility] 3 14:15:13 Abnormal weight loss 959175520 Active 2021 Not Available [facility] 3 14:15:14 Pure hyperchole sterolemia 231600945 Active Not Available [facility] 3 14:15:14 Chest pain 57156844 Active 2016 Not Available [facility] 3 14:15:14 Osteopenia 919953118 Active Not Available [facility] 3 14:15:14 Vitamin D deficiency 76246934 Active Not Available [facility] 3 14:15:14 Depressive disorder 39669909 Active Not Available [facility] 3 14:15:14 Disorder of vitamin B12 742586203 Active Not Available [facility] 3 14:15:14 Hypothyroi dism 46832619 Active Not Available [facility] 3 14:15:14 Pulmonary embolism 94267049 Active 2016 Not Available [facility] 3 14:15:14 Essential tremor 279696550 Active 2020 Not Available [facility] 3 14:15:14 Spinal stenosis in cervical region 11096943 Active 2016 Not Available [facility] 3 14:15:14 Effects of high altitude 77806162 Active 2021 Not Available [facility] 3 14:15:14 Pain of left wrist 9321037227147 02 Active 2022 ALEJANDRINA Singleton, [place] - [facility] 3 11:53:23 COVID-19 086593143 Active 2022 Sumit Cool MD [address] [facility], [facility] [address], [place], [address] , [facility] 3 17:52:42 Mammograph y abnormal 209807168 Active 2022 Isabell Paulino CMA null, [place] - [facility] 3 17:25:19 Pleuritic pain 2242101 Active 2022 Valencia Yang null, [place] - [facility] 3 15:00:28 Cobalamin deficiency 024062517 Active 2023 JEANNETTE Parra null, [facility] 4 10:58:41 Anemia 791456387 Active 2023 Kaykay Huang null, [place] - [facility] 4 16:40:10 Senile osteoporos is 01212318 Active 2023 Valencia Yang null, [facility] 4 10:47:56 Osteoporos is 17942238 Active 2023 Isabell Paulino CMA null, [facility] 4 15:30:29 Influenza 4465410 Active 2024 Sumit Cool MD [address] [facility], [facility] [address], [place], [address] , [facility] 5 11:59:33 Tremor 50115660 Active 2024 Isabell Paulino CMA null, [facility] 5 11:19:47 Problem Notes None recorded. Procedures Surgical History Date Name Laterality Status Provider Name and Address Organization Details Recorded Time 4 Medicare Wellness CPT Code, subsequent completed CLARITA Estes [facility] 02/04/2024 10:27:24 3 Medicare Wellness CPT Code, subsequent completed Gracie Garcia RN [place] [facility] 01/15/2023 14:43:54 3 Advanced Care Planning completed Gracie Garcia RN [place] [facility] 01/15/2023 14:46:04 Most Recent Bone Density completed Not Available [facility] 06/20/2022 14:11:48 Imaging Results Imaging Date Name Status LastModified by Organization Details LastModified Time 01/23/2023 MAMMO, screening, digital, bilateral completed [email or web address] [facility] (Imaging) [address] [place], [address], 01/23/2023 14:33:17 01/22/2023 lab* completed [email or web address] Information no t available 01/25/2023 13:00:29 02/12/2023 XR, chest, 2 view completed [address] (Imaging) [address] [place], [address], 02/12/2023 17:29:17 03/05/2023 US, breast, unilateral completed [email or web address] [facility] (Imaging) [address] [place], [address], 03/05/2023 16:08:13 03/05/2023 MAMMO, diagnostic, unilateral completed [address] (Imaging) [address] [place], [address], 03/05/2023 16:08:29 02/06/2024 DEXA, axial skeleton completed [address] (Imaging) [address] [place], [address], 02/06/2024 15:00:57 04/28/2024 XR, cervical spine completed [email or web address] [facility] [address], [place], [address], 04/28/2024 18:10:51 04/29/2024 XR, chest completed [email or web address] Information no t available 04/29/2024 11:54:58 06/24/2024 XR, chest completed [place] [address] [facility] [address], [place], [address], 06/24/2024 13:53:05 07/13/2024 myocardial perfusion study w/ ejection fraction (PROC) completed [email or web address] [facility] [address], [place], [address], 07/21/2024 09:53:21 07/21/2024 US, echocardiogram completed [address] [facility] [address] [facility] [address], [place], [address], 07/22/2024 09:32:45 08/20/2024 NM, hepatobiliary scan completed [address], [place], [address], 08/20/2024 13:45:51 09/03/2024 CT, abdomen + pelvis, w/o contrast completed [address], [place], [address], 09/03/2024 17:40:27 Procedure Notes None recorded. Medical [...] Not Available Not Available No t Available [place] 10 mg-325 mg tablet one every four [...] completed Not Available Not Available Not Available [place] 5 mg-325 mg tablet Take 1 tablet [...] Updated DateTime 3 157.48 cm 20.3 kg/m2 84130.7 5 g 92 /min 97 [degF] 93 % 93 % 112 mm[Hg] 80 mm[Hg] [employer] 3 14:34:55 Date Recorded Body height Body mass index (BMI) Body weight Heart rate Body temperature Oxygen saturation Oxygen saturation in Arterial blood by Pulse oximetry Systolic blood pressure Diastolic blood pressure Provider Name and Address Organization Details Last Updated DateTime 4 157.48 cm 20.3 kg/m2 11054.7 5 g 82 /min 97 [degF] 97 % 97 % 122 mm[Hg] 80 mm[Hg] [employer] 4 14:46:12 Date Recorded Body height Body mass index (BMI) Body weight Heart rate Body temperature Oxygen saturation Oxygen saturation in Arterial blood by Pulse oximetry Systolic blood pressure Diastolic blood pressure Provider Name and Address Organization Details Last Updated DateTime 4 157.48 cm 20.1 kg/m2 54211.1 6 g 105 /min 97 [degF] 91 % 91 % 128 mm[Hg] 80 mm[Hg] Kaykay Huang [employer] 4 14:53:34 Date Recorded Body height Body mass index (BMI) Body weight Heart rate Body temperature Oxygen saturation Oxygen saturation in Arterial blood by Pulse oximetry Systolic blood pressure Diastolic blood pressure Provider Name and Address Organization Details Last Updated DateTime 4 157.48 cm 19.8 kg/m2 10089.9 8 g 86 /min 97 [degF] 95 % 95 % 130 mm[Hg] 72 mm[Hg] Serene JohnJEANNETTE [employer] [facility] 4 10:23:21 Date Recorded Body height Body mass index (BMI) Body weight Heart rate Body temperature Oxygen saturation Oxygen saturation in Arterial blood by Pulse oximetry Systolic blood pressure Diastolic blood pressure Provider Name and Address Organization Details Last Updated DateTime 5 157.48 cm 20.1 kg/m2 85601.1 6 g 54 /min 97 [degF] 91 % 91 % 128 mm[Hg] 64 mm[Hg] Kaykay Huang [employer] 5 12:14:28 Social History Question Answer Notes LastModified by Organization Details LastModified Time Tobacco Smoking Status Never Smoker Not Available [facility] 06/20/2022 14:11:43 Do You Have An Advance Directive? No Info Given Previously [email or web address] Information not available 02/04/2024 Are You Blind Or Do You Have Difficulty Seeing? No MIGRATION.030 [id number] Information not available 06/20/2022 In The 14 Days Before Symptom Onset, Have You Had Close Contact With A Laboratory-conf irmed COVID-19 While That Case Was Ill? No MIGRATION.030 [id number] Information not available 06/20/2022 In The 14 Days Before Symptom Onset, Have You Had Close Contact With A Person Who Is Under Investigation For COVID-19 While That Person Was Ill? No MIGRATION.030 603177 Information not available 06/20/2022 Are You Deaf Or Do You Have Serious Difficulty Hearing? No MIGRATION.030 353730 Information not available 06/20/2022 What Type Of Diet Are You Following? REGULAR MIGRATION.030 778179 Information not available 06/20/2022 Have There Been Any Changes To Your Family Or Social Situation? No [email or web address] Information not available 01/15/2023 What Is The Fluoride Status Of Your Home? Fluoridated MIGRATION.0301 191331 Information not available 06/20/2022 Are There Any Guns Present In Your Home? Yes MIGRATION.0301 [id number] Information not available 06/20/2022 Do You Use Insect Repellent Routinely? No [email or web address] Information not available 01/15/2023 Where Do You Live? [place] MIGRATION.0301 [id number] Information not available 06/20/2022 Guns Present In The Home? Yes [email or web address] Information not available 01/15/2023 Are You Able To Care For Yourself? Yes [email or web address] Information not available 01/15/2023 Are You Blind Or Do Yo Have Difficulty Seeing? No [email or web address] Information not available 01/15/2023 Are You Deaf Or Do You Have Serious Difficulty Hearing? No [email or web address] Information not available 01/15/2023 Live Alone Of With Others? With Others [email or web address] Information not available 01/15/2023 Do You Have A Medical Power Of National Secretary? No [email or web address] Information not available 01/15/2023 What Was The Date Of Your Most Recent Tobacco Screening? 02/04/2024 [email or web address] Information not available 02/04/2024 Do You Have Any Pets? No [email or web address] Information not available 01/15/2023 What Is Your Relationship Status? MIGRATION.0301 [id number] Information not available 06/20/2022 Do You Use Your Seat Belt Or Car Seat Routinely? Yes MIGRATION.0301 101082 Information not available 06/20/2022 Do You Have Smoke And Carbon Monoxide Detectors In Your Home? Yes [email or web address] Information not available 01/15/2023 Are You Passively Exposed To Smoke? No [email or web address] Information not available 01/15/2023 Are There Any Smokers In Your House? No [email or web address] Information not available 01/15/2023 Do You Use Sunscreen Routinely? No MIGRATION.0301 [id number] Information not available 06/20/2022 Have You Recently Traveled Abroad? No MIGRATION.0301 699616 Information not available 06/20/2022 Do You Have Difficulty Walking Or Climbing Stairs? No MIGRATION.0301 750095 Information not available 06/20/2022 Sex: Unknown Functional Status Question Answer Note LastModified by Organizat ion Details LastModified Time What is your level of alcohol consumption? Moderate 1 glass wine night [email or web address] Information not available 02/04/2024 Do you or have you ever used smokeless tobacco? Never used smokeless tobacco MIGRATION.99651 41322 Information not available 06/20/2022 Do you have transportation difficulties? No MIGRATION.87124 56207 Information not available 06/20/2022 Are you able to walk? YESWOREST MIGRATION.98573 08542 Information not available 06/20/2022 Do you have difficulty doing errands alone? No MIGRATION.31991 40628 Information not available 06/20/2022 Are you able to care for yourself? Yes MIGRATION.63126 99923 Information not available 06/20/2022 Do you have difficulty dressing or bathing? No MIGRATION.00986 87725 Information not available 06/20/2022 Do you or have you ever used e-cigarettes or vape? Never used electronic cigarettes MIGRATION.37000 53880 Information not available 06/20/2022 What is your exercise level? Occasional MIGRATION.54063 30253 Information not available 06/20/2022 Mental Status Question Answer Note LastModified by Organizat ion Details LastModified Time Do you have difficulty concentrating, remembering or making decisions? No MIGRATION.[id number] 6 Information not available 06/20/2022 Family History [...] HAVE YOU BEEN HOSPITALIZED OR SEEN IN [facility] IN THE PAST YEAR ? N ATHEROSCLEROSIS [...] high-dose, quadrivalent, PF 3 completed Kaykay bruno [facility] [employer] 01/15/2023 17:26:08 Influenza, high-dose, trivalent, PF 4 completed JEANNETTE Parra [facility] [employer] [facility] 01/30/2024 12:36:15 Influenza, split virus, trivalent, preservative 3 completed Not Available [facility] 06/20/2022 14:18:58 COVID-19, mRNA, LNP-S, bivalent, PF, 30 mcg/0.3 mL dose 2 completed Not Available [facility] 06/20/2022 14:18:58 COVID-19, mRNA, LNP-S, PF, 30 mcg/0.3 mL dose 2 completed Not Available [facility] 06/20/2022 14:18:58 Influenza, split virus, quadrivalent, preservative 1 completed Not Available [facility] 06/20/2022 14:18:59 COVID-19, mRNA, LNP-S, PF, 30 mcg/0.3 mL dose 1 completed Not Available [facility] 06/20/2022 14:18:59 SARS-COV-2 (COVID-19) vaccine, UNSPECIFIED 1 completed Not Available [facility] 06/20/2022 14:18:59 SARS-COV-2 (COVID-19) vaccine, UNSPECIFIED 1 completed Not Available [facility] 06/20/2022 14:18:59 Influenza, high-dose, quadrivalent, PF 0 completed Not Available [facility] 06/20/2022 14:18:59 Influenza, high-dose, trivalent, PF 0 completed Not Available [facility] 06/20/2022 14:18:59 Influenza, high-dose, trivalent, PF 8 completed Not Available [facility] 06/20/2022 14:18:59 Influenza, high-dose, trivalent, PF 7 completed Not Available [facility] 06/20/2022 14:18:59 pneumococcal polysaccharide PPV23 7 completed Not Available [facility] 06/20/2022 14:18:59 Pneumococcal conjugate PCV 13 5 completed Not Available [facility] 06/20/2022 14:18:59 Influenza, split virus, quadrivalent, preservative 5 completed Not Available [facility] 06/20/2022 14:18:59 Influenza, split virus, trivalent, preservative 4 completed Not Available [facility] 06/20/2022 14:18:59 Past Encounters Encounter ID Performer Location Encounter Start Date Encounter Closed Date Diagnosis/Indication Diagnosis SNOMED-CT Code Diagnosis ICD10 Code Diagnosis Note [id number] Sumit Cool MD [facility] Internal Med [place] [address] [facility] y , [place] [address] 10/18/2020 00:00:00 10/18/2020 15:09:01 [id number] Sumit Cool MD [facility] Internal Med [place] [address] [facility] y , [place] [address] 04/18/2021 00:00:00 04/18/2021 14:57:45 [id number] Sumit Cool MD [facility] Internal Med [place] [address] [place] [address] y , [place] [address] 08/15/2021 00:00:00 08/15/2021 15:23:41 [id number] Sumit Cool MD [facility] Internal [facility] [place] [address] [place] [address] y , [place] [address] 10/20/2021 00:00:00 10/20/2021 12:28:58 [id number] Sumit Cool MD [facility] Internal [facility] [place] [address] [place] [address] y , [place] [address] 12/15/2021 00:00:00 12/15/2021 14:32:38 [id number] Sumit Cool MD [facility] Internal [facility] [place] [address] [place] [address] y , [place] [address] 05/04/2022 00:00:00 05/04/2022 15:22:27 [id number] Sumit Cool MD [facility] Internal [facility] [place] [address] [place] [address] y , [place] [address] 08/17/2022 14:54:00 08/17/2022 15:12:26 Gastroesophageal reflux disease 346537053 K21.9 Pure hypercholesterolemia 761149490 E78.00 Disorder o f connective tissue 466931037 L94.9 Asthma 975132965 J45.90 9 Vitamin D deficiency 347 52361 E55.9 [id number] Sumit Cool MD [facility] Internal [facility] [place] [address] [place] [address] [place] [address] 01/15/2023 14:15:15 01/15/2023 15:29:26 Adult health examination 903341107 Z00.00 Screening for disorder 624073058 Z13.9 Disorder o f connective tissue 944662232 L94.9 Hypothyroidism 03091750 E03.9 Gastroesop hageal reflux disease 898895708 K21.9 Asthma 962767250 J45.90 9 Pure hypercholesterolemia 897015764 E78.00 [id number] Sumit Cool MD [facility] Internal Med [facility] 24 [address] [facility], [facility] [address] [place] [address] 05/21/2023 14:41:39 05/21/2023 15:12:49 Asthma 254701402 J45.909 Gastroesop hageal reflux disease 129644801 K21.9 Hypothyroidism 28911345 E03.9 Pure hypercholesterolemia 555099046 E78.00 Disorder o f connective tissue 944493799 L94.9 Vitamin D deficiency 347 85909 E55.9 [id number] Sumit Cool MD [facility] Internal Med [place] [address] [facility] [place] [address] 09/17/2023 14:43:04 09/17/2023 15:10:17 Gastroesophageal reflux disease 744206202 K21.9 Pure hypercholesterolemia 866620950 E78.00 Hypothyroidism 54266112 E03.9 Disorder o f connective tissue 821495092 L94.9 Asthma 331415333 J45.90 9 [id number] Sumit Cool MD [facility] Internal Med [place] [address] [place] [address] [place] [address] 02/04/2024 10:12:56 02/04/2024 10:47:27 Adult health examination 891597727 Z00.00 Screening for disorder 308704301 Z13.9 Gastroesop hageal reflux disease 730705926 K21.9 Hypothyroidism 02322610 E03.9 Pure hypercholesterolemia 661640235 E78.00 Pulmonary embolism 67675 003 I26.99 [id number] Sumit Cool MD [facility] Primary Care Rigo gaytan [address] [place] [address] [address] [place] [address] 06/02/2024 11:54:17 06/02/2024 12:52:42 Disorder of connective tissue 245864007 L94.9 Gastroesop hageal reflux disease 405416886 K21.9 Essential tremor 1840145 09 G25.0 Pure hypercholesterolemia 362309086 E78.00 Osteoporosis 67986503 M8 1.0 Health Concerns Section Related Observation LastModified by Organization Detai ls LastModified Time None Recorded Concern Status LastModified by Organization Details LastModified Time None Recorded Advance Directives Directive N: Info given previously Payers Encounter Date Sequence Insurance Name Policy Number Policy Alcantara Covered Member ID Alcantara Member ID Guarantor Name 01/15/2023 1 [employer] (MEDICARE REPLACEMENT/ ADVANTAGE - PPO) [id number] Génesis Condon [id number] Génesis Condon 05/21/2023 1 [employer] (MEDICARE REPLACEMENT/ ADVANTAGE - PPO) [id number] Génesis Annlivan [id number] Génesis Annlivan 09/17/2023 1 [employer] (MEDICARE REPLACEMENT/ ADVANTAGE - PPO) [id number] Génesis Annlivan [id number] Génesis Annlivan 02/04/2024 1 [employer] (MEDICARE REPLACEMENT/ ADVANTAGE - PPO) [id number] Génesis Annlivan [id number] Génesis Condon 06/02/2024 1 [employer] (MEDICARE REPLACEMENT/ ADVANTAGE - PPO) [id number] Génesis Annlivan [id number] Génesis Condon Notes Date Note Type Note [...] 7.5 MG (TABLET - ORAL) DailyVaccination and Jyegnyiwiixr1186-30 Voknnqnmk3173-11 Covid Kvjvhr1937-29 Pneumovax 565446-42 Prevnar 13Surgical HistoryRt. Shoulder Injection, Cervical Laminectomy, Epigastric Hernia RepairPreventative Testing Confirmed by Our Lftpbee8412/21/2022 LETTER DNWWAIYRP20/01/2023 ALBUMIN 3.7 G/DL12/21/2021 MAMMOGRAM / LETTER [id number]/06/2021 COLOGUARD DEXA SCAN01/12/2004 COLONOSCOPY 01/11/2014Social HistoryDoes not smokeDrinks sociallyWorks as a school teacherFamily HistoryMother 93 Type II Diabetes and infirmitiesFather 73 from ParkinsonismOne sister living and in good health Sumit Cool MD [address] [facility] [address], [place], [address], [place] [facility] [place] [employer] [facility] 01/15/2023 14:56:21 4 text/html Patient Name: [...] MG (TABLET - ORAL) Daily Vaccination and Ayydnziklmef0623-83 Frybyohqi2964-55 Covid Cjccpu0561-50 Mrdbqntxk7635-73 Prevnar 13 Gc Surgical Yncokwo4301-87 Rt. 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 [address], [place], [address], [facility] 05/21/2023 15:08:07 4 text/html Patient Name: Génesis [...] MG (TABLET - ORAL) Daily Vaccination and Gqciblxjfpub9722-40 Dztbgwgbx2353-60 Covid Nfxsld6554-14 Yikkdhrbn4761-61 Prevnar 13 Gc Surgical Rzhzvpc1644-15 Rt. Shoulder Mkexnwdir8474-40 Cervical Vwjhiehbhxj3016-82 Epigastric Hernia Repair Preventative Dtvibgl1906/27/2023 HKCUAVXTU61/15/2024 ALBUMIN 3.7 G/DL03/05/2023 MAMMOGRAM / YHMVZCQTIEQWI95/06/2021 COLOGUARD DEXA SCAN01/12/2004 COLONOSCOPY 01/11/2014 Social HistoryDoes not smokeDrinks sociallyWorks as a middle or intermediate school principal Family HistoryMother 93 Type II Diabetes and infirmitiesFather 73 from ParkinsonismOne sister living and in good health Sumit Cool MD [address] [facility], [facility] [address], [place], [address], [facility] Intr[facility] 09/17/2023 15:07:19 text/html Patient Name: Génesis CondonDate [...] COVID PFIZER( ) 2023- PREVNAR 20 Surgical Ubwzdfl7526-13 Rt. Shoulder Ypbquraqk7500-62 Cervical Zfsprudljuw5132-14 Epigastric Hernia Repair Preventative Testing( ) 10/08/2023 Albumin 4.1 G/DL( ) 06/27/2023 Optometry( ) 03/05/2023 Mammogram 03/05/2025( ) 04/11/2021 Ophthalmology(X) 04/27/2020 Cologuard 04/27/2023(X) 05/03/2018 DEXA Scan 05/03/2020 Social HistoryDoes not smokeDrinks sociallyWorks as a middle or intermediate school principal Family HistoryMother 93 Type II Diabetes and [...] MG/DLHDL CHOLESTEROL 64 >39 MG/DLLDL CHOL CALC ([facility]) 78 0-99 MG/DL Sumit Cool MD [address] [facility], [facility] [address], [place], [address], [place] [facility] 02/04/2024 10:40:23 5 text/html Patient Name: Génesis [...] COVID PFIZER( ) 2023- PREVNAR 20 Surgical Lygmvor2227-25 Rt. Shoulder Ocjlhyzcf4548-47 Cervical Tlkpfpmqhdw7310-59 Epigastric Hernia Repair Preventative Testing( ) 02/18/2024 Cologuard 02/17/2027( ) 02/06/2024 Albumin 4.2 G/DL( ) 02/06/2024 DEXA Scan 02/05/2026( ) 06/27/2023 Optometry( ) 03/05/2023 Mammogram 03/05/2025( ) 04/11/2021 Ophthalmology Social HistoryDoes not smokeDrinks sociallyWorks as a middle or intermediate school principal Family HistoryMother 93 Type II Diabetes and [...] 9.4 8.4-10.2 MG/DL Sumit Cool MD [address] [facility], [facility] [address], [place], [address], [place] [facility] 06/02/2024 12:22:58 OBGyn Episode No OBEpisode recorded.
--- OUTSIDE RECORDS SUMMARY | 2024-09-09 10:11 | XMS_ITS | Encounter Summary ---
Author Organization [facility] Address [address] [place] [address] Care Team Providers Care Messaging Architect Name Role Phone Unavailable Primary Care Provider Unavailabl e Encounter Details Date Type Department Care Team (Late st Contact Info) Description 09/09/2024 External Device Data STL ABSTRACTION Provider, Abstract [...] Sex Assigned at Female 04/27/2024 12:34 PM RN CLINICIAN Legal Sex Female 11:17 AM RN CLINICIAN Gender Identity Female 04/27/2024 12:34 PM RN CLINICIAN Sexual Orientation Straight 04/27/2024 12 :34 PM RN CLINICIAN documented as of this encounter Plan of Treatment Not on file documented as of this encounter Visit Diagnoses Not on filedocumented in this encounter
--- OUTSIDE RECORDS SUMMARY | 2024-09-09 10:11 | XMS_ITS | Clinical Summary ---
Author Organization [facility] Address [address] [place] [address] Phone Care Team Providers Care Monitoring Tech Name Role Phone Unavailable Primary Care Provider [...] Encounters Date Type Department Care Team Description 09/09/2024 External Device Data STL ABSTRACTION Provider, Abstract 09/08/2024 External Device Data STL ABSTRACTION Provider, Abstract 07/08/2024 External Device Data STL ABSTRACTION Provider, Abstract 06/27/2024 External Device Data STL ABSTRACTION Provider, Abstract 06/26/2024 External Device Data STL ABSTRACTION Provider, Abstract 06/23/2024 External Device Data STL ABSTRACTION Provider, Abstract from Last 3 Months Family History Medical History Relation Name Comments Diabetes Daughter 1 Elsie Phelps Mental illness Daughter 2 Cathie Condon Migraines Daughter 2 Cathie Condon Mental illness Daughter 4 Cathie Condon Migraines Daughter 4 Cathie Condon Diabetes Mother Ines Swenson Relation Name Status Comments Daughter 1 Elsie Whittleman Daughter 2 Cathie Condon Daughter 3 Elsie Ramosman Daughter 4 Cathie [...] Sex Assigned at Female 04/27/2024 12:34 PM LINE WELDER Legal Sex Female 11:17 AM LINE WELDER Gender Identity Female 04/27/2024 12:34 PM LINE WELDER Sexual Orientation Straight 04/27/2024 12 :34 PM LINE WELDER Last Filed Vital Signs Vital Sign Reading Time Taken Comments Blood Pressure 112/74 05/05/2024 1:48 PM LINE WELDER Pulse - - Temperature 36.6 C (97.9 F) 05/05/2024 1:48 PM LINE WELDER Respiratory Rate 16 05/05/2024 1:48 PM LINE WELDER Oxygen Saturation - - Inhaled Oxygen Concentration - - Weight 50.8 kg (112 lb 1.6 oz) 05/05/2024 1:48 P M LINE WELDER Height 154.9 cm (5' 1 ) 05/05/2024 1:48 PM LINE WELDER Body Mass Index 21.18 05/05/2024 1:48 PM LINE WELDER Plan of Treatment Health Maintenance Due Date Last Done Comments DTAP/TDAP/TD VACCINES (1 - Tdap) 10/23/1966 ZOSTER VACCINE (1 of 2) 10/23/1966 RSV VACCINE (60+ or ) (1 - 1-dose 75+ series) 10/23/2022 OSTEOPOROSIS SCREENING 02/05/2029 , 08/28/2021, 08/28/2021, Additional history exists PNEUMOCOCCAL VACCINE 50+ YEARS Completed 01/29/2017 , 09/17/2014 INFLUENZA VACCINE Completed 01/30/2024, , 01/19/2021, Additional history exists Insurance AETNA PPO [facility]
--- OUTSIDE RECORDS SUMMARY | 2024-09-09 10:11 | XMS_ITS | Patient Health Record ---
Author Organization [facility] Address [address] [facility] [address] [place] [address] Care Team Providers Care Performance Engineer Name Role Phone Kb Mobley Unavailable [phone] Allergies No Known Allergies Reason For Referral [...] Pilocarpine HCl 1 TID *Pick strength-form from [employer] for eRX* 06/04/2007 Active Problems Problem Type SNOMED Code ICD Code Onset Dates Problem Status W/U Status Risk Notes Problem Osteoarthritis (856725602) Unspecified osteoarthritis, unspecified site (M19.90) 5 Active confirmed Plan Of Treatment No Information Insurance Providers Payer Name Payer Address Payer Phone Subscriber Number Group Number Insured Name Patient Relationship to Insured Coverage Start Date Coverage End Date DO NOT USE - [employer] [address] [address] [place], [place] [id number] Génesis Condon Self - patient is the insured 5 [employer] - Open Access [address] [place], [place] [id number] Génesis Condon Self - patient is the insured 1
--- OUTSIDE RECORDS SUMMARY | 2024-09-09 10:11 | XMS_ITS | CONTINUITY OF CARE DOCUMENT ---
Author Name dmitri rizvi Address Unknown Organization [facility] Address [address] [place] [address] Phone [phone] Care Team Providers Care Gym Instructor Name Role Phone Inocente GRANDE, Philipp Unavailable CARLEY GRANDE, ANN Unavailable [phone] CARLEY GRANDE, ANN Unavailable PROBLEMS Condition Status [...] 8 - 8 In-person encounter Office Visit Pihlipp Brower MD [facility] Dyspnea on exertion--echo & stress nuc nl, 06/2023 7 - 7 In-person encounter Office Visit Philipp Brower MD [facility] Cardiology examinationChest discomfort 3 - 3 In-person encounter Office Visit Philipp Brower MD [facility] 4 - 4 In-person encounter Office Visit Philipp Brower MD [facility] Dyspnea on exertion--echo & stress nuc nl, 06/2023 9 - 9 In-person encounter Office Visit Philipp Brower MD [facility] 2 - 2 In-person encounter Office Visit Philipp Brower MD [facility] 2 - 2 In-person encounter Office Visit Philipp Brower MD [facility] PalpitationHypothyroidismAutoimmune disorder Sjogrens diseaseDJD, cervical spineSinus [...] MD blood pressure, diastolic 84 mm[Hg] To [facility] blood pressure, systolic 126 mm[Hg] [facility] pulse rate 77 /min [facility] oxygen saturation, oximetry 98 % [facility] respiratory rate E&M 16 /min [facility] temperature E&M 97.5 [degF] [facility] temperature site temporal [facility] weight E&M 131 [lb_av] [facility] height E&M 61 [in_i] [facility] Body Mass Index (Ratio) 26.07 kg/m2 [...] 0-149 High cholesterol, serum 184 mg/dL [employer] [phone]/05/0 4 basophil count, absolute 0.0 x10E3/uL [employer] [...] % [facility] platelet count 284 X10E3/UL [facility] [phone]/05/0 4 red blood cell distribution width 14.2 [...] High 4 sodium, serum 137 mmol/L [employer] 304-315 2239/05/0 4 urea nitrogen/creatinine ratio, serum 27 [employer] [...] completed Take 2 every morning - Lokesh oCles METOPROLOL TARTRATE 25 MG ORAL TABLET completed [...] Payer name Policy type / Coverage type [place] red libertarian ID AETNA MEDICARE JACK PPO Medicare [id number] ADVANCE DIRECTIVES Name Date DISCUSSED - [...] MD Cardiology: O rders: C omplete Echo (12484) S tress Regadenoson (CPT-[id number]) Philipp Brower MD Cardiology: H er updated medication list for this problem includes: Atorvastatin 20 Mg Tablet (Atorvastatin) ..... Take once a day Orders: C omplete Echo (19631) S tress Regadenoson (CPT-30968) Philipp Brower MD Cardiology:This visi t has been a part of the consistent, comprehensive, and ongoing management of the chronic medical condition(s) listed above for the patient. BP today: 114/73 P rior BP: 126/84 (11/02/2019) Labs Reviewed: C reat: 0.91 (08/23/2016) C hol: 184 (08/23/2016) HDL: 51 (08/23/2016) LDL: 100 (08/23/2016) T (08/23/2016) Philipp Brower MD Cardiology: O rders: C omplete Echo (78827) S tress Regadenoson (CPT-[id number]) Philipp Brower MD Cardiology - Philipp Brower MD Cardiology - Philipp Brower MD Cardiology - Philipp Brower MD Cardiology - Philipp rBower MD Cardiology - Philipp Brower MD Cardiology [...] completed EKG Philipp Brower MD completed SNOMED-CT: [id number] Current Medications Documented Philipp Brower MD completed Stress EKG Palomo Hernandez MD completed Regadenoson, 4 units Philipp Brower MD completed Cardiolite, 2 units Philipp Brower MD completed SPECT Images Adenike Reynaga MD completed ZIO Holter Hookup Philipp Brower MD co mpleted SNOMED-CT: [id number] Physical Exam, Performed: Pulse Exam of Foot Philipp Brower MD completed EKG Philipp Brower MD completed SNOMED-CT: 302682601 336379 Current Medications Documented Philipp Brower MD completed
--- OUTSIDE RECORDS SUMMARY | 2024-09-09 10:11 | XMS_ITS | Clinical Summary ---
Author Organization [facility] Address [address] [place] [address] Care Team Providers Care Oven Stripper Name Role Phone Sumit Cool MD Primary Care Provider [phone] Jared Cruz MD Unavailable Unavailable Dk Adams MD Unavailable Source Comments [facility],non-owned Affiliates and Associated Physician Practices is amultiple site organization consisting of ambulatory clinics and hospital sitesin [place], [place], [place] and [place]. This disclosure is being madepursuant to the Care Everywhere program and may not contain all information available regarding this patient. Last updated 18.[facility] Allergies No known active allergies Medications * [...] on file Legal Sex Female 12:40 PM INVESTIGATOR WELFARE Gender Identity Not on file Sexual Orientation [...] Most Recently Relevant to Health Maintenance Insurance [facility] [place] [address] AETNA MEDICARE ADV SELF PAY NO INSURANCE Member Subscriber Plan / Payer (Ef fective for All Dates) Name:Génesis Condon Member ID:Not on file Relation to Subscriber:Not on file Name:GÉNESIS CONDON Subscriber ID:Not on file (Home) Address: [address] [place] [id number] Payer ID:Not on file Group ID:Not on file Type:Self Pay Address: [place], [place] Care Teams Oven Stripper Relationship Specialty Start Date End Date Sumit Cool MD [address] [place] [address] [address] [place] [address] PCP - General Internal Medicine 05/03/17 Jared Cruz MD [address] [place] [address] [address] [place] [address] Rheumatology 06/02/18 [place] [address] [address] Pulmonary Disease 06/02/18
--- OUTSIDE RECORDS SUMMARY | 2024-09-09 10:11 | XMS_ITS | Encounter Summary ---
Author Organization [facility] Address [address] [place] [address] Care Team Providers Care Commercial Airplane Pilot Name Role Phone Unavailable Primary Care Provider [...] Sex Assigned at Female 04/27/2024 12:34 PM FOOD SAFETY MANAGER Legal Sex Female 11:17 AM FOOD SAFETY MANAGER Gender Identity Female 04/27/2024 12:34 PM FOOD SAFETY MANAGER Sexual Orientation Straight 04/27/2024 12 :34 PM FOOD SAFETY MANAGER documented as of this encounter Plan of Treatment Not on file documented as of this encounter Visit Diagnoses Not on filedocumented in this encounter
[2024-09-09 10:36] LABS: Toxigenic C. Diff NEGATIVE (NEGATIVE)
[2024-09-13 17:34] LABS: Pancreatic Elastase, Stool >800 mcg/g (>200)
[2024-09-14 13:39] LABS: Calprotectin, Stool 769 mcg/g
== END 2024-09-09 09:31 | disposition home or self-care (01) ==
PROVIDERS: PCP Internal Medicine; Visit Provider Nurse Practitioner Family
DX: R63.4 Abnormal weight loss (principal); R11.14 Bilious vomiting; R10.30 Lower abdominal pain, unspecified; K52.9 Noninfective gastroenteritis and colitis, unspecified
CPT/HCPCS: 82653; 83993; 87045; 87427; 87449; 87493

== ENCOUNTER 2024-09-17 16:16 | Emergency (ER) | payer MEDICARE, SELFPAY ==
[2024-09-17 16:17] VITALS: BP 94/75; PULSE 89; RESP 16; TEMP 36.4; O2SAT 98
--- OUTSIDE RECORDS SUMMARY | 2024-09-17 16:18 | XMS_ITS | Clinical Summary ---
Author Organization [facility] [employer] Address [address] [facility] [address] [place] [address] Care Team Providers Care Supervisor Chlorine Liquefaction Name Role Phone Sumit Cool MD Primary Care Provider [phone] Jared Cruz MD Unavailable Unavailable Dk Adams MD Unavailable Source Comments [facility],non-owned Affiliates and Associated Physician Practices is amultiple site organization consisting of ambulatory clinics and hospital sitesin [place], [place], [place] and [place]. This disclosure is being madepursuant to the Care Everywhere program and may not contain all information available regarding this patient. Last updated 18.[facility] [employer] Allergies No known active allergies Medications * [...] on file Legal Sex Female 12:40 PM GRIND OPERATOR Gender Identity Not on file Sexual Orientation [...] 1:28 PM CDT Height 154.9 cm (5' 1) 10/27/2020 1:28 PM CDT Body Mass Index [...] Most Recently Relevant to Health Maintenance Insurance [facility] MANAGED MEDICARE ADV AETNA MEDICARE ADV SELF PAY NO INSURANCE Member Subscriber Plan / Payer (Ef fective for All Dates) Name:Génesis Condon Member ID:Not on file Relation to Subscriber:Not on file Name:GÉNESIS CONDON Subscriber ID:Not on file (Home) Address: [address] [place] [id number] Payer ID:Not on file Group ID:Not on file Type:Self Pay Address: [place], [place] Care Teams Supervisor Chlorine Liquefaction Relationship Specialty Start Date End Date Sumit Cool MD [address] [place] [address] [address] [place] [address] PCP - General Internal Medicine 05/03/17 Jared Cruz MD [address] [place] [address] [address] [place] [address] Rheumatology 06/02/18 [place] [address] [address] Pulmonary Disease 06/02/18
--- OUTSIDE RECORDS SUMMARY | 2024-09-17 16:19 | XMS_ITS | Patient Health Record ---
Author Organization [facility] Address [address] [facility] [address] [place] [address] Care Team Providers Care Corporation Pilot Name Role Phone Kb Mobley Unavailable [phone] Allergies No Known Allergies Reason For Referral [...] Pilocarpine HCl 1 TID *Pick strength-form from [employer] for eRX* 06/04/2007 Active Problems Problem Type SNOMED Code ICD Code Onset Dates Problem Status W/U Status Risk Notes Problem Osteoarthritis (065552667) Unspecified osteoarthritis, unspecified site (M19.90) 5 Active confirmed Plan Of Treatment No Information Insurance Providers Payer Name Payer Address Payer Phone Subscriber Number Group Number Insured Name Patient Relationship to Insured Coverage Start Date Coverage End Date DO NOT USE - [employer] [address] [address] [place], [place] [id number] Génesis Condon Self - patient is the insured 5 [employer] - Open Access [address] [place], [place] [id number] Génesis Condon Self - patient is the insured 1
--- OUTSIDE RECORDS SUMMARY | 2024-09-17 16:19 | XMS_ITS | Data Portability ---
Author Organization [facility], Main Office Address [address] [place] [address] Assessment No assessment recorded. Plan of Treatment Reminders Order Date Submit Date Provider Last Modified By Organization Details Last Modified Time Details Appointments None recorded. Lab vitamin D, 25-hydroxy , total, serum 2024 025 [email or web address] [facility], [address], [place], [address], 17:17:49 lipid panel, serum 2024 025 [email or web address] [facility], [address], [place], [address], 17:17:48 CMP, serum or plasma 2024 025 [email or web address] [facility], [address], [place], [address], 17:17:48 TSH, ultra-sens itive, serum 2024 025 [facility], [address], [place], [address], 17:17:48 unlisted lab - T4, free 2024 025 [email or web address] [facility], [address], [place], [address], 5 17:17:49 CBC w/ auto diff 2024 025 [email or web address] [facility], [address], [place], [address], 5 17:17:49 lipid panel, serum 2023 024 [email or web address] [facility], [address], [place], [address], 4 10:14:31 CMP, serum or plasma 2023 024 [email or web address] [facility], [address], [place], [address], 4 10:14:32 CBC w/ auto diff 2023 024 [email or web address] [facility], [address], [place], [address], 4 10:14:32 magnesium, serum or plasma 2023 024 [email or web address] [facility], [address], [place], [address], 4 10:14:31 vitamin B12, serum 2023 024 [facility], [address], [place], [address], 4 10:14:31 TSH, ultra-sens itive, serum 2023 024 [email or web address] [facility], [address], [place], [address], 4 10:14:32 unlisted lab - T4, free 2023 024 [email or web address] [facility], [address], [place], [address], 4 10:14:32 vitamin D, 25-hydroxy , total, serum 2023 024 [email or web address] [facility], [address], [place], [address], 4 16:35:33 lipid panel, serum 2023 024 CHRISTINA Lopez, [address], [place], [address], 4 13:39:38 CMP, serum or plasma 2023 024 CHRISTINACAROLYN Lopez, [address], [place], [address], 4 13:39:42 magnesium, serum or plasma 2023 024 CHRISTINACAROLYN Lopez, [address], [place], [address], 4 13:39:36 vitamin B12, serum 2023 024 CHRISTINACAROLYN Lopez, [address], [place], [address], 4 14:34:05 TSH, ultra-sens itive, serum 2023 024 [facility], [address], [place], [address], 4 16:35:32 unlisted lab - T4, free 2023 024 melody Mooneycohenrry, [address], [place], [address], 4 16:35:32 Referral None recorded. Procedures None recorded. Surgeries None recorded. Imaging None recorded. Medication Orders None recorded. Patient TargetsNo targets recorded. Patient Instructions Encounter Date Encounter Id Patient Instructions Last Modified By Organization Details Last Modified Time 01/15/2023 [id number] dementia rating scale-2* [email or web address] Not available 01/15/2023 14:56:16 alcohol misuse* [email or web address] Not available 01/15/2023 14:56:17 depression screening* [email or web address] Not available 01/15/2023 14:56:17 multi-dimensiona l health assessment questionnaire* Not available 01/15/2023 14:56:17 advance directiv es: care instructions [email or web address] Not available 01/15/2023 14:56:17 advance care planning: care instructions Not available 01/15/2023 14:56:17 [place] Advance Directives [email or web address] Not available 01/15/2023 14:56:17 Personalized a lt Plan and Screening Recommendations Advance Directives - Do you have one? No You have indicated that you are capable of preparing your advance care directive I recommend consulting with an [employer] Gatherer, family member, or friend to assist you. Info given Advance Directives - Do we have your advance directive on file in your health record? Primary Prevention/Interven tion (prevents or decreases the chance of common diseases from occurring) Smoking Risk: Non Smoker Alcohol Misuse Screening: Positive Decrease alcohol intake to 1 or less servings per day Weight: Appropriate Physical activity: Need more exercise/physical activity Nutrition: Average Refer to attached handout Heart-Healthy Diet: After Your Visit Refer to attached handout DASH Diet: After Your Visit Recommend consultation with a cosmetics and toiletries salesperson Eat heart healthy diet Fall Risk (screened today): Low Vaccines Pneumococcal: No further needed Influenza: Your next one in the fall of this year Chronic Disease Risks Stroke: Intermediate Risk Active diagnosis, Continue current treatment plan Heart Attack: Intermediate Risk Active diagnosis, Continue current treatment plan Clogging of the Arteries: Intermediate Risk Active diagnosis, Continue current treatment plan Diabetes: Low Risk I have no recommendations Secondary Prevention/Interven tion (detects treatable diseases before they may cause symptoms, disability, or ) Breast Cancer Screening with mammogram: Recommended today Cervical/Uterine/Ov francy Cancer Screening: No screening necessary Osteoporosis Screening: Your next DEXA in: Ordered Recomme nded today Recommended today, but you have declined No screening necessary up to date Date Screening Last Performed: Colon Cancer Screening: Cologuard (DNA stool test) In: Ordered Recomme nded Recommended today, but you have declined No screening necessary due 2023 Date Screening Last Performed: __2020___ Eye Disease Screening: Ordered Recommended today Recommended today, but you have declined No Eye exam necessary Your next exam in: goes yearly Dementia Risk: Low I have no recommendations Depression Screening: Negative Active diagnosis, Continue current treatment plan [email or web address] Not available 01/15/2023 14:49:38 Medicare wellnes s evaluation risk assessment. 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 All clinically stable. Was given a flu shot today. Is otherwise up-to-date on other immunizations. Will continue on current Rx and follow-up in four months. Portions of the record may have been created with voice recognition software. Occasional wrong-word or qvwhj-e-wdbg substitutions may have occurred due to the inherent limitations of voice recognition software. Read the chart carefully and recognize, using context, where substitutions have occurred. Mammogram Next Appt: 4 Months Approximate Date: 05/15/2023 [email or web address] Not available 01/15/2023 14:55:38 05/21/2023 [id number] Asthma- GERD-hypothyroidism -hyperlipidemia -disorder connective tissue disease all clinically stable. Will continue on current Rx. Check blood work in the form of CBC, CMP, lipid, thyroid, B12, Magnesium and vitamin-D level. Does need a Cologuard test. Will continue on current Rx and follow-up in four months. Portions of the record may have been created with voice recognition software. Occasional wrong-word or udqjz-x-vppn substitutions may have occurred due to the inherent limitations of voice recognition software. Read the chart carefully and recognize, using context, where substitutions have occurred. Not available 05/21/2023 15:07:30 09/17/2023 [id number] Follow-up for GE RD, hyperlipidemia, hypothyroidism, connective tissue disease and asthma all clinically stable. Check blood work consisting of CBC, CMP, lipid, thyroid, B12 and magnesium level. Follow-up in four months Next Appointment: 4 Months Approximate Date: 01/15/2024 Portions of the record may have been created with voice recognition software. Occasional wrong-word or pheme-z-fenj substitutions may have occurred due to the inherent limitations of voice recognition software. Read the chart carefully and recognize, using context, where substitutions have occurred. [email or web address] Not available 09/17/2023 15:06:50 02/04/2024 [id number] dementia rating scale-2* [email or web address] Not available 02/04/2024 10:40:18 alcohol misuse* [email or web address] Not available 02/04/2024 10:40:18 depression screening* Not available 02/04/2024 10:40:18 Timed Up and Go test (TUG)* [email or web address] Not available 02/04/2024 10:40:18 multi-dimensiona l health assessment questionnaire* [email or web address] Not available 02/04/2024 10:40:18 Personalized a lt Plan and Screening Recommendations Advance Directives - Do you have one? No You have indicated that you are capable of preparing your advance care directive I recommend consulting with an [place] [employer] Gatherer, family member, or friend to assist you. Info given previously Advance Directives - Do we have your advance directive on file in your health record? Primary Prevention/Interven tion (prevents or decreases the chance of common diseases from occurring) Smoking Risk: Non Smoker Alcohol Misuse Screening: Negative Weight: Appropriate Physical activity: Need more exercise/physical activity Nutrition: Average Refer to attached handout Heart-Healthy Diet: After Your Visit Refer to attached handout DASH Diet: After Your Visit Recommend consultation with a cosmetics and toiletries salesperson Eat heart healthy diet Fall Risk (screened today): Low Vaccines Pneumococcal: Recommended today Influenza: Your next one in the fall of this year Chronic Disease Risks Stroke: Intermediate Risk Active diagnosis, Continue current treatment plan Heart Attack: Intermediate Risk Active diagnosis, Continue current treatment plan Clogging of the Arteries: Intermediate Risk Active diagnosis, Continue current treatment plan Diabetes: Low Risk I have no recommendations Secondary Prevention/Interven tion (detects treatable diseases before they may cause symptoms, disability, or ) Breast Cancer Screening with mammogram: Recommended today Cervical/Uterine/Ov francy Cancer Screening: No screening necessary Osteoporosis Screening: Recommended today Date Screening Last Performed: Colon Cancer Screening: Cologuard (DNA stool test) Recommended Date Screening Last Performed: _2020___ Eye Disease Screening: Ordered Recommended today Recommended today, but you have declined No Eye exam necessary Your next exam in: goes every 6 mos Dementia Risk: Low I have no recommendations Depression Screening: Negative Active diagnosis, Continue current treatment plan [email or web address] Not available 02/04/2024 10:33:36 Medicare wellnes s [...] with voice recognition software. Occasional wrong-word or mtjsp-h-ehra substitutions may have occurred due to the inherent limitations of voice recognition software. Read the chart carefully and recognize, using context, where substitutions have occurred. Not available 02/04/2024 10:40:03 06/02/2024 [id number] Follow-up for disorder of connective tissue disease, [...] with voice recognition software. Occasional wrong-word or qrmkf-s-bupa substitutions may have occurred due to the inherent limitations of voice recognition software. Read the chart carefully and recognize, using context, where substitutions may have occurred. Created: Sumit Cool M.D. 06.02.2024 11:22 AM [email or web address] Not available 06/02/2024 12:22:32 Reason for Referral None Reported. Results Created Date Observation Date Name Description Value Unit Range Abnormal Flag Note LastModifiedBy Organization Detail LastModifiedTime 06/06/1906/06/2023 MAGNE SIUM magnesium 2.0 mg/dL 1.6-2. 3 Not Available [facility] (Lab) [address] [place], [address], 06/06/2023 13:39:36 06/06/19 24 06/06/2023 LIPID PANEL cholesterol 158 mg/dL 140-19 9 NIH CICI NSUS RECOM MENDA TION FOR ROMEL STERO L: ADULT CHILD LOW RISK: <200 <170 BORDE RLINE : <200- 239 ----- HIGH RISK: >240 >200 Not Available [facility] (Lab) [address] [place], [address], 06/06/2023 13:39:38 06/06/19 24 06/06/2023 LIPID PANEL triglyceride s 113 mg/dL 0-150 NIH CICI NSUS REPOR T RECOM MENDA TION FOR TRIGL YCERI MALLORIE: ADULT CHILD LOW RISK: <150 ----- BODER LINE: 150-1 99 ----- HIGH RISK: >200 ----- Not Available [facility] (Lab) [address] [place], [address], 06/06/2023 13:39:38 06/06/19 24 06/06/2023 LIPID PANEL HDL cholesterol 57 mg/dL 40- Not Available [facility] (Lab) [address] [place], [address], 06/06/2023 13:39:38 06/06/19 24 06/06/2023 LIPID PANEL [...] WILL NOT BE REPOR OTILIO. Not Available [facility] (Lab) [address] [place], [address], 06/06/2023 13:39:38 06/06/19 24 06/06/2023 COMPR EHENS BRENDON METAB OLIC PANEL sodium 139 mmol/ L 137-14 5 Not Available [facility] (Lab) [address] [place], [address], 06/06/2023 13:39:42 06/06/19 24 06/06/2023 COMPR EHENS BRENDON METAB OLIC PANEL potassium 4.3 mmol/ L 3.5-5. 1 Not Available [facility] (Lab) [address] [place], [address], 06/06/2023 13:39:42 06/06/19 24 06/06/2023 COMPR EHENS BRENDON METAB OLIC PANEL chloride 102 mmol/ L 98-107 Not Available [facility] (Lab) [address] [place], [address], 06/06/2023 13:39:42 06/06/19 24 06/06/2023 COMPR EHENS BRENDON METAB OLIC PANEL carbon dioxide 31 mmol/ L 22-30 high Not Available [facility] (Lab) [address] [place], [address], 06/06/2023 13:39:42 06/06/19 24 06/06/2023 COMPR EHENS BRENDON METAB OLIC PANEL anion gap 10.3 mmol/ L 14-22 low Not Available [facility] (Lab) [address] [place], [address], 06/06/2023 13:39:42 06/06/19 24 06/06/2023 COMPR EHENS BRENDON METAB OLIC PANEL glucose 84 mg/dL 70-99 Not Available [facility] (Lab) [address] [place], [address], 06/06/2023 13:39:42 06/06/19 24 06/06/2023 COMPR EHENS BRENDON METAB OLIC PANEL BUN 11 mg/dL 8-19 Not Available [facility] (Lab) [address] [place], [address], 06/06/2023 13:39:42 06/06/19 24 06/06/2023 COMPR EHENS BRENDON METAB OLIC PANEL creatinine 0.85 mg/dL 0.66-1 .25 Not Available [facility] (Lab) [address] [place], [address], 06/06/2023 13:39:42 06/06/19 24 06/06/2023 COMPR EHENS BRENDON METAB OLIC PANEL GFR >60 Refer ence Range : Sandy ge GFR Healt hy Adult : >60 [...] or ethni c subgr oups, such as Hispr nics. Outsi de the valid ated berto [...] is avail able on the [facility] websi te: https ://fadumo dick.thais rg/pr darlyness ional s/kdo qi/gf r_cal culat or Not Available [facility] (Lab) [address] [place], [address], 06/06/2023 13:39:42 06/06/19 24 06/06/2023 COMPR EHENS BRENDON METAB OLIC PANEL alkaline phosphatase 92 U/L 38-126 Not Available [facility] (Lab) [address] [place], [address], 06/06/2023 13:39:42 06/06/19 24 06/06/2023 COMPR EHENS BRENDON METAB OLIC PANEL alanine aminotransfe rase 17 U/L 0-[address] [facility] (Lab) [address] [place], [address], 06/06/2023 13:39:42 06/06/19 24 06/06/2023 COMPR EHENS BRENDON METAB OLIC PANEL aspartate aminotransfe rase 33 U/L 15-[address] [facility] (Lab) [address] [place], [address], 06/06/2023 13:39:42 06/06/19 24 06/06/2023 COMPR EHENS BRENDON METAB OLIC PANEL bilirubin, total 0.60 mg/dL 0.20-1 .30 Not Available [facility] (Lab) [address] [place], [address], 06/06/2023 13:39:42 06/06/19 24 06/06/2023 COMPR EHENS BRENDON METAB OLIC PANEL calcium 9.4 mg/dL 8.4-10 .2 Not Available [facility] (Lab) [address] [place], [address], 06/06/2023 13:39:42 06/06/19 24 06/06/2023 COMPR EHENS BRENDON METAB OLIC PANEL total protein 6.4 g/dL 6.3-8. 2 Not Available [facility] (Lab) [address] [place], [address], 06/06/2023 13:39:42 06/06/19 24 06/06/2023 COMPR EHENS BRENDON METAB OLIC PANEL albumin 3.7 g/dL 3.0-4. 4 Not Available [facility] (Lab) [address] [place], [address], 06/06/2023 13:39:42 06/06/19 24 06/06/2023 COMPR EHENS BRENDON METAB OLIC PANEL globulin 2.7 g/dL 2.6-4. 2 Not Available [facility] (Lab) [address] [place], [address], 06/06/2023 13:39:42 06/06/19 24 06/06/2023 COMPR EHENS BRENDON METAB OLIC PANEL A/G ratio 1.4 ratio 1.0-2. 0 Not Available [facility] (Lab) [address] [place], [address], 06/06/2023 13:39:42 06/06/19 24 06/06/2023 T4 FREE free T4 0.98 NG/dL 0.78-2 .19 Not Available [facility] (Lab) [address] [place], [address], 06/06/2023 13:54:15 06/06/19 24 06/06/2023 TSH thyroid-stim ulating hormone 0.201 uIU/m L 0.465- 4.680 low Not Available [facility] (Lab) [address] [place], [address], 06/06/2023 14:09:11 06/06/19 24 06/06/2023 VITAM IN B12 (THIERNO CHRIS ) vb12 229 pg/mL 239-93 1 low Not Available [facility] (Lab) [address] [place], [address], 06/06/2023 14:34:05 06/06/19 24 06/06/2023 VITAM IN D 25-HY DROXY vd25oh 43.8 NG/mL 30-100 Vitam in D Statu s: Defic ient: <20 ng/mL Insuf ficie nt: 20-29 ng/mL Suffi cient : 30-10 0 ng/mL Not Available [facility] (Lab) [address] [place], [address], 06/06/2023 14:34:16 02/18/20 24 02/18/2024 COLOG UARD [...] ectiv e cross -sect ional study of ,00 0 indiv [place]ual s at [place] risk for color ectal cance r [...] asymp tomat ic indiv idual s at [place] ge risk for color ectal cance r. Follo wing a negat brendon Colog uard resul t, the Ameri can Cance r Socie ty and U.S. Multi -Soci ety Task Force scree paco guide lines recom mend a Colog uard re-sc reeni ng inter jaylen of 3 years . Refer ences : Ameri can Cance r Socie ty Guide line for Color ectal Cance r Scree paco: https ://fadumo concepcioncan cer.o rg/ca ncer/ colon -rect al-ca ncer/ detec tion- diagn osis- stagi ng/ac s-rec ommen datio ns.xiomy ml.; Cristofer HOLMAN, Floyd DEMPSEY, Orville mello JK, Color ectal Cance r Scree paco: Recom menda tions for Physi cians and Patie nts from the U.S. Multi -Soci ety Task Force on Color ectal Cance r Scree pacoIsabel vazquez y 2017; 112:1 016-1 030. TEST DESCR IPTIO N: [place] site algor ithmi c janet sis of stool DNA-b iomar kers with hemog lobin immun oassa y. Quant itati ve value s of indiv idual bioma rkers are not repor table and are not assoc iated with indiv idual bioma rker resul t refer ence range s. Colog uard is inten ded for color ectal cance r scree paco of adult s of eithe r sex, 45 years or older , who are at [facility] for color ectal cance r (CRC) . Colog uard has been appro hardeep for use by the U.S. FDA. The perfo rmanc e of Colog uard was estab lishe d in a cross secti onal study of [facility] adult s aged 50-84 . Colog uard perfo rmanc e in patie nts ages 45 to 49 years was estim ated by jacinta-g marichuyp janet sis of near- age group s. [...] 10,00 0 indiv idual s at [facility] risk for color ectal cance r who were scree lillian with both Colog uard and colon oscop y. (Giselle Taylor. et al, N Engl J Med 2014; [...] inter jaylen is every 3 years . (Amer ican Cance r Socie ty and U.S. Multi -Soci ety Task Force ). Colog uard perfo rmanc e data in a 10,00 0 patie nt pivot al study using colon oscop y as the refer ence metho d can be acces sed at the follo wing locat ion: www.e xactl abs.c om/re charis . Addit ional descr iptio n of the Colog uard test proce ss, warni ngs and preca ution s can be found at www.c ologu kirstin.c om. Not Available [facility] (Cologuard Orders Only) [address], [place], [address], 02/26/2024 19:56:07 06/15/1906/16/2024 CBC WITH DIFFE RENTI AL/PL ATELE T WBC 4.3 x10e3 /uL 3.4-10 .8 normal Not Available [facility] ([facility]) [address] [facility], [place], [address], 06/16/2024 07:14:04 06/15/1906/16/2024 CBC WITH DIFFE RENTI AL/PL ATELE T RBC 3.66 x10e6 /uL 3.77-5 .28 below low normal Not Available [facility] ([facility]) [address] [facility], [place], [address], 06/16/2024 07:14:04 06/15/19 25 06/16/2024 CBC WITH DIFFE RENTI AL/PL ATELE T hemoglobin 11.3 g/dL 11.1-1 5.9 normal Not Available [facility] ([facility]) [address] [place], [address], 06/16/2024 07:14:04 06/15/1906/16/2024 CBC WITH DIFFE RENTI AL/PL ATELE T hematocrit 35.0 % 34.0-4 6.6 normal Not Available [facility] ([facility]) [address] [place], [address], 06/16/2024 07:14:04 06/15/1906/16/2024 CBC WITH DIFFE RENTI AL/PL ATELE T MCV 96 fL 79-97 normal Not Available [facility] ([facility]) [address] [place], [address], 06/16/2024 07:14:04 06/15/1906/16/2024 CBC WITH DIFFE RENTI AL/PL ATELE T MCH 30.9 pg 26.6-3 3.0 normal Not Available [facility] ([facility]) [address] [place], [address], 06/16/2024 07:14:04 06/15/1906/16/2024 CBC WITH DIFFE RENTI AL/PL ATELE T MCHC 32.3 g/dL 31.5-3 5.7 normal Not Available [facility] ([facility]) [address] [place], [address], 06/16/2024 07:14:04 06/15/1906/16/2024 CBC WITH DIFFE RENTI AL/PL ATELE T RDW 14.6 % 11.7-1 5.4 Not Available [facility] ([facility]) [address] [place], [address], 06/16/2024 07:14:04 06/15/1906/16/2024 CBC WITH DIFFE RENTI AL/PL ATELE T platelets 186 x10e3 /uL 150-45 0 normal Not Available [facility] ([facility]) [address] [facility], [place], [address], 06/16/2024 07:14:04 06/15/1906/16/2024 CBC WITH DIFFE RENTI AL/PL ATELE T neutrophils 42 % not estab. normal Not Available [facility] ([facility]) [address] [facility], [place], [address], 06/16/2024 07:14:04 06/15/1906/16/2024 CBC WITH DIFFE RENTI AL/PL ATELE T lymphs 32 % not estab. normal Not Available [facility] ([facility]) [address] [facility], [place], [address], 06/16/2024 07:14:04 06/15/1906/16/2024 CBC WITH DIFFE RENTI AL/PL ATELE T monocytes 12 % not estab. normal Not Available [facility] ([facility]) [address] [facility], [place], [address], 06/16/2024 07:14:04 06/15/1906/16/2024 CBC WITH DIFFE RENTI AL/PL ATELE T eos 13 % not estab. normal Not Available [facility] ([facility]) [address] [place], [address], 06/16/2024 07:14:04 06/15/1906/16/2024 CBC WITH DIFFE RENTI AL/PL ATELE T basos 1 % not estab. normal Not Available [facility] ([facility]) [address] [place], [address], 06/16/2024 07:14:04 06/15/1906/16/2024 CBC WITH DIFFE RENTI AL/PL ATELE T immature cells ANTHROPOLOGY FACULTY MEMBER Not Available [facility] ([facility]) [address] [place], [address], 06/16/2024 07:14:04 06/15/19 25 06/16/2024 CBC WITH DIFFE RENTI AL/PL ATELE T neutrophils (absolute) 1.8 x10e3 /uL 1.4-7. 0 normal Not Available [facility] ([facility]) [address] [place], [address], 06/16/2024 07:14:04 06/15/1906/16/2024 CBC WITH DIFFE RENTI AL/PL ATELE T lymphs (absolute) 1.4 x10e3 /uL 0.7-3. 1 normal Not Available [facility] ([facility]) [address] [place], [address], 06/16/2024 07:14:04 06/15/1906/16/2024 CBC WITH DIFFE RENTI AL/PL ATELE T monocytes(ab solute) 0.5 x10e3 /uL 0.1-0. 9 normal Not Available [facility] ([facility]) [address] [place], [address], 06/16/2024 07:14:04 06/15/1906/16/2024 CBC WITH DIFFE RENTI AL/PL ATELE T eos (absolute) 0.6 x10e3 /uL 0.0-0. 4 above high normal Not Available [facility] ([facility]) [address] [place], [address], 06/16/2024 07:14:04 06/15/1906/16/2024 CBC WITH DIFFE RENTI AL/PL ATELE T baso (absolute) 0.0 x10e3 /uL 0.0-0. 2 normal Not Available [facility] ([facility]) [address] [place], [address], 06/16/2024 07:14:04 06/15/1906/16/2024 CBC WITH DIFFE RENTI AL/PL ATELE T immature granulocytes 0 % not estab. Not Available [facility] ([facility]) [address], [place], [address], 06/16/2024 07:14:04 06/15/1906/16/2024 CBC WITH DIFFE RENTI AL/PL ATELE T immature grans (abs) 0.0 x10e3 /uL 0.0-0. 1 Not Available [facility] ([facility]) [address] [facility], [place], [address], 06/16/2024 07:14:04 06/15/19 25 06/16/2024 CBC WITH DIFFE RENTI AL/PL ATELE T NRBC ANTHROPOLOGY FACULTY MEMBER Not Available [facility] ([facility]) [address] [facility], [place], [address], 06/16/2024 07:14:04 06/15/1906/16/2024 CBC WITH DIFFE RENTI AL/PL ATELE T hematology comments: ANTHROPOLOGY FACULTY MEMBER Not Available [facility] ([facility]) [address] [facility], [place], [address], 06/16/2024 07:14:04 06/15/1906/16/2024 COMP. METAB OLIC PANEL (14) glucose 80 mg/dL 70-99 normal Not Available [facility] ([facility]) [address] [facility], [place], [address], 06/16/2024 07:14:05 06/15/19 25 06/16/2024 COMP. METAB OLIC PANEL (14) BUN 8 mg/dL 8-27 normal Not Available [facility] ([facility]) [address] [facility], [place], [address], 06/16/2024 07:14:05 06/15/19 25 06/16/2024 COMP. METAB OLIC PANEL (14) creatinine 0.96 mg/dL 0.57-1 .00 normal Not Available [facility] ([facility]) [address] [facility], [place], [address], 06/16/2024 07:14:05 06/15/19 25 06/16/2024 COMP. METAB OLIC PANEL (14) eGFR 61 mL/mi n/1.7 3 >59 normal Not Available [facility] ([facility]) [address] [facility], [place], [address], 06/16/2024 07:14:05 06/15/19 25 06/16/2024 COMP. METAB OLIC PANEL (14) BUN/creatini ne ratio 8 12-28 below low normal Not Available [facility] ([facility]) [address] [facility], [place], [address], 06/16/2024 07:14:05 06/15/19 25 06/16/2024 COMP. METAB OLIC PANEL (14) sodium 141 mmol/ L 134-14 4 normal Not Available [facility] ([facility]) [address] [facility], [place], [address], 06/16/2024 07:14:05 06/15/19 25 06/16/2024 COMP. METAB OLIC PANEL (14) potassium 4.2 mmol/ L 3.5-5. 2 normal Not Available [facility] ([facility]) [address] [place], [address], 06/16/2024 07:14:05 06/15/19 25 06/16/2024 COMP. METAB OLIC PANEL (14) chloride 104 mmol/ L 96-106 normal Not Available [facility] ([facility]) [address] [place], [address], 06/16/2024 07:14:05 06/15/19 25 06/16/2024 COMP. METAB OLIC PANEL (14) carbon dioxide, total 26 mmol/ L 20-29 normal Not Available [facility] ([facility]) [address] [place], [address], 06/16/2024 07:14:05 06/15/19 25 06/16/2024 COMP. METAB OLIC PANEL (14) calcium 9.2 mg/dL 8.7-10 .3 normal Not Available [facility] ([facility]) [address] [facility] [place], [address], 06/16/2024 07:14:05 06/15/19 25 06/16/2024 COMP. METAB OLIC PANEL (14) protein, total 6.5 g/dL 6.0-8. 5 normal Not Available [facility] ([facility]) [address] [facility], [place], [address], 06/16/2024 07:14:05 06/15/1906/16/2024 COMP. METAB OLIC PANEL (14) albumin 4.2 g/dL 3.8-4. 8 normal Not Available [facility] ([facility]) [address] [facility] [place], [address], 06/16/2024 07:14:05 06/15/19 25 06/16/2024 COMP. METAB OLIC PANEL (14) globulin, total 2.3 g/dL 1.5-4. 5 Not Available [facility] ([facility]) [address] [facility] [place], [address], 06/16/2024 07:14:05 06/15/19 25 06/16/2024 COMP. METAB OLIC PANEL (14) bilirubin, total 0.3 mg/dL 0.0-1. 2 normal Not Available [facility] ([facility]) [address] [facility] [place], [address], 06/16/2024 07:14:05 06/15/1906/16/2024 COMP. METAB OLIC PANEL (14) alkaline phosphatase 66 IU/L 44-121 normal Not Available [facility] ([facility]) [address] [facility], [place], [address], 06/16/2024 07:14:05 06/15/19 25 06/16/2024 COMP. METAB OLIC PANEL (14) AST (SGOT) 23 IU/L 0-40 normal Not Available [facility] ([facility]) [address] [place], [address], 06/16/2024 07:14:05 06/15/19 25 06/16/2024 COMP. METAB OLIC PANEL (14) ALT (SGPT) 16 IU/L 0-32 normal Not Available [facility] ([facility]) [address] [place], [address], 06/16/2024 07:14:05 06/15/19 25 06/16/2024 LIPID PANEL cholesterol, total 155 mg/dL 100-19 9 normal Not Available [facility] ([facility]) [address] [place], [address], 06/16/2024 07:14:06 06/15/19 25 06/16/2024 LIPID PANEL triglyceride s 105 mg/dL 0-149 normal Not Available [facility] ([facility]) [address] [place], [address], 06/16/2024 07:14:06 06/15/19 25 06/16/2024 LIPID PANEL HDL cholesterol 52 mg/dL >39 normal Not Available [facility] ([facility]) [address] [place], [address], 06/16/2024 07:14:06 06/15/19 25 06/16/2024 LIPID PANEL VLDL cholesterol armando 19 mg/dL 5-40 Not Available [facility] ([facility]) [address] [place], [address], 06/16/2024 07:14:06 06/15/19 25 06/16/2024 LIPID PANEL LDL chol calc (nih) 84 mg/dL 0-99 Not Available [facility] ([facility]) [address] [place], [address], 06/16/2024 07:14:06 06/15/19 25 06/16/2024 LIPID PANEL 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 IOM (Inst itute of Medic ine). 2009. Dieta ry refer ence intak es for calci um and D. Joe estrada [place]: The [facility] Press . 2. Sobia pacheco MF, Jamin cantrell [place], Edith off-F errar i DANIELSON, et al. Evalu ation , treat ment, and preve ntion of vitam in D defic iency : an Endoc rine Socie ty clini armando pract ice guide line. JCEM. 2010; 96(7) :1911 -30. Not Available [facility] ([facility]) [address] [facility], [place], [address], 06/16/2024 07:14:08 06/15/19 25 06/16/2024 T4, FREE T4,free(dire ct) 1.49 NG/dL 0.82-1 .77 normal Not Available [facility] ([facility]) [address] [facility], [place], [address], 06/16/2024 07:14:09 01/24/20 23 MAMMO , scree paco, digit al, bilat eral [facility] [address], [place] [address] Daniel taylor Name: GÉNESIS JACOME Access ion #: [id number] Sex: F : 1945 7 Dictat ed By: Amilcar Cleaning Attend ing Physic ibis: UYEN RANDALL Orderkoby ng Physic ibis: UYEN RANDALL Exam Date: 2022 10:57 AM Exam Name: MG CLAUDIA Julio IGNACIO BILAT SCREEN Admitt ing Diagno sis(es ): Compar lui: Septem 2021 Histor y: Screen ing. 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 [email or web address] [id number] Not Available 2022 13:00:29 02/13/20 23 XR, chest , 2 view [facility] [address] [place] [address] Patien t Name: MINNIE SPENCEGÉNESIS Access ion #: [id number] Sex: F : 1945 9 Dictat [...] at 2022 15:02: 59 PM Page [address] ([facility]) [address] [place] [address], [address], 02/12/2023 17:29:17 03/05/20 23 03/05/2023 US, breas t, unila teral [facility] [address] [place] [phone] Patien t Name: MINNIE SPENCEGÉNESIS Access ion #: [id number] Sex: F : 1945 4 Dictat [...] at 2022 12:02: 49 PM Page 1 [email or web address] [facility] (Imaging) [address] [place], [address], 03/05/2023 16:08:13 03/05/20 23 03/05/2023 MAMMO , diagn ostic , unila teral [facility] [address] [place] [address] Patien t Name: GÉNESIS JACOME Access ion #: [id number] Sex: F : 1945 4 Dictat [...] at 2022 12:02: 49 PM Page [email or web address] [place] [address] (Imaging) [address] [place], [address], 03/05/2023 16:08:29 02/06/20 24 DEXA, axial skele ton [facility] [address] [place] [id number] Patien t Name: GÉNESIS JACOME Access ion #: [id number] Sex: F : 1945 4 Dictat [...] ------ ------ ------ ------ ----- Page 1 [facility] [address] [address] Patien t Name: GÉNESIS JACOME Access ion #: [id number] Sex: F : 1945 4 Dictat ed By: Sharifa Ibarra Attend ing Physic ibis: [facility] Physic ibis: STUART COOL Exam Date: 2023 10:15 AM Exam Name: XR DEXA AXIAL/ HIP/PE LVIS/S PINE Admitt ing Diagno sis(es ): *FRAX versio n 3.08. Fractu re probab ility calcul ated for an untrea otilio patien t. Fractu re probab ility may be lower if the patien t has receiv ed treatm ent. T-scor e: compar lui by mabel ramsey deviat ion (SD) to a young adult popula tion, matche d for sex and ethnic ity (used for postme namita al women and men >50 years) and [...] at 2023 11:02: 04 AM Page [address] (Imaging) [address] [place], [address], 02/06/2024 15:00:57 04/28/19 25 04/28/2024 XR, cervi armando spine No observ ation record ed. [address] Imaging [address] [facility] [address], [place], [address], 04/28/2024 18:10:51 04/29/19 25 04/29/2024 XR, chest No observ ation record ed. [email or web address] [id number] Not Available 2024 11:54:58 06/25/19 25 06/24/2024 XR, chest No observ ation record ed. [address], [place], [address], 06/24/2024 13:53:05 07/14/19 25 07/13/2024 myoca rdial perfu seven study w/ eject ion fract ion (PROC ) No observ ation record ed. [email or web address] [facility] [address], [place], [address], 07/21/2024 09:53:21 07/23/19 25 07/21/2024 US, echoc ardio gram No observ ation record ed. [address] [facility] [address] [facility] [address], [place], [address], 07/22/2024 09:32:45 08/21/19 25 08/20/2024 NM, hepat obili kevin scan No observ ation record ed. [address], [place], [address], 08/20/2024 13:45:51 09/04/19 25 09/03/2024 CT, abdom en + pelvi s, w/o contr ast No observ ation record ed. [email or web address] [place] [address] [address], [place], [address], 09/03/2024 17:40:27 Result Notes None recorded. Problems Name Problem SNOMED Code Status Onset Date Resolution Date Notes Provider Name and Address Organization Details Recorded Time Disorder of connective tissue 367312117 Active Not Available [facility] 3 14:15:13 Mitral valve disorder 35906539 Active Not Available [facility] 3 14:15:13 Asthma 842467210 Active 2018 Not Available [facility] 3 14:15:13 Gastroesop hageal reflux disease 551321619 Active Not Available [facility] 3 14:15:13 Abnormal weight loss 738447701 Active 2021 Not Available [employer] 3 14:15:14 Pure hyperchole sterolemia 506712410 Active Not Available [facility] 3 14:15:14 Chest pain 13735510 Active 2016 Not Available [facility] 3 14:15:14 Osteopenia 342062906 Active Not Available [facility] 3 14:15:14 Vitamin D deficiency 39717388 Active Not Available [facility] 3 14:15:14 Depressive disorder 69158273 Active Not Available [facility] 3 14:15:14 Disorder of vitamin B12 365749036 Active Not Available [facility] 3 14:15:14 Hypothyroi dism 45117107 Active Not Available [facility] 3 14:15:14 Pulmonary embolism 72844148 Active 2016 Not Available [facility] 3 14:15:14 Essential tremor 377360400 Active 2020 Not Available [facility] 3 14:15:14 Spinal stenosis in cervical region 74980569 Active 2016 Not Available [facility] 3 14:15:14 Effects of high altitude 81052095 Active 2021 Not Available [facility] 3 14:15:14 Pain of left wrist 2449842420855 02 Active 2022 Isabell Paulino CMA null, [place] [facility] [place] [facility] 3 11:53:23 COVID-19 586445790 Active 2022 Sumit Cool MD [address], [place], [address] , [facility] 3 17:52:42 Mammograph y abnormal 545021649 Active 2022 Isabell Paulino CMA null, [place] [facility] 3 17:25:19 Pleuritic pain 9453248 Active 2022 Valencia Yang null, [place] [facility] 3 15:00:28 Cobalamin deficiency 541997880 Active 2023 JEANNETTE Parra null, [place] [facility] 4 10:58:41 Anemia 749378298 Active 2023 Kaykay Huang null, [place] [facility] 4 16:40:10 Senile osteoporos is 22480121 Active 2023 Valencia Yang null[place] [facility] [place] [facility] 4 10:47:56 Osteoporos is 43972760 Active 2023 Isabell Paulino CMA null, [place] [facility] 4 15:30:29 Influenza 9329097 Active 2024 Sumit Cool MD [address], [place], [address] , [place] [facility] 5 11:59:33 Tremor 59377473 Active 2024 Isabell Paulino CMA null[place] [facility] [place] [facility] 5 11:19:47 Acute diarrhea 397767008 Active 2024 Sumit Cool MD [address], [place], [address] , [facility] [employer] 5 12:38:36 Problem Notes None recorded. Procedures Surgical History Date Name Laterality Status Provider Name and Address Organization Details Recorded Time 4 Medicare Wellness CPT Code, subsequent completed Gracie Garcia RN [facility] [employer] [facility] 02/04/2024 10:27:24 3 Medicare Wellness CPT Code, subsequent completed Gracie Garcia RN [facility] [employer] [facility] 01/15/2023 14:43:54 3 Advanced Care Planning completed Gracie Garcia RN [facility] [employer] [facility] 01/15/2023 14:46:04 2 Most Recent Bone Density completed Not Available [facility] 06/20/2022 14:11:48 Imaging Results None recorded. Procedure Notes None recorded. Medical Equipment None [...] Not Available Not Available No t Available Varnville 10 mg-325 mg tablet one every four [...] completed Not Available Not Available Not Available Lomotil 2.5 mg-0.025 mg tablet Take 1 tablet 3 times a day by oral route as needed, for Diarrhea. 2024 active Not Available Not Available Not Avai lable Vitamin D2 1,250 mcg (50,000 unit) capsule [...] completed Not Available Not Available Not Available [place] 5 mg-325 mg tablet Take 1 tablet [...] Updated DateTime 4 157.48 cm 20.3 kg/m2 24324.7 5 g 82 /min 97 [degF] 97 % 97 % 122 mm[Hg] 80 mm[Hg] [employer] 4 14:46:12 Date Recorded Body height Body mass index (BMI) Body weight Heart rate Body temperature Oxygen saturation Oxygen saturation in Arterial blood by Pulse oximetry Systolic blood pressure Diastolic blood pressure Provider Name and Address Organization Details Last Updated DateTime 5 157.48 cm 20.1 kg/m2 18806.1 6 g 54 /min 97 [degF] 91 % 91 % 128 mm[Hg] 64 mm[Hg] [employer] 5 12:14:28 Date Recorded Body height Body mass index (BMI) Body weight Heart rate Body temperature Oxygen saturation Oxygen saturation in Arterial blood by Pulse oximetry Systolic blood pressure Diastolic blood pressure Provider Name and Address Organization Details Last Updated DateTime 4 157.48 cm 20.1 kg/m2 34436.1 6 g 105 /min 97 [degF] 91 % 91 % 128 mm[Hg] 80 mm[Hg] Kaykay Huang [employer] 4 14:53:34 Date Recorded Body height Body mass index (BMI) Body weight Heart rate Body temperature Oxygen saturation Oxygen saturation in Arterial blood by Pulse oximetry Systolic blood pressure Diastolic blood pressure Provider Name and Address Organization Details Last Updated DateTime 3 157.48 cm 20.3 kg/m2 94484.7 5 g 92 /min 97 [degF] 93 % 93 % 112 mm[Hg] 80 mm[Hg] Kaykay Huang [employer] 3 14:34:55 Date Recorded Body height Body mass index (BMI) Body weight Heart rate Body temperature Oxygen saturation Oxygen saturation in Arterial blood by Pulse oximetry Systolic blood pressure Diastolic blood pressure Provider Name and Address Organization Details Last Updated DateTime 4 157.48 cm 19.8 kg/m2 03912.9 8 g 86 /min 97 [degF] 95 % 95 % 130 mm[Hg] 72 mm[Hg] JEANNETTE Parra [place] [employer] [facility] [employer] [facility] 4 10:23:21 Social History Question Answer Notes LastModified by Organization Details LastModified Time Tobacco Smoking Status Never Smoker Not Available [facility] 06/20/2022 14:11:43 Do You Have An Advance Directive? No Info Given Previously [email or web address] Information not available 02/04/2024 Are You Blind Or Do You Have Difficulty Seeing? No [id number] Information not available 06/20/2022 In The 14 Days Before Symptom Onset, Have You Had Close Contact With A Laboratory-conf irmed COVID-19 While That Case Was Ill? No [id number] Information not available 06/20/2022 In The 14 Days Before Symptom Onset, Have You Had Close Contact With A Person Who Is Under Investigation For COVID-19 While That Person Was Ill? No [id number] Information not available 06/20/2022 Are You Deaf Or Do You Have Serious Difficulty Hearing? No MIGRATION.030 [id number] Information not available 06/20/2022 What Type Of Diet Are You Following? REGULAR MIGRATION.030 [id number] Information not available 06/20/2022 Have There Been Any Changes To Your Family Or Social Situation? No [email or web address] Information not available 01/15/2023 What Is The Fluoride Status Of Your Home? Fluoridated MIGRATION.0301 [id number] Information not available 06/20/2022 Are There Any Guns Present In Your Home? Yes MIGRATION.0301 713101 Information not available 06/20/2022 Do You Use Insect Repellent Routinely? No [email or web address] Information not available 01/15/2023 [facility] MIGRATION.0301 [id number] Information not available 06/20/2022 Guns Present In The Home? Yes [email or web address] Information not available 01/15/2023 Are You Able To Care For Yourself? Yes [email or web address] Information not available 01/15/2023 Are You Blind Or Do Yo Have Difficulty Seeing? No [email or web address] Information not available 01/15/2023 Are You Deaf Or Do You Have Serious Difficulty Hearing? No [email or web address] Information not available 01/15/2023 Live Alone Of With Others? With Others [email or web address] Information not available 01/15/2023 Do You Have A Medical Power Of [place] [employer]? No [email or web address] Information not available 01/15/2023 What Was The Date Of Your Most Recent Tobacco Screening? 02/04/2024 [email or web address] Information not available 02/04/2024 Do You Have Any Pets? No [email or web address] Information not available 01/15/2023 What Is Your Relationship Status? MIGRATION.0301 [id number] Information not available 06/20/2022 Do You Use Your Seat Belt Or Car Seat Routinely? Yes MIGRATION.0301 [id number] Information not available 06/20/2022 Do You Have Smoke And Carbon Monoxide Detectors In Your Home? Yes [email or web address] Information not available 01/15/2023 Are You Passively Exposed To Smoke? No [email or web address] Information not available 01/15/2023 Are There Any Smokers In Your House? No [email or web address] Information not available 01/15/2023 Do You Use Sunscreen Routinely? No MIGRATION.0301 [id number] Information not available 06/20/2022 Have You Recently Traveled Abroad? No MIGRATION.0301 315190 Information not available 06/20/2022 Do You Have Difficulty Walking Or Climbing Stairs? No MIGRATION.0301 727292 Information not available 06/20/2022 Sex: Unknown Functional Status Question Answer Note LastModified by Organizat ion Details LastModified Time What is your level of alcohol consumption? Moderate 1 glass wine night Information not available 02/04/2024 Do you or have you ever used smokeless tobacco? Never used smokeless tobacco MIGRATION.42825 [id number] Information not available 06/20/2022 Do you have transportation difficulties? No MIGRATION.91237 30454 Information not available 06/20/2022 Are you able to walk? YESWOREST MIGRATION.62501 69241 Information not available 06/20/2022 Do you have difficulty doing errands alone? No MIGRATION.88900 57024 Information not available 06/20/2022 Are you able to care for yourself? Yes MIGRATION.36019 02033 Information not available 06/20/2022 Do you have difficulty dressing or bathing? No MIGRATION.93383 70893 Information not available 06/20/2022 Do you or have you ever used e-cigarettes or vape? Never used electronic cigarettes MIGRATION.21697 55483 Information not available 06/20/2022 What is your exercise level? Occasional MIGRATION.82961 84522 Information not available 06/20/2022 Mental Status Question Answer Note LastModified by Organizat ion Details LastModified Time Do you have difficulty concentrating, remembering or making decisions? No MIGRATION.[id number] Information not available 06/20/2022 Family History Nothing Reported Notes:Mother 93 Typ e II Diabetes and infirmities Father 73 from Parkinsonism One sister living and in good health Medical History Condition Response BLINDNESS N NERVE DISEASE N RHEUMATIC FEVER N BLADDER PROBLEMS N KIDNEY STONES N MRSA N OTHER # 1 N [...] HAVE YOU BEEN HOSPITALIZED OR SEEN IN [facility] IN THE PAST YEAR ? N [...] high-dose, quadrivalent, PF 3 completed Kaykay bruno [facility] [employer] 01/15/2023 17:26:08 Influenza, high-dose, trivalent, PF 4 completed JEANNETTE Parra [facility] [employer] [facility] 01/30/2024 12:36:15 Influenza, split virus, trivalent, preservative 3 completed Not Available [facility] 06/20/2022 14:18:58 COVID-19, mRNA, LNP-S, bivalent, PF, 30 mcg/0.3 mL dose 2 completed Not Available [facility] 06/20/2022 14:18:58 COVID-19, mRNA, LNP-S, PF, 30 mcg/0.3 mL dose 2 completed Not Available [facility] 06/20/2022 14:18:58 Influenza, split virus, quadrivalent, preservative 1 completed Not Available [facility] 06/20/2022 14:18:59 COVID-19, mRNA, LNP-S, PF, 30 mcg/0.3 mL dose 1 completed Not Available [facility] 06/20/2022 14:18:59 SARS-COV-2 (COVID-19) vaccine, UNSPECIFIED 1 completed Not Available [facility] 06/20/2022 14:18:59 SARS-COV-2 (COVID-19) vaccine, UNSPECIFIED 1 completed Not Available [facility] 06/20/2022 14:18:59 Influenza, high-dose, quadrivalent, PF 0 completed Not Available [facility] 06/20/2022 14:18:59 Influenza, high-dose, trivalent, PF 0 completed Not Available [facility] 06/20/2022 14:18:59 Influenza, high-dose, trivalent, PF 8 completed Not Available [facility] 06/20/2022 14:18:59 Influenza, high-dose, trivalent, PF 7 completed Not Available [facility] 06/20/2022 14:18:59 pneumococcal polysaccharide PPV23 7 completed Not Available [facility] 06/20/2022 14:18:59 Pneumococcal conjugate PCV 13 5 completed Not Available [facility] 06/20/2022 14:18:59 Influenza, split virus, quadrivalent, preservative 5 completed Not Available [facility] 06/20/2022 14:18:59 Influenza, split virus, trivalent, preservative 4 completed Not Available [facility] 06/20/2022 14:18:59 Past Encounters Encounter ID Performer Location Encounter Start Date Encounter Closed Date Diagnosis/Indication Diagnosis SNOMED-CT Code Diagnosis ICD10 Code Diagnosis Note [id number] Sumit Cool MD [facility] Internal [facility] [place] [address] [facility] y , [place] [address] 10/18/2020 00:00:00 10/18/2020 15:09:01 [id number] Sumit Cool MD [facility] [place] [address] [place] [address] y , [place] [address] 04/18/2021 00:00:00 04/18/2021 14:57:45 [id number] Sumit Cool MD [facility] Internal [facility] [place] [address] [place] [address] y , [place] [address] 08/15/2021 00:00:00 08/15/2021 15:23:41 [id number] Sumit Cool MD [facility] Internal Med [place] [address] [place] [address] y , [place] [address] 10/20/2021 00:00:00 10/20/2021 12:28:58 [id number] Sumit Cool MD [facility] [place] [address] [place] [address] y , [place] [address] 12/15/2021 00:00:00 12/15/2021 14:32:38 [id number] Sumit Cool MD [facility] Internal [facility] [place] [address] [place] [address] y , [place] [address] 05/04/2022 00:00:00 05/04/2022 15:22:27 [id number] Sumit Cool MD [facility] Internal [facility] [place] [address] [place] [address] y , [place] [address] 08/17/2022 14:54:00 08/17/2022 15:12:26 Gastroesophageal reflux disease 433489158 K21.9 Pure hypercholesterolemia 157937770 E78.00 Disorder o f connective tissue 313072593 L94.9 Asthma 689937485 J45.90 9 Vitamin D deficiency 347 97858 E55.9 [id number] Sumit Cool MD [facility] Internal [facility] [place] [address] [facility] [place] [address] 01/15/2023 14:15:15 01/15/2023 15:29:26 Adult health examination 153541732 Z00.00 Screening for disorder 800339914 Z13.9 Disorder o f connective tissue 831443147 L94.9 Hypothyroidism 01436687 E03.9 Gastroesop hageal reflux disease 244147628 K21.9 Asthma 492730072 J45.90 9 Pure hypercholesterolemia 706538299 E78.00 [id number] Sumit Cool MD [facility] Internal Med [facility] 24 [address] [facility] 24 [place] [address] 05/21/2023 14:41:39 05/21/2023 15:12:49 Asthma 350607186 J45.909 Gastroesop hageal reflux disease 867122142 K21.9 Hypothyroidism 87175286 E03.9 Pure hypercholesterolemia 714455783 E78.00 Disorder o f connective tissue 868960240 L94.9 Vitamin D deficiency 347 60823 E55.9 [id number] Sumit Cool MD [facility] [address] [facility] [place] [address] 09/17/2023 14:43:04 09/17/2023 15:10:17 Gastroesophageal reflux disease 160206482 K21.9 Pure hypercholesterolemia 006194035 E78.00 Hypothyroidism 61215550 E03.9 Disorder o f connective tissue 368445724 L94.9 Asthma 289345871 J45.90 9 [id number] Sumit Cool MD [facility] Internal Med [facility] [address] [place] [address] [place] [address] 02/04/2024 10:12:56 02/04/2024 10:47:27 Adult health examination 290725041 Z00.00 Screening for disorder 803868369 Z13.9 Gastroesop hageal reflux disease 842599299 K21.9 Hypothyroidism 82935350 E03.9 Pure hypercholesterolemia 971304554 E78.00 Pulmonary embolism 16266 003 I26.99 [id number] Sumit Cool MD [facility] Primary Care [place] gaytan [address] [facility] [address] [facility] [place] [address] 06/02/2024 11:54:17 06/02/2024 12:52:42 Disorder of connective tissue 546713599 L94.9 Gastroesop hageal reflux disease 489099889 K21.9 Essential tremor 5236558 09 G25.0 Pure hypercholesterolemia 800019015 E78.00 Osteoporosis 84283189 M8 1.0 Health Concerns Section Related Observation LastModified by Organization Detai ls LastModified Time None Recorded Concern Status LastModified by Organization Details LastModified Time None Recorded Advance Directives Directive N: Info given previously Payers Encounter Date Sequence Insurance Name Policy Number Policy Alcantara Covered Member ID Alcantara Member ID Guarantor Name 01/15/2023 1 [employer] (MEDICARE REPLACEMENT/ ADVANTAGE - PPO) [id number] Génesis Annlivan [id number] Génesis Condon 05/21/2023 1 [employer] (MEDICARE REPLACEMENT/ ADVANTAGE - PPO) [id number] Génesis Annlivan [id number] Génesis Annlivan 09/17/2023 1 [employer] (MEDICARE REPLACEMENT/ ADVANTAGE - PPO) [id number] Génesis Annlivan [id number] Génesis Annlivan 02/04/2024 1 [employer] (MEDICARE REPLACEMENT/ ADVANTAGE - PPO) [id number] Génesis Annlivan [id number] Génesis Annlivan 06/02/2024 1 [employer] (MEDICARE REPLACEMENT/ ADVANTAGE - PPO) [id number] Génesis Annlivan [id number] Génesis Condon Notes Date Note Type Note [...] 7.5 MG (TABLET - ORAL) DailyVaccination and Gubobciqpulw7378-59 Yjqiwhknj1134-05 Covid Jnxeqs4659-78 Pneumovax 684695-53 Prevnar 13Surgical HistoryRt. Shoulder Injection, Cervical Laminectomy, Epigastric Hernia RepairPreventative Testing Confirmed by Our Vexbbuq8412/21/2022 LETTER AGOANCCVC05/01/2023 ALBUMIN 3.7 G/DL12/21/2021 MAMMOGRAM / LETTER SXXCOTOEXTUKK82/06/2021 COLOGUARD DEXA SCAN01/12/2004 COLONOSCOPY 01/11/2014Social HistoryDoes not smokeDrinks sociallyWorks as a school teacherFamily HistoryMother 93 Type II Diabetes and infirmitiesFather 73 from ParkinsonismOne sister living and in good health Sumit Cool MD [address], [place], [address], [place] [facility] 01/15/2023 14:56:21 4 text/html Patient Name: Génesis [...] MG (TABLET - ORAL) Daily Vaccination and Tkwfopyszmox5972-51 Fejsjkepo1349-80 Covid Xsvtlr4063-52 Sabfodsqe0324-04 Prevnar 13 Gc Surgical Mfutfpz7992-58 Rt. Shoulder Bysodvtlu3072-50 Cervical Fkdmklrxgvy5826-20 Epigastric Hernia Repair Preventative Testing Confirmed by Our Obqhrko4803/05/2023 MAMMOGRAM WUNFKSCJE26/01/2023 ALBUMIN 3.7 G/DL N106/12/2020 JBFJQIZLWIPMM17/06/2021 COLOGUARD 4005/03/2018 DEXA SCAN01/12/2004 COLONOSCOPY 01/11/2014 Social HistoryDoes not smokeDrinks sociallyWorks as a school aide Family HistoryMother 93 Type II Diabetes and infirmitiesFather 73 from ParkinsonismOne sister living and in good health Sumit Cool MD [address] [facility], [facility] [address], [place], [address], [facility] [employer] 05/21/2023 15:08:07 4 text/html Patient Name: Génesis CondonDate Of Service: Saturday ( 09.17.2023 ): 1945 [...] MG (TABLET - ORAL) Daily Vaccination and Wioeevlyvuvq8586-01 Zoiczlrve5612-26 Covid Fjfprh8064-95 Qtpvaabsq4097-37 Prevnar 13 Gc Surgical Iarqurh8460-59 Rt. Shoulder Cjqajsjgp3476-34 Cervical Xazxlycvkpd0860-72 Epigastric Hernia Repair Preventative Heklauo9706/27/2023 OFFWCQVWJ39/15/2024 ALBUMIN 3.7 G/DL03/05/2023 MAMMOGRAM SVSSVUECTFBNF14/06/2021 COLOGUARD DEXA SCAN01/12/2004 COLONOSCOPY 01/11/2014 Social HistoryDoes not smokeDrinks sociallyWorks as a school aide Family HistoryMother 93 Type II Diabetes and infirmitiesFather 73 from ParkinsonismOne sister living and in good health Sumit Cool MD [address] [facility], [facility] [address], [place], [address], [facility] [employer] 09/17/2023 15:07:19 text/html Patient Name: Génesis Murillo Of Service: [...] Vaccination and Immunization( ) 2023- INFLUENZA( ) 2014- PREVNAR 13 GC( ) 2016- PNEUMOVAX(X) 2020- COVID PFIZER( ) 2023- PREVNAR 20 Surgical Fxsijxw6114-61 Rt. Shoulder Wizbqqkmc3213-09 Cervical Zmxtczdqqcc6357-15 Epigastric Hernia Repair Preventative Testing( ) 10/08/2023 Albumin 4.1 G/DL( ) 06/27/2023 Optometry( ) 03/05/2023 Mammogram 03/05/2025( ) 04/11/2021 Ophthalmology(X) 04/27/2020 Cologuard 04/27/2023(X) 05/03/2018 DEXA Scan 05/03/2020 Social HistoryDoes not smokeDrinks sociallyWorks as a school aide Family HistoryMother 93 Type II Diabetes and [...] MG/DLHDL CHOLESTEROL 64 >39 MG/DLLDL CHOL CALC ([facility]) 78 0-99 MG/DL Sumit Cool MD [address] [facility], [facility] [address], [place], [address], [facility] [employer] 02/04/2024 10:40:23 5 text/html Patient Name: Génesis CondonDate Of Service: Saturday ( 06.02.2024 ): 1945 [...] COVID PFIZER( ) 2023- PREVNAR 20 Surgical Unlhxmb3061-73 Rt. Shoulder Bnebycxgr8900-17 Cervical Ueupaoblhlb6818-31 Epigastric Hernia Repair Preventative Testing( ) 02/18/2024 Cologuard 02/17/2027( ) 02/06/2024 Albumin 4.2 G/DL( ) 02/06/2024 DEXA Scan 02/05/2026( ) 06/27/2023 Optometry( ) 03/05/2023 Mammogram 03/05/2025( ) 04/11/2021 Ophthalmology Social HistoryDoes not smokeDrinks sociallyWorks as a school aide Family HistoryMother 93 Type II Diabetes and [...] 9.4 8.4-10.2 MG/DL Sumit Cool MD [address] [facility], [facility] [address], [place], [address], [place] [facility] [employer] [facility] 06/02/2024 12:22:58 OBGyn Episode No OBEpisode recorded.
--- OUTSIDE RECORDS SUMMARY | 2024-09-17 16:19 | XMS_ITS | Clinical Summary ---
Author Organization [facility] Address [address] [facility] [address] Phone Care Team Providers Care Skilled Helper Name Role Phone Unavailable Primary Care Provider [...] Encounters Date Type Department Care Team Description 09/15/2024 External Device Data STL ABSTRACTION Provider, Abstract 09/10/2024 External Device Data STL ABSTRACTION Provider, Abstract 09/09/2024 External Device Data ST[place] ABSTRACTION Provider, [...] Elsie Phelps Mental illness Daughter 2 Cathie Annlivan Migraines Daughter 2 Cathie Condon Mental illness [...] Sex Assigned at Female 04/27/2024 12:34 PM GAMBLING BOX PERSON Legal Sex Female 11:17 AM GAMBLING BOX PERSON Gender Identity Female 04/27/2024 12:34 PM GAMBLING BOX PERSON Sexual Orientation Straight 04/27/2024 12 :34 PM GAMBLING BOX PERSON Last Filed Vital Signs Vital Sign Reading Time Taken Comments Blood Pressure 112/74 05/05/2024 1:48 PM GAMBLING BOX PERSON Pulse - - Temperature 36.6 C (97.9 F) 05/05/2024 1:48 PM GAMBLING BOX PERSON Respiratory Rate 16 05/05/2024 1:48 PM GAMBLING BOX PERSON Oxygen Saturation - - Inhaled Oxygen Concentration - - Weight 50.8 kg (112 lb 1.6 oz) 05/05/2024 1:48 P M GAMBLING BOX PERSON Height 154.9 cm (5' 1) 05/05/2024 1:48 PM GAMBLING BOX PERSON Body Mass Index 21.18 05/05/2024 1:48 PM GAMBLING BOX PERSON Plan of Treatment Health Maintenance Due Date Last Done Comments DTAP/TDAP/TD VACCINES (1 - Tdap) 10/23/1966 ZOSTER VACCINE (1 of 2) 10/23/1966 RSV VACCINE (60+ or ) (1 - 1-dose 75+ series) 10/23/2022 OSTEOPOROSIS SCREENING 02/05/2029 , 08/28/2021, 08/28/2021, Additional history exists PNEUMOCOCCAL VACCINE 50+ YEARS Completed 01/29/2017 , 09/17/2014 INFLUENZA VACCINE Completed 01/30/2024, , 01/19/2021, Additional history exists Insurance AETNA PPO [facility]
--- NOTE | 2024-09-17 17:24 | ED.NAVMDI ---
HPI - Nausea/Vomiting/Diarrhea General Chief complaint: Nausea/Vomiting/Diarrhea Stated complaint: r/o SBO Time Seen by Provider: 09/17/24 17:24 Focused HPI: This is a 78 year old female that presents to the ER for constipation. Reports she is currently prepping for a colonoscopy. Reports she has taken her laxatives and has had nausea, vomiting, abdominal discomfort. She has not had a bowel movement. Sent to the ER to rule out obstruction. Reports history of hernia surgery. GENERAL: Well-appearing, thin, and in no acute distress. HEAD: Normocephalic, atraumatic. CHEST: Clear to auscultation. ?No respiratory distress. HEART: Regular rate and rhythm.? NEURO: ?Alert and oriented x3. Patient screened in triage and initial orders placed.? ?Additional care and disposition to be based upon?diagnostic testing and treatment. Related Data Home Medications ?Medication ?Instructions ?Recorded ?Confirmed ?Last Taken ?Type alendronate 70 mg tablet 70 mg PO WEEKLY 08/10/24 09/16/24 08/12/24 History alprazolam 0.25 mg tablet 0.25 mg PO TID PRN anxiety 08/10/24 09/18/24 09/17/24 History aspirin 81 mg tablet,delayed 81 mg PO DAILY 08/10/24 09/18/24 09/17/24 History release (Adult Aspirin Regimen) atorvastatin 20 mg tablet (Lipitor) 20 mg PO DAILY 08/10/24 09/18/24 09/17/24 History colchicine 0.6 mg capsule 0.6 mg PO DAILY 08/10/24 09/18/24 09/17/24 History fluoxetine 40 mg capsule 40 mg PO DAILY 08/10/24 09/18/24 09/17/24 History hydroxychloroquine 200 mg tablet 200 mg PO DAILY 08/10/24 09/18/24 09/17/24 History (Plaquenil) lansoprazole 30 mg capsule,delayed 30 mg PO DAILY 08/10/24 09/18/24 09/17/24 History release levothyroxine 100 mcg capsule 100 mcg PO DAILY 08/10/24 09/18/24 09/17/24 History pantoprazole 40 mg tablet,delayed 40 mg PO QAM 08/10/24 09/18/24 09/17/24 History release carbidopa 10 mg-levodopa 100 mg 1 tablet PO TID 09/03/24 09/16/24 Unknown History tablet (Sinemet) carbidopa 25 mg-levodopa 100 mg 1 tablet PO TID 09/16/24 09/18/24 09/17/24 History tablet colestipol 1 gram tablet 1 g PO ONCE PRN diarrhea 09/16/24 09/18/24 09/17/24 History Allergies Allergy/AdvReac Type Severity Reaction Status Date / Time No Known Allergies Allergy Mild Verified 09/18/24 09:26 [facility] Past Medical History Medical History (Updated 09/18/24 @ 11:49 by Fanny García PA-C) Abnormal CT scan, colon Autoimmune disease Osteoporosis Gallbladder disorder Crohn disease Arthritis Cholelithiasis Pulmonary embolism, bilateral Primary Sjogren's syndrome Hypercholesterolemia History of ventral hernia Hiatal hernia with GERD Acquired hypothyroidism Surgical History Surgical History Hx of neck surgery 2017 History of repair of hiatal hernia Family History Family History (Updated 09/16/24 @ 13:24 by Dawit Sarmiento MA) Mother Family history of type 2 diabetes mellitus Father Heart disease Parkinson disease Social History Social History (Updated 09/16/24 @ 13:25 by Dawit Sarmiento MA) Smoking status: Never smoker Alcohol intake: current Substance use: never Substance use type: does not use Current Housing: Decline to Answer Concerned About Future Housing: Decline to Answer Difficulty Paying Gas/Electric Bills: Decline to Answer Difficulty Paying for Meds: Decline to Answer Currently Unemployed: Decline to Answer Education: Decline to Answer Difficulty w/ Childcare or Family Care: Decline to Answer Living arrangements: with family Occupation/Education: retired Spiritual care concerns: No Agree to blood products: Yes Course Vital Signs Vital signs: Vital Signs Temperature 97.6 F 09/17/24 16:17 Pulse Rate 89 09/17/24 16:17 Respiratory Rate 16 09/17/24 16:17 Blood Pressure 94/75 L 09/17/24 16:17 Pulse Oximetry 98 09/17/24 16:17 Temperature 97.6 F 09/17/24 16:17 Pulse Rate 89 09/17/24 16:17 Respiratory Rate 16 09/17/24 16:17 Blood Pressure 94/75 L 09/17/24 16:17 Pulse Oximetry 98 09/17/24 16:17 MDM - Nausea/Vomiting/Diarrhea MDM Narrative Medical decision making narrative: Patient left after medical screening exam and before any further evaluation or management Discharge Plan Discharge Clinical Impression: Abdominal pain Qualifiers: Abdominal location: unspecified location Qualified Code(s): R10.9 - Unspecified abdominal pain Nausea and vomiting Qualifiers: Vomiting type: unspecified Qualified Code(s): R11.2 - Nausea with vomiting, unspecified Patient Disposition: Elopement After Seen by Prov Patient Language: Welsh Prescriptions: No Action lansoprazole 30 mg capsule,delayed release(DR/EC) 30 mg PO DAILY Patient Comments: Pt not taking aspirin [Adult Aspirin Regimen] 81 mg tablet,delayed release (DR/EC) 81 mg PO DAILY alendronate 70 mg tablet 70 mg PO WEEKLY atorvastatin [Lipitor] 20 mg tablet 20 mg PO DAILY alprazolam 0.25 mg tablet 0.25 mg PO TID PRN (Reason: anxiety) colchicine 0.6 mg capsule 0.6 mg PO DAILY fluoxetine 40 mg capsule 40 mg PO DAILY hydroxychloroquine [Plaquenil] 200 mg tablet 200 mg PO DAILY levothyroxine 100 mcg capsule 100 mcg PO DAILY pantoprazole 40 mg tablet,delayed release (DR/EC) 40 mg PO QAM carbidopa-levodopa [Sinemet] 10-100 mg tablet 1 tablet PO TID ondansetron 4 mg tablet,disintegrating 4 mg PO Q6H PRN (Reason: nausea and vomiting) Qty: 14 0RF carbidopa-levodopa 25-100 mg tablet 1 tablet PO TID colestipol 1 gram tablet 1 g PO ONCE PRN (Reason: diarrhea) Follow-up/Referrals: Travon,Sumit Gibbons MD [Primary Care Provider] -
--- OUTSIDE RECORDS SUMMARY | 2024-09-17 19:58 | XMS_ITS | Clinical Summary ---
Author Organization [facility] Address [address] [place] [address] Care Team Providers Care Garment Finisher Name Role Phone Sumit Cool MD Primary Care Provider [phone] Jared Cruz MD Unavailable Unavailable Dk Adams MD Unavailable Source Comments [facility],non-owned Affiliates and Associated Physician Practices is amultiple site organization consisting of ambulatory clinics and hospital sitesin [place], [place], [place] and [place]. This disclosure is being madepursuant to the Care Everywhere program and may not contain all information available regarding this patient. Last updated 18.[facility] Allergies No known active allergies Medications * [...] on file Legal Sex Female 12:40 PM OFFICIAL GREETER Gender Identity Not on file Sexual Orientation [...] Most Recently Relevant to Health Maintenance Insurance [facility] MANAGED MEDICARE ADV AETNA MEDICARE ADV SELF PAY NO INSURANCE Member Subscriber Plan / Payer (Ef fective for All Dates) Name:Génesis Condon Member ID:Not on file Relation to Subscriber:Not on file Name:GÉNESIS CONDON Subscriber ID:Not on file (Home) Address: [address] [place] [place] [id number] Payer ID:Not on file Group ID:Not on file Type:Self Pay Address: [place], [place] Care Teams Garment Finisher Relationship Specialty Start Date End Date Sumit Cool MD [address] [place] [address] [address] [place] [address] PCP - General Internal Medicine 05/03/17 Jared Cruz MD [address] [place] [address] [address] [place] [address] Rheumatology 06/02/18 [place] [address] [address] Pulmonary Disease 06/02/18
--- OUTSIDE RECORDS SUMMARY | 2024-09-17 19:58 | XMS_ITS | Clinical Summary ---
Author Organization [facility] Address [address] [facility] [place] [address] Phone Care Team Providers Care Faa Certified Powerplant Mechanic Name Role Phone Unavailable Primary Care Provider [...] Sex Assigned at Female 04/27/2024 12:34 PM PENSION ADMINISTRATOR Legal Sex Female 11:17 AM PENSION ADMINISTRATOR Gender Identity Female 04/27/2024 12:34 PM PENSION ADMINISTRATOR Sexual Orientation Straight 04/27/2024 12 :34 PM PENSION ADMINISTRATOR Last Filed Vital Signs Vital Sign Reading Time Taken Comments Blood Pressure 112/74 05/05/2024 1:48 PM PENSION ADMINISTRATOR Pulse - - Temperature 36.6 C (97.9 F) 05/05/2024 1:48 PM PENSION ADMINISTRATOR Respiratory Rate 16 05/05/2024 1:48 PM PENSION ADMINISTRATOR Oxygen Saturation - - Inhaled Oxygen Concentration - - Weight 50.8 kg (112 lb 1.6 oz) 05/05/2024 1:48 P M PENSION ADMINISTRATOR Height 154.9 cm (5' 1) 05/05/2024 1:48 PM PENSION ADMINISTRATOR Body Mass Index 21.18 05/05/2024 1:48 PM PENSION ADMINISTRATOR Plan of Treatment Health Maintenance Due Date Last Done Comments DTAP/TDAP/TD VACCINES (1 - Tdap) 10/23/1966 ZOSTER VACCINE (1 of 2) 10/23/1966 RSV VACCINE (60+ or ) (1 - 1-dose 75+ series) 10/23/2022 OSTEOPOROSIS SCREENING 02/05/2029 , 08/28/2021, 08/28/2021, Additional history exists PNEUMOCOCCAL VACCINE 50+ YEARS Completed 01/29/2017 , 09/17/2014 INFLUENZA VACCINE Completed 01/30/2024, , 01/19/2021, Additional history exists Insurance AETNA PPO [facility]
== END 2024-09-17 18:18 | disposition left against medical advice (07) ==
PROVIDERS: Emergency Provider Physician Assistant; PCP Internal Medicine
DX: R10.9 Unspecified abdominal pain (principal); R11.2 Nausea with vomiting, unspecified; E78.00 Pure hypercholesterolemia, unspecified; E03.9 Hypothyroidism, unspecified; K21.9 Gastro-esophageal reflux disease without esophagitis; K50.90 Crohn's disease, unspecified, without complications; M35.00 Sjogren syndrome, unspecified; M81.0 Age-related osteoporosis without current pathological fracture; M19.90 Unspecified osteoarthritis, unspecified site; Z86.711 Personal history of pulmonary embolism; M35.9 Systemic involvement of connective tissue, unspecified; Z79.82 Long term (current) use of aspirin; Z79.899 Other long term (current) drug therapy
CPT/HCPCS: 99281

== ENCOUNTER 2024-09-18 01:22 | Day surgery (SDC) | payer MEDICARE, SELFPAY ==
[2024-09-16 14:41] VITALS: BMI 19.5
--- OUTSIDE RECORDS SUMMARY | 2024-09-18 01:24 | XMS_ITS | Clinical Summary ---
Author Organization [facility] Address [address] [facility] [place] [address] Phone Care Team Providers Care Career Portals Teacher Name Role Phone Unavailable Primary Care Provider [...] Sex Assigned at Female 04/27/2024 12:34 PM OCEAN FORWARDER Legal Sex Female 11:17 AM OCEAN FORWARDER Gender Identity Female 04/27/2024 12:34 PM OCEAN FORWARDER Sexual Orientation Straight 04/27/2024 12 :34 PM OCEAN FORWARDER Last Filed Vital Signs Vital Sign Reading Time Taken Comments Blood Pressure 112/74 05/05/2024 1:48 PM OCEAN FORWARDER Pulse - - Temperature 36.6 C (97.9 F) 05/05/2024 1:48 PM OCEAN FORWARDER Respiratory Rate 16 05/05/2024 1:48 PM OCEAN FORWARDER Oxygen Saturation - - Inhaled Oxygen Concentration - - Weight 50.8 kg (112 lb 1.6 oz) 05/05/2024 1:48 P M OCEAN FORWARDER Height 154.9 cm (5' 1) 05/05/2024 1:48 PM OCEAN FORWARDER Body Mass Index 21.18 05/05/2024 1:48 PM OCEAN FORWARDER Plan of Treatment Health Maintenance Due Date Last Done Comments DTAP/TDAP/TD VACCINES (1 - Tdap) 10/23/1966 ZOSTER VACCINE (1 of 2) 10/23/1966 RSV VACCINE (60+ or ) (1 - 1-dose 75+ series) 10/23/2022 OSTEOPOROSIS SCREENING 02/05/2029 , 08/28/2021, 08/28/2021, Additional history exists PNEUMOCOCCAL VACCINE 50+ YEARS Completed 01/29/2017 , 09/17/2014 INFLUENZA VACCINE Completed 01/30/2024, , 01/19/2021, Additional history exists Insurance AETNA PPO [facility]
--- OUTSIDE RECORDS SUMMARY | 2024-09-18 01:24 | XMS_ITS | Clinical Summary ---
Author Organization [facility] Address [address] [facility] [place] [address] Care Team Providers Care Jewelry Drill Operator Name Role Phone Sumit Cool MD Primary Care Provider [phone] Jared Cruz MD Unavailable Unavailable Dk Adams MD Unavailable Source Comments [facility],non-owned Affiliates and Associated Physician Practices is amultiple site organization consisting of ambulatory clinics and hospital sitesin [place], [place], [place] and [place]. This disclosure is being madepursuant to the Care Everywhere program and may not contain all information available regarding this patient. Last updated 18.[facility] Allergies No known active allergies Medications * [...] on file Legal Sex Female 12:40 PM RECRUITING ADMINISTRATOR Gender Identity Not on file Sexual Orientation [...] Most Recently Relevant to Health Maintenance Insurance [facility] MANAGED MEDICARE ADV AETNA MEDICARE ADV SELF PAY NO INSURANCE Member Subscriber Plan / Payer (Ef fective for All Dates) Name:Génesis Condon Member ID:Not on file Relation to Subscriber:Not on file Name:GÉNESIS CONDON Subscriber ID:Not on file (Home) Address: [address] [place] [phone] Payer ID:Not on file Group ID:Not on file Type:Self Pay Address: [place], [place] Care Teams Jewelry Drill Operator Relationship Specialty Start Date End Date Sumit Cool MD [address] [place] [address] [address] [place] [address] PCP - General Internal Medicine 05/03/17 Jared Cruz MD [address] [place] [address] [address] [place] [address] Rheumatology 06/02/18 [place] [address] [address] Pulmonary Disease 06/02/18
--- OUTSIDE RECORDS SUMMARY | 2024-09-18 01:24 | XMS_ITS | Patient Health Record ---
Author Organization [facility] Address [address] [facility] [address] [place] [address] Care Team Providers Care Laboratory Director Name Role Phone Kb Mobley Unavailable [phone] Allergies No Known Allergies Reason For Referral [...] Pilocarpine HCl 1 TID *Pick strength-form from [employer] for eRX* 06/04/2007 Active Problems Problem Type SNOMED Code ICD Code Onset Dates Problem Status W/U Status Risk Notes Problem Osteoarthritis (815263185) Unspecified osteoarthritis, unspecified site (M19.90) 5 Active confirmed Plan Of Treatment No Information Insurance Providers Payer Name Payer Address Payer Phone Subscriber Number Group Number Insured Name Patient Relationship to Insured Coverage Start Date Coverage End Date DO NOT USE - [employer] [address] [address] [place], [place] [id number] Génesis Condon Self - patient is the insured 5 [employer] [address] [place], [place] [id number] Génesis Condon Self - patient is the insured 1
[2024-09-18 09:28] VITALS: BP 134/90; PULSE 95; RESP 19; TEMP 36.2; O2SAT 95
[2024-09-18] MEDS: LACTATED RINGERS 1,000 ML 150 ML IV CONT (09:43)
--- NOTE | 2024-09-18 09:44 | P.PNAN_ITS ---
Anes - Initial Pre Proc Eval Procedure: Operation Date: 09/18/24 13:30 Proposed Procedures p Colonoscopy - Wilfredo Arnold MD Date/Time: 09/18/24 09:44 Surgeon: Wilfredo Arnold MD Pre Op Diagnosis: Noninfective gastroenteritis and colitis, unspecif Patient Data Age: 78 Gender: F Height: 1.52 m Weight: 36.6 kg Last Vital Signs Temp 36.2 C L 09/18/24 09:28 Pulse 95 09/18/24 09:28 Resp 19 09/18/24 09:28 BP 134/90 09/18/24 09:28 Pulse Ox 95 09/18/24 09:28 O2 Del Method Room Air 09/18/24 09:28 Allergies Allergy/AdvReac Type Severity Reaction Status Date / Time No Known Allergies Allergy Mild Verified 09/18/24 09:26 Home Medications ?Medication ?Instructions ?Recorded ?Confirmed ?Type alendronate 70 mg tablet 70 mg PO WEEKLY 08/10/24 09/16/24 History alprazolam 0.25 mg tablet 0.25 mg PO TID PRN anxiety 08/10/24 09/18/24 History aspirin 81 mg tablet,delayed 81 mg PO DAILY 08/10/24 09/18/24 History release (Adult Aspirin Regimen) atorvastatin 20 mg tablet (Lipitor) 20 mg PO DAILY 08/10/24 09/18/24 History colchicine 0.6 mg capsule 0.6 mg PO DAILY 08/10/24 09/18/24 History fluoxetine 40 mg capsule 40 mg PO DAILY 08/10/24 09/18/24 History hydroxychloroquine 200 mg tablet 200 mg PO DAILY 08/10/24 09/18/24 History (Plaquenil) lansoprazole 30 mg capsule,delayed 30 mg PO DAILY 08/10/24 09/18/24 History release levothyroxine 100 mcg capsule 100 mcg PO DAILY 08/10/24 09/18/24 History pantoprazole 40 mg tablet,delayed 40 mg PO QAM 08/10/24 09/18/24 History release carbidopa 10 mg-levodopa 100 mg 1 tablet PO TID 09/03/24 09/16/24 History tablet (Sinemet) ondansetron 4 mg disintegrating 4 mg PO Q6H PRN nausea and 09/03/24 09/16/24 Rx tablet vomiting #14 tabs carbidopa 25 mg-levodopa 100 mg 1 tablet PO TID 09/16/24 09/18/24 History tablet colestipol 1 gram tablet 1 g PO ONCE PRN diarrhea 09/16/24 09/18/24 History Patient hx anesthesia problems: none Family hx anesthesia problems: none Results Review: All pre-operative results and documents have been reviewed as part of the pre- operative evaluation. [facility] Past Medical History Medical History (Updated 09/16/24 @ 14:03 by Katie Del Real) Autoimmune disease Osteoporosis Gallbladder disorder Crohn disease Arthritis Cholelithiasis Pulmonary embolism, bilateral Primary Sjogren's syndrome Hypercholesterolemia History of ventral hernia Hiatal hernia with GERD Acquired hypothyroidism Surgical History Surgical History Hx of neck surgery 2017 History of repair of hiatal hernia Family History Family History (Updated 09/16/24 @ 13:24 by Dawit Sarmiento MA) Mother Family history of type 2 diabetes mellitus Father Heart disease Parkinson disease Social History Social History (Updated 09/16/24 @ 13:25 by Dawit Sarmiento MA) Smoking status: Never smoker Alcohol intake: current Substance use: never Substance use type: does not use Current Housing: Decline to Answer Concerned About Future Housing: Decline to Answer Difficulty Paying Gas/Electric Bills: Decline to Answer Difficulty Paying for Meds: Decline to Answer Currently Unemployed: Decline to Answer Education: Decline to Answer Difficulty w/ Childcare or Family Care: Decline to Answer Living arrangements: with family Occupation/Education: retired Spiritual care concerns: No Agree to blood products: Yes Anes - Eval Final PreProcedure Day of Procedure 09/18/24 09:44 Patient weight: normal Heart: regular rate and rhythm Lungs: clear to auscultation and normal air movement Airway: Mallampati scale class II Neurological: alert and oriented Last oral intake: >/= 8 hours ASA classification: III Emergent: no Anesthetic plan: proceed Anesthesia type and monitoring: general GIVS and standard monitoring Results Review: All pre-operative results and documents have been reviewed as part of the pre- operative evaluation. Informed Consent: The patient's anesthetic plan and its attendant risks and benefits were discussed with the patient/family/POA. Questions were solicited and answers provided to the satisfaction of the patient/family/POA.
--- NOTE | 2024-09-18 10:06 | PM.HPGS ---
History of Present Illness History of Present Illness Consent: Risks, benefits, and alternatives have been discussed and questions answered. Patient agrees to proceed with procedure. Chief complaint: Noninfective gastroenteritis and colitis, unspecif Narrative: Génesis Condon is a 78 year old female here for colonoscopy, recent ct scan showed thickening colon possible colitis, h/o diarrhea. Last colonoscopy ~ 10 years ago Review of Systems Review of Systems: All systems reviewed & are unremarkable except as noted in HPI and below PMFSH Past Medical History Medical History (Updated 09/18/24 @ 10:07 by Wilfredo Arnold MD) Abnormal CT scan, colon Autoimmune disease Osteoporosis Gallbladder disorder Crohn disease Arthritis Cholelithiasis Pulmonary embolism, bilateral Primary Sjogren's syndrome Hypercholesterolemia History of ventral hernia Hiatal hernia with GERD Acquired hypothyroidism Surgical History Surgical History Hx of neck surgery 2017 History of repair of hiatal hernia Family History Family History (Updated 09/16/24 @ 13:24 by Dawit Sarmiento MA) Mother Family history of type 2 diabetes mellitus Father Heart disease Parkinson disease Social History Social History (Updated 09/16/24 @ 13:25 by Dawit Sarmiento MA) Smoking status: Never smoker Alcohol intake: current Substance use: never Substance use type: does not use Current Housing: Decline to Answer Concerned About Future Housing: Decline to Answer Difficulty Paying Gas/Electric Bills: Decline to Answer Difficulty Paying for Meds: Decline to Answer Currently Unemployed: Decline to Answer Education: Decline to Answer Difficulty w/ Childcare or Family Care: Decline to Answer Living arrangements: with family Occupation/Education: retired Spiritual care concerns: No Agree to blood products: Yes Meds Home Medications and Allergies Home Medications ?Medication ?Instructions ?Recorded ?Confirmed ?Type alendronate 70 mg tablet 70 mg PO WEEKLY 08/10/24 09/16/24 History alprazolam 0.25 mg tablet 0.25 mg PO TID PRN anxiety 08/10/24 09/18/24 History aspirin 81 mg tablet,delayed 81 mg PO DAILY 08/10/24 09/18/24 History release (Adult Aspirin Regimen) atorvastatin 20 mg tablet (Lipitor) 20 mg PO DAILY 08/10/24 09/18/24 History colchicine 0.6 mg capsule 0.6 mg PO DAILY 08/10/24 09/18/24 History fluoxetine 40 mg capsule 40 mg PO DAILY 08/10/24 09/18/24 History hydroxychloroquine 200 mg tablet 200 mg PO DAILY 08/10/24 09/18/24 History (Plaquenil) lansoprazole 30 mg capsule,delayed 30 mg PO DAILY 08/10/24 09/18/24 History release levothyroxine 100 mcg capsule 100 mcg PO DAILY 08/10/24 09/18/24 History pantoprazole 40 mg tablet,delayed 40 mg PO QAM 08/10/24 09/18/24 History release carbidopa 10 mg-levodopa 100 mg 1 tablet PO TID 09/03/24 09/16/24 History tablet (Sinemet) ondansetron 4 mg disintegrating 4 mg PO Q6H PRN nausea and 09/03/24 09/16/24 Rx tablet vomiting #14 tabs carbidopa 25 mg-levodopa 100 mg 1 tablet PO TID 09/16/24 09/18/24 History tablet colestipol 1 gram tablet 1 g PO ONCE PRN diarrhea 09/16/24 09/18/24 History Allergies Allergy/AdvReac Type Severity Reaction Status Date / Time No Known Allergies Allergy Mild Verified 09/18/24 09:26 Vital Signs Vital Signs - 24 hr 09/18/24 09:28 Temperature 97.2 F L Pulse Rate 95 Respiratory Rate 19 Blood Pressure 134/90 Pulse Oximetry 95 Oxygen Delivery Room Air Exam Const: General: comfortable and no acute distress HENMT: Face/Nose/Sinus: Normal nares present Eyes: General: appearance normal, both eyes and all related structures Neck: Neck: no JVD Resp: Auscultation: clear to auscultation bilaterally Cardio: Rate: regular rate Rhythm: regular rhythm GI: Inspection: non-distended GI Palp: Yes Soft to palpation Skin: General skin exam: normal color Neuro: Speech: normal speech Extrem: General: normal to inspection Psych: Mental Status: mental status grossly normal Assessment and Plan Assessment and plan (1) Abnormal CT scan, colon: Code(s): R93.3 - Abnormal findings on diagnostic imaging of other parts of digestive tract Status: Acute Assessment and Plan: colonoscopy
[2024-09-18 10:21] VITALS: BP 86/58; PULSE 80; RESP 19; O2SAT 99
--- NOTE | 2024-09-18 10:22 | S_PTH ---
PATIENT: Génesis Condon LOC: [facility] Tian#:[id number] AGE/SX: 78/F ROOM: RE09/18/[address]: Wilfredo Arnold MD : 1945 BED: DIS: 09/18/2024 SPEC #: [id number] RECD: 09/18/24 11:24 STATUS: JOHN REBerkley #: [id number] ES: 09/18/24 10:[address]: Wilfredo Arnold DEPT: [facility] Surgical RECD BY: Paco Bahena ENTERED: 09/18/24 11:24 SP TYPE: Surgical OTHR DR: Sumit Cool, Tissues: A - Colon Biopsy Procedures: Hematoxylin and Eosin Stain Gross and Microscopic Level 4
[2024-09-18 10:31] VITALS: BP 90/54; PULSE 69; RESP 17; O2SAT 98
[2024-09-18 10:41] VITALS: BP 106/59; PULSE 62; RESP 18; O2SAT 100
== END 2024-09-18 10:49 | disposition home or self-care (01) ==
PROVIDERS: PCP Internal Medicine; Visit Provider Internal Medicine Gastroenterology
PROC: 0DJD8ZZ Inspection of Lower Intestinal Tract, Via Natural or Artificial Opening Endoscopic (ICD-10-PCS; CPT 45378; principal; 2024-09-18 13:30)
DX: R93.3 Abnormal findings on diagnostic imaging of other parts of digestive tract (principal); K63.89 Other specified diseases of intestine; K52.89 Other specified noninfective gastroenteritis and colitis; K57.30 Diverticulosis of large intestine without perforation or abscess without bleeding; E03.9 Hypothyroidism, unspecified; E78.00 Pure hypercholesterolemia, unspecified; K21.9 Gastro-esophageal reflux disease without esophagitis; M81.0 Age-related osteoporosis without current pathological fracture; M35.9 Systemic involvement of connective tissue, unspecified; K82.9 Disease of gallbladder, unspecified; K50.90 Crohn's disease, unspecified, without complications; M35.00 Sjogren syndrome, unspecified; M19.90 Unspecified osteoarthritis, unspecified site; Z79.83 Long term (current) use of bisphosphonates; Z79.82 Long term (current) use of aspirin; Z98.890 Other specified postprocedural states; Z98.1 Arthrodesis status; Z86.711 Personal history of pulmonary embolism; Z87.19 Personal history of other diseases of the digestive system; Z82.49 Family history of ischemic heart disease and other diseases of the circulatory system
CPT/HCPCS: 45380; 88305; J2704; J7120

== ENCOUNTER 2025-01-07 21:19 | Emergency (ER) | payer MEDICARE, SELFPAY ==
--- NOTE | ~2025-01-07 | XR_ITS ---
X-rays right ankle X-rays right foot Indication: Pain, injury Comparison: None Technique: 2 views right ankle, 2 views right foot Findings/Impression: Right ankle: 1. No fracture or dislocation right ankle, given 2 view series Right foot: 1. No fracture or dislocation right foot, given 2 view series. 2. Bunion deformity. Reviewed, dictated and finalized at location R.
[2025-01-07 21:29] VITALS: BP 127/55; PULSE 95; RESP 18; TEMP 37.3; O2SAT 97
[2025-01-08 00:51] VITALS: BP 128/73; PULSE 79; RESP 18; O2SAT 97
--- OUTSIDE RECORDS SUMMARY | 2025-01-08 00:56 | XMS_ITS | Clinical Summary ---
Author Organization [facility] Address [address] [place] [address] Care Team Providers Care Residential Support Worker Name Role Phone Sumit Cool MD Primary Care Provider [phone] Allergies No known active allergies Medications budesonide-formote [...] THREE TIMES DAILY NEEDED Active nystatin (MYCOSTATIN) 638558 UNIT/ML suspension TAKE 5 ML BY MOUTH [...] Parkinson's disease without dyskinesia or fluctuating manifestations ([facility]) Take 1 tablet by mouth 3 (three) times daily. 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 Overview (08/27/2024): 2020 Chronic GERD 08/27/2024 Overview (08/27/2024): About 2000 Disorder of vitamin B12 08/27/2024 Depressive disorder 08/27/2024 Localized connective tissue disorder, unspecifie d 08/27/2024 Mitral valve disorder 08/27/2024 Osteopenia 08/27/2024 Pure hypercholesterolemia 08/27/2024 Sjogrens syndrome ([facility]) 08/27/2024 Overview (08/27/2024): 30 years Tremor of left hand 08/27/2024 Vitamin D deficiency 08/27/2024 Chest discomfort 07/06/2024 Tremor 06/25/2024 Influenza 05/17/2024 Senile osteoporosis 02/04/2024 Anemia 07/03/2023 Cobalamin deficiency 06/10/2023 Pleuritic pain 02/12/2023 Abnormal mammogram 01/30/2023 COVID-19 01/03/2023 Left wrist pain 07/24/2022 Abnormal weight loss 10/20/2021 Effects of high altitude 08/23/2021 Essential tremor 04/17/2021 Asthma ([facility]) 04/09/2019 Mild persistent asthma without complication ([facility]) 09/01/2018 Fatigue 10/16/2016 Hyperlipidemia 10/16/2016 Hypertension 10/16/2016 Impaired glucose tolerance 10/16/2016 Other forms of dyspnea 10/16/2016 Pulmonary embolism ([facility]) 10/02/2016 Chest pain 09/13/2016 Hypothyroidism (acquired) 08/21/2016 Overview (08/27/2024): About 2000 Other spondylosis, cervical region 08/21/2016 Spinal stenosis in cervical region 08/21/2016 Palpitation 08/21/2016 Sinus tachycardia 08/21/2016 Autoimmune disease ([facility]) 08/21/2016 Osteoarthrosis 09/20/2004 Resolved Problems Problem Noted Date Diagnosed Date Resolved Date Encounter for screening for cardiovascular disorders 07/06/2024 08/31/2024 Family History Medical History Relation Comments Diabetes [...] Sign Reading Time Taken Comments Blood Pressure 103/65 10/07/2024 10:41 AM CDT Pulse 73 10/07/2024 10:41 AM CDT Temperature 35.9 C (96.7 F) 10/07/2024 10:41 AM CDT Respiratory Rate 16 10/07/2024 10:41 AM CDT Oxygen Saturation 97% 10/07/2024 10:41 AM CDT ra Inhaled Oxygen Concentration - - Weight 48.1 kg (106 lb) 10/07/2024 10:41 AM CDT Height 154.9 cm (5' 1) 10/07/2024 10:41 AM CDT Body Mass Index 20.03 10/07/2024 10:41 AM CDT Plan of Treatment Upcoming Encounters Date Type Department Care Team (Late st Contact Info) Description 01/08/2025 10:40 AM CDT Office Visit [facility] - [address], [address] [place] [phone] Radha Contreras NP [address] [facility] [address] [place] [id number] Health Maintenance Due Date Last Done Comments Hepatitis C 10/23/1965 DTaP, Tdap and Td Vaccines (1 - Tdap) 10/23/1966 Zoster Vaccines (1 of 2) 10/23/1997 Annual Medicare Wellness Visit 10/23/2012 RSV Immunization or 60+ Years (1 - 1-dose 75+ series) 10/23/2022 COVID-19 Vaccine ( season) 2024 03/26/2022, 08/08/2021, 01/19/2021, Additional history exists Pneumococcal Vaccine: 50+ Years Completed 01/29/2017, 09/17/2014 Dexa Scan (General) Completed 08/28/2021, 08/28/2021, 06/29/2019, Additional history exists PHQ-2 (Physician [place]) Completed 08/27/2024 Meningococcal B Vaccine Aged Out No l onger eligible based on patient's age to complete this topic Meningococcal Vaccine Aged Out No aleja yu eligible based on patient's age to complete this topic RSV Immunizations Under 20 Months Aged Out No longer eligible based on patient's age to complete this topic Insurance [employer] Care Teams Residential Support Worker Relationship Specialty Start Date End Date Sumit Cool MD PCP - General INTERNAL MEDICINE 08/27/24
--- OUTSIDE RECORDS SUMMARY | 2025-01-08 00:56 | XMS_ITS | Clinical Summary ---
Author Organization [facility] Address [address] [place] [address] Phone Care Team Providers Care Contact Printer Dry Film Name Role Phone Unavailable Primary Care Provider [...] Encounters Date Type Department Care Team Description 12/22/2024 External Device Data [facility] ABSTRACTION Provider, Abstract 12/08/2024 External Device Data [facility] ABSTRACTION Provider, Abstract 11/04/2024 External Device Data [facility] ABSTRACTION Provider, Abstract 11/04/2024 External Device Data [facility] ABSTRACTION Provider, Abstract 11/04/2024 External Device Data [facility] ABSTRACTION Provider, Abstract 11/03/2024 External Device Data [facility] ABSTRACTION Provider, Abstract [...] Sex Assigned at Female 04/27/2024 12:34 PM CLINICAL SERVICES DIRECTOR Legal Sex Female 11:17 AM CLINICAL SERVICES DIRECTOR Gender Identity Female 04/27/2024 12:34 PM CLINICAL SERVICES DIRECTOR Sexual Orientation Straight 04/27/2024 12 :34 PM CLINICAL SERVICES DIRECTOR Last Filed Vital Signs Vital Sign Reading Time Taken Comments Blood Pressure 112/74 05/05/2024 1:48 PM CLINICAL SERVICES DIRECTOR Pulse - - Temperature 36.6 C (97.9 F) 05/05/2024 1:48 PM CLINICAL SERVICES DIRECTOR Respiratory Rate 16 05/05/2024 1:48 PM CLINICAL SERVICES DIRECTOR Oxygen Saturation - - Inhaled Oxygen Concentration - - Weight 50.8 kg (112 lb 1.6 oz) 05/05/2024 1:48 P M CLINICAL SERVICES DIRECTOR Height 154.9 cm (5' 1) 05/05/2024 1:48 PM CLINICAL SERVICES DIRECTOR Body Mass Index 21.18 05/05/2024 1:48 PM CLINICAL SERVICES DIRECTOR Plan of Treatment Health Maintenance Due Date Last Done Comments DTAP/TDAP/TD VACCINES (1 - Tdap) 10/23/1966 ZOSTER VACCINE (1 of 2) 10/23/1966 RSV VACCINE (60+ or ) (1 - 1-dose 75+ series) 10/23/2022 INFLUENZA VACCINE (#1) 2024 4, 01/15/2023, 01/19/2021, Additional history exists OSTEOPOROSIS SCREENING 02/05/2029 4, 08/28/2021, 08/28/2021, Additional history exists PNEUMOCOCCAL VACCINE 50+ YEARS Completed 01/29/2017 , 09/17/2014 Insurance [employer] PPO [facility]
--- OUTSIDE RECORDS SUMMARY | 2025-01-08 00:56 | XMS_ITS | Clinical Summary ---
Author Organization [facility] Address [address] [place] [address] Care Team Providers Care Tripe Washer Name Role Phone Sumit Cool MD Primary Care Provider [phone] Jared Cruz MD Unavailable Unavailable Dk Adams MD Unavailable Source Comments [facility],non-owned Affiliates and Associated Physician Practices is amultiple site organization consisting of ambulatory clinics and hospital sitesin [place], [place], [place] and [place]. This disclosure is being madepursuant to the Care Everywhere program and may not contain all information available regarding this patient. Last updated 18.[facility] Allergies No known active allergies Medications * [...] on file Legal Sex Female 12:40 PM COLLAR CUTTER Gender Identity Not on file Sexual Orientation [...] yrs (1 - 1-dose 75+ series) 10/23/2022 DEPRESSION SCREENING 04/22/2024 MEDICARE AWV CALENDAR YEAR 2024 COVID-19 VACCINE ( season) 2024 08/07/2021, 01/19/2021 INFLUENZA VACCINE (#1) 2024 , 04/28/2019, 02/14/2018, Additional history exists PNEUMOCOCCAL VACCINE [...] Osteoporosis = -2.5 and below *Reading Radiologist: Shail Peralta on 08/28/2021 at 12:30 PM Jared Cruz MD DEXA ORDERABLES Final Result from Last 3 Months or Most Recently Relevant to Health Maintenance Insurance [facility] MANAGED MEDICARE ADV [employer] MEDICARE ADV SELF PAY NO INSURANCE Member Subscriber Plan / Payer (Ef fective for All Dates) Name:Génesis Condon Member ID:Not on file Relation to Subscriber:Not on file Name:GÉNESIS CONDON Subscriber ID:Not on file (Home) Address: [address] [place] [id number] Payer ID:Not on file Group ID:Not on file Type:Self Pay Address: [place], [place] Care Teams Tripe Washer Relationship Specialty Start Date End Date Sumit Cool MD [address] [place] [address] [address] [place] [address] PCP - General Internal Medicine 05/03/17 Jared Cruz MD [address] [place] [address] [address] [place] [address] Rheumatology 06/02/18 [place] [id number] [address] Pulmonary Disease 06/02/18
[2025-01-08] MEDS: HYDROcodone/acetaminophen (*CRX) 5-325 MG TABLET 1 TAB (02:05)
[2025-01-08 04:29] VITALS: BP 127/73; PULSE 81; RESP 18; O2SAT 99
== END 2025-01-08 04:30 | disposition home or self-care (01) ==
LOC: ANHED 01-08 00:54
PROVIDERS: Emergency Provider Physician Assistant; PCP Internal Medicine
DX: S96.911A Strain of unspecified muscle and tendon at ankle and foot level, right foot, initial encounter (principal); G20.A1 Parkinson's disease without dyskinesia, without mention of fluctuations; M06.9 Rheumatoid arthritis, unspecified; M81.0 Age-related osteoporosis without current pathological fracture; M35.00 Sjogren syndrome, unspecified; M35.2 Behcet's disease; M21.611 Bunion of right foot; X58.XXXA Exposure to other specified factors, initial encounter
CPT/HCPCS: 73600; 73620; 99283; A9270